=== PATIENT | female | born 1970 | race Caucasian/White ===

== ENCOUNTER 2024-02-22 14:21 | Emergency (ER) | payer OTHER, SELFPAY ==
[2024-02-22] VITALS (18 sets, daily range): BP systolic 119–167; BP diastolic 76–99; PULSE 64–99; TEMP 37; O2SAT 95–99; BMI 29.0
--- NOTE | 2024-02-22 14:34 | ECG_ITS ---
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
--- NOTE | 2024-02-22 14:35 | ED_ITS ---
HPI - Arrhythmia/Palpitations General Chief Complaint: Arrhythmia/Palpitations Stated Complaint: POSSIBLE AFIB Time Seen by Provider: 02/22/24 14:31 Source: patient Mode of arrival: walk-in Limitations: no limitations History of Present Illness HPI narrative: Patient is a 53-year-old female who presents to the emergency department for the evaluation of palpitations that began yesterday. Patient states she feels anxious because she went to her doctor's office yesterday and was told that her heart rate was irregular . She denies chest pain, shortness of breath, peripheral edema. She denies any significant excessive caffeine consumption. She has not had any fevers, chills, cough, congestion. She has a history of hypertension, no other coronary artery disease or stroke. Her PCP did not order any further testing other than telling the patient she had an irregular heartbeat. Related Data Allergies Allergy/AdvReac Type Severity Reaction Status Date / Time Sulfa (Sulfonamide Allergy Severe Hives Verified 02/22/24 14:27 Antibiotics) Review of Systems ROS Constitutional Denies: fever or chills Ears, nose, mouth, and throat Denies: throat pain Cardiovascular Reports: palpitations; Denies: chest pain Respiratory Denies: shortness of breath or cough Gastrointestinal Denies: nausea or vomiting Musculoskeletal Denies: back pain Integumentary/Breast Denies: rash Hematologic/Lymphatic Denies: easy bruising or easy bleeding Exam Narrative Exam Narrative: Gen.: Awake, alert, in no distress Head: Normocephalic, atraumatic ENT: Moist mucous membranes Respiratory: No respiratory distress, lungs clear bilaterally Cardio: Regular rate and rhythm, occasional ectopy Extremities: Moves extremities equally, no pedal edema Psych: Normal mood and affect Neuro: No focal neuro deficit Skin: Warm, dry, intact Constitutional Vital Signs, click to edit/add: Last Vital Signs Temp 98.6 F 02/22/24 14:27 Pulse 86 02/22/24 15:20 Resp 15 02/22/24 15:20 BP 119/76 02/22/24 15:01 Pulse Ox 98 02/22/24 15:20 O2 Del Method Room Air 02/22/24 14:32 Course Vital Signs Vital signs: Vital Signs Temperature 98.6 F 02/22/24 14:27 Pulse Rate 64 02/22/24 14:27 Respiratory Rate 18 02/22/24 14:27 Blood Pressure 167/99 H 02/22/24 14:27 Pulse Oximetry 98 02/22/24 14:27 Oxygen Delivery Method Room Air 02/22/24 14:27 Temperature 98.6 F 02/22/24 14:27 Pulse Rate 86 02/22/24 15:20 Respiratory Rate 15 02/22/24 15:20 Blood Pressure 119/76 02/22/24 15:01 Pulse Oximetry 98 02/22/24 15:20 Oxygen Delivery Method Room Air 02/22/24 14:32 MDM - Arrhythmia/Palpitations MDM Narrative Medical decision making narrative: EG shows normal sinus rhythm with PVCs. Patient was given education and reassurance that she is not in A-fib. Lab studies including troponin, D-dimer and BNP are within normal limits. Thyroid studies are also normal and chest x- ray shows no evidence of acute cardiopulmonary changes. Patient was discharged with cardiology follow-up if symptoms persist. Return to the ER if symptoms change or worsen SUPERVISED APC VISIT, PHYSICIAN ATTESTATION: Based on the medical record the care appears appropriate. ? Medical Records Attestation: I reviewed the patient's medical records. Lab Data Attestation: I reviewed the patient's lab results. Labs: Lab Results 02/22/24 Range/Units 14:38 WBC 7.1 (4.0-11.0) 10^3/uL RBC 4.48 (4.20-5.40) 10^6/uL Hgb 14.4 (12.0-16.0) g/dL Hct 42.3 (36.0-48.0) % MCV 94.4 (81.0-99.0) fL MCH 32.1 (26.7-34.0) pg MCHC 34.0 (29.9-35.2) g/dL RDW 13.2 (11.0-15.0) % Plt Count 230 (150-450) 10^3/uL MPV 10.0 (9.5-13.5) fL Neut % (Auto) 60.7 (43.0-75.0) % Lymph % (Auto) 30.5 (20.5-60.0) % [place]y % (Auto) 7.4 (1.7-12.0) % Eos % (Auto) 0.7 L (0.9-7.0) % Baso % (Auto) 0.4 (0.2-2.0) % Neut # (Auto) 4.3 (1.4-6.5) 10^3/uL Lymph # (Auto) 2.2 (1.2-3.8) 10^3/uL [place]y # (Auto) 0.5 (0.3-0.8) 10^3/uL Eos # (Auto) 0.1 (0.0-0.7) 10^3/uL Baso # (Auto) 0.0 (0.0-0.1) 10^3/uL Abs Immat Gran (auto) 0.02 (0.00-0.03) 10^3/uL Imm/Tot Granulo (auto) 0.3 (0.0-0.5) % PT 10.3 (9.0-11.6) sec INR 0.97 D-Dimer 0.37 (<=0.59) mg/L FEU Sodium 138 (136-145) mmol/L Potassium 4.0 (3.5-5.1) mmol/L Chloride 103 (98-107) mmol/L Carbon Dioxide 26.5 (21.0-32.0) mmol/L Anion Gap 12.5 BUN 14.0 (7.0-18.0) mg/dL Creatinine 0.75 (0.55-1.02) mg/dL Est GFR ( Amer) >60 (>=60) Est GFR (Non-Af Amer) >60 (>=60) BUN/Creatinine Ratio 18.7 Glucose 110 H (74-106) mg/dL Calcium 9.8 (8.5-10.1) mg/dL Total Bilirubin 0.4 (0.2-1.0) mg/dL AST 31 (15-37) U/L ALT 33 (14-59) U/L Alkaline Phosphatase 102 (46-116) U/L Troponin I High Sens 4.6 (4.0-51.3) pg/mL NT-Pro-B Natriuret Pep 46.0 (<=900.0) pg/mL Total Protein 8.1 (6.4-8.2) g/dL Albumin 4.2 (3.4-5.0) g/dL Globulin 3.9 g/dL Albumin/Globulin Ratio 1.1 TSH 3.143 (0.358-3.740) uIU/mL Imaging Data Chest x-ray: Attestation: I have reviewed the pertinent imaging results. Radiologist's impression: ITS Impressions Chest X-Ray 02/22/24 15:28 IMPRESSION: No acute cardiopulmonary process Electronically authenticated by: LYSSA PALOMO Date: 02/22/2024 16:11 ECG Data Attestation: I personally reviewed and interpreted this ECG as follows: (Normal sinus rhythm at a rate of 96 with frequent PVCs, no acute ST elevation. EKG reviewed by attending physician) Discharge Plan Discharge Stand Alone Forms: Portal Instructions Chief Complaint: Arrhythmia/Palpitations Clinical Impression: Palpitations Patient Disposition: Home, Self-Care Time of Disposition Decision: 16:20 Condition: Good Print Language: Faroese Instructions: Heart Palpitations (ED), Premature Ventricular Contractions (ED) Referrals: Ritu Eng NP [Primary Care Provider] - 1 week YAZMIN MURRY [Physician] - As needed
[2024-02-22] MEDS: 0.9 % SODIUM CHLORIDE 1,000 ML 999 ML IV (14:45)
[2024-02-22 14:49] LABS: Basophils Percent Auto 0.4 % (0.2-2.0); Eosinophils Absolute Auto 0.1 10^3/uL (0.0-0.7); Eosinophils Percent Auto 0.7 % (0.9-7.0); Hematocrit 42.3 % (36.0-48.0); Hemoglobin 14.4 g/dL (12.0-16.0); Immature Granulocytes Abs Auto 0.02 10^3/uL (0.00-0.03); Immature Granulocytes Pct Auto 0.3 % (0.0-0.5); Lymphocytes Absolute Auto 2.2 10^3/uL (1.2-3.8); Lymphocytes Percent Auto 30.5 % (20.5-60.0); Mean Corpuscular Hemoglobin 32.1 pg (26.7-34.0); Mean Corpuscular Volume 94.4 fL (81.0-99.0); Monocytes Absolute Auto 0.5 10^3/uL (0.3-0.8); Monocytes Percent Auto 7.4 % (1.7-12.0); Neutrophils Absolute Auto 4.3 10^3/uL (1.4-6.5); Neutrophils Percent Auto 60.7 % (43.0-75.0); Platelet Count 230 10^3/uL (150-450); Red Blood Count 4.48 10^6/uL (4.20-5.40); Red Cell Distribution Width 13.2 % (11.0-15.0); White Blood Count 7.1 10^3/uL (4.0-11.0)
[2024-02-22 15:06] LABS: Alanine Aminotransferase 33 U/L (14-59); Albumin Globulin Ratio 1.1; Albumin Level 4.2 g/dL (3.4-5.0); Alkaline Phosphatase 102 U/L (46-116); Anion Gap 12.5; Aspartate Amino Transferase 31 U/L (15-37); BUN Creatinine Ratio 18.7; Bilirubin Total 0.4 mg/dL (0.2-1.0); Calcium 9.8 mg/dL (8.5-10.1); Carbon Dioxide 26.5 mmol/L (21.0-32.0); Chloride 103 mmol/L (98-107); Estimated GFR (African America >60 (>=60); Estimated GFR (Non-African Ame >60 (>=60); Globulin 3.9 g/dL; Glucose 110 mg/dL (74-106); Sodium 138 mmol/L (136-145); Total Protein 8.1 g/dL (6.4-8.2)
[2024-02-22 15:13] LABS: Thyroid Stimulating Hormone 3.143 uIU/mL (0.358-3.740); Troponin I High Sensitivity 4.6 pg/mL (4.0-51.3)
[2024-02-22 15:25] LABS: D Dimer 0.37 mg/L FEU (<=0.59); INR 0.97; Prothrombin Time 10.3 sec (9.0-11.6)
--- NOTE | 2024-02-22 15:28 | XR_ITS ---
The [address] [address] Patient Name: VILMA RICHARDSON MRN: [id number] date: 1970 Sex: F Assigned Patient Location: ER Current Patient Location: ED.MAIN Accession/Order Number: [id number] Exam Date: 02/22/2024 15:30 Report Date: 02/22/2024 16:11 At the request of: ELISABET TERRY Procedure: XR chest 1V EXAMINATION: XR chest 1V HISTORY: Palpitations COMPARISON: No relevant comparison available. TECHNIQUE: Portable FINDINGS: LUNGS: No significant pulmonary parenchymal abnormalities. VASCULATURE: No increased pulmonary vasculature. PLEURA: No pneumothorax, effusion, or pleural thickening. CARDIAC: No cardiomegaly or cardiac silhouette abnormality. MEDIASTINUM: No visible mass or adenopathy. BONES: No fracture or visible bone lesion. OTHER: Negative. XR/XR chest 1V IMPRESSION: No acute cardiopulmonary process Electronically authenticated by: LYSSA PALOMO Date: 02/22/2024 16:11
== END 2024-02-22 16:32 | disposition home or self-care (01) ==
PROVIDERS: Physician Assistant; Emergency Provider Student in an Organized Health Care Education/Training Program; PCP Nurse Practitioner
DX: R00.2 Palpitations (principal); I10 Essential (primary) hypertension
CPT/HCPCS: 36415; 71045; 80053; 83880; 84443; 84484; 85025; 85378; 85610; 93005; 99285

== ENCOUNTER 2024-03-13 10:51 | Outpatient (OUT) | payer OTHER, SELFPAY ==
--- NOTE | 2024-03-13 10:58 | MM_ITS ---
Patient Name: VILMA RICHARDSON MR#: [id number] : 1970 Exam Date: 03/13/2024 Ordering Doctor: GUZMAN Eng CNP RADIOLOGY REPORT PROCEDURE: MM TOMOSYNTHESIS SCREENING BI COMPARISON: MG MAMM SCREEN 3D AARON CAD, 06/07/2021. MG MAMM SCREEN 3D AARON CAD, 07/12/2022. INDICATIONS: Screening Calculator Name NCI Breast Cancer Risk Assessment Tool 5 Year Breast Cancer Risk 0.80% Lifetime Breast Cancer Risk 6.20% Personal Breast Cancer No Personal Ovarian Cancer No Treatments None Family Cancers Grandmother-maternal with breast cancer at age 53. LOCATION: [facility] BREAST COMPOSITION: The breasts are heterogeneously dense,which may obscure small masses. FINDINGS: DIAGNOSTIC CATEGORY 2--BENIGN FINDING. NO CHANGE FROM COMPARISON. Scattered benign-appearing nodules are present. Scattered benign-appearing calcifications are present. Scattered benign-appearing lymph nodes are present. RIGHT BREAST: No significant suspicious finding. LEFT BREAST: No significant suspicious finding. RECOMMENDATIONS: ROUTINE MAMMOGRAM AND CLINICAL EVALUATION IN 12 MONTHS. PLEASE NOTE: A NORMAL MAMMOGRAM DOES NOT EXCLUDE THE POSSIBILITY OF BREAST CANCER. A CLINICALLY SUSPICIOUS PALPABLE LUMP SHOULD BE BIOPSIED. Dictated by: Seth Mary MD on 03/13/2024 at 12:06 Approved by: Seth Mary MD on 03/13/2024 at 12:15
[2024-03-13 11:31] LABS: Basophils Percent Auto 0.7 % (0.2-2.0); Eosinophils Absolute Auto 0.2 10^3/uL (0.0-0.7); Eosinophils Percent Auto 4.1 % (0.9-7.0); Hematocrit 39.9 % (36.0-48.0); Hemoglobin 13.7 g/dL (12.0-16.0); Immature Granulocytes Abs Auto 0.01 10^3/uL (0.00-0.03); Immature Granulocytes Pct Auto 0.2 % (0.0-0.5); Lymphocytes Absolute Auto 1.6 10^3/uL (1.2-3.8); Lymphocytes Percent Auto 28.5 % (20.5-60.0); Mean Corpuscular HGB Conc 34.3 g/dL (29.9-35.2); Mean Corpuscular Hemoglobin 32.4 pg (26.7-34.0); Mean Corpuscular Volume 94.3 fL (81.0-99.0); Mean Platelet Volume 9.8 fL (9.5-13.5); Monocytes Absolute Auto 0.4 10^3/uL (0.3-0.8); Monocytes Percent Auto 7.2 % (1.7-12.0); Neutrophils Absolute Auto 3.3 10^3/uL (1.4-6.5); Neutrophils Percent Auto 59.3 % (43.0-75.0); Platelet Count 237 10^3/uL (150-450); Red Blood Count 4.23 10^6/uL (4.20-5.40); Red Cell Distribution Width 13.4 % (11.0-15.0); White Blood Count 5.6 10^3/uL (4.0-11.0)
[2024-03-13 12:04] LABS: Creatinine Urine Random 113.32 mg/dL (20.00-300.00); Microalbumin Urine Random <1.3 mg/dL (<=30.0)
[2024-03-13 12:37] LABS: Bilirubin Urine NEGATIVE (NEGATIVE); Blood Urine NEGATIVE (NEGATIVE); Clarity Urine CLEAR (CLEAR); Color Urine YELLOW (YELLOW); Glucose Urine UA NEGATIVE (NEGATIVE); Ketones Urine NEGATIVE (NEGATIVE); Leukocyte Esterase Urine NEGATIVE (NEGATIVE); Nitrite Urine NEGATIVE (NEGATIVE); Protein Urine NEGATIVE (NEG/TRACE); Specific Gravity Urine >=1.030 (1.005-1.025); Urobilinogen Urine 0.2 EU/dL (0.2-1.0); pH Urine 5.5 (5.0-9.0)
[2024-03-13 12:45] LABS: Urine Microscopic Indicated NO
[2024-03-13 13:14] LABS: Alanine Aminotransferase 40 U/L (14-59); Albumin Globulin Ratio 1.1; Alkaline Phosphatase 89 U/L (46-116); Anion Gap 16.7; Aspartate Amino Transferase 36 U/L (15-37); BUN Creatinine Ratio 13.9; Bilirubin Total 0.5 mg/dL (0.2-1.0); Calcium 9.3 mg/dL (8.5-10.1); Chloride 103 mmol/L (98-107); Chol HDL Ratio 3.1; Cholesterol 210 mg/dL (<=200); Estimated GFR (African America >60 (>=60); Estimated GFR (Non-African Ame >60 (>=60); Globulin 3.8 g/dL; Glucose 108 mg/dL (74-106); HDL Cholesterol 68 mg/dL (40-60); Potassium 3.7 mmol/L (3.5-5.1); Sodium 141 mmol/L (136-145); Total Protein 7.8 g/dL (6.4-8.2); Triglycerides 179 mg/dL (<=150); VLDL CHOLESTEROL 35.8 mg/dL
== END 2024-03-13 10:52 | disposition home or self-care (01) ==
LOC: MAMMO 10:51
PROVIDERS: PCP Nurse Practitioner; Visit Provider Nurse Practitioner
DX: Z12.31 Encounter for screening mammogram for malignant neoplasm of breast (principal); J43.2 Centrilobular emphysema; E78.2 Mixed hyperlipidemia; I10 Essential (primary) hypertension; Z80.3 Family history of malignant neoplasm of breast
CPT/HCPCS: 36415; 77063; 77067; 80053; 80061; 81003; 82043; 82570; 85025

== ENCOUNTER 2024-06-18 12:36 | Outpatient (OUT) | payer OTHER, SELFPAY ==
--- OUTSIDE RECORDS SUMMARY | 2024-06-18 12:42 | XMS_ITS | CCD ---
Author Organization [facility] Care Team Providers Care Installation Service Representative Name Role Phone CASEY SAAVEDRA MD Unavailable Unavailable UNASSIGNED, DOCTOR Unavailable Unavailable CASEY SAAVEDRA MD Unavailable Unavailable UNASSIGNED, DOCTOR Unavailable Unavailable PHYSICIAN, DEFAULT Unavailable Unavailable PHYSICIAN, DEFAULT Unavailable Unavailable SHENDGE, VITHAL Unavailable Unavailable SHENDGE, VITHAL Unavailable Unavailable ERIC, GUALBERTO Unavailable Unavailable ERIC, GUALBERTO Unavailable Unavailable AK Unavailable Unavailable SHENDGE, VITHAL Unavailable Unavailable AK Unavailable Unavailable YAJAIRA MUÑIZ Unavailable Unavailable SHENDGE, VITHAL Unavailable Unavailable SHENDGE, VITHAL Unavailable Unavailable ERIC, GUALBERTO Unavailable Unavailable ERIC, GUALBERTO Unavailable Unavailable SHENDGE, VITHAL Unavailable Unavailable AK Unavailable Unavailable SONIA COBB Unavailable Unavailable AK Unavailable Unavailable AICHHOLZ, COMMUNITY DEVELOPMENT WORKER RITU Attending Unavailable AICHHOLZ, COMMUNITY DEVELOPMENT WORKER RITU Consulting Unavailable AICHHOLZ, COMMUNITY DEVELOPMENT WORKER RITU Primary Care Unavailable AICHHOLZ, COMMUNITY DEVELOPMENT WORKER RITU Admitting Unavailable AICHHOLZ, COMMUNITY DEVELOPMENT WORKER RITU Admitting Unavailable AICHHOLZ, COMMUNITY DEVELOPMENT WORKER RITU Attending Unavailable AICHHOLZ, COMMUNITY DEVELOPMENT WORKER RITU Consulting Unavailable AICHHOLZ, COMMUNITY DEVELOPMENT WORKER RITU Primary Care Unavailable DR JANN DOUGHERTY Consulting Unavailable AICHHOLZ, COMMUNITY DEVELOPMENT WORKER RITU Admitting Unavailable AICHHOLZ, COMMUNITY DEVELOPMENT WORKER RITU Attending Unavailable AICHHOLZ, COMMUNITY DEVELOPMENT WORKER RITU Consulting Unavailable AICHHOLZ, COMMUNITY DEVELOPMENT WORKER RITU Primary Care Unavailable AICHHOLZ, COMMUNITY DEVELOPMENT WORKER RITU Admitting Unavailable AICHHOLZ, COMMUNITY DEVELOPMENT WORKER RITU Attending Unavailable AICHHOLZ, COMMUNITY DEVELOPMENT WORKER RITU Consulting Unavailable AICHHOLZ, COMMUNITY DEVELOPMENT WORKER RITU Primary Care Unavailable AICHHOLZ, COMMUNITY DEVELOPMENT WORKER RITU Attending Unavailable AICHHOLZ, COMMUNITY DEVELOPMENT WORKER RITU Consulting Unavailable AICHHOLZ, COMMUNITY DEVELOPMENT WORKER RITU Primary Care Unavailable AICHHOLZ, COMMUNITY DEVELOPMENT WORKER RITU Admitting Unavailable DR JANN DOUGHERTY Consulting Unavailable AICHHOLZ, RITU J Primary Care Unavailable JERRELL LOPEZ Attending Unavailable MARTINNANCY Paco Admitting Unavailable LYSSA RALPH Consulting Unavailable JHON LYONS Consulting Unavailable JERRELL LOPEZ Attending Unavailable JERRELL LOPEZ Referring Unavailable RITU ENG Primary Care Unavailable JOHN LYONS Attending Unavailable JHON LYONS Referring Unavailable RITU ENG Primary Care Unavailable Albertina PINO, Ritu Unavailable Unallocated , Noms Provider Primary Care Provi song RITU ENG Attending Unavailable RITU ENG Attending Unavailable Allergies Allergy Classification Reported Allergen(s) Allergy Type Date of Onset Reaction(s) Facility (1 source) NKA; Translations: [NKA] Propensity to adverse reactions (disorder) 7 [facility] Repository (1 source) No Known Allergies; Translations: [No Known Allergies] Propensity to adverse reactions (disorder) [facility] Repository (1 source) metaproterenol Drug Allergy 7 [facility] Repository (1 source) Sulfonamides (Antibiotic); Translations: [SULFA (SULFONAMIDE ANTIBIOTICS)] Propensity to adverse reactions to drug (disorder) 2 [facility] Repository (3 sources) metaproterenol Drug Allergy 4 Unknown [facility] Healthcare Work Phone: (3 sources) Sulfonamides (Antibiotic) Drug Intolerance 2 Hives [facility] Healthcare Medications Current Medications Medication Drug Class(es) Dates Sig (Normalized) Sig (Original) [id number] 200 actuat albuterol 0.09 mg/actuat metered dose inhaler (3 sources) beta2-Adrenergic Agonist Start: 05-07-2024 End: 08-05-2024 take 2 puff(s) by inhalation every six hours for wheezing albuterol HFA 90 mcg/act inhaler Indications: Centrilobular emphysema (CMS/HCC) Inhale 2 puffs every 6 (six) hours if needed for wheezing 54 g 05/07/2024 08/05/2024 Active cetirizine hydrochloride 10 mg oral tablet (3 sources) Histamine-1 Receptor Antagonist Start: 04-16-2024 End: 07-15-2024 take 1 tablet by mouth once daily cetirizine (ZyrTEC) 10 MG tablet Indications: Urticaria, unspecified , Urticaria Take 1 tablet (10 mg) by mouth Daily 90 tablet 1 04/16/2024 07/15/2024 Active gabapentin 300 mg oral capsule (5 sources) Anti-epileptic Agent Start: 02-27-2024 End: 09-03-2024 take 1 capsule by mouth once daily gabapentin (Neurontin) 300 MG capsule Indications: Fibromyalgia Take 1 capsule (300 mg) by mouth Daily 90 capsule 1 06/05/2024 09/03/2024 Active hydroCHLOROthiazide 12.5 mg / lisinopril 20 mg oral tablet (3 sources) Thiazide Diuretic, Angiotensin Converting Enzyme Inhibitor Start: 04-09-2024 End: 07-08-2024 take 1 tablet by mouth in the morning lisinopril-hydroCH LOROthiazide 20-12.5 MG tablet Indications: Primary hypertension (CMS/HCC) Take 1 tablet by mouth in the morning. 90 tablet 1 04/09/2024 07/08/2024 Active simvastatin 40 mg oral tablet (3 sources) HMG-CoA Reductase Inhibitor Start: 04-09-2024 End: 07-08-2024 take 1 tablet by mouth at bedtime simvastatin (Zocor) 40 MG tablet Indications: Mixed hyperlipidemia (CMS/HCC) Take 1 tablet (40 mg) by mouth at bedtime 90 tablet 1 04/09/2024 07/08/2024 Active Problems Active Problems Problem Classification Problem Date Documented Date Episodic/Chronic Acute cerebrovascular disease (1 source) Acute cerebrovascular disease Onset: 10-05-2023 Alcohol-related disorders (1 source) Alcohol use, unspecified with intoxication delirium; Translations: [Alcohol use, unspecified with intoxication delirium] Onset: 10-05-2023 Episodic Cardiac dysrhythmias (5 sources) Irregular heart beat; Translations: [Cardiac arrhythmia, unspecified] Onset: 02-22-2024 02-22-2024 Chronic Chronic obstructive pulmonary disease and bronchiectasis (10 sources) Emphysema, unspecified; Translations: [Chronic obstructive pulmonary disease with (acute) exacerbation] Onset: 08-09-2021 Chronic Diabetes mellitus without complication (3 sources) Increased glucose level; Translations: [Other abnormal glucose] Onset: 03-13-2024 03-13-2024 Episodic Disorders of lipid metabolism (7 sources) Mixed hyperlipidemia; Translations: [Mixed hyperlipidemia] Onset: 06-14-2022 Chronic Essential hypertension (7 sources) Essential (primary) hypertension; Translations: [Essential hypertension] Onset: 07-14-2017 08-05-2023 Chronic Heart valve disorders (2 sources) Irregular heart beat 06-05-2024 Episodic Immunizations and screening for infectious disease (4 sources) Needs influenza immunization; Translations: [Encounter for immunization] Onset: 06-05-2024 06-05-2024 Episodic Osteoarthritis (5 sources) Unilateral primary osteoarthritis, left hip; Translations: [Primary osteoarthritis, left shoulder] Onset: 09-24-2021 02-22-2024 Chronic Other connective tissue disease (5 sources) Fibromyalgia; Translations: [Fibromyalgia] Onset: 02-22-2024 02-22-2024 Episodic Other nervous system disorders (8 sources) Carpal tunnel syndrome, left upper limb; Translations: [Carpal tunnel syndrome, right upper limb] Onset: 07-14-2017 Chronic Other screening for suspected conditions (not mental disorders or infectious disease) (16 sources) Encounter for screening mammogram for malignant neoplasm of breast; Translations: [Encounter for screening for malignant neoplasm of cervix] Onset: 04-11-2022 Episodic Other upper respiratory disease (3 sources) Allergic disposition; Translations: [Other allergic rhinitis] Onset: 10-05-2023 10-05-2023 Chronic Residual codes; unclassified (1 source) Family history of malignant neoplasm of breast; Translations: [FAMILY HX MALIG NEOPLASM OF BREAST] Onset: 07-16-2022 Episodic Residual codes; unclassified (1 source) Altered mental status, unspecified; Translations: [Altered mental status, unspecified] Onset: 10-05-2023 Episodic Residual codes; unclassified (1 source) Altered mental status Onset: 10-05-2023 Episodic Substance-related disorders (1 source) Nicotine dependence, cigarettes, uncomplicated; Translations: [NICOTINE DEPENDENCE, CIGARETTES, UNCOMPLICATED] Onset: 07-14-2017 Chronic Unclassified (1 source) Dermatochalasis of right upper eyelid / H02.831(ICD-10) Onset: 11-23-2017 Unclassified (1 source) Dermatochalasis of left upper eyelid / H02.834(ICD-10) Onset: 11-23-2017 Unclassified (2 sources) Unknown / UNK(Unknown) Onset: 07-14-2017 Unclassified (1 source) Pure hypercholesterolemia, unspecified; Translations: [PURE HYPERCHOLESTEROLEMIA, UNSPECIFIED] Onset: 07-14-2017 Unclassified (1 source) AMS Onset: 10-05-2023 Past or Other Problems Problem Classification Problem Date Documented Date Episodic/Chronic Epilepsy; convulsions (4 sources) Unspecified convulsions; Translations: [Neurological finding] Onset: 10-05-2023 02-22-2024 Episodic Other connective tissue disease (3 sources) Pain of bilateral hands; Translations: [Pain in right hand] Onset: 05-19-2017 02-22-2024 Episodic Other non-traumatic joint disorders (4 sources) Pain in left shoulder; Translations: [PAIN IN LEFT SHOULDER] Onset: 09-20-2021 Episodic Other non-traumatic joint disorders (1 source) Pain in left hip; Translations: [PAIN IN LEFT HIP] Onset: 09-24-2021 Episodic Other non-traumatic joint disorders (1 source) Pain in left knee; Translations: [PAIN IN LEFT KNEE] Onset: 09-24-2021 Episodic Unclassified (1 source) Dermatochalasis of right upper eyelid; Translations: [Dermatochalasis of right upper eyelid] Onset: 11-23-2017 Unclassified (1 source) Dermatochalasis of left upper eyelid; Translations: [Dermatochalasis of left upper eyelid] Onset: 11-23-2017 Unclassified (2 sources) Patient encounter status 06-05-2024 Results Test Name Value Interpretation Reference Range Facility AMMONIAon 10-05-2023 Ammonia (P) [Moles/Vol] 30 umol/L Normal 11-[address] [facility] Comment on above: Performed By: #### 1 6362-6 #### [facility] ([id number]) [address] [place] [address] CBC AND AUTO DIFFon 10-05-19 24 ABSOLUTE BASOPHIL 0.1 X10E9/L Normal 0.0-0.2 [facility] Comment on above: Performed By: #### C BCA, CMP, 55788-5, 03862-2, 5643-2 #### [facility] ([id number]) [address] [place] [address] ABSOLUTE NEUTROPHIL 3.8 X10E9/L Normal 1.5-6.[address] [facility] Comment on above: Performed By: #### C BCA, CMP, 80995-1, 10311-2, 5643-2 #### [facility] ([id number]) [address] [place] [address] Basophils/100 WBC (Bld) 0.7 % Normal [facility] Comment on above: Performed By: #### C BCA, CMP, 58975-7, 45912-7, 5643-2 #### [facility] ([id number]) [address] [place] [address] Eosinophils (Bld) [#/Vol] 0.1 10*3/uL Normal 0.0-0.[address] [facility] Comment on above: Performed By: #### C BCA, CMP, 57027-6, 87472-0, 5643-2 #### [facility] ([id number]) [address] [place] [address] Eosinophils/100 WBC (Bld) 0.9 % Normal [facility] Comment on above: Performed By: #### C BCA, CMP, 56901-0, 45396-3, 5643-2 #### [facility] ([id number]) [address] [place] [address] Erythrocyte distribution width (RBC) [Ratio] 13.1 % Normal 11.5-15.[address] [facility] Comment on above: Performed By: #### C BCA, CMP, 64401-9, 00259-4, 5643-2 #### [facility] ([id number]) [address] [place] [address] Hematocrit (Bld) [Volume fraction] 38.5 % Normal 35-[address] [facility] Comment on above: Performed By: #### C BCA, CMP, 46039-5, 56752-7, 5643-2 #### [facility] ([id number]) [address] [place] [address] Hemoglobin (Bld) [Mass/Vol] 13.5 g/dL Normal 11.7-15.[address] [facility] Comment on above: Performed By: #### C SANDRO CMP, 72390-5, 22980-6, 5643-2 #### [facility] ([id number]) [address] [place] [address] Lymphocytes (Bld) [#/Vol] 2.5 10*3/uL Normal 1.0-3.[address] [facility] Comment on above: Performed By: #### C SANDRO, CMP, 00214-6, 74885-7, 5643-2 #### [facility] ([id number]) [address] [place] [address] Lymphocytes/100 WBC (Bld) 36.9 % Normal [facility] Comment on above: Performed By: #### Vernon JO CMP, 20849-8, 91248-4, 5643-2 #### [facility] ([id number]) [address] [place] [address] MCH (RBC) [Entitic mass] 32.6 pg Normal 27-[address] [facility] Comment on above: Performed By: #### C SANDRO CMP, 68160-2, 33947-1, 5643-2 #### [facility] ([id number]) [address] [place] [address] MCHC (RBC) [Mass/Vol] 35.1 g/dL Normal 32-[address] [facility] Comment on above: Performed By: #### C BCA, CMP, 06424-9, 87713-8, 5643-2 #### [facility] ([id number]) [address] [place] [address] MCV (RBC) [Entitic vol] 93 fL Normal 80-[address] [facility] Comment on above: Performed By: #### C BCA, CMP, 55552-2, 74465-6, 5643-2 #### [facility] ([id number]) [address] [place] [address] Monocytes (Bld) [#/Vol] 0.4 10*3/uL Normal 0-0.[address] [facility] Comment on above: Performed By: #### C BCA, CMP, 87065-8, 34475-8, 5643-2 #### [facility] ([id number]) [address] [place] [address] Monocytes/100 WBC (Bld) 6.3 % Normal [facility] Comment on above: Performed By: #### C BCA, CMP, 00359-7, 52199-8, 5643-2 #### [facility] ([id number]) [address] [place] [address] Neutrophils/100 WBC (Bld) 55.2 % Normal [facility] Comment on above: Performed By: #### C BCA, CMP, 74814-5, 10437-0, 5643-2 #### [facility] ([id number]) [address] [place] [address] Platelet mean volume (Bld) [Entitic vol] 7.8 fL Normal 7-[address] [facility] Comment on above: Performed By: #### C BCA, CMP, 41377-7, 79197-7, 5643-2 #### [facility] ([id number]) [address] [place] [address] Platelets (Bld) [#/Vol] 201 10*3/uL Normal 150-[address] [facility] Comment on above: Performed By: #### C BCA, CMP, 68685-1, 00803-4, 5643-2 #### [facility] ([id number]) [address] [place] [address] RBC COUNT 4.14 X10E12/L Normal 3.80-5.[address] [facility] Comment on above: Performed By: #### C BCA, CMP, 37069-0, 98321-9, 5643-2 #### [facility] ([id number]) [address] [place] [address] WBC (Bld) [#/Vol] 6.8 10*3/uL Normal 4.0-11.0 [facility] Comment on above: Performed By: #### C BCA, CMP, 72192-2, 27237-7, 5643-2 #### [facility] ([id number]) [address] [place] [address] COMPREHENSIVE METABOLIC PANE Syed 10-05-2023 Albumin [Mass/Vol] 3.9 g/dL Normal 3.2-5.3 [facility] Comment on above: Performed By: #### C BCA, CMP, 96162-2, 47091-4, 5643-2 #### [facility] ([id number]) [address] [place] [address] ALP [Catalytic activity/Vol] 80 U/L Normal 39-[address] [facility] Comment on above: Performed By: #### C BCA, CMP, 12518-7, 86269-6, 5643-2 #### [facility] ([id number]) [address] [place] [address] ALT [Catalytic activity/Vol] 28 U/L Normal 0-[address] [facility] Comment on above: Performed By: #### C BCA, CMP, 32640-9, 38205-6, 5643-2 #### [facility] ([id number]) [address] [place] [address] Anion gap [Moles/Vol] 11 mmol/L Normal 5-[address] [facility] Comment on above: Performed By: #### C BCA, CMP, 57287-2, 05018-6, 5643-2 #### [facility] ([id number]) [address] [place] [address] AST [Catalytic activity/Vol] 40 U/L Normal 0-[address] [facility] Comment on above: Performed By: #### C BCA, CMP, 78607-5, 04560-7, 5643-2 #### [facility] ([id number]) [address] [place] [address] Bilirubin [Mass/Vol] 0.6 mg/dL Normal 0.3-1.[address] [facility] Comment on above: Performed By: #### C BCA, CMP, 18397-7, 90100-2, 5643-2 #### [facility] ([id number]) [address] [place] [address] Calcium [Mass/Vol] 8.6 mg/dL Normal 8.5-10.5 [facility] Comment on above: Performed By: #### C BCA, CMP, 29832-4, 38875-5, 5643-2 #### [facility] ([id number]) [address] [place] [address] Chloride [Moles/Vol] 99 mmol/L Normal 98-[address] [facility] Comment on above: Performed By: #### C BCA, CMP, 75058-7, 09501-4, 5643-2 #### [facility] ([id number]) [address] [place] [address] CO2 [Moles/Vol] 21 mmol/L Low 22-[address] [facility] Comment on above: Performed By: #### C BCA, CMP, 08404-6, 02849-5, 5643-2 #### [facility] ([id number]) [address] [place] [address] Creatinine [Mass/Vol] 0.57 mg/dL Normal 0.40-1.[address] [facility] Comment on above: Result Comment: METH OD TRACEABLE TO IDMS STANDARD Performed By: #### C BCA, CMP, 08781-6, 24038-5, 5643-2 #### [facility] ([id number]) [address] [place] [address] eGFR (CKD-EPI) NON-RACE DEPENDENT >90 Normal >[address] [facility] Comment on above: Result Comment: Reported eGFR is based on the CKD-EPI 1 equation that does not use a race coefficient. Performed By: #### C BCA, CMP, 81290-2, 87022-2, 5643-2 #### [facility] ([id number]) [address] [place] [address] Glucose [Mass/Vol] 99 mg/dL Normal 65-99 [facility] Comment on above: Performed By: #### C BCA, CMP, 64339-7, 95062-2, 5643-2 #### [facility] ([id number]) [address] [place] [address] Potassium [Moles/Vol] 3.5 mmol/L Normal 3.5-5.[address] [facility] Comment on above: Performed By: #### C BCA, CMP, 66825-5, 28252-1, 5643-2 #### [facility] ([id number]) [address] [place] [address] Protein [Mass/Vol] 7.2 g/dL Normal 6.0-8.0 [facility] Comment on above: Performed By: #### C BCA, CMP, 99551-4, 15870-0, 5643-2 #### [facility] ([id number]) [address] [place] [address] Sodium [Moles/Vol] 131 mmol/L Low 134-146 [facility] Comment on above: Performed By: #### C BCA, CMP, 02590-0, 49699-1, 5643-2 #### [facility] ([id number]) [address] [place] [address] Urea nitrogen [Mass/Vol] 10 mg/dL Normal 5-[address] [facility] Comment on above: Performed By: #### C BCA, CMP, 63249-5, 54670-1, 5643-2 #### [facility] ([id number]) [address] [place] [address] CT BRAIN WO CONT STROKE ALER Ton 10-05-[address]23 CT BRAIN WO CONT STROKE ALERT CT BRAIN WO CONT STROKE ALERT Noncontrast head CT, 10/04/2023 History: Confusion Comparison: CT head 01/09/2020 Technique: Multi-detector CT performed through the brain without IV contrast. Automated exposure control was utilized. Findings: There is no intracranial hemorrhage, extra-axial fluid collection, mass effect, or hydrocephalus. There is no midline shift. Basilar cisterns are patent. Owens-white matter differentiation is appropriate. No definite acute infarct identified. The visualized orbits, paranasal sinuses and mastoid air cells are unremarkable. Osseous structures are intact. IMPRESSION: 1. No acute intracranial process. All CT scans at this facility use dose modulation, iterative reconstruction, and/or weight based dosing when appropriate to reduce radiation dose to as low as reasonably achievable. Finalized by Gil Murphy MD on 10/04/2023 11:32 PM Normal [facility] CT CTA CAROTIDon 10-05-[address] CTA CAROTID CLINICAL INFORMATION: Stroke. Neurologic deficit. COMPARISON: None PROCEDURE: CT angiogram of the neck with IV contrast. Sagittal and coronal reformatted images with 3-D Maximum intensity projection reconstructions constructed under concurrent physician supervision on a independent workstation for evaluation of carotid and vertebral arteries. Automated exposure control was utilized. The [place] Symptomatic carotid Endarterectomy Trial (NASCET) method for calculating the degree of stenosis was utilized for stenosis measurements. 3-D reformatted images confirm the source data findings. stenosis is calculated as compared to the distal lumen of the ICA (NASCET). All CT scans at this facility dose modulation, iterative reconstruction, and/or weight based dosing when appropriate to reduce radiation dose to as low as reasonably achievable. FINDINGS: Partially visualized thoracic aorta is unremarkable. Three-vessel branching pattern of the aortic arch. The subclavian arteries are normal in course and caliber. The vertebral arteries originate from the subclavian arteries and are normal in course and caliber. The common carotid arteries are within normal limits. Normal carotid artery bifurcations. The left and right internal carotid arteries are normal in course and caliber. No significant stenosis. No aneurysm. No dissection. Partially visualized lung apices are unremarkable. No acute findings in the soft tissues. IMPRESSION: Unremarkable CTA neck. No significant carotid or vertebral artery stenosis. Finalized by Zeke Cavazos MD on 10/04/2023 11:50 PM Normal [facility] CT CTA HEADon 10-05-[address] HEAD CT angiogram head with contrast History: Neurologic deficit. Stroke. Technique: CT angiogram of the head was performed following intravenous administration nonionic intravenous contrast. 3-D maximum intensity projection images generated and reviewed under concurrent physician supervision. Arterial blood flow was measured to assist the stroke clinical team in the diagnosis of large vessel occlusion in patients undergoing screening for acute ischemic stroke using Rapid AI software when clinically indicated. Automated exposure control was utilized. All CT scans at this facility dose modulation, iterative reconstruction, and/or weight based dosing when appropriate to reduce radiation dose to as low as reasonably achievable. Findings: Intracranial internal carotid arteries: Mild scattered atherosclerotic calcification, otherwise unremarkable. Anterior cerebral arteries: Within normal limits. Middle cerebral arteries: Within normal limits. Posterior communicating arteries: Within normal limits. Intracranial vertebral arteries: Within normal limits. Basilar artery: Within normal limits. Posterior cerebral arteries: Within normal limits. No large vessel intracranial arterial stenosis, occlusion, or aneurysmal dilatation. Impression: Unremarkable CTA head. Finalized by Zeke Cavazos MD on 10/04/2023 11:47 PM Normal [facility] DRUG SCREEN, URINEon 024 AMPHETAMINE/METHAM P Negative Normal NEG [facility] Comment on above: Result Comment: AMPH /METH screening cut off = 1000 ng/mL Performed By: #### D CASTELLANOS ####[facility] ([id number])[address] [place] [address] BARBITURATES Negative Normal NEG [facility] Comment on above: Result Comment: [place] iturates screening cut off value = 200 ng/mL Performed By: #### D CASTELLANOS ####[facility] ([id number])[address] [place] [address] BENZODIAZEPINES Positive Abnormal NEG [facility] Comment on above: Result Comment: Conf irmation available upon request. Benzodiazepines screening cut off value = 200 ng/mL Performed By: #### D CASTELLANOS ####[facility] ([id number])[address] [place] [address] CANNABINOIDS Negative Normal NEG [facility] Comment on above: Result Comment: Saurav abinoids/THC screening cut off value = 50 ng/mL Performed By: #### D CASTELLANOS ####[facility] ([id number])[address] [place] [address] COCAINE METABOLITE Negative Normal NEG [facility] Comment on above: Result Comment: Coca ine screening cut off value = 300 ng/mL Performed By: #### D CASTELLANOS ####[facility] ([id number])[address] [place] [address] ECSTASY Negative Normal NEG [facility] Comment on above: Result Comment: Ecst asy screening cut off value = 500 ng/mL This report is intended for use in clinical monitoring or management of patients. Performed By: #### D CASTELLANOS ####[facility] ([id number])[address] [place] [address] METHADONE Negative Normal NEG [facility] Comment on above: Result Comment: Meth adone screening cut off value = 300 ng/mL. Performed By: #### D CASTELLANOS ####[facility] ([id number])[address] [place] [address] OPIATES Negative Normal NEG [facility] Comment on above: Result Comment: Opia rosita screening cut off value = 300 ng/mL NOTE: This test is used for the detection of codeine, hydrocodone (>1000 ng/mL), morphine and hydromorphone (>900 ng/mL) in urine. Performed By: #### D CASTELLANOS ####[facility] ([id number])[address] [place] [address] OXYCODONE Negative Normal NEG [facility] Comment on above: Result Comment: Oxyc odone screening cut off value = 300 ng/mL NOTE: This test is used for the detection of oxycodone and oxymorphone in urine. Performed By: #### D CASTELLANOS ####[facility] ([id number])[address] [place] [address] PHENCYCLIDINE Negative Normal NEG [facility] Comment on above: Result Comment: Phen cyclidine screening cut off value = 25 ng/mL Performed By: #### D CASTELLANOS ####[facility] ([id number])[address] [place] [address] Ethanol [Mass/Vol]on 024 ETHANOL 0.33 g/dL High 0.00-0.[address] [facility] Comment on above: Result Comment: This report is intended for use in clinical monitoring or management of patients. Performed By: #### C BCA, CMP, 61746-3, 99736-3, 5643-2 #### [facility] ([id number]) [address] [place] [address] HCG ( test) Ql (U)o n 10-05-2023 Beta HCG ( test) Ql (U) Negative Normal NEG [facility] Comment on above: Performed By: #### 2 106-3 #### [facility] ([id number]) [address] [place] [address] HGB A1C (GLYCO-HGB)on 2023 Glucose [Mass/Vol] 120 mg/dL Normal [facility] Comment on above: Performed By: #### P INR, 6-3 ####[facility] ([id number])[address] [place] [address]#### 21597-5 ####[facility] ([id number])[address] [facility], [address] [place] [address] HbA1c (Bld) [Mass fraction] 5.8 % High 4.4-5.[address] [facility] Comment on above: Result Comment: NOTE ADA Guidelines Result HgbA1c Normal : less than 5.7 % Prediabetes : 5.7 % to 6.4 % Diabetes : > 6.4 % Use with caution in patients with abnormal hemoglobin variants as the half-life of red blood cells and in vivo glycation rates are affected. Performed By: #### P INR, 6-3 ####[facility] ([id number])[address] [place] [address]#### 26020-8 ####[facility] ([id number])[address] [facility], [address], [place] [address] Lipid 1996 panelon Cholesterol [Mass/Vol] 175 mg/dL Normal 150-[address] [facility] Comment on above: Performed By: #### P INR, 3016-3 ####[facility] ([id number])[address] [place] [address]#### 24737-6 ####[facility] ([id number])[address] [address] Cholesterol in HDL [Mass/Vol] 55 mg/dL Normal >[address] [facility] Comment on above: Result Comment: HDL <40 mg/dL - High Risk HDL > or = 40mg/dL- Desirable HDL >60 mg/dL - Negative Risk Performed By: #### P INR, 3016-3 ####[facility] ([id number])[address] [place] [address]#### 50064-1 ####[facility] ([id number])[address] [address] Cholesterol in LDL [Mass/Vol] 45 mg/dL Normal <[address] [facility] Comment on above: Result Comment: LDL <100 mg/dL - Desirable LDL >160 mg/dL - High Risk Performed By: #### P INR, 3016-3 ####[facility] ([id number])[address] [place] [address]#### [id number] ####[facility] ([id number])0 [facility], [facility] [address], [place] [address] Cholesterol in VLDL [Mass/Vol] 75 mg/dL High 0-[address] [facility] Comment on above: Performed By: #### P INR, 3016-3 ####[facility] ([id number])[address] [place] [address]#### 24477-2 ####[facility] ([id number])[address], [address] [place] [address] CHOLESTEROL:HDL 3.2 Normal 1.0-5.[address] [facility] Comment on above: Performed By: #### P INR, 3016-3 ####[facility] ([id number])[address] [place] [address]#### 53841-9 ####[facility] ([id number])[address], [address] [address] Triglyceride [Mass/Vol] 374 mg/dL High 27-[address] [facility] Comment on above: Performed By: #### P INR, 3016-3 ####[facility] ([id number])[address] [place] [address]#### 57187-1 ####[facility] ([id number])[address] [address] MAGNESIUMon 10-05-2023 Magnesium [Mass/Vol] 2.0 mg/dL Normal 1.8-2.[address] [facility] Comment on above: Performed By: #### C BCA, CMP, 61366-9, 96956-8, 5643-2 #### [facility] ([id number]) [address] [place] [address] MR BRAIN W WO CONTon 024 MR BRAIN W WO CONT MR BRAIN W WO CONT EXAM:MR BRAIN W WO CONT INDICATION: Stroke, follow up COMPARISON: None TECHNIQUE: Multiplanar multisequence pre and post contrast MR sequences through the head/brain. CONTRAST: 16mL ProHance IV. BRAIN FINDINGS: Brain Parenchyma: No acute hemorrhage, cerebral edema, or acute infarction. No mass, mass effect, or midline shift. Few scattered periventricular subcortical T2/flair hyperintensities in a nonspecific distribution likely related to chronic migraine hepatic change. Ventricles and Sulci: Normal for age. Extra-Axial Spaces: No extra-axial fluid collection. Intracranial Flow-Voids: Arterial and venous sinus flow voids appear normal. Orbits: Normal Paranasal Sinuses: Normal Mastoid Air Cells: Normal Cranium: Normal Extracranial Soft Tissues: Normal IMPRESSION: No acute or subacute intracranial abnormalities. Finalized by Duran Musa on 10/05/2023 11:31 AM Normal [facility] PROTIME AND INRon 10-05-2023 INR Coag (PPP) [Relative time] 1.0 {INR} Normal 0.8-1.[address] [facility] Comment on above: Performed By: #### P INR, 3016-3 ####[facility] ([id number])[address] [place] [address]#### 45577-1 ####[facility] ([id number])[address] [facility], [address] [place] [address] PT Coag (PPP) [Time] 11.6 s Normal 9.8-13.[address] [facility] Comment on above: Performed By: #### P INR, 3016-3 ####[facility] ([id number])[address] [place] [address]#### 90732-0 ####[facility] ([id number])[address] [facility], [address] [place] [address] TROPONIN Ion 10-05-2023 Troponin I.cardiac [Mass/Vol] ng/mL Normal 0.00-0.[address] [facility] Comment on above: Performed By: #### C BCA, CMP, 15566-8, 73587-0, 5643-2 #### [facility] ([id number]) [address] [place] [address] TSH Qnon 10-05-2023 TSH 1.51 uIU/mL Normal 0.49-4.[address] [facility] Comment on above: Performed By: #### P INR, 3016-3 ####[facility] ([id number])[facility] [place] [address]#### 01426-5 ####[facility] ([id number])[address], [address] [place] [address] URN MACROSCOPIC NURon 2023 BILIRUBIN JOSIAH Negative Normal NEG [facility] Comment on above: Performed By: #### N UM ####[facility] ([id number])[address] [facility] [place] [address] BLOOD/HGB JOSIAH Negative Normal NEG [facility] Comment on above: Performed By: #### N UM ####[facility] ([id number])[address] [facility] [place] [address] GLUCOSE JOSIAH Negative Normal NEG [facility] Comment on above: Performed By: #### N UM ####[facility] ([id number])[address] [facility] [place] [address] KETONES JOSIAH Negative Normal NEG [facility] Comment on above: Performed By: #### N UM ####[facility] ([id number])[address] [facility] [place] [address] LEUKOCYTE ESTERASE JOSIAH Negative Normal NEG [facility] Comment on above: Performed By: #### N UM ####[facility] ([id number])[address] [facility] [place] [address] NITRITE JOSIAH Negative Normal NEG [facility] Comment on above: Performed By: #### N UM ####[facility] ([id number])[address] [facility] [place] [address] PH JOSIAH 5.5 Normal 5.0-8.[address] [facility] Comment on above: Performed By: #### N UM ####[facility] ([id number])[address] [facility] [place] [address] PROTEIN JOSIAH Negative Normal NEG [facility] Comment on above: Performed By: #### N UM ####[facility] ([id number])[address] [facility] [place] [address] SPECIFIC GRAVITY JOSIAH 1.010 Normal 1.003-1.[address] [facility] Comment on above: Performed By: #### N UM ####[facility] ([id number])[address] [facility] [place] [address] UROBILINOGEN JOSIAH 0.2 eu/dL Normal <1.1 [facility] Comment on above: Performed By: #### N UM ####[facility] ([id number])[address] [place] [address] MG MAMM SCREEN 3D AARON CADon 07-12-2022 MG MAMM SCREEN 3D AARON CAD Patient: RACHEAL RICHARDSON Exam Date: 07/12/2022 : 1970 Gender:F Ordering : GUZMAN RITUPraveen [employer] Admission #: [id number] Family : Order #: [id number] CLICK HERE TO VIEW EXAM RADIOLOGY REPORT PROCEDURE: MAMMOGRAM SCREENING 3D BILATERAL CAD COMPARISON: MG MAMM SCREEN 3D AARON CAD, 06/07/2021. MG MAMM LT DIAG W CAD, 12/01/2017. INDICATIONS: Screening mammography Calculator Name NCI Breast Cancer Risk Assessment Tool 5 Year Breast Cancer Risk 0.70% Lifetime Breast Cancer Risk 6.40% Personal Breast Cancer No Personal Ovarian Cancer No Treatments None Family Cancers Grandmother-maternal with breast cancer at age 53. LOCATION: [facility] BREAST COMPOSITION: Heterogeneously dense,which may obscure small masses. FINDINGS: DIAGNOSTIC CATEGORY 2--BENIGN FINDING: RIGHT BREAST: No significant suspicious finding. No significant change has occurred. LEFT BREAST: No significant suspicious finding. Scattered benign-appearing nodules or lymph nodes are present. No significant change has occurred. RECOMMENDATIONS: ROUTINE MAMMOGRAM AND CLINICAL EVALUATION IN 12 MONTHS. PLEASE NOTE: A NORMAL MAMMOGRAM DOES NOT EXCLUDE THE POSSIBILITY OF BREAST CANCER. A CLINICALLY SUSPICIOUS PALPABLE LUMP SHOULD BE BIOPSIED. Dictated by: Jann Dougherty M.D. on 07/13/2022 at 14:40 Approved by: Jann Dougherty M.D. on 07/13/2022 at 14:47 Normal [facility] CBC AUTO DIFFon 06-14-2022 BASO # 0.0 103/ul Normal 0.0-0.1 [facility] Comment on above: Performed By: #### C BC #### [facility] [address] [place], [place] [address] Dr. Ron Back Basophils/100 WBC (Bld) 0.4 % Normal 0.2-2.0 [facility] Comment on above: Performed By: #### C BC #### [facility] [address] [place] [address] Dr. Ron Back EO # 0.1 103/ul Normal 0.0-0.7 [facility] Comment on above: Performed By: #### C BC #### [facility] [address] [place] [address] Dr. Ron Back Eosinophils/100 WBC (Bld) 1.7 % Normal 0.9-7.0 [facility] Comment on above: Performed By: #### C BC #### [facility] [address] [place] [address] Dr. Ron Back Erythrocyte distribution width (RBC) [Ratio] 12.7 % Normal 11.0-15.0 [facility] Comment on above: Performed By: #### C BC #### [facility] [address] [place] [address] Dr. Ron Back Hematocrit (Bld) [Volume fraction] 40.9 % Normal 36.0-48.0 [facility] Comment on above: Performed By: #### C BC #### [facility] [address] [place] [address] Dr. Ron Back Hemoglobin (Bld) [Mass/Vol] 13.5 g/dL Normal 12.0-16.0 [facility] Comment on above: Performed By: #### C BC #### [facility] [address] [place] [address] Dr. Ron Back IG # 0.03 10e3/ul Normal 0.00-0.03 [facility] Comment on above: Performed By: #### C BC #### [facility] [address] [place] [address] Dr. Ron Back IG % 0.6 % Critically high 0.0-0.5 [facility] Comment on above: Performed By: #### C BC #### [facility] [address] [place] [address] Dr. Ron Back LYMPH # 1.7 103/ul Normal 1.2-3.8 [facility] Comment on above: Performed By: #### C BC #### [facility] [address] [place] [address] Dr. Ron Back Lymphocytes/100 WBC (Bld) 32.7 % Normal 20.5-60.0 [facility] Comment on above: Performed By: #### C BC #### [facility] [address] [place] [address] Dr. Ron Back MANUAL DIFF REQ NO Normal [facility] Comment on above: Performed By: #### C BC #### [facility] [address] [place] [address] Dr. Ron Back MCH (RBC) [Entitic mass] 31.8 pg Normal 26.7-34.0 [facility] Comment on above: Performed By: #### C BC #### [facility] [address] [place] [address] Dr. Ron Back MCHC (RBC) [Mass/Vol] 33.0 g/dL Normal 29.9-35.2 [facility] Comment on above: Performed By: #### C BC #### [facility] [address] [place] [address] Dr. Ron Back MCV (RBC) [Entitic vol] 96.5 fL Normal 81.0-99.0 [facility] Comment on above: Performed By: #### C BC #### [facility] [address] [place] [address] Dr. Ron Back MONO # 0.4 103/ul Normal 0.3-0.8 [facility] Comment on above: Performed By: #### C BC #### [facility] [address] [place] [address] Dr. Ron Back Monocytes/100 WBC (Bld) 7.1 % Normal 1.7-12.0 [facility] Comment on above: Performed By: #### C BC #### [facility] [address] [place] [address] Dr. Ron Back NEUT # 3.0 103/ul Normal 1.4-6.5 [facility] Comment on above: Performed By: #### C BC #### [facility] [address] [place] [address] Dr. Ron Back Neutrophils/100 WBC (Bld) 57.5 % Normal 43.0-75.0 [facility] Comment on above: Performed By: #### C BC #### [facility] [address] [place] [address] Dr. Ron Back Platelet mean volume (Bld) [Entitic vol] 10.5 fL Normal 9.5-13.5 [facility] Comment on above: Performed By: #### C BC #### [facility] [address] [place] [address] Dr. Ron Back PLT 212 103/ul Normal 150-450 [facility] Comment on above: Performed By: #### C BC #### [facility] [address] [place] [address] Dr. Ron Back RBC 4.24 106/ul Normal 4.20-5.40 [facility] Comment on above: Performed By: #### C BC #### [facility] [address] [place] [address] Dr. Ron Back WBC 5.2 103/ul Normal 4.0-11.0 [facility] Comment on above: Performed By: #### C BC #### [facility] [address] [place] [address] Dr. Ron Back LIPID PROFILEon 06-14-2022 CHOL-HDL RATIO NORM SEE BELOW Normal [facility] Comment on above: Result Comment: 3.3 - 4.4 LOW RISK 4.4 - 7.1 AVERAGE RISK 7.1 - 11.0 MODERATE RISK >11.0 HIGH RISK Performed By: #### C MP, LIPID #### [facility] [address] [place] [address] Dr. Ron Back Cholesterol [Mass/Vol] 202 mg/dL Critically high <=200 [facility] Comment on above: Performed By: #### C MP, LIPID #### [facility] [address] [place] [address] Dr. Ron Back Cholesterol in HDL [Mass/Vol] 69 mg/dL Critically high 40-60 [facility] Comment on above: Performed By: #### C MP, LIPID #### [facility] [address] [place] [address] [address] Ron Back Cholesterol in LDL [Mass/Vol] 110.8 mg/dL Normal [facility] Comment on above: Performed By: #### C MP, LIPID #### [facility] [address] [place] [address] Dr. Ron Back Cholesterol.total/ Cholesterol in HDL [Mass ratio] 2.9 {ratio} Normal [facility] Comment on above: Performed By: #### C MP, LIPID #### [facility] [address] [place] [address] Dr. Ron Back HDL NORMAL > or = 60 mg/dl - LO W CARDIOVASCULAR RISK <40 mg/dl - HIGH CARDIOVASCULAR RISK Normal [facility] Comment on above: Performed By: #### C MP, LIPID #### [facility] [address] [place] [address] Dr. Ron Back LDL CALC NORMAL SEE BELOW Normal [facility] Comment on above: Result Comment: <100 mg/dl OPTIMAL 100 - 129 mg/dl NEAR OR ABOVE OPTIMAL 130 - 159 mg/dl BORDERLINE HIGH 160 - 189 mg/dl HIGH >190 mg/dl VERY HIGH Performed By: #### C MP, LIPID #### [facility] [address] [place] [address] Dr. Ron Back Triglyceride [Mass/Vol] 111 mg/dL Normal <=150 [facility] Comment on above: Performed By: #### C MP, LIPID #### [facility] [address] [place] [address] Dr. Ron Back VLDL CALC 22.2 mg/dL Normal [facility] Comment on above: Performed By: #### C MP, LIPID #### [facility] [address] [place] [address] [address] Ron Back PROF 14(COMP METB)on 022 Albumin [Mass/Vol] 4.1 g/dL Normal 3.4-5.0 [facility] Comment on above: Performed By: #### C MP, LIPID #### [facility] [address] [place] [address] Dr. Ron Back Albumin/Globulin [Mass ratio] 1.0 {ratio} Normal [facility] Comment on above: Performed By: #### C MP, LIPID #### [facility] [address] [place] [address] Dr. Ron Back ALP [Catalytic activity/Vol] 114 U/L Normal 46-116 [facility] Comment on above: Performed By: #### C MP, LIPID #### [facility] [address] [place] [address] [address] Ron Back ALT [Catalytic activity/Vol] 34 U/L Normal 14-59 [facility] Comment on above: Performed By: #### C MP, LIPID #### [facility] [address] [place] [address] Dr. Ron Back Anion gap [Moles/Vol] 15.4 mmol/L Normal [facility] Comment on above: Performed By: #### C MP, LIPID #### [facility] [address] [place] [address] Dr. Ron Back AST [Catalytic activity/Vol] 28 U/L Normal 15-37 [facility] Comment on above: Performed By: #### C MP, LIPID #### [facility] [address] [place] [address] Dr. Ron Back Bilirubin [Mass/Vol] 0.4 mg/dL Normal 0.2-1.0 [facility] Comment on above: Performed By: #### C MP, LIPID #### [facility] [address] [place] [address] Dr. Ron Back Calcium [Mass/Vol] 10.0 mg/dL Normal 8.5-10.1 [facility] Comment on above: Performed By: #### C MP, LIPID #### [facility] [address] [place] [address] Dr. Ron Back Chloride [Moles/Vol] 100 mmol/L Normal 98-107 [facility] Comment on above: Performed By: #### C MP, LIPID #### [facility] [address] [place] [address] Dr. Ron Back CO2 [Moles/Vol] 26.1 mmol/L Normal 21.0-32.0 [facility] Comment on above: Performed By: #### C MP, LIPID #### [facility] [address] [place] [address] [address] Ron Back Creatinine [Mass/Vol] 0.69 mg/dL Normal 0.55-1.02 [facility] Comment on above: Performed By: #### C MP, LIPID #### [facility] [address] [place] [address] [address] Ron Back EGFR-AF BELGIAN >60 Normal >=60 [facility] Comment on above: Performed By: #### C MP, LIPID #### [facility] [address] [place] [address] [address] Ron Back EGFR-NON AF BELGIAN >60 Normal >=60 [facility] Comment on above: Performed By: #### C MP, LIPID #### [facility] [address] [place] [address] [address] Ron Back Globulin (S) [Mass/Vol] 4.1 g/dL Normal [facility] Comment on above: Performed By: #### C MP, LIPID #### [facility] [address] [place] [address] [address] Ron Back Glucose [Mass/Vol] 101 mg/dL Normal 74-106 [facility] Comment on above: Performed By: #### C MP, LIPID #### [facility] [address] [place] [address] [address] Ron Back Potassium [Moles/Vol] 4.5 mmol/L Normal 3.5-5.1 [facility] Comment on above: Performed By: #### C MP, LIPID #### [facility] [address] [place] [address] [address] Ron Back Protein [Mass/Vol] 8.2 g/dL Normal 6.4-8.2 [facility] Comment on above: Performed By: #### C MP, LIPID #### [facility] [address] [place] [address] [address] Ron Back Sodium [Moles/Vol] 137 mmol/L Normal 136-145 [facility] Comment on above: Performed By: #### C MP, LIPID #### [facility] [address] [address] [address] Ron Back Urea nitrogen [Mass/Vol] 16.0 mg/dL Normal 7.0-18.0 [facility] Comment on above: Performed By: #### C MP, LIPID #### [facility] [address] [address] [address] Ron Back Urea nitrogen/Creatinin e [Mass ratio] 23.2 mg/mg Normal [facility] Comment on above: Performed By: #### C MP, LIPID #### [facility] [address] [address] [address] Ron Back UA RANDOM W/MICROSCOPICon BACTERIA NONE SEEN Normal NONE SEEN [facility] Comment on above: Performed By: #### U AMIC ####[facility] [address] [place], [place] [address]Dr. Ron Back Bilirubin Ql (U) Negative Normal NEGATIVE [facility] Comment on above: Performed By: #### U AMIC ####[facility] [address] [place], [place] [address]Dr. Ron Back CAST SEEN Abnormal NONE [facility] Comment on above: Performed By: #### U AMIC ####[facility] [address] [address]Dr. Ron Back Clarity (U) CLEAR Normal CLEAR [facility] Comment on above: Performed By: #### U AMIC ####[facility] [address] [address]Dr. Ron Back Color (U) YELLOW Normal YELLOW [facility] Comment on above: Performed By: #### U AMIC ####[facility] [address] [place], [place] [address]Dr. Ron Back Crystals LM Nom (Urine sed) NONE SEEN Normal NONE SEEN [facility] Comment on above: Performed By: #### U AMIC ####[facility] [address] [place], [place] [address]Dr. Ron Back Epithelial cells LM Ql (Urine sed) FEW Abnormal NONE SEEN /RARE [facility] Comment on above: Performed By: #### U AMIC ####[facility] [address] [address]Dr. Ron Wong Glucose Ql (U) Negative Normal NEGATIVE [facility] Comment on above: Performed By: #### U AMIC ####[facility] [address] [address]Dr. Yulissalisa Back Hemoglobin Ql (U) Negative Normal NEGATIVE [facility] Comment on above: Performed By: #### U AMIC ####[facility] [address] [address]Dr. Yulissalisa Back HYALINE CAST RARE Normal [facility] Comment on above: Performed By: #### U AMIC ####[facility] [address] [address]Dr. Ron Back Ketones Ql (U) Negative Normal NEGATIVE [facility] Comment on above: Performed By: #### U AMIC ####[facility] [address] [place], [place] [address]Dr. Yulissalisa Back LEUKOCYTES Negative Normal NEGATIVE [facility] Comment on above: Performed By: #### U AMIC ####[facility] [address] [place], [place] [address]Dr. Yulissalisa Back MUCOUS TRACE Abnormal NONE SEEN The [facility] Comment on above: Performed By: #### U AMIC ####[facility] [address] [address]Dr. Ron Back Nitrite Ql (U) Negative Normal NEGATIVE The [facility] Comment on above: Performed By: #### U AMIC ####[facility] [address] [address]Dr. Ron Back pH (U) 5.5 [pH] Normal 5-9 [facility] Comment on above: Performed By: #### U AMIC ####[facility] [address] [address]Dr. Ron Back RBC 0-2 Normal 0-2 [facility] Comment on above: Performed By: #### U AMIC ####[facility] [address] [id number]. Ron Back SPEC GRAVITY 1.025 Normal 1.005-<=1.02 5 [facility] Comment on above: Performed By: #### U AMIC ####[facility] [address] [id number]. Ron Back UA PROTEIN Negative Normal NEGATIVE/ TRACE [facility] Comment on above: Performed By: #### U AMIC ####[facility] [address] [id number]. Ron Back Urobilinogen Qn (U) 0.2 {Aaliyah'U}/dL Normal 0.2 - 1.0 [facility] Comment on above: Performed By: #### U AMIC ####[facility] [address] [address]Dr. Ron Back WBC NONE SEEN Normal NONE SEEN [facility] Comment on above: Performed By: #### U AMIC ####[facility] [address] [id number] Back PAP ACOG PANEL 2: 30 to 65on 04-16-2022 . . Normal [facility] Comment on above: Result Comment: Perf ormed at: BA Performed By: #### [id number] #### [facility] [address] [address] [address] Ron Back Age Gdln ACOG Testing 30-65 Normal [facility] Comment on above: Performed By: #### [id number] #### [facility] [address] [address] [address] Ron Back DIAGNOSIS: Comment Normal [facility] Comment on above: Result Comment: NEGA TIVE FOR INTRAEPITHELIAL LESION OR MALIGNANCY. Performed at: BA Performed By: #### [id number] #### [facility] [address] [address] [address] Ron Back HPV Aptima Negative Normal Negative [facility] Comment on above: Result Comment: This nucleic acid amplification test detects fourteen high-risk HPV types (16,18,31,33,35,39,45,51,52,56,58,59,66,68) without differentiation. Performed at: =G Performed By: #### [id number] #### [facility] [address] [place] [address] Dr. Ron Back Methodology: Comment Normal [facility] Comment on above: Result Comment: This liquid based ThinPrep(R) pap test was screened with the use of an image guided system. Performed at: WB Performed By: #### [id number] #### [facility] [address] [place] [address] Dr. Ron Back Note: Comment Normal [facility] Comment on above: Result Comment: The Pap smear is a screening test designed to aid in the detection of premalignant and malignant conditions of the uterine cervix. It is not a diagnostic procedure and should not be used as the sole means of detecting cervical cancer. Both false-positive and false-negative reports do occur. . Performed at: WB Performed By: #### [id number] #### [facility] [address] [place] [address] Dr. Ron Back Performed by: Comment Normal [facility] Comment on above: Result Comment: Rita Mcnally, Electronic Prepress Technician (ASCP) Performed at: BA Performed By: #### [id number] #### [facility] [address] [place] [address] Dr. Ron Back Specimen adequacy: Comment Normal [facility] Comment on above: Result Comment: Sati sfactory for evaluation. Endocervical and/or squamous metaplastic cells (endocervical component) are present. Performed at: BA Performed By: #### [id number] #### [facility] [address] [place] [address] Dr. Ron Back XR LSPINE 2_3 VIEWSon 2021 XR LSPINE 2_3 VIEWS EXAMINATION: XR LSPINE 2_3 VIEWS HISTORY: Pain of left hip joint ; chronic low back pain since falling one-2 years ago COMPARISON: XR lumbar spine 01/09/2020 FINDINGS: BONES: Mechanical fusion of L1-L3 via a lateral plate and screws with mechanical stress traversing the vertebral body of L2 with suspected prior compression fracture. No evidence of hardware fracture or loosening. Stable slight right convex curvature of the upper lumbar spine. Mild degenerative facet arthropathy L3-4 through L5-S1. DISC SPACES: No significant disc height narrowing, subluxation, or endplate abnormality. PARASPINOUS: Negative. No paraspinous abnormality is seen. OTHER: Negative. IMPRESSION: 1. Stable surgical changes involving L1-2-3 without evidence of hardware failure or change in alignment. 2. No appreciable acute findings or significant degenerative disc disease. Mild degenerative facet arthropathy. Electronically authenticated by: JANN DOUGHERTY Date: 2021-09-20 12:00 Normal [facility] HEMOGLOBINon 08-09-2021 Hemoglobin (Bld) [Mass/Vol] 13.0 g/dL Normal 12.0-16.0 [facility] Comment on above: Performed By: #### H GB #### [facility] [address] [place] [address] Dr. Ron Back Operative Reporton 8 Operative Report MR#: [id number] [facility] Pt. Name: Racheal Richardson Room #: 0C Discharge Date: Birthdate: 1970 OPERATIVE REPORTDATE OF SURGERY: 09/08/2017SURGEON: Angelique uFentes M.D.NIGHT CLUB MANAGER: Maryjo Monroy M.D.PREOPERATIVE DIAGNOSES: Left severe carpal tunnel syndrome along withpossible peripheral neuropathy and axonal loss.POSTOPERATIVE DIAGNOSES: Left severe carpal tunnel syndrome along withpossible peripheral neuropathy and axonal loss.PROCEDURE PERFORMED: Left open carpal tunnel release surgery under MACalong with local anesthesia.ANESTHESIA: MAC with local.SPECIMENS: None.DRAINS: None.IMPLANTS: None.COMPLICATIONS: None.TOTAL TOURNIQUET TIME: None applied.BOVIE: None.INDICATION FOR THE PROCEDURE: Mrs. Richardson is a pleasant 47-year-old femalewho is right-hand dominant and is known to have bilateral carpal tunnelsyndrome. She underwent right carpal tunnel surgery on the July2017 and has been doing well. She is here for her left carpal tunnelrelease surgery. She has tried nonsurgical treatment in the form of bracesand physical therapy as well as oral pain medication, which has failed andshe has failed nonsurgical treatment. She is status post EMG studies,which revealed right moderate to severe carpal tunnel syndrome withleft-sided moderately severe carpal tunnel syndrome. She has failednonsurgical treatment and is indicated for left open carpal tunnel releaseunder local and MAC anesthesia. Details of the surgery were explained tothe patient including complications, which are, but not restricted tobleeding, infection, neurovascular injury, residual pain and stiffness,tendon injury, nerve injury, residual weakness in the thumb, scarring, needfor revision of carpal tunnel surgery in future, recurrence due toscarring, residual pain and stiffness, persistent symptoms due to cervicalradiculopathy and/or peripheral neuropathy were all discussed in detail,despite which she wishes to proceed with surgery. She has signed a consentform.Site was marked.DESCRIPTION OF PROCEDURE: After written consent was obtained and thepatient was seen in the preoperative holding area and her left upperextremity was marked and the patient was consented again. The patient wastaken to the operating room and placed in a supine position, where the MACanesthesia was administered. The patient was then given preoperativeantibiotics prior to the incision within an hour in the form of 2 g ofAncef.No tourniquet is applied to the left upper extremity. Following this, theleft upper extremity was prepped and draped in a standard sterile fashionusing Hibiclens, soap, ChloraPrep, and alcohol. Following this, time-outwas done prior to the procedure.We began by marking our incision in line with the radial border of the ringfinger, 1 cm distal to the wrist crease, approximately 2 cm in length.Local anesthesia was instilled into the carpal tunnel as well as theincision site and distal part of the transverse carpal ligament. Followingthis, used a #15 blade to make a longitudinal incision through the skin anddeep subcutaneous fat, the superficial fascia. This was then followed byretracting and placement of retractors to expose the transverse carpalligament. We began by making the incision to the palmar fascia down to thetransverse carpal ligament. Following this, we entered into the carpaltunnel by making a longitudinal incision in line with the direction of thetendons and the nerve. We entered the carpal tunnel, following which weplaced a hemostat directly underneath using it as a guide to protect thenerve and cut directly on top of the transverse carpal ligament underdirect visualization throughout. We released the Littler tenotomy scissordistally under direct visualization, making sure the transverse carpalligament was fully released distally until the fibrofatty tissue was seenin the distal aspect.Using the hemostat, we also removed any fibrofatty tissue, also transversecarpal ligament and slid both superficial and deep to the transverse carpalligament using the knife scissors to cut the proximal portion of thetransverse carpal ligament proximally. We then further released theligament with tenotomy scissor running proximally protecting the branchesof the median nerve throughout the procedure. We then examined tunnelmaking sure that there was no extra bands of tissue that were entering oradhering to the nerve. The nerve was found to be pretty strangulated andwas also found to be inflamed along with following the release was found lo free with good mobility of the nerve throughout the proximal as well asdistal aspect.I then irrigated the incision using copious normal saline.No significant bleeding was noted. We then irrigated the wound with normalsaline, followed by placement of vertical mattress sutures interrupted,total 2 sutures were placed. This was then followed by placement ofdressing in the form of Xeroform, sterile 4x4s, fluffs, Kerlix, and Acewrap. This was then applied lightly. The patient was then moved torecovery in a stable condition.POSTOPERATIVE PLAN:1. Keep the left upper extremity nonweightbearing.2. May reduce the dressing in 48 hours, apply Band-Aid.3. The patient will commence range of motion of the left upper extremity.4. The patient to use ice 3 times a day to 4 times a day p.r.n. The patient will also keep the hand clean and dry at all times and may use plastic bag for quick shower and keep the hand dry at all times. The patient will call me if she develops any fever, chills, or rigors and any redness or discharge to the incision. The patient will follow up to see in my office in about 2 weeks time for removal of sutures. The patient will plan for other. The patient understands that she was given Austin 5/325 mg tabs, take 1-2 tablets every 4-6 hours on a p.r.n. basis, total of 40 tablets were given with 0 refills. The patient was also given Keflex 100 mg 3 times a day for a total of 7 days time. All details of the intraoperative findings were discussed with the patient and her family. The patient will be discharged home today when safe.Electronically Signed by:Angelique Fuentes M.D. 09/15/2017 02:07 P Angelique Fuentes M.D.Date Dict: 09/08/2017/01:50 P/Angelique Fuentes M.D.Date Trans: 09/08/2017 11:05 P/[id number] Normal [facility] POC GLUCOSE LABon 09-08-2017 Glucose mass conc 90 mg/dL Normal 70-100 [facility] Comment on above: Performed By: #### [id number] ####[facility] Operative Reporton 7 Operative Report MR#: [id number] [facility] Pt. Name: Racheal Richardson Room #: 0C Discharge Date: Birthdate: 1970 OPERATIVE REPORTDATE OF SURGERY: 07/14/2017SURGEON: Angelique Fuentes M.D.PRIMARY DIAGNOSES: Right severe carpal tunnel syndrome along with possibleperipheral neuropathy.POSTOPERATIVE DIAGNOSES: Right severe carpal tunnel syndrome along withpossible peripheral neuropathy.PROCEDURE PERFORMED: Right open carpal tunnel release under MAC along withlocal anesthesia.ANESTHESIA: MAC with local.SPECIMEN SENT: None.DRAINS: None.IMPLANTS: None.COMPLICATIONS: None.TOTAL TOURNIQUET TIME: None applied.BOVIE: None.INDICATION FOR THE PROCEDURE: The patient is a pleasant 55-oy[address]-jlmhjcvhm, who is right-hand dominant and has been having bilateral carpaltunnel symptoms. Her right side is worse than left side. She has triednonsurgical treatment on the right side in the form of use of braces atnighttime as well as use of oral pain medications and has failednonsurgical treatment. She also had an EMG study, which revealed nrxhwrlbbqudp-zl-gakfku carpal tunnel syndrome. She has failed nonsurgicaltreatment and is indicated for right carpal tunnel release under localalong with MAC anesthesia.Details of the surgery were explained to the patient includingcomplications, which are but not restricted to bleeding, infection,neurovascular injury, residual pain, stiffness, tendon injury, nerveinjury, residual weakness in the thumb, scarring, need for revision carpaltunnel release surgery in future, recurrence due to the scarring, residualpain and stiffness, persistent symptoms due to her cervical radiculopathyand/or peripheral neuropathy were all discussed in detail despite which shewishes to proceed with the surgery. She has signed a consent form.Site was marked.DESCRIPTION OF PROCEDURE: After the patient was seen in the preoperativeholding area, her right upper extremity was marked and the patient wasconsented again. The patient was taken to the operating room and placed germania supine position where MAC anesthesia was administered. The patient wasthen given preoperative antibiotics prior to the incision within an hour inthe form of 2 g of Ancef.No tourniquet was applied to the right upper extremity. Following this,the right upper extremity was prepped and draped in a standard sterilefashion using Hibiclens soap, ChloraPrep, and alcohol. Following this, atime-out was done prior to the procedure.We began by marking our incision in line with the radial border of the ringfinger, 1 cm distal to the wrist crease at approximately 2 cm in length.Local anesthesia was instilled into the carpal tunnel as well as theincision site and distal part into the transverse carpal ligament.Following this, we used a #15 blade to make a longitudinal incision throughthe skin, the deep subcutaneous fat, and the superficial fascia. This wasthen followed by retracting placement of retractors so as to expose thetransverse carpal ligament. We began by making an incision to the palmarfascia down to the transverse carpal ligament. Following which, we enteredthe carpal tunnel by making incision longitudinal in line with thedirection of the tendons and the nerve. We entered the carpal tunnel,following which we placed a hemostat directly underneath using it as aguide to protect the nerve and cut directly on top of the transverse carpalligament under direct visualization throughout. We released the Littlertenotomy scissor distally under direct visualization, making sure thetransverse carpal ligament was fully reduced distally until the fibrofattytissue was seen on the distal aspect. Using the hemostat, we also removedany fatty tissue, also the transverse carpal ligament and slid bothsuperficial and deep to the transcarpal ligament using the knife to cut theproximal portion of the transverse carpal ligament. We then furtherreleased the ligament with the tenotomy scissor running and proximallyprotecting the branches of the median nerve throughout the procedure.We then examined the tunnel making sure that there was no extra bands oftissue that were entering to the nerve. The nerve was found to be prettystrangulated and was also found to be inflamed along with following therelease was found to be free with good mobility of the nerve throughout theproximal as well as the distal aspect. We then irrigated. Following this,there was no significant bleeding. We then irrigated the wound with normalsaline copious amount using the Asepto followed by closure using a verticalmattress suture placed, interrupted total 2-3 sutures were placed. Thiswas then followed by placement of dressing in the form of Xeroform, yedaagm2m0d, fluffs, Kerlix, and Bora wrap. This was applied lightly.The patient was then moved to the PACU in a stable condition.POSTOPERATIVE PLAN:1. To keep the patient nonweightbearing with the right upper extremity.2. The patient may reduce the dressing in 48 hours and apply Band-Aid.3. The patient will commence range of motion of the right upper extremity.4. The patient to use ice 3 times a day to 4 times a day as a p.r.n. basis.5. The patient will keep the hand clean and dry at all times and may use a plastic bag for a quick shower and keep the hand dry at all times.6. The patient will call me if she develops any fever, chills, or riders, or any redness or discharge to the incision.7. The patient will follow up to see my office in about 2 weeks' time for removal of sutures.8. 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 The patient understands the treatment plan. The patient was given Austin 5/325 mg tabs, take 1-2 tablets every 4-6 hours on a p.r.n. basis, total of 40 tablets were given with 0 refills.9. The patient was also given Keflex 500 mg 3 times a day in a total of 5 days' time. All details of the intraoperative findings were discussed with the patient and her family. The patient will be discharged home today.Electronically Signed by:Angelique Fuentes M.D. 07/17/2017 12:55 P Angelique Fuentes M.D.Date Dict: 07/14/2017/04:04 P/Angelique Fuentes M.D.Date Trans: 07/15/2017 03:30 A/[id number] Normal [facility] POC GLUCOSE LABon 07-14-2017 Glucose mass conc 92 mg/dL Normal 70-100 [facility] Comment on above: Performed By: #### [id number] ####[facility] Vital Signs Date Time Vital Sign Value Performing Clinician Emily dodd 06-05-2024 13:060400 Body height 162.6 cm Ritu Eng WASH WORKER Work Phone: [facility] 06-05-2024 13:06-0400 Body mass index (BMI) [Ratio] 28.67 kg/m2 Ritu Eng WASH WORKER Work Phone: [facility] 06-05-2024 13:06-0400 Body temperature 98.8 [degF] Ritu Eng WASH WORKER Work Phone: [facility] 06-05-2024 13:06-0400 Body weight 75.75 kg Ritu Eng WASH WORKER Work Phone: [facility] 06-05-2024 13:06-0400 Diastolic blood pressure 86 mm[Hg] Ritu Aichholz WASH WORKER Work Phone: [facility] 06-05-2024 13:06-0400 Heart rate 97 /min Ritu Aichholz WASH WORKER Work Phone: [facility] 06-05-2024 13:06-0400 Respiratory rate 18 /min Ritu Aichholz WASH WORKER Work Phone: [facility] 06-05-2024 13:06-0400 SaO2% (BldA) [Mass fraction] 97 % Ritu Aichholz WASH WORKER Work Phone: [facility] 06-05-2024 13:06-0400 Systolic blood pressure 132 mm[Hg] Ritu Aichholz WASH WORKER Work Phone: [facility] Healthcare Encounters Encounter Date Encounter Type Care Provider Facility Start: 06-05-2024 End: 06-05-2024 Bamboo flowsheet Ritu Filomenahholz WASH WORKER Work Phone: [facility] Start: 06-05-2024 End: 06-05-2024 Bamboo flowsheet Ritu Aichholz WASH WORKER Work Phone: [facility] Start: 06-05-2024 End: 06-05-2024 ambulatory RITU AICHHOLZ Not Available Start: 06-05-2024 End: 06-05-2024 Office outpatient visit 25 minutes Ritu Braydenholz WASH WORKER Work Phone: [facility] Comment on above: Primary hypertension (CMS/HCC) (Primary Dx); Centrilobular emphysema (CMS/HCC); Irregular heart rate; Needs flu shot; Fibromyalgia; Colon cancer screening Start: 02-22-2024 End: 02-22-2024 ambulatory RITU AICHHOLZ Not Available Start: 10-05-2023 End: 10-06-2023 ambulatory JHON RAVI LYONS [facility] Start: 10-05-2023 End: 10-06-2023 Emergency department patient visit JERRELL LOPEZ [facility] Start: 10-05-2023 End: 10-05-2023 [facility] Start: 07-12-2022 End: 07-13-2022 ambulatory GUZMAN ENG Facility:[facility]1 Start: 06-14-2022 End: 06-15-2022 ambulatory COMMUNITY DEVELOPMENT WORKER RITU ENG Facility:[facility] Start: 04-11-2022 End: 04-11-2022 ambulatory COMMUNITY DEVELOPMENT WORKER RITU ENG Facility:[facility] Start: 09-20-2021 End: 09-21-2021 ambulatory COMMUNITY DEVELOPMENT WORKER RITU ENG Facility:[facility] Start: 08-09-2021 End: 08-10-2021 ambulatory COMMUNITY DEVELOPMENT WORKER RITU ENG Facility:[facility] Start: 12-21-2017 Ambulatory GENE MD SAAVEDRA Facilit y:UNKNOWN Start: 11-23-2017 Ambulatory GENE MD SAAVEDRA Facilit y:UNKNOWN Start: 09-08-2017 End: 09-09-2017 Ambulatory VITHAL SHENDGE Facility:[facility] Start: 07-14-2017 End: 07-15-2017 Ambulatory VITHAL SHENDGE Facility:[facility] Start: 05-04-2017 End: 05-05-2017 Ambulatory DEFAULT PHYSICIAN Facility:[facility] Procedures Date Procedure Procedure Detail Performing Clinician Start: 03-13-2024 Mammography Ritu Massiel carvajal WASH WORKER Work Phone: Start: 09-08-2017 ANESTH LOWER ARM SURGERY SONIA COBB Start: 09-08-2017 Neuroplasty &/transp os median nrv carpal tunne VITHAL SHENDGE Start: 07-14-2017 ANESTH LOWER ARM SURGERY YAJAIRA MUÑIZ Start: 07-14-2017 Neuroplasty &/transp os median nrv carpal tunne VITHAL SHENDGE Start: 04-14-2017 Microscopic observat ion [Identifier] in Cervix by Cyto stain Ritu Eng WASH WORKER Work Phone: Plan of Treatment Date Care Activity Detail Author Start: 03-13-2025 [facility] Start: 07-16-2024 End: 07-16-2024 Patient encounter procedure 07/16/2024 2:00 PM EST Procedure Visit [facility] [address] [place] [address] Ritu Eng NP [address] [place] [address] [facility] Start: 06-12-2024 Influenza vaccination Influenz a Vaccine (#1) [facility] Comment on above: Postponed from 04/14 (Patient Does Not Have Time) Start: 06-05-2024 End: 06-05-2025 Holter monitor study Holter monitor Imaging Routine Irregular heart rate Expected: 06/05/2024 (Approximate), Expires: 06/05/2025 [facility] Work Phone: Comment on above: Expected: 06/05/2024 (Approximate), Expires: 06/05/2025 Start: 11-08-2023 Screening for malign ant neoplasm of colon [facility] Start: 04-14-2020 Screening for malign ant neoplasm of cervix [facility] Start: 2000 Screening for malign ant neoplasm of cervix HPV/Cotest [facility] Start: 1970 Screening for malign ant neoplasm of colon [facility] Immunizations Immunization Date Immunization Notes Care Provider [facility] 06-05-2024 Influenza, injectabl e, Madin Danae Canine Kidney, preservative free, quadrivalent Ritu Eng WASH WORKER Work Phone: [facility] 01-09-2020 tetanus toxoid, redu ney diphtheria toxoid, and acellular pertussis vaccine, adsorbed Ritu Eng WASH WORKER Work Phone: [facility] Payers Date Payer Category Payer Private Health Insurance [facility] MEDICAID [id number] 2016 Medicaid [id number] 1970 Unknown [id number]. 593 1970 Unknown [id number] [id number]. 593 1970 Unknown [id number] [id number]. 593 1970 Unknown [id number] [id number]. 593 1970 Unknown [id number] [id number]. 593 1970 Unknown [id number] 2.16.840.1.603988.3.579.2. 1286 1970 Unknown [id number] 2.16.840.1.399001.3.579.2. 1286 1970 Unknown [id number] 2.16.840.1.457183.3.579.2. 1286 1970 Unknown [id number] 2.16.840.1.728697.3.579.2. 1286 1970 Unknown [id number] 2.16.840.1.021275.3.579.2. 1286 1970 Unknown [id number] 2.16.840.1.065804.3.579.2. 1259 1970 Unknown [id number] [id number]. 1259 1959 Unknown [id number] Unknown Social History Date Type Detail Facility Start: 02-22-2024 [facility] History of tobacco use Cigarette Smoker [facility] Start: 02-22-2024 Tobacco use and exposure Smoke less tobacco non-user [facility] Start: 02-22-2024 End: 06-05-2024 Alcoholic beverage intake Current drinker of alcohol (finding) [facility] Start: 02-22-2024 End: 06-05-2024 [facility]olic beverage [facility] Start: 02-22-2024 End: 06-05-2024 Tobacco use panel [facility] Start: 02-22-2024 Alcohol Comment caffine: 2 daily [facility] Start: 1970 Sex assigned at Not on file [facility] History of Present illness Narrative 06-05-2024 Ritu Eng NP - 06/05/2024 1:32 PM Sammy Eng NP - 06/05/2024 1:32 PM Sammy Eng NP - 06/05/2024 1:32 PM Sammy Eng NP - 06/05/2024 1:30 PM EDT Note Date & Type Note Facility 06-05-2024 History of Presen t illness Narrative Associated Problem(s): Fibromyalgia Continue claudette OARRS reviewed Associated Problem(s): Irregular heart rate Order holter Fu in 4 weeks Associated Problem(s): Primary hypertension (CMS/HCC) No changes to blood pressure meds Associated Problem(s): Centrilobular emphysema (CMS/HCC) Continue albuterol inhaler Recommend quitting smoking Pt went to er and was told she had pvc Pt is not having any pain pt still has palpitations and more frequent in the last month- she states that it does not bother her or hurt Pt states she is having no dizziness or sob Images from the original note were not included. Racheal Richardson is a 53 y.o. female presents with chief complaint of No chief complaint on file. HPI: Palpitations This is a recurrent problem. The current episode started more than 1 month ago. The problem occurs intermittently. The problem has been waxing and waning. The symptoms are aggravated by stress. Associated symptoms include an irregular heartbeat. Pertinent negatives include no chest fullness, chest pain, coughing, dizziness, fever, nausea, near-syncope, shortness of breath, vomiting or weakness. She has tried nothing for the symptoms. Risk factors include smoking/tobacco exposure. Hypertension This is a chronic problem. The current episode started more than 1 year ago. The problem is unchanged. The problem is controlled. Associated symptoms include palpitations. Pertinent negatives include no chest pain, headaches or shortness of breath. There are no associated agents to hypertension. Risk factors for coronary artery disease include dyslipidemia, sedentary lifestyle and smoking/tobacco exposure. Past treatments include diuretics and BORA inhibitors. The current treatment provides significant improvement. There are no compliance problems. SUBJECTIVE: MEDICATIONS: Current Outpatient Medications Medication Instructions albuterol HFA 90 mcg/act inhaler 2 puffs, Inhalation, Every 6 hours PRN cetirizine (ZYRTEC) 10 mg, Oral, Daily gabapentin (NEURONTIN) 300 mg, 2 times daily lisinopril-hydroCHLOROthiazide 20-12.5 MG tablet 1 tablet, Oral, Every morning simvastatin (ZOCOR) 40 mg, Oral, Nightly ALLERGIES: Allergies Allergen Reactions Sulfa Antibiotics Hives Hives, very hot feeling. Metaproterenol Unknown REVIEW OF SYMPTOMS: Review of Systems Constitutional: Negative for appetite change, chills and fever. HENT: Negative for congestion, ear pain and sore throat. Eyes: Negative for pain, discharge, redness and visual disturbance. Respiratory: Negative for cough, shortness of breath and wheezing (occ). Cardiovascular: Positive for palpitations. Negative for chest pain, leg swelling and near-syncope. Gastrointestinal: Negative for abdominal pain, blood in stool, constipation, diarrhea, nausea and vomiting. Genitourinary: Negative for difficulty urinating, dysuria and frequency. Musculoskeletal: Negative for arthralgias, back pain, joint swelling and myalgias. Skin: Negative for rash and wound. Neurological: Negative for dizziness, tremors, seizures, syncope, weakness and headaches. Psychiatric/Behavioral: Negative for behavioral problems, self-injury and suicidal ideas. Hematological: Does not bruise/bleed easily. Endocrine: Negative for polydipsia, polyphagia and polyuria. Allergic/Immunologic: Negative for environmental allergies and food allergies. PAST MEDICAL HISTORY Past Medical History: Diagnosis Date Centrilobular emphysema ([facility]/HCC) 08/15/2023 Coronary artery disease involving [place] coronary artery of [place] heart without angina pectoris ([facility]/HCC) 08/05/2023 Mixed hyperlipidemia ([facility]/HCC) 08/05/2023 Primary hypertension ([facility]) 08/05/2023 Past Surgical History: Procedure Laterality Date CT GUIDED TRANSVAGINAL TRANSRECTAL FLUID DRAIN 10/04/2023 CT GUIDED TRANSVAGINAL TRANSRECTAL FLUID DRAIN 10/04/2023 family history is not on file. OBJECTIVE: Visit Vitals BP (!) 148/100 (BP Location: Left arm, Patient Position: Sitting, BP Cuff Size: Adult long) Pulse 97 Temp 98.8 F (Temporal) Resp 18 Ht 5' 4 Wt 167 lb SpO2 97% BMI 28.67 kg/m Smoking Status Every Day BSA 1.85 m Physical Exam Vitals and nursing note reviewed. Constitutional: General: She is not in acute distress. Appearance: Normal appearance. HENT: Head: Normocephalic and atraumatic. Right Ear: External ear normal. Left Ear: External ear normal. Nose: Nose normal. Mouth/Throat: Mouth: Mucous membranes are moist. Eyes: Extraocular Movements: Extraocular movements intact. Conjunctiva/sclera: Conjunctivae normal. Neck: Vascular: No carotid bruit. Cardiovascular: Rate and Rhythm: Normal rate and regular rhythm. Pulses: Normal pulses. Heart sounds: Normal heart sounds. Pulmonary: Effort: Pulmonary effort is normal. Breath sounds: Normal breath sounds. No wheezing or rales. Abdominal: General: Bowel sounds are normal. There is no distension. Palpations: Abdomen is soft. There is no mass. Tenderness: There is no abdominal tenderness. Musculoskeletal: General: Normal range of motion. Cervical back: Normal range of motion and neck supple. Right lower leg: No edema. Left lower leg: No edema. Skin: General: Skin is warm and dry. Capillary Refill: Capillary refill takes 2 to 3 seconds. Findings: No rash. Neurological: General: No focal deficit present. Mental Status: She is alert and oriented to person, place, and time. Psychiatric: Mood and Affect: Mood normal. Behavior: Behavior normal. Thought Content: Thought content normal. Judgment: Judgment normal. ASSESSMENT AND PLAN: No follow-ups on file. Problem List Items Addressed This Visit Primary hypertension (CMS/HCC) - Primary No changes to blood pressure meds Centrilobular emphysema (CMS/HCC) Continue albuterol inhaler Recommend quitting smoking Colon cancer screening Relevant Orders Ambulatory referral to General Surgery Fibromyalgia Continue claudette OARRS reviewed Relevant Medications gabapentin (Neurontin) 300 MG capsule Irregular heart rate Order holter Fu in 4 weeks Relevant Orders Holter monitor Needs flu shot Relevant Orders Flu vaccine, MDCK, quadrivalent, PF (OMQ828) (Flucelvax single dose syringe) documented in this encounter [facility] Instructions 06-05-2024 Patient Instructions Note Date & Type Note Facility 06-05-2024 Instructions Ritu Eng NP - 06/05/2024 1:00 PM EDT Fu in 6 weeks; this will be a PAP and hope to have heart monitor results documented in this encounter [facility] Clinical Note 12-07-2021 Note Date & Type Note Facility 12-07-2021 Note Chief Complaint NEW: REFERRAL Preoperative clearance, abnormal ekg History of Present Illness Ms Racheal Richardson is a 51-year-old female who was referred to our office by Johnny Kaminski DO for preoperative clearance in the setting of an abnormal EKG. the past medical history significant for hypertension, fibromyalgia and hypercholesterolemia as well as hip arthritis. Past surgical history is significant for tubal ligation, , back surgery, cyst removal and bilateral carpal tunnel release. She has an allergy to sulfa. She is to have left hip surgery on 12/17/2021 and records were requested multiple times but were not received. No H&P (only labs received). The abnormal EKG was also not received. The patient is to have a left total hip for osteoarthritis which is scheduled on 12/17/2021 at [facility]. Patient is a smoker. She smokes 1/2 pack/day. Occasional alcohol use. She is . She has a child who of an overdose and 2 other children who are alive and well. Her mother had atrial fibrillation and her father age 53 of a myocardial infarction. An EKG completed in the office today reveals sinus rhythm with 1 isolated PVC and a heart rate of 95 bpm. No abnormalities. The patient denies any chest pain or shortness of breath. She is ambulating upstairs without problems. She states she can walk a block without issues. No chest pain or shortness of breath. She states she can feel her heartbeat irregularly for a second or 2 every now and then but it not associated with symptoms. On 11/20/2021 her hemoglobin was 13.3, creatinine 0.65 and GFR greater than 59. We reviewed her EKG, cardiovascular risk factors and her cardiovascular risk factor modification as well as smoking cessation. We discussed that there is no cardiac contraindication to her upcoming surgery. She can exercise greater than 4 METS without chest pain or shortness of breath and no stress test is required. She is accompanied to the office visit by her . All questions were answered. Review of Systems Cardiology Chest pain/pressure: No Claudication: No Edema: No Exertional dyspnea: No Orthopnea: No Other Cardiovascular: No Palpitations: Yes Syncope: No Constitutional Const Fever: No Const Loss of Appetite: No Daytime sleepiness: No Lack of energy: No Other Const.: No Trouble sleeping: Yes Weight changes: No Endocrine Cold or heat intolerance: No Excessive hunger: No Excessive thirst: No Excessive urination: No Gastrointestinal Belly pain: No Bloody or tarry stools: No Change in bowel habits: No Diarrhea/constipation: No Gallstones: No Heartburn/Indigestion: No Jaundice: No Nausea/vomiting: No Vomiting blood: No Genitourinary Frequent urination: No Kidney stones: No Painful urination: No Prostate problems: No Urinating at night: No HEENT Bleeding gums: No Blurred vision: No Cataracts: No Glaucoma: No Hearing problems: No Nose bleeds: No Other HEENT: No Sinus Problems: No Hematologic Anemia: No Bleeding problems: No Easy bruising: No Prior blood transfusion: No Musculoskeletal Gout: No Joint pains: No Joint swelling/redness: No Neurologic Cardio ROS Neuro Headache: Negative Loss of balance/falling: Negative Loss of memory: Negative Numbness: Negative Paralysis (even temporary): Negative Seizures: Negative Stroke: Negative Tremor/shakiness: Negative Psychiatric Crying or sadness: No Depression: No Nervousness/anxiety: Yes Suicidal thought/attempt: No Unusual thoughts: No Respiratory Cardio ROS Resp Cough: No Cardio ROS Resp Shortness of Breath: No Coughing up blood: No Other Resp.: No Wheezing: Yes The review of systems was completed and is otherwise negative. Physical Exam Vitals & Measurements HR: 68 (Peripheral) BP: 140/88 SpO2: 98 HT: 165 cm WT: 80.8 kg WT: 80.8 kg (Dosing) BMI: 29.68 Additional Vitals BP Position/Location: Sitting, Left arm The physical examination reveals a well appearing female in no acute distress. The head is normocephalic and atraumatic. The extraocular muscles are intact. The neck is supple with full range of motion. There is no carotid bruit or JVD. The lungs are clear bilaterally to posterior auscultation. There are no rales, rhonchi or wheeze. The cardiovascular examination reveals a normal S1 and S2. There is no murmur, rub, S3 or S4. The abdomen is soft and nontender, positive bowel sounds. The lower extremities reveal no pretibial edema or calf tenderness. There are no gross neurologic deficits. The gait is steady Assessment/Plan Abnormal electrocardiogram [ECG] [EKG] Preop cardiovascular exam Medical Decision Making The patient is able to exercise greater than 4 METS without chest pain or shortness of breath. Her EKG is benign. She does have cardiovascular risk factors for cardiac disease and cardiovascular risk factor modification was discussed. I do recommend the patient stop her smoking habit. We discussed this (more content not included)... [facility] Clinical Note 12-07-2021 Note Date & Type Note Facility 12-07-2021 Note Patient Education Ma terials Name: Racheal Richardson Current Date: 12/07/2021 09:26:16 [place] : 1970 [facility]: [id number] The following sheet(s) are the Patient Education Leaflets for [facility] Exercise for a Healthier Heart Exercise with a friend. When activity is fun, you're more likely to stick with it. You may wonder how you can improve the health of your heart. If you?re thinking about exercise, you?re on the right track. You don?t need to become an athlete. But you do need a certain amount of brisk exercise to help strengthen your heart. If you have been diagnosed with a heart condition, your healthcare provider may advise exercise to help stabilize your condition. To help make exercise a habit, choose safe, fun activities. Before you start Check with your healthcare provider before starting an exercise program. This is especially important if you have not been active for a while. It's also important if you have a long-term (chronic) health problem such as heart disease, diabetes, or obesity. Or if you are at high risk for having these problems. Why exercise? Exercising regularly offers many healthy rewards. It can help you do all of the following: ?Improve your blood cholesterol level to help prevent further heart trouble ?Lower your blood pressure to help prevent a stroke or heart attack ?Control diabetes, or reduce your risk of getting this disease ?Improve your heart and lung function ?Reach and stay at a healthy weight ?Make your muscles stronger so you can stay active ?Prevent falls and fractures by slowing the loss of bone mass (osteoporosis) ?Manage stress better ?Reduce your blood pressure ?Improve your sense of self and your body image Exercise tips ?Ease into your routine. Set small goals. Then build on them. If you are not sure what your activity level should be, talk with your healthcare provider first before starting an exercise routine. ?Exercise on most days. Aim for a total of 150 minutes (2 hours and 30 minutes) or more of moderate-intensity aerobic activity each week. Or 75 minutes (1 hour and 15 minutes) or more of vigorous-intensity aerobic activity each week. Or try for a combination of both. Moderate activity means that you breathe heavier and your heart rate increases but you can still talk. Think about doing 40 minutes of moderate exercise, 3 to 4 times a week. For best results, activity should last for about 40 minutes to lower blood pressure and cholesterol. It's OK to work up to the 40-minute period over time. Examples of moderate-intensity activity are walking 1 mile in 15 minutes. Or doing 30 to 45 minutes of yard work. ?Step up your daily activity level. Along with your exercise program, try being more active the whole day. Walk instead of drive. Or park further away so that you take more steps each day. Do more household tasks or yard work. You may not be able to meet the advised mount of physical activity. But doing some moderate- or vigorous-intensity aerobic activity can help reduce your risk for heart disease. Your healthcare provider can help you figure out what is best for you. ?Choose 1 or more activities you enjoy. Walking is one of the easiest things you can do. You can also try swimming, riding a bike, dancing, or taking an exercise class. When to call your healthcare provider Call your healthcare provider if you have any of these: ?Chest pain or feel dizzy or lightheaded ?Burning, tightness, pressure, or heaviness in your chest, neck, shoulders, back, or arms ?Abnormal shortness of breath ?More joint or muscle pain ?A very fast or irregular heartbeat (palpitations) ? [id number] [employer] [place] [address]. All rights reserved. This information is not intended as a substitute for professional medical care. Always follow your healthcare professional's instructions. [facility] Clinical Note 09-20-2021 Note Date & Type Note Facility 09-20-2021 Note PROCEDURE: XR KNEE L T 3V HISTORY: Pain of left knee joint ; chronic since falling one-2 years ago COMPARISON: None. FINDINGS: BONES:No fracture, acute abnormality, or significant arthropathy. SOFT TISSUES:5 mm long by 0.5 mm diameter foreign body anterior-inferior to the patella. EFFUSION:None visible. OTHER: Negative. IMPRESSION: 1. No acute bone abnormality or significant degenerative joint disease. 2. Nonspecific small foreign body within subcutaneous tissues anterior to inferior margin of patella. Electronically authenticated by: JANN DOUGHERTY Date: 2021-09-20 11:56 [facility] Clinical Note 09-20-2021 Note Date & Type Note Facility 09-20-2021 Note PROCEDURE: XR SHOULD ER LT 2V or > HISTORY: Pain of left shoulder joint ; chronic since falling one-2 years ago COMPARISON: None. FINDINGS: BONES:Small degenerative osteophyte along the inferior to the margin humeral head. Mild narrowing of the acromioclavicular joint. SOFT TISSUES:No visible soft tissue swelling. EFFUSION:None visible. OTHER: Negative. IMPRESSION: 1. Mild degenerative joint disease. No acute bone abnormality or bone lesion. Electronically authenticated by: JANN DOUGHERTY Date: 2021-09-20 11:55 [facility] Clinical Note 09-20-2021 Note Date & Type Note Facility 09-20-2021 Note PROCEDURE: XR HIP LT 2 3V W PELVIS HISTORY: Pain of left hip joint ; chronic pain since falling one-2 years ago COMPARISON: None. FINDINGS: BONES:Narrowing of the left hip joint space with near [id number] articulation at the superior margin. No fracture, dislocation, or significant periarticular degenerative osteophytes. SOFT TISSUES:No visible soft tissue swelling. EFFUSION:None visible. OTHER: Mechanical repair of lumbar spine. IMPRESSION: 1. Moderate or greater degenerative joint disease of the left hip. 2. No acute bone abnormality. Electronically authenticated by: JANN DOUGHERTY Date: 2021-09-20 11:53 [facility] Evaluation note Note Date & Type Note Facility Evaluation note Diagnosis Irregular heart rate- Primary Colon cancer screening Special screening for malignant neoplasms, colon Mixed hyperlipidemia (CMS/HCC) Mixed hyperlipidemia Primary hypertension (CMS/HCC) Unspecified essential hypertension Centrilobular emphysema (CMS/HCC) Encounter for screening mammogram for malignant neoplasm of breast Primary hypertension (CMS/HCC)- Primary Unspecified essential hypertension Centrilobular emphysema (CMS/HCC) Irregular heart rate Needs flu shot Need for prophylactic vaccination and inoculation against influenza Fibromyalgia Unspecified myalgia and myositis Colon cancer screening Special screening for malignant neoplasms, colon documented in this encounter [facility] Summary Purpose Family History No Family History Records FoundNo Family History Records FoundNo Family History Records FoundNo Family History Records FoundNo Family History Records FoundNo Family History Records Found Advance Directives No Advanced Directives Records FoundNo Advanced Directives Records FoundNo Advanced Directives Records FoundNo Advanced Directives Records FoundNo Advanced Directives Records FoundNo Advanced Directives Records Found Additional Source Comments INFORMATION SOURCE (unrecogn ized section and content) DATE CREATED AUTHOR 01/31/2018 [employer] DATE CREATED AUTHOR AUTHOR'S ORGANIZ ATION 02/05/2018 [facility] DATE CREATED AUTHOR AUTHOR'S ORGANIZ ATION 12/12/2021 [facility] DATE CREATED AUTHOR AUTHOR'S ORGANIZ ATION 07/16/2022 [facility] DATE CREATED AUTHOR AUTHOR'S ORGANIZ ATION 10/12/2023 [facility] DATE CREATED AUTHOR AUTHOR'S ORGANIZ ATION 06/07/2024 [facility] [employer] Care Teams (unrecognized sec tion and content) Installation Service Representative Relationship Specialty Start Date End Date Unallocated, Kip Davila MD [address] [place] [address] PCP - General Family Medicine 06/05/24 Ritu Eng NP [address] [place] [address] Nurse Practitioner Family Medicine 02/22/24 Installation Service Representative Relationship Specialty Start Date End Date Unallocated, Kip Davila MD [address] [place] [address] PCP - General Family Medicine 06/05/24 Ritu Eng NP [address] [place] [address] Nurse Practitioner Family Medicine 02/22/24 FOR RECORDS PERTAINING TO PATIENTS WHO ARE OR HAVE BEEN ENROLLED IN A CHEMICAL DEPENDENCY/SUBSTANCEABUSE PROGRAM, SOME INFORMATION MAY BE OMITTED. This clinical summary was aggregated from multiple sources. Caution should be exercised in using it in the provision of clinical care. This summary normalizes information from multiple sources, and as a consequence, information in this document may materially change the coding, format and clinical context of patient data. In addition, data may be omitted in some cases. CLINICAL DECISIONS SHOULD BE BASED ON THE PRIMARY CLINICAL RECORDS. [employer] provides no warranty or guarantee of the accuracy or completeness of information in this document.
== END 2024-06-18 12:37 | disposition home or self-care (01) ==
LOC: CARD 12:36
PROVIDERS: PCP Nurse Practitioner; Visit Provider Nurse Practitioner
DX: I49.9 Cardiac arrhythmia, unspecified (principal)
CPT/HCPCS: 93246

== ENCOUNTER 2024-07-03 11:52 | Outpatient (OUT) | payer OTHER, SELFPAY ==
--- OUTSIDE RECORDS SUMMARY | 2024-07-03 12:10 | XMS_ITS | CCD ---
Author Organization [facility] CliniSyaz Care Team Providers Care 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 Name Role Phone CASEY SAAVEDRA MD Unavailable Unavailable UNASSIGNED, DOCTOR Unavailable Unavailable CASEY SAAVEDRA MD Unavailable Unavailable UNASSIGNED, DOCTOR Unavailable Unavailable PHYSICIAN, DEFAULT Unavailable Unavailable PHYSICIAN, DEFAULT Unavailable Unavailable SHENDGE, VITHAL Unavailable Unavailable SHENDGE, VITHAL Unavailable Unavailable ERIC, GUALBERTO Unavailable Unavailable ERIC, GUALBERTO Unavailable Unavailable [place] Unavailable Unavailable SHENDGE, VITHAL Unavailable Unavailable [place] Unavailable Unavailable YAJAIRA MUÑIZ Unavailable Unavailable SHENDGE, VITHAL Unavailable Unavailable SHENDGE, VITHAL Unavailable Unavailable ERIC, GUALBERTO Unavailable Unavailable ERIC, GUALBERTO Unavailable Unavailable SHENDGE, VITHAL Unavailable Unavailable [place] Unavailable Unavailable SONIA COBB Unavailable Unavailable [place] Unavailable Unavailable AICHHOLZ, LOAN SPECIALIST RITU Attending Unavailable AICHHOLZ, LOAN SPECIALIST RITU Consulting Unavailable AICHHOLZ, LOAN SPECIALIST RITU Primary Care Unavailable AICHHOLZ, LOAN SPECIALIST RITU Admitting Unavailable AICHHOLZ, LOAN SPECIALIST RITU Admitting Unavailable AICHHOLZ, LOAN SPECIALIST RITU Attending Unavailable AICHHOLZ, LOAN SPECIALIST RITU Consulting Unavailable AICHHOLZ, LOAN SPECIALIST RITU Primary Care Unavailable DR JANN DOUGHERTY Consulting Unavailable AICHHOLZ, LOAN SPECIALIST RITU Admitting Unavailable AICHHOLZ, LOAN SPECIALIST RITU Attending Unavailable AICHHOLZ, LOAN SPECIALIST RITU Consulting Unavailable AICHHOLZ, LOAN SPECIALIST RITU Primary Care Unavailable AICHHOLZ, LOAN SPECIALIST RITU Admitting Unavailable AICHHOLZ, LOAN SPECIALIST RITU Attending Unavailable AICHHOLZ, LOAN SPECIALIST RITU Consulting Unavailable AICHHOLZ, LOAN SPECIALIST RITU Primary Care Unavailable AICHHOLZ, LOAN SPECIALIST RITU Attending Unavailable AICHHOLZ, LOAN SPECIALIST RITU Consulting Unavailable AICHHOLZ, LOAN SPECIALIST RITU Primary Care Unavailable AICHHOLZ, LOAN SPECIALIST RITU Admitting Unavailable DR JANN DOUGHERTY Consulting Unavailable AICHHOLZ, RITU J Primary Care Unavailable JERRELL OLPEZ Attending Unavailable NANCY MARTIN Admitting Unavailable LYSSA RALPH Consulting Unavailable JHON LYONS Consulting Unavailable JERRELL LOPEZ Attending Unavailable JERRELL LOPEZ Referring Unavailable AICHHOLEdvin, RITU J Primary Care Unavailable HASJHON CARLISLE Attending Unavailable HASJHON CARLISLE Referring Unavailable AICHHOLEdvin, RITU J Primary Care Unavailable Aichholz ANVIL WORKER, Ritu Unavailable Unallocated MD, Noms Provider Primary Care Provi song RITU ENG Attending Unavailable AICHHOLEdvin RITU Attending Unavailable Aichholz FISHER SWORDFISH-Ritu HINDS Primary Care Provider HANNAH GALLEGO Attending Unavailable AICHHOLEdvin RITU J Referring Unavailable AICHHOLEdvin, RITU J Primary Care Unavailable AICHHOLEdvin, RITU J Referring Unavailable AICHHOLZ, RITU J Primary Care Unavailable ORLANDO ASH Admitting Unavailable ORLANDO ASH Attending Unavailable AICHHOLEdvin, RITU J Primary Care Unavailable Allergies Allergy Classification Reported Allergen(s) Allergy Type Date of Onset Reaction(s) Facility (1 source) NKA; Translations: [NKA] Propensity to adverse reactions (disorder) 7 [facility] Repository (1 source) No Known Allergies; Translations: [No Known Allergies] Propensity to adverse reactions (disorder) [facility] Repository (1 source) metaproterenol Drug Allergy 7 [facility] Repository (5 sources) Sulfonamides (Antibiotic); Translations: [SULFA (SULFONAMIDE ANTIBIOTICS)] Propensity to adverse reactions to drug (disorder) 2 [facility] Repository (4 sources) metaproterenol; Translations: [METAPROTERENOL] Drug Allergy 4 Unknown [facility] Healthcare Work Phone: (3 sources) Sulfonamides (Antibiotic) Drug Intolerance 2 [facility] (1 source) metaproterenol Drug Allergy 4 [facility] Medications Current Medications Medication Drug Class(es) Dates Sig (Normalized) Sig (Original) acetaminophen 500 mg oral tablet (2 sources) Start: 01-28-2022 take 2 tablets by mouth every six hours acetaminophen (TYLENOL EXTRA STRENGTH) 500 mg tablet Take 2 tablets (1,000 mg total) by mouth every 6 (six) hours. 30 tablet 01/28/2022 Active [id number] 200 actuat albuterol 0.09 mg/actuat metered dose inhaler (7 sources) beta2-Adrenergic Agonist Start: 05-07-2024 End: 08-05-2024 take 2 puff(s) by inhalation every six hours for wheezing albuterol HFA 90 mcg/act inhaler Indications: Centrilobular emphysema (CMS/HCC) Inhale 2 puffs every 6 (six) hours if needed for wheezing 54 g 05/07/2024 08/05/2024 Active take 2.5 mg by inhal ation every six hours as needed for wheezing albuterol (PROVENTIL,VENTOLIN) 2.5 mg /3 mL (0.083 %) nebulizer solution Inhale 3 mL (2.5 mg total) by nebulization every 6 (six) hours as needed for wheezing. Active take 2 puff(s) by in halation every six hours as needed for wheezing albuterol (PROVENTIL HFA;VENTOLIN HFA) 9 0 mcg/actuation inhaler Inhale 2 puffs every 6 (six) hours as needed for wheezing or shortness of breath. Active aspirin 325 mg delayed release oral tablet (1 source) Platelet Aggregation Inhibitor, Nonsteroidal Anti-inflammatory Drug Start: 01-28-2022 End: 06-19-2024 take 1 tablet by mouth in the morning aspirin 325 mg EC tablet Take 1 tablet (325 mg total) by mouth in the morning. 30 tablet 01/28/2022 06/19/2024 Discontinued (Therapy completed) cetirizine hydrochloride 10 mg oral tablet (6 sources) Histamine-1 Receptor Antagonist Start: 04-16-2024 End: 07-15-2024 take 1 tablet by mouth once daily cetirizine (ZyrTEC) 10 MG tablet Indications: Urticaria, unspecified , Urticaria Take 1 tablet (10 mg) by mouth Daily 90 tablet 1 04/16/2024 07/15/2024 Active gabapentin 300 mg oral capsule (7 sources) Anti-epileptic Agent Start: 02-27-2024 End: 09-03-2024 take 1 capsule by mouth once daily gabapentin (Neurontin) 300 MG capsule Indications: Fibromyalgia Take 1 capsule (300 mg) by mouth Daily 90 capsule 1 06/05/2024 09/03/2024 Active hydroCHLOROthiazide 12.5 mg / lisinopril 20 mg oral tablet (5 sources) Thiazide Diuretic, Angiotensin Converting Enzyme Inhibitor Start: 04-09-2024 End: 07-08-2024 take 1 tablet by mouth in the morning lisinopril-hydro CHLOROthiazide 20-12.5 MG tablet Indications: Primary hypertension (CMS/HCC) Take 1 tablet by mouth in the morning. 90 tablet 1 04/09/2024 07/08/2024 Active take 10-12.5 mg by m outh once in the morning lisinopril-hydrochlorothiazide (PRINZIDE ,ZESTORETIC) 10-12.5 mg per tablet Take 1 tablet by mouth in the morning. Active peg 3350-sod sulf,icbz-mlu-ycl 178.7-7.3-0.5 gram recon soln (1 source) Start: 06-19-2024 End: 06-20-2024 peg 3350-sod sulf,xueb-jfs-gwo 178.7-7.3-0.5 gram recon soln Indications: Encounter for screening colonoscopy Take 1 kit by mouth once daily for 1 dose. Please see instructional sheet given by physicians office. 1 each 06/19/2024 06/20/2024 Active simvastatin 40 mg oral tablet (5 sources) HMG-CoA Reductase Inhibitor Start: 04-09-2024 End: 07-08-2024 take 1 tablet by mouth at bedtime simvastatin (Zocor) 40 MG tablet Indications: Mixed hyperlipidemia (CMS/HCC) Take 1 tablet (40 mg) by mouth at bedtime 90 tablet 1 04/09/2024 07/08/2024 Active take 4 tablets by mouth once shelton ly simvastatin (ZOCOR) 10 mg tablet Take 4 tablets (40 mg total) by mouth nightly. Active Problems Active Problems Problem Classification Problem Date Documented Date Episodic/Chronic Acute cerebrovascular disease (1 source) Acute cerebrovascular disease Onset: 10-05-2023 Alcohol-related disorders (1 source) Alcohol use, unspecified with intoxication delirium; Translations: [Alcohol use, unspecified with intoxication delirium] Onset: 10-05-2023 Episodic Cardiac dysrhythmias (5 sources) Irregular heart beat; Translations: [Cardiac arrhythmia, unspecified] Onset: 02-22-2024 02-22-2024 Chronic Chronic obstructive pulmonary disease and bronchiectasis (12 sources) Emphysema, unspecified; Translations: [Chronic obstructive pulmonary disease with (acute) exacerbation] Onset: 08-09-2021 Chronic Diabetes mellitus without complication (3 sources) Increased glucose level; Translations: [Other abnormal glucose] Onset: 03-13-2024 03-13-2024 Episodic Disorders of lipid metabolism (9 sources) Mixed hyperlipidemia; Translations: [Mixed hyperlipidemia] Onset: 06-14-2022 Chronic Essential hypertension (9 sources) Essential (primary) hypertension; Translations: [Essential hypertension] Onset: 07-14-2017 08-05-2023 Chronic Heart valve disorders (2 sources) Irregular heart beat 06-05-2024 Episodic Immunizations and screening for infectious disease (4 sources) Needs influenza immunization; Translations: [Encounter for immunization] Onset: 06-05-2024 06-05-2024 Episodic Osteoarthritis (7 sources) Unilateral primary osteoarthritis, left hip; Translations: [Primary osteoarthritis, left shoulder] Onset: 09-24-2021 02-22-2024 Chronic Other connective tissue disease (5 sources) Fibromyalgia; Translations: [Fibromyalgia] Onset: 02-22-2024 02-22-2024 Episodic Other nervous system disorders (8 sources) Carpal tunnel syndrome, left upper limb; Translations: [Carpal tunnel syndrome, right upper limb] Onset: 07-14-2017 Chronic Other screening for suspected conditions (not mental disorders or infectious disease) (19 sources) Encounter for screening mammogram for malignant [...] 07-14-2017 Unclassified (1 source) AMS Onset: 10-05-2023 Unclassified (3 sources) Patient encounter status; Translations: [Colon Cancer Screening] Onset: 06-19-2024 06-05-2024 Unclassified (1 source) screening Onset: 07-01-2024 Past or Other Problems Problem Classification Problem Date Documented Date Episodic/Chronic Epilepsy; convulsions (6 sources) Unspecified convulsions; Translations: [Neurological finding] Onset: [...] [Dermatochalasis of left upper eyelid] Onset: 11-23-2017 Results Test Name Value Interpretation Reference Range Facility AMMONIAon 10-05-2023 Ammonia (P) [Moles/Vol] 30 umol/L Normal 11-35 [facility] Comment on above: Performed By: #### 1 6362-6 #### [facility] ([id number]) [address] [place] [address] CBC AND AUTO DIFFon 10-05-19 ABSOLUTE BASOPHIL 0.1 X10E9/L Normal 0.0-0.2 [facility] Comment on above: Performed By: #### C BCA, CMP, 55012-5, 49793-9, 5643-2 #### [facility] ([id number]) [address] [place] [address] ABSOLUTE NEUTROPHIL 3.8 X10E9/L Normal 1.5-6.6 [facility] Comment on above: Performed By: #### C BCA, CMP, 48514-8, 43098-8, 5643-2 #### [facility] ([id number]) [address] [place] [address] Basophils/100 WBC (Bld) 0.7 % Normal [facility] Comment on above: Performed By: #### C BCA, CMP, 80520-4, 93421-7, 5643-2 #### [facility] ([id number]) [address] [place] [address] Eosinophils (Bld) [#/Vol] 0.1 10*3/uL Normal 0.0-0.4 [facility] Comment on above: Performed By: #### C BCA, CMP, 74010-2, 39189-0, 5643-2 #### [facility] ([id number]) [address] [place] [address] Eosinophils/100 WBC (Bld) 0.9 % Normal [facility] Comment on above: Performed By: #### C BCA, CMP, 85822-0, 40336-4, 5643-2 #### [facility] ([id number]) [address] [place] [address] Erythrocyte distribution width (RBC) [Ratio] 13.1 % Normal 11.5-15.0 [facility] Comment on above: Performed By: #### C BCA, CMP, 83532-4, 63865-9, 5643-2 #### [facility] ([id number]) [address] [place] [address] Hematocrit (Bld) [Volume fraction] 38.5 % Normal 35-47 [facility] Comment on above: Performed By: #### C BCA, CMP, 49000-4, 58047-2, 5643-2 #### [facility] ([id number]) [address] [place] [address] Hemoglobin (Bld) [Mass/Vol] 13.5 g/dL Normal 11.7-15.5 [facility] Comment on above: Performed By: #### C BCA, CMP, 20312-9, 64539-7, 5643-2 #### [facility] ([id number]) [address] [place] [address] Lymphocytes (Bld) [#/Vol] 2.5 10*3/uL Normal 1.0-3.5 [facility] Comment on above: Performed By: #### C BCA, CMP, , 63605-1, 5643-2 #### [facility] ([id number]) [address] [place] [address] Lymphocytes/100 WBC (Bld) 36.9 % Normal [facility] Comment on above: Performed By: #### C BCA, CMP, 69554-5, 61778-1, 5643-2 #### [facility] ([id number]) [address] [place] [address] MCH (RBC) [Entitic mass] 32.6 pg Normal 27-34 [facility] Comment on above: Performed By: #### C BCA, CMP, 49549-5, 77568-8, 5643-2 #### [facility] ([id number]) [address] [place] [address] MCHC (RBC) [Mass/Vol] 35.1 g/dL Normal 32-36 [facility] Comment on above: Performed By: #### C BCA, CMP, 12124-8, 75023-7, 5643-2 #### [facility] ([id number]) [address] [place] [address] MCV (RBC) [Entitic vol] 93 fL Normal 80-100 [facility] Comment on above: Performed By: #### C BCA, CMP, 14220-6, 07405-8, 5643-2 #### [facility] ([id number]) [address] [place] [address] Monocytes (Bld) [#/Vol] 0.4 10*3/uL Normal 0-0.9 [facility] Comment on above: Performed By: #### C BCA, CMP, 70355-0, 65833-3, 5643-2 #### [facility] ([id number]) [address] [place] [address] Monocytes/100 WBC (Bld) 6.3 % Normal [facility] Comment on above: Performed By: #### C BCA, CMP, 39462-1, 58995-2, 5643-2 #### [facility] ([id number]) [address] [place] [address] Neutrophils/100 WBC (Bld) 55.2 % Normal [facility] Comment on above: Performed By: #### C BCA, CMP, 79733-1, 26520-6, 5643-2 #### [facility] ([id number]) [address] [place] [address] Platelet mean volume (Bld) [Entitic vol] 7.8 fL Normal 7-12 [facility] Comment on above: Performed By: #### C BCA, CMP, 37568-5, 04698-1, 5643-2 #### [facility] ([id number]) [address] [place] [address] Platelets (Bld) [#/Vol] 201 10*3/uL Normal 150-450 [facility] Comment on above: Performed By: #### C BCA, CMP, 21394-7, 32624-1, 5643-2 #### [facility] ([id number]) [address] [place] [address] RBC COUNT 4.14 X10E12/L Normal 3.80-5.20 [facility] Comment on above: Performed By: #### C BCA, CMP, 77141-0, 70800-9, 5643-2 #### [facility] ([id number]) [address] [place] [address] WBC (Bld) [#/Vol] 6.8 10*3/uL Normal 4.0-11.0 [facility] Comment on above: Performed By: #### C BCA, CMP, 85882-6, 18415-2, 5643-2 #### [facility] ([id number]) [address] [place] [address] COMPREHENSIVE METABOLIC PANE Syed 10-05-2023 Albumin [Mass/Vol] 3.9 g/dL Normal 3.2-5.3 [facility] Comment on above: Performed By: #### C BCA, CMP, 52157-3, 39115-9, 5643-2 #### [facility] ([id number]) [address] [place] [address] ALP [Catalytic activity/Vol] 80 U/L Normal 39-130 [facility] Comment on above: Performed By: #### C BCA, CMP, 76283-9, 91437-1, 5643-2 #### [facility] ([id number]) [address] [place] [address] ALT [Catalytic activity/Vol] 28 U/L Normal 0-31 [facility] Comment on above: Performed By: #### C BCA, CMP, 37378-6, 87494-4, 5643-2 #### [facility] ([id number]) [address] [place] [address] Anion gap [Moles/Vol] 11 mmol/L Normal 5-15 [facility] Comment on above: Performed By: #### C BCA, CMP, 04850-7, 35064-1, 5643-2 #### [facility] ([id number]) [address] [place] [address] AST [Catalytic activity/Vol] 40 U/L Normal 0-41 [facility] Comment on above: Performed By: #### C BCA, CMP, 49524-4, 87168-2, 5643-2 #### [facility] ([id number]) [address] [place] [address] Bilirubin [Mass/Vol] 0.6 mg/dL Normal 0.3-1.2 [facility] Comment on above: Performed By: #### C BCA, CMP, 56225-4, 05782-5, 5643-2 #### [facility] ([id number]) [address] [place] [address] Calcium [Mass/Vol] 8.6 mg/dL Normal 8.5-10.5 [facility] Comment on above: Performed By: #### C BCA, CMP, 40718-7, 00334-3, 5643-2 #### [facility] ([id number]) [address] [place] [address] Chloride [Moles/Vol] 99 mmol/L Normal 98-109 [facility] Comment on above: Performed By: #### C BCA, CMP, 04493-2, 32385-4, 5643-2 #### [facility] ([id number]) [address] [place] [address] CO2 [Moles/Vol] 21 mmol/L Low 22-32 [facility] Comment on above: Performed By: #### C BCA, CMP, 47463-7, 20016-7, 5643-2 #### [facility] ([id number]) [address] [place] [address] Creatinine [Mass/Vol] 0.57 mg/dL Normal 0.40-1.00 [facility] Comment on above: Result Comment: METH OD TRACEABLE TO IDMS STANDARD Performed By: #### C BCA, CMP, 06917-7, 20839-0, 5643-2 #### [facility] ([id number]) [address] [place] [address] eGFR (CKD-EPI) NON-RACE DEPENDENT >90 Normal >59 [facility] Comment on above: Result Comment: Reported eGFR is based on the CKD-EPI 2020 equation that does not use a race coefficient. Performed By: #### C BCA, CMP, 95049-9, 41820-3, 5643-2 #### [facility] ([id number]) [address] [place] [address] Glucose [Mass/Vol] 99 mg/dL Normal 65-99 [facility] Comment on above: Performed By: #### C BCA, CMP, 78160-9, 54694-0, 5643-2 #### [facility] ([id number]) [address] [place] [address] Potassium [Moles/Vol] 3.5 mmol/L Normal 3.5-5.0 [facility] Comment on above: Performed By: #### C BCA, CMP, 51928-0, 33922-4, 5643-2 #### [facility] ([id number]) [address] [place] [address] Protein [Mass/Vol] 7.2 g/dL Normal 6.0-8.0 [facility] Comment on above: Performed By: #### C BCA, CMP, 01011-9, 08840-4, 5643-2 #### [facility] ([id number]) [address] [place] [address] Sodium [Moles/Vol] 131 mmol/L Low 134-146 [facility] Comment on above: Performed By: #### C BCA, CMP, 52977-7, 96655-0, 5643-2 #### [facility] ([id number]) [address] [place] [address] Urea nitrogen [Mass/Vol] 10 mg/dL Normal 5-23 [facility] Comment on above: Performed By: #### C BCA, CMP, 03732-4, 46034-4, 5643-2 #### [facility] ([id number]) [address] [place] [address] CT BRAIN WO CONT STROKE ALER Ton [...] Murphy MD on 10/04/2023 11:[address] PM [address] [facility] [address] CTA CAROTIDon 10-05-[address] CTA CAROTID CLINICAL INFORMATION: Stroke. Neurologic deficit. COMPARISON: None PROCEDURE: CT angiogram of the neck with IV contrast. Sagittal and coronal reformatted images with 3-D Maximum intensity projection reconstructions constructed under concurrent physician supervision on a independent workstation for evaluation of carotid and vertebral arteries. Automated exposure control was utilized. The [place] Symptomatic carotid Endarterectomy Trial (NASCET) method for [...] Cavazos MD on 10/04/2023 11:[address] [facility] [address] CTA HEADon 10-05-2023 CT CTA HEAD [...] Cavazos MD on 10/04/2023 11:47 PM Normal [facility] DRUG SCREEN, URINEon 024 AMPHETAMINE/METHAM P Negative Normal NEG [facility] Comment on above: Result Comment: AMPH /METH screening cut off = 1000 ng/mL Performed By: #### D CASTELLANOS ####[facility] ([id number])[address] [place] [address] BARBITURATES Negative Normal NEG [facility] Comment on above: Result Comment: Bethany iturates screening cut off value = 200 ng/mL Performed By: #### D CASTELLANOS ####[facility] ([id number])[address] [place] [address] BENZODIAZEPINES Positive Abnormal NEG [facility] Comment on above: Result Comment: Conf irmation available upon request. Benzodiazepines screening cut off value = 200 ng/mL Performed By: #### D CASTELLANOS ####[facility] ([id number])[address] [place] [address] CANNABINOIDS Negative Normal NEG [facility] Comment on above: Result Comment: Saurav abinoids/THC screening cut off value = 50 ng/mL Performed By: #### D CASTELLANOS ####[facility] ([id number])[address] [place] [address] COCAINE METABOLITE Negative Normal NEG [facility] Comment on above: Result Comment: Coca ine screening cut off value = 300 ng/mL Performed By: #### D CASTELLANOS ####[facility] ([id number])[address] [place] [address] ECSTASY Negative Normal NEG [facility] Comment on above: Result Comment: Ecst asy screening cut off value = 500 ng/mL This report is intended for use in clinical monitoring or management of patients. Performed By: #### D CASTELLANOS ####[facility] ([id number])[address] [place] [address] METHADONE Negative Normal NEG [facility] Comment on above: Result Comment: Meth adone screening cut off value = 300 ng/mL. Performed By: #### D CASTELLANOS ####[facility] ([id number])[address] [place] [address] OPIATES Negative Normal NEG [facility] Comment on above: Result Comment: Opia rosita screening cut off value = 300 ng/mL NOTE: This test is used for the detection of codeine, hydrocodone (>1000 ng/mL), morphine and hydromorphone (>900 ng/mL) in urine. Performed By: #### D CASTELLANOS ####[facility] ([id number])[address] [place] [address] OXYCODONE Negative Normal NEG [facility] Comment on above: Result Comment: Oxyc odone screening cut off value = 300 ng/mL NOTE: This test is used for the detection of oxycodone and oxymorphone in urine. Performed By: #### D CASTELLANOS ####[facility] ([id number])[address] [place] [address] PHENCYCLIDINE Negative Normal NEG [facility] Comment on above: Result Comment: Phen cyclidine screening cut off value = 25 ng/mL Performed By: #### D CASTELLANOS ####[facility] ([id number])[address] [place] [address] Ethanol [Mass/Vol]on 024 ETHANOL 0.33 g/dL High 0.00-0.08 [facility] Comment on above: Result Comment: This report is intended for use in clinical monitoring or management of patients. Performed By: #### C BCA, CMP, 77881-0, 77744-0, 5643-2 #### [facility] ([id number]) [address] [facility] [place] [address] HCG ( test) Ql (U)o n 10-05-2023 Beta HCG ( test) Ql (U) Negative Normal NEG [facility] Comment on above: Performed By: #### 2 106-3 #### [facility] ([id number]) [address] [facility] [place] [address] HGB A1C (GLYCO-HGB)on 2023 Glucose [Mass/Vol] 120 mg/dL Normal [facility] Comment on above: Performed By: #### P INR, 3016-3 ####[facility] ([id number])[address] [place] [address]#### 19215-8 ####[facility] ([id number])[address] [place] [address], [address] [address] HbA1c (Bld) [Mass fraction] 5.8 % High 4.4-5.6 [facility] Comment on above: Result Comment: NOTE ADA Guidelines Result HgbA1c Normal : less than 5.7 % Prediabetes : 5.7 % to 6.4 % Diabetes : > 6.4 % Use with caution in patients with abnormal hemoglobin variants as the half-life of red blood cells and in vivo glycation rates are affected. Performed By: #### P INR, 3016-3 ####[facility] ([id number])[address] [place] [address] [id number]#### 27429-2 ####[facility] ([id number])Critical access hospital0 [facility], [address] [place] [address]361 Lipid 1996 panelon 4 Cholesterol [Mass/Vol] 175 mg/dL Normal 150-200 [facility] Comment on above: Performed By: #### P INR, 3015-3 ####[facility] ([id number])[address] [place] [address]#### 88213-1 ####[facility] ([id number])[address] [place] [address], [address] [place] [address] 33747 Cholesterol in HDL [Mass/Vol] 55 mg/dL Normal >39 [facility] Comment on above: Result Comment: HDL <40 mg/dL - High Risk HDL > or = 40mg/dL- Desirable HDL >60 mg/dL - Negative Risk Performed By: #### P INR, 3015-3 ####[facility] ([id number])[address] [place] [address]#### 34321-4 ####[facility] ([id number])2130 [facility], [address] [place] [address] 78103 Cholesterol in LDL [Mass/Vol] 45 mg/dL Normal <130 [facility] Comment on above: Result Comment: LDL <100 mg/dL - Desirable LDL >160 mg/dL - High Risk Performed By: #### P INR, 6-3 ####[facility] ([id number])[address] [place] [address]#### 17780-3 ####[facility] ([id number])[address], [address] [place] [address] 52689 Cholesterol in VLDL [Mass/Vol] 75 mg/dL High 0-30 [facility] Comment on above: Performed By: #### P INR, 3016-3 ####[facility] ([id number])[address] [place] [address]#### 73324-8 ####[facility] ([id number])[address] [address] [place] [address]3234 CHOLESTEROL:HDL 3.2 Normal 1.0-5.0 [facility] Comment on above: Performed By: #### P INR, 3016-3 ####[facility] ([id number])[address] [place] [address]#### 12957-3 ####[facility] ([id number])[address] [address] [place] [address] 17056 Triglyceride [Mass/Vol] 374 mg/dL High 27-150 [facility] Comment on above: Performed By: #### P INR, 3016-3 ####[facility] ([id number])[address] [place] [address]#### 02037-9 ####[facility] ([id number])[address] [address] [place] [address] 50991 MAGNESIUMon 10-05-2023 Magnesium [Mass/Vol] 2.0 mg/dL Normal 1.8-2.6 [facility] Comment on above: Performed By: #### C BCA, CMP, 62272-4, 10556-9, 5643-2 #### [facility] ([id number]) [address] [facility] [address] MR BRAIN W WO CONTon 024 MR [...] Duran Musa on 10/05/2023 11:31 AM Normal [facility] PROTIME AND INRon 10-05-2023 INR Coag (PPP) [Relative time] 1.0 {INR} Normal 0.8-1.1 [facility] Comment on above: Performed By: #### P INR, 3016-3 ####[facility] ([id number])[address] [place] [address]#### 28738-9 ####[facility] ([id number])[address], [address] [place] [address] 96808 PT Coag (PPP) [Time] 11.6 s Normal 9.8-13.2 [facility] Comment on above: Performed By: #### P INR, 3016-3 ####[facility] ([id number])[address] [place] [address]#### 61744-0 ####[facility] ([id number])2130 [facility], [address] [place] [address] 95477 TROPONIN Ion 10-05-2023 Troponin I.cardiac [Mass/Vol] ng/mL Normal 0.00-0.04 [facility] Comment on above: Performed By: #### C BCA, CMP, 42149-6, 83685-3, 5643-2 #### [facility] ([id number]) [address] [place] [address] TSH Qnon 10-05-2023 TSH 1.51 uIU/mL Normal 0.49-4.67 [facility] Comment on above: Performed By: #### P INR, 3016-3 ####[facility] ([id number])[address] [place] [address]#### 07751-6 ####[facility] ([id number])[address] [place] [address], [address] [place] [address]221 URN MACROSCOPIC NURon 2023 BILIRUBIN JOSIAH Negative Normal NEG [facility] Comment on above: Performed By: #### N UM ####[facility] ([id number])[facility] [place] [address] BLOOD/HGB JOSIAH Negative Normal NEG [facility] Comment on above: Performed By: #### N UM ####[facility] ([id number])[address] [place] [address] 24530 GLUCOSE JOSIAH Negative Normal NEG [facility] Comment on above: Performed By: #### N UM ####[facility] ([id number])[address] [place] [address] 37099 KETONES JOSIAH Negative Normal NEG [facility] Comment on above: Performed By: #### N UM ####[facility] ([id number])[address] [place] [address] LEUKOCYTE ESTERASE JOSIAH Negative Normal NEG [facility] Comment on above: Performed By: #### N UM ####[facility] ([id number])[address] [place] [address] NITRITE JOSIAH Negative Normal NEG [facility] Comment on above: Performed By: #### N UM ####[facility] ([id number])[address] [place] [address] PH JOSIAH 5.5 Normal 5.0-8.5 [facility] Comment on above: Performed By: #### N UM ####[facility] ([id number])[address] [place] [address] PROTEIN JOSIAH Negative Normal NEG [facility] Comment on above: Performed By: #### N UM ####[facility] ([id number])[address] [place] [address] SPECIFIC GRAVITY JOSIAH 1.010 Normal 1.003-1.035 [facility] Comment on above: Performed By: #### N UM ####[facility] ([id number])[address] [place] [address] UROBILINOGEN JOSIAH 0.2 eu/dL Normal <1.1 [facility] Comment on above: Performed By: #### N UM ####[facility] ([id number])[address] [place] [address] MG MAMM SCREEN 3D AARON CADon 07-12-2022 MG MAMM SCREEN 3D AARON CAD Patient: RACHEAL RICHARDSON Exam Date: 07/12/2022 : 1970 Gender:F Ordering : [facility]ZMAN ENG [facility] Admission #: [id number] Family : Order #: [id number] CLICK HERE TO VIEW EXAM RADIOLOGY REPORT [...] breast cancer at age 53. LOCATION: [facility] BREAST COMPOSITION: Heterogeneously dense,which may obscure [...] M.D. on 07/13/2022 at 14:47 Normal [facility] CBC AUTO DIFFon 06-14-2022 BASO # 0.0 103/ul Normal 0.0-0.1 [facility] Comment on above: Performed By: #### C BC #### [facility] [address] [place] [address] Dr. Ron Back Basophils/100 WBC (Bld) 0.4 % Normal 0.2-2.0 [facility] Comment on above: Performed By: #### C BC #### [facility] [address] [place] [address] Dr. Ron Back EO # 0.1 103/ul Normal 0.0-0.7 [facility] Comment on above: Performed By: #### C BC #### [facility] [address] [place] [address] Dr. Ron Back Eosinophils/100 WBC (Bld) 1.7 % Normal 0.9-7.0 [facility] Comment on above: Performed By: #### C BC #### [facility] [address] [place] [address] Dr. Ron Back Erythrocyte distribution width (RBC) [Ratio] 12.7 % Normal 11.0-15.0 [facility] Comment on above: Performed By: #### C BC #### [facility] [address] [place] [address] Dr. Ron Back Hematocrit (Bld) [Volume fraction] 40.9 % Normal 36.0-48.0 [facility] Comment on above: Performed By: #### C BC #### [facility] [address] [place] [address] Dr. Ron Back Hemoglobin (Bld) [Mass/Vol] 13.5 g/dL Normal 12.0-16.0 [facility] Comment on above: Performed By: #### C BC #### [facility] [address] [place] [address] Dr. Ron Back IG # 0.03 10e3/ul Normal 0.00-0.03 [facility] Comment on above: Performed By: #### C BC #### [facility] [address] [place] [address] Dr. Ron Back IG % 0.6 % Critically high 0.0-0.5 [facility] Comment on above: Performed By: #### C BC #### [facility] [address] [place] [address] Dr. Ron Back LYMPH # 1.7 103/ul Normal 1.2-3.8 [facility] Comment on above: Performed By: #### C BC #### [facility] [address] [place] [address] Dr. Ron Back Lymphocytes/100 WBC (Bld) 32.7 % Normal 20.5-60.0 [facility] Comment on above: Performed By: #### C BC #### [facility] [address] [place] [address] Dr. Ron Back MANUAL DIFF REQ NO Normal [facility] Comment on above: Performed By: #### C BC #### [facility] [address] [place] [address] Dr. Ron Back MCH (RBC) [Entitic mass] 31.8 pg Normal 26.7-34.0 [facility] Comment on above: Performed By: #### C BC #### [facility] [address] [place] [address] Dr. Ron Back MCHC (RBC) [Mass/Vol] 33.0 g/dL Normal 29.9-35.2 [facility] Comment on above: Performed By: #### C BC #### [facility] [address] [place] [address] Dr. Ron Back MCV (RBC) [Entitic vol] 96.5 fL Normal 81.0-99.0 [facility] Comment on above: Performed By: #### C BC #### [facility] [address] [place] [address] Dr. Ron Back MONO # 0.4 103/ul Normal 0.3-0.8 [facility] Comment on above: Performed By: #### C BC #### [facility] [address] [place] [address] Dr. Ron Back Monocytes/100 WBC (Bld) 7.1 % Normal 1.7-12.0 [facility] Comment on above: Performed By: #### C BC #### [facility] [address] [place] [address] Dr. Ron Back NEUT # 3.0 103/ul Normal 1.4-6.5 [facility] Comment on above: Performed By: #### C BC #### [facility] [address] [place] [address] Dr. Ron Back Neutrophils/100 WBC (Bld) 57.5 % Normal 43.0-75.0 [facility] Comment on above: Performed By: #### C BC #### [facility] [address] [place] [address] Dr. Ron Back Platelet mean volume (Bld) [Entitic vol] 10.5 fL Normal 9.5-13.5 [facility] Comment on above: Performed By: #### C BC #### [facility] [address] [place] [address] Dr. Ron Back PLT 212 103/ul Normal 150-450 [facility] Comment on above: Performed By: #### C BC #### [facility] [address] [place] [address] Dr. Ron Back RBC 4.24 106/ul Normal 4.20-5.40 [facility] Comment on above: Performed By: #### C BC #### [facility] [address] [place] [address] Dr. Ron Back WBC 5.2 103/ul Normal 4.0-11.0 [facility] Comment on above: Performed By: #### C BC #### [facility] [address] [place] [address] Dr. Ron Back LIPID PROFILEon 06-14-2022 CHOL-HDL RATIO NORM SEE BELOW Normal [facility] Comment on above: Result Comment: 3.3 - 4.4 LOW RISK 4.4 - 7.1 AVERAGE RISK 7.1 - 11.0 MODERATE RISK >11.0 HIGH RISK Performed By: #### C MP, LIPID #### [facility] [address] [address] [address] Ron Back Cholesterol [Mass/Vol] 202 mg/dL Critically high <=200 [facility] Comment on above: Performed By: #### C MP, LIPID #### [facility] [address] [address] [address] Ron Back Cholesterol in HDL [Mass/Vol] 69 mg/dL Critically high 40-60 [facility] Comment on above: Performed By: #### C MP, LIPID #### [facility] [address] [address] [address] Ron Back Cholesterol in LDL [Mass/Vol] 110.8 mg/dL Normal [facility] Comment on above: Performed By: #### C MP, LIPID #### [facility] [address] [address] [address] Ron Back Cholesterol.total/ Cholesterol in HDL [Mass ratio] 2.9 {ratio} Normal [facility] Comment on above: Performed By: #### C MP, LIPID #### [facility] [address] [address] [address] Ron Back HDL NORMAL > or = 60 mg/dl - LO W CARDIOVASCULAR RISK <40 mg/dl - HIGH CARDIOVASCULAR RISK Normal [facility] Comment on above: Performed By: #### C MP, LIPID #### [facility] [address] [address] [address] Ron Back LDL CALC NORMAL SEE BELOW Normal [facility] Comment on above: Result Comment: <100 mg/dl OPTIMAL 100 - 129 mg/dl NEAR OR ABOVE OPTIMAL 130 - 159 mg/dl BORDERLINE HIGH 160 - 189 mg/dl HIGH >190 mg/dl VERY HIGH Performed By: #### C MP, LIPID #### [facility] [address] [address] [address] Ron Back Triglyceride [Mass/Vol] 111 mg/dL Normal <=150 [facility] Comment on above: Performed By: #### C MP, LIPID #### [facility] [address] [address] [address] Ron Back VLDL CALC 22.2 mg/dL Normal [facility] Comment on above: Performed By: #### C MP, LIPID #### [facility] [address] [place] [address] Dr. Ron Back PROF 14(COMP METB)on 022 Albumin [Mass/Vol] 4.1 g/dL Normal 3.4-5.0 [facility] Comment on above: Performed By: #### C MP, LIPID #### [facility] [address] [place] [address] Dr. Ron Back Albumin/Globulin [Mass ratio] 1.0 {ratio} Normal [facility] Comment on above: Performed By: #### C MP, LIPID #### [facility] [address] [place] [address] Dr. Ron Back ALP [Catalytic activity/Vol] 114 U/L Normal 46-116 [facility] Comment on above: Performed By: #### C MP, LIPID #### [facility] [address] [place] [address] Dr. Ron Back ALT [Catalytic activity/Vol] 34 U/L Normal 14-59 [facility] Comment on above: Performed By: #### C MP, LIPID #### [facility] [address] [place] [address] Dr. Ron Back Anion gap [Moles/Vol] 15.4 mmol/L Normal [facility] Comment on above: Performed By: #### C MP, LIPID #### [facility] [address] [place] [address] Dr. Ron Back AST [Catalytic activity/Vol] 28 U/L Normal 15-37 [facility] Comment on above: Performed By: #### C MP, LIPID #### [facility] [address] [place] [address] Dr. Ron Back Bilirubin [Mass/Vol] 0.4 mg/dL Normal 0.2-1.0 [facility] Comment on above: Performed By: #### C MP, LIPID #### [facility] [address] [place] [address] Dr. Ron Back Calcium [Mass/Vol] 10.0 mg/dL Normal 8.5-10.1 [facility] Comment on above: Performed By: #### C MP, LIPID #### [facility] [address] [place] [address] Dr. Ron Back Chloride [Moles/Vol] 100 mmol/L Normal 98-107 [facility] Comment on above: Performed By: #### C MP, LIPID #### [facility] [address] [place] [address] Dr. Ron Back CO2 [Moles/Vol] 26.1 mmol/L Normal 21.0-32.0 [facility] Comment on above: Performed By: #### C MP, LIPID #### [facility] [address] [place] [address] Dr. Ron Back Creatinine [Mass/Vol] 0.69 mg/dL Normal 0.55-1.02 [facility] Comment on above: Performed By: #### C MP, LIPID #### [facility] [address] [place] [address] Dr. Ron Back EGFR-AF NAMIBIAN >60 Normal >=60 [facility] Comment on above: Performed By: #### C MP, LIPID #### [facility] [address] [place] [address] Dr. Ron Back EGFR-NON AF NAMIBIAN >60 Normal >=60 [facility] Comment on above: Performed By: #### C MP, LIPID #### [facility] [address] [place] [address] Dr. Ron Back Globulin (S) [Mass/Vol] 4.1 g/dL Normal [facility] Comment on above: Performed By: #### C MP, LIPID #### [facility] [address] [place] [address] Dr. Ron Back Glucose [Mass/Vol] 101 mg/dL Normal 74-106 [facility] Comment on above: Performed By: #### C MP, LIPID #### [facility] [address] [place] [address] Dr. Ron Back Potassium [Moles/Vol] 4.5 mmol/L Normal 3.5-5.1 [facility] Comment on above: Performed By: #### C MP, LIPID #### [facility] [address] [address] [address] Ron Back Protein [Mass/Vol] 8.2 g/dL Normal 6.4-8.2 [facility] Comment on above: Performed By: #### C MP, LIPID #### [facility] [address] [address] [address] Ron Back Sodium [Moles/Vol] 137 mmol/L Normal 136-145 [facility] Comment on above: Performed By: #### C MP, LIPID #### [facility] [address] [address] [address] Ron Back Urea nitrogen [Mass/Vol] 16.0 mg/dL Normal 7.0-18.0 [facility] Comment on above: Performed By: #### C MP, LIPID #### [facility] [address] [address] [address] Ron Back Urea nitrogen/Creatinin e [Mass ratio] 23.2 mg/mg Normal [facility] Comment on above: Performed By: #### C MP, LIPID #### [facility] [address] [place] [address] Dr. Ron Back UA RANDOM W/MICROSCOPICon BACTERIA NONE SEEN Normal NONE SEEN [facility] Comment on above: Performed By: #### U AMIC ####[facility] [address] [address]Dr. Ron Back Bilirubin Ql (U) Negative Normal NEGATIVE [facility] Comment on above: Performed By: #### U AMIC ####[facility] [address] [address]Dr. Ron Back CAST SEEN Abnormal NONE SEEN [facility] Comment on above: Performed By: #### U AMIC ####[facility] [address] [address]DrAlanis aBck Clarity (U) CLEAR Normal CLEAR [facility] Comment on above: Performed By: #### U AMIC ####[facility] [address] [address]Dr. Ron Back Color (U) YELLOW Normal YELLOW [facility] Comment on above: Performed By: #### U AMIC ####[facility] [address] [phone]. Yulissalisa Back Crystals LM Nom (Urine sed) NONE SEEN Normal NONE SEEN [facility] Comment on above: Performed By: #### U AMIC ####[facility] [address] [address]Dr. Ron Back Epithelial cells LM Ql (Urine sed) FEW Abnormal NONE SEEN /RARE [facility] Comment on above: Performed By: #### U AMIC ####[facility] [address] [address]Dr. Ron Back Glucose Ql (U) Negative Normal NEGATIVE [facility] Comment on above: Performed By: #### U AMIC ####[facility] [address] [place], [place] [address]Dr. Ron Back Hemoglobin Ql (U) Negative Normal NEGATIVE [facility] Comment on above: Performed By: #### U AMIC ####[facility] [address] [place], [place] [address]Dr. Ron Back HYALINE CAST RARE Normal [facility] Comment on above: Performed By: #### U AMIC ####[facility] [address] [address]Dr. Ron Back Ketones Ql (U) Negative Normal NEGATIVE [facility] Comment on above: Performed By: #### U AMIC ####[facility] [address] [address]Dr. Ron Back LEUKOCYTES Negative Normal NEGATIVE [facility] Comment on above: Performed By: #### U AMIC ####[facility] [address] [address]Dr. Ron Back MUCOUS TRACE Abnormal NONE SEEN [facility] Comment on above: Performed By: #### U AMIC ####[facility] [address] [address]Dr. Ron Back Nitrite Ql (U) Negative Normal NEGATIVE [facility] Comment on above: Performed By: #### U AMIC ####[facility] [address] [phone] Back pH (U) 5.5 [pH] Normal 5-9 [facility] Comment on above: Performed By: #### U AMIC ####[facility] [address] [address]DrAlanis Back RBC 0-2 Normal 0-2 [facility] Comment on above: Performed By: #### U AMIC ####[facility] [address] [address]DrAlanis Back SPEC GRAVITY 1.025 Normal 1.005-<=1.02 5 [facility] Comment on above: Performed By: #### U AMIC ####[facility] [address] [address]DrAlanis Back UA PROTEIN Negative Normal NEGATIVE/ TRACE [facility] Comment on above: Performed By: #### U AMIC ####[facility] [address] [phone]. Ron Back Urobilinogen Qn (U) 0.2 {Aaliyah'U}/dL Normal 0.2 - 1.0 [facility] Comment on above: Performed By: #### U AMIC ####[facility] [address] [phone] Back WBC NONE SEEN Normal NONE SEEN [facility] Comment on above: Performed By: #### U AMIC ####[facility] [address] [place] [phone] Back PAP ACOG PANEL 2: 30 to 65on 04-16-2022 . . Normal [facility] Comment on above: Result Comment: Perf ormed at: BA Performed By: #### 4 [id number] #### [facility] [address] [address] [address] Ron Back Age Gdln ACOG Testing 30-65 Normal [facility] Comment on above: Performed By: #### 4 [id number] #### [facility] [address] [address] [address] Ron Back DIAGNOSIS: Comment Normal [facility] Comment on above: Result Comment: NEGA TIVE FOR INTRAEPITHELIAL LESION OR MALIGNANCY. Performed at: BA Performed By: #### 4 [id number] #### [facility] [address] [address] [address] Ron Back HPV Aptima Negative Normal Negative [facility] Comment on above: Result Comment: This nucleic acid amplification test detects fourteen high-risk HPV types (16,18,31,33,35,39,45,51,52,56,58,59,66,68) without differentiation. Performed at: =G Performed By: #### [id number] #### [facility] [address] [place] [address] Dr. Ron Back Methodology: Comment Normal [facility] Comment on above: Result Comment: This liquid based ThinPrep(R) pap test was screened with the use of an image guided system. Performed at: WB Performed By: #### [id number] #### [facility] [address] [place] [address] Dr. Ron Back Note: Comment Normal [facility] Comment on above: Result Comment: The Pap smear is a screening test designed to aid in the detection of premalignant and malignant conditions of the uterine cervix. It is not a diagnostic procedure and should not be used as the sole means of detecting cervical cancer. Both false-positive and false-negative reports do occur. . Performed at: WB Performed By: #### 4 [id number] #### [facility] [address] [address] [address] Ron Back Performed by: Comment Normal [facility] Comment on above: Result Comment: Rita Mcnally Pressure Dispatcher (ASCP) Performed at: BA Performed By: #### 4 [id number] #### [facility] [address] [address] [address] Ron Back Specimen adequacy: Comment Normal [facility] Comment on above: Result Comment: Sati sfactory for evaluation. Endocervical and/or squamous metaplastic cells (endocervical component) are present. Performed at: Performed By: #### [id number] #### [facility] [address] [place] [address] Dr. Ron Back XR LSPINE 2_3 VIEWSon [...] by: JANN DOUGHERTY Date: 2021-09-20 12:00 Normal [facility] HEMOGLOBINon 08-09-2021 Hemoglobin (Bld) [Mass/Vol] 13.0 g/dL Normal 12.0-16.0 [facility] Comment on above: Performed By: #### H GB #### [facility] [address] [place] [address] Dr. Ron Back Operative Reporton 8 Operative Report MR#: [id number] [facility] Pt. Name: Racheal Richardson Room #: 0C Discharge Date: Birthdate: 1970 OPERATIVE REPORTDATE OF SURGERY: 09/08/2017SURGEON: Angelique Fuentes M.D.LUMBER TRIPPER: Maryjo Monroy M.D.PREOPERATIVE DIAGNOSES: Left severe carpal [...] distal part of the transverse carpal ligament. Followingjuan, used a #15 blade to make a [...] The patient understands that she was given [place] 5/325 mg tabs, take 1-2 tablets every [...] 09/08/2017/01:50 P/Angelique Fuentes M.D.Date Trans: 09/08/2017 11:05 P/[id number] Normal [facility] POC GLUCOSE LABon 09-08-2017 Glucose mass conc 90 mg/dL Normal 70-100 [facility] Comment on above: Performed By: #### [id number] ####[facility] Operative Reporton 7 Operative Report MR#: [id number] [facility] Pt. Name: Racheal Richardson Room #: 0C Discharge Date: Birthdate: 1970 OPERATIVE REPORTDATE OF SURGERY: 07/14/2017SURGEON: Vithal Shendge, M.D.PRIMARY DIAGNOSES: Right severe carpal tunnel syndrome along with possibleperipheral neuropathy.POSTOPERATIVE DIAGNOSES: Right severe carpal tunnel syndrome along withpossible peripheral neuropathy.PROCEDURE PERFORMED: Right open carpal tunnel release under MAC along withlocal anesthesia.ANESTHESIA: MAC with local.SPECIMEN SENT: None.DRAINS: None.IMPLANTS: None.COMPLICATIONS: None.TOTAL TOURNIQUET TIME: None applied.BOVIE: None.INDICATION FOR THE PROCEDURE: The patient is a pleasant [id number], who is right-hand dominant and has been having bilateral carpaltunnel symptoms. Her right side is worse than left side. She has triednonsurgical treatment on the right side in the form of use of braces atnighttime as well as use of oral pain medications and has failednonsurgical treatment. She also had an EMG study, which revealed dvlsrmshmffau-ca-bzlifq carpal tunnel syndrome. She has failed nonsurgicaltreatment [...] of dressing in the form of Xeroform, [id number], fluffs, Kerlix, and Bora wrap. This was [...] her recovery and her improvement in her wardsperson strength. The patient understands the treatment plan. The patient was given [place] 5/325 mg tabs, take 1-2 tablets every [...] 07/14/2017/04:04 P/Angelique Fuentes M.D.Date Trans: 07/15/2017 03:30 A/[id number] Normal [facility] POC GLUCOSE LABon 07-14-2017 Glucose mass conc 92 mg/dL Normal 70-100 [facility] Comment on above: Performed By: #### [id number] ####[facility] [place] [address], [facility] Vital Signs Date Time Vital Sign Value Performing Clinician Facility 06-25-2024 10:55-0500 Body height 167.6 cm P[facility] 1 [facility] 06-25-2024 10:55-0500 Body mass index (BMI) [Ratio] 26.63 kg/m2 [facility] 1 [facility] 06-25-2024 10:55-0500 Body weight 74.84 kg P[facility] 1 [facility] 06-19-2024 08:58-0500 Body mass index (BMI) [Ratio] 29 kg/m2 Hannah Gallego FISHER SWORDFISH-LOAN SPECIALIST Work Phone: [facility] 06-19-2024 08:58-0500 Body weight 76.57 kg Hannah Gallego FISHER SWORDFISH-LOAN SPECIALIST Work Phone: [facility] 06-19-2024 08:58-0500 Diastolic blood pressure 92 mm[Hg] Hannah Gallego FISHER SWORDFISH-LOAN SPECIALIST Work Phone: [facility] 06-19-2024 08:58-0500 Systolic blood pressure 139 mm[Hg] Hannah Gallego FISHER SWORDFISH-LOAN SPECIALIST Work Phone: [facility] 06-05-2024 13:06-0400 Body height 162.6 cm Ritu Aichholz ANVIL WORKER Work Phone: [facility] 06-05-2024 13:06-0400 Body mass index (BMI) [Ratio] 28.67 kg/m2 Ritu Aichholz ANVIL WORKER Work Phone: [facility] 06-05-2024 13:06-0400 Body temperature 98.8 [degF] Ritu Aichholz ANVIL WORKER Work Phone: [facility] 06-05-2024 13:06-0400 Body weight 75.75 kg Ritu Aichholz ANVIL WORKER Work Phone: [facility] 06-05-2024 13:06-0400 Diastolic blood pressure 86 mm[Hg] Ritu Aichholz ANVIL WORKER Work Phone: [facility] 06-05-2024 13:06-0400 Heart rate 97 /min Ritu Aichholz ANVIL WORKER Work Phone: [facility] 06-05-2024 13:06-0400 Respiratory rate 18 /min Ritu Eng ANVIL WORKER Work Phone: [facility] 06-05-2024 13:06-0400 SaO2% (BldA) [Mass fraction] 97 % Ritu Eng ANVIL WORKER Work Phone: [facility] 06-05-2024 13:06-0400 Systolic blood pressure 132 mm[Hg] Ritu Eng ANVIL WORKER Work Phone: [facility] Healthcare Encounters Encounter Date Encounter Type Care Provider Facility Start: 07-01-2024 End: 07-01-2024 Evaluation and management of inpatient [facility] Start: 06-25-2024 End: 06-25-2024 ambulatory [facility] Pat Phone Call Provider 1 [facility] - Pre Admit Start: 06-25-2024 End: 06-25-2024 [facility] Start: 06-19-2024 End: 06-19-2024 Patient encounter procedure [facility] FISHER SWORDFISH-LOAN SPECIALIST Work Phone: [facility] Comment on above: Encounter for screen ing colonoscopy (Primary Dx) Start: 06-19-2024 End: 06-19-2024 ambulatory [facility] Start: 06-05-2024 End: 06-05-2024 Bamboo flowsheet Ritu Eng ANVIL WORKER Work Phone: [facility] Start: 06-05-2024 End: 06-05-2024 Bamboo flowsheet Ritu Eng ANVIL WORKER Work Phone: [facility] Start: 06-05-2024 End: 06-05-2024 ambulatory RITU ENG Not Available Start: 06-05-2024 End: 06-05-2024 Office outpatient visit 25 minutes Ritu Eng ANVIL WORKER Work Phone: [facility] Comment on above: Primary hypertension (CMS/HCC) (Primary Dx); Centrilobular emphysema (CMS/HCC); Irregular heart rate; Needs flu shot; Fibromyalgia; Colon cancer screening Start: 02-22-2024 End: 02-22-2024 ambulatory RITU ENG Not Available Start: 10-05-2023 End: 10-06-2023 [facility] Start: 10-05-2023 End: 10-06-2023 Emergency department patient visit JERRELL LOPE[facility] Start: 10-05-2023 End: 10-05-2023 [facility] Start: 07-12-2022 End: 07-13-2022 ambulatory GUZMAN ENG Facility:[facility] Start: 06-14-2022 End: 06-15-2022 ambulatory LOAN SPECIALIST RITU ENG Facility:[facility] Start: 04-11-2022 End: 04-11-2022 ambulatory LOAN SPECIALIST RITU ENG Facility:[facility] Start: 09-20-2021 End: 09-21-2021 ambulatory LOAN SPECIALIST RITU YATESTRANEdvin Facility:[facility] Start: 08-09-2021 End: 08-10-2021 ambulatory LOAN SPECIALIST RITU BAILEYZ Facility:[facility] Start: 12-21-2017 Ambulatory GENE MD SAAVEDRA Facilit y:UNKNOWN Start: 11-23-2017 Ambulatory CASEY SAAVEDRA Facilit y:UNKNOWN Start: 09-08-2017 End: 09-09-2017 Ambulatory VITHAL SHENDGE Facility:[facility] Start: 07-14-2017 End: 07-15-2017 Ambulatory VITHAL SHENDGE Facility:[facility] Start: 05-04-2017 End: 05-05-2017 Ambulatory DEFAULT PHYSICIAN Facility:[facility] Procedures Date Procedure Procedure Detail Performing Clinician Start: 03-13-2024 Mammography Ritu munguiaz ANVIL WORKER Work Phone: Start: 09-08-2017 ANESTH LOWER ARM SURGERY SONIA COBB Start: 09-08-2017 Neuroplasty &/transp os median nrv carpal tunne VITHAL SHENDGE Start: 07-14-2017 ANESTH LOWER ARM SURGERY YAJAIRA MUÑIZ Start: 07-14-2017 Neuroplasty &/transp os median nrv carpal tunne VITHAL SHENDGE Start: 04-14-2017 Microscopic observat ion [Identifier] in Cervix by Cyto stain Ritu Eng ANVIL WORKER Work Phone: Plan of Treatment Date Care Activity Detail Author Start: 01-08-2030 DTaP,Tdap and Td Vac cines (2 - Td or Tdap) DTaP,Tdap and Td Vaccines (2 - Td or Tdap) [facility] Start: 06-25-2025 Adult BMI Screening Adult BMI Screen ing [facility] Start: 06-25-2025 Tobacco Screening Tobacco Screening [facility] Start: 06-19-2025 Adult BMI Screening Adult BMI Screen ing [facility] Start: 06-19-2025 Tobacco Screening Tobacco Screening [facility] Start: 03-13-2025 Screening for malign ant neoplasm of breast Mammogram [facility] Start: 07-16-2024 End: 07-16-2024 Patient encounter procedure 07/16/2024 2:00 PM EST Procedure Visit [facility] [address] [place] [address] Ritu Eng, ODETTE [address] [place] [address] [facility] Start: 07-01-2024 End: 07-01-2024 Admission to same day surgery center 07/01/2024 8:45 AM EST - 07/01/2024 9:15 AM EST Surgery [facility] [address] [place] [phone] Orlando Ash MD [address] [place] [id number] COLONOSCOPY DIAGNOSTIC / SCREENING [99843 (CPT )] [facility] Comment on above: COLONOSCOPY DIAGNOST IC / SCREENING [59005 (CPT )] Start: 07-01-2024 End: 07-01-2024 Colonoscopy flx dx w/collj spec when pfrmd COLONOSCOPY DIAGNOSTIC / SCREENING Screen for colon cancer 07/01/2024 8:45 AM EST [facility] Start: 07-01-2024 Subsequent hospital visit by physician 07/01/2024 8:45 AM EST Hospital Encounter [facility] [address] [place] [address] Orlando Ash MD [address] [facility] [phone] [facility] Start: 06-25-2024 End: 06-25-2024 ambulatory 06/25/2024 3:30 PM EST Support Visit [facility] - Pre Admit [address] [place] [address] [facility] Start: 06-12-2024 Influenza vaccination Influenza Vacc ine (#1) [facility] Comment on above: Postponed from 04/14 (Patient Does Not Have Time) Start: 06-05-2024 End: 06-05-2025 Holter monitor study Holter monitor Imaging Routine Irregular heart rate Expected: 06/05/2024 (Approximate), Expires: 06/05/2025 [facility] Work Phone: Comment on above: Expected: 06/05/2024 (Approximate), Expires: 06/05/2025 Start: 04-14-2024 COVID-19 Vaccine ( season) COVID-19 Vaccine ( season) [facility] Start: 11-08-2023 Screening for malign ant neoplasm of colon [facility] Start: 12-30-2020 Administration of varicella zoster vaccine Zoster (Shingles) Vaccine (2 of 2) [facility] Start: 04-14-2020 Screening for malign ant neoplasm of cervix [facility] Start: 2000 Screening for malign ant neoplasm of cervix HPV/Cotest [facility] Start: 1991 Screening for malign ant neoplasm of cervix Pap Smear [facility] Start: 1988 Adult BMI Follow Up Plan Adult BMI Follow Up Plan [facility] Start: 1982 Depression Screening Depression Scre ening [facility] Start: 1970 Screening for malign ant neoplasm of colon [facility] Start: 1970 Tobacco Counseling Tobacco Counselbrenda escalante [facility] End: 06-18-2025 Colonoscopy Colonoscopy GI Routine Encounter for screening colonoscopy 1 Occurrences starting 06/19/2024 until 06/18/2025 [facility] Work Phone: Comment on above: 1 Occurrences starti ng 06/19/2024 until 06/18/2025 Immunizations Immunization Date Immunization Notes Care Provider Fa [facility] 06-05-2024 Influenza, injectabl e, Madin Danae Canine Kidney, preservative free, quadrivalent Ritu Albertina ANVIL WORKER Work Phone: [facility] 12-15-2020 COVID-19, mRNA, LNP- S, PF, 100mcg/0.5mL Dose Hannah Gallego FISHER SWORDFISH-LOAN SPECIALIST Work Phone: [facility] 11-17-2020 COVID-19, mRNA, LNP- S, PF, 100mcg/0.5mL Dose Hannah Gallego FISHER SWORDFISH-LOAN SPECIALIST Work Phone: [facility] 11-04-2020 zoster vaccine, unspecified formulation Hannah Gallego FISHER SWORDFISH-LOAN SPECIALIST Work Phone: [facility] 01-09-2020 tetanus toxoid, redu ney diphtheria toxoid, and acellular pertussis vaccine, adsorbed Ritu Albertina ANVIL WORKER Work Phone: [facility] Payers Date Payer Category Payer Medicaid [facility] [id number] 2016 Private Health Insurance [facility] MEDICA[facility] [id number] 2016 Medicaid [id number] 1970 Unknown [id number] [id number]. 593 1970 Unknown [id number] [id number]. 593 1970 Unknown [id number] 2.16840.1.364249.3.579.2. 593 1970 Unknown [id number] 2.16.840.1.595712.3.579.2. 593 1970 Unknown [id number] 2.16840.1.496778.3.579.2. 593 1970 Unknown [id number] 2.16840.1.900434.3.579.2. 1286 1970 Unknown [id number] 2.16.840.1.253860.3.579.2. 1286 1970 Unknown [id number] 2.16.840.1.114331.3.579.2. 128 1970 Unknown [id number] 2.16840.1.890439.3.579.2. 1286 1970 Unknown [id number] 2.16.840.1.846337.3.579.2. 1286 1970 Unknown [id number] 2.16.840.1.877341.3.579.2. 1259 1970 Unknown [id number] 2.16.840.1.237374.3.579.2. 1259 1970 Unknown [id number] 2.16.840.1.025423.3.579.2. 1286 1970 Unknown [id number] 2.16.840.1.771372.3.579.2. 1286 1970 Unknown [id number] 2.16.840.1.649005.3.579.2. 1286 1959 Unknown [id number] Unknown Social History Date Type Detail Facility Start: 02-22-2024 End: 06-19-2024 Tobacco smoking status PRIS Smokes tobacco daily [facility] Healthcare History of tobacco use [facility]igarette [facility]oker [facility] Start: 02-22-2024 End: 06-19-2024 Tobacco use and exposure Smokeless tobacco non-user [facility] Start: 02-22-2024 End: 06-25-2024 Alcoholic beverage intake Current drinker of alcohol (finding) [facility] Start: 01-27-2022 End: 02-22-2024 Alcoholic beverage intake [facility] Start: 01-27-2022 End: 02-22-2024 Tobacco use panel [facility] Start: 02-22-2024 Alcohol Comment caffine: 2 daily [facility] Start: 1970 Sex assigned at Not on file [facility] Has the [employer], or [employer] threatened to shut off services in your home in past 12Mo No [facility] How often to you hav e a drink containing alcohol? 2-4 times a month [facility] How many standard dr inks containing alcohol do you have on a typical day? 5 or 6 [facility] How often do you hav e 6 or more drinks on 1 occasion? Monthly [facility] How hard is it for y ou to pay for the very basics like food, housing, medical care, and heating Not very hard [facility] In the past 12 month s, has lack of transportation kept you from medical appointments or from getting medications? No [facility] Start: 03-19-2015 Sex Female (finding) [employer] [facility] Medical Equipment Procedure Code Equipment Code Equipment Origin al Text Equipment Identifier Dates Plug Dome Hl Mpa ct Actb Scr Shl - [id number] Start: 01-27-2022 Shell Actb 54mm Hip Cmntls 2 Hl Mdlr Mpact E Hmsphr - [id number] Start: 01-27-2022 Liner Actb 36mm E Uhmwpe [place] Flt Hd Mpact Hip Ns - [id number] Start: 01-27-2022 Stem Fem 8 2 Tpr Flt [place] Mectagrip Hip Lateralize - [id number] Start: 01-27-2022 Head Fem 36mm Sm Mectacer Blx D Hip - [id number] Start: 01-27-2022 Goals Date Patient Goal Desired Activity /State Personal health goal Comment on above: Formatting of this n ote might be different from the original. Evaluation of progress towards goal: pt will return home with self care and support from . Clinical Notes 09-20-2021 to 06-25-2024 Perioperative Nursing Note - Dolores Fish RN - 06/25/2024 10:56 AM ESTPerioperative Nursing Note - Dolores Fish RN - 06/25/2024 10:56 AM Brad Eng NP - 06/05/2024 1:32 PM EDT Note Date & Type Note Facility 06-25-2024 Nurse Note Preoperative Education Checklist- General Surgery date: 07/01/24 Surgery time: 845a Arrival time: 645a 1. Bring a photo ID and your insurance card with you the day of surgery. You will check in at the main lobby of the [facility]- registration desk is straight ahead as soon as you walk in. Tell them you are here for surgery. 2. If you have a Living Will/Durable Power of Control Panel Assembler for Health Care that is not on file here, please bring a copy the day of surgery. 3. Please shower/bathe the night before surgery with the provided soap or wipes. Do not shower the morning of surgery- you will do use wipes when you arrive here at the hospital before getting into your surgical gown. Do not shave the area of your procedure for 2 days prior to your surgery. 4. NO powder, lotion, perfume/cologne, aftershave, make-up, deodorant, or hair products after you have bathed. 5. NO nail vatican citizen/acrylic on at least one finger. If you are having a hand, wrist or foot surgery then all nail vatican citizen and artificial/acrylic nails must be removed from that hand or foot. 6. Avoid ALL Aspirin and non-steroidal anti-inflammatory drugs and certain vitamins (Ibuprofen, Advil, Aleve, Excedrin, Meloxicam, Celebrex, fish/krill oil, etc.) for 7 days prior to surgery as instructed by your surgeon and/or your prescribing doctor. Tylenol IS ALLOWED. If you are on Ticlid, Xarelto, Eliquis, Pradaxa, Plavix or Coumadin, please check with your prescribing doctor for instructions for when to stop them. 7. If you use an inhaler, continue to use it routinely. 8. Nothing to eat or drink (not even water, gum, mints, or hard candy!) AFTER midnight prior to your surgery. 9. Take only medications that you are instructed to on the morning of surgery with a TINY SIP OF WATER. 10. Choose a responsible adult that will be able to drive you home when you are discharged from your hospital stay for your surgery and can stay with you in your home for 24 hours after your procedure. You must NOT drive any vehicle or operate any machinery for 24 hours after surgery. 11. When you dress for your appointment, please wear loose fitting clothing that is appropriate to accommodate your surgical area procedure. BRING WITH YOU ANY DEVICES YOU MAY NEED: TORREY hose, ice machine, sling/swath, brace or special shoe, oversized zip-up or button up shirt, CPAP machine if staying overnight. 12. Do NOT wear jewelry, watches, or any piercings or metal for surgery- leave these valuables and money at home. 13. Do NOT wear contact lenses for surgery- glasses are okay if needed. 14. The anesthesiologist will talk with you the day of surgery and will ask you to sign a Consent Form. 15. Refrain from smoking or any type of tobacco use for at least 8 hours and marijuana for 24 hours prior to arrival for your surgery. 16. If a GREEN BLOOD band is given to you, please bring it with you for the day of surgery. 17. Notify your surgeon if you develop any illness before your surgery. 18. If you are staying overnight, please DO NOT BRING your home medications with you. 19. If you have any questions prior to surgery, please call the Preadmission Testing office at [phone], Mon.-Fri. 7 a.m.-3 p.m. Leave a voicemail if needed. Pre-Surgery Instructions: Medication Instructions acetaminophen (TYLENOL EXTRA STRENGTH) 500 mg tablet Stop taking 0 days prior to procedure albuterol (PROVENTIL HFA;VENTOLIN HFA) 90 mcg/actuation inhaler Take morning of procedure if needed albuterol (PROVENTIL,VENTOLIN) 2.5 mg /3 mL (0.083 %) nebulizer solution Take morning of procedure if needed cetirizine (ZyrTEC) 10 mg tablet Stop taking 0 days prior to procedure gabapentin (NEURONTIN) 300 mg capsule Stop taking 0 days prior to procedure lisinopril-hydrochlorothiazide (PRINZIDE,ZESTORETIC) 10-12.5 mg per tablet Take morning of procedure simvastatin (ZOCOR) 10 mg tablet Stop taking 0 days prior to procedure [facility] 06-25-2024 Miscellaneous Notes Preoperative Education Checklist- General Surgery date: 07/01/24 Surgery time: 845a Arrival time: 645a 1. Bring a photo ID and your insurance card with you the day of surgery. You will check in at the main lobby of the [facility]- registration desk is straight ahead as soon as you walk in. Tell them you are here for surgery. 2. If you have a Living Will/Durable Power of Control Panel Assembler for Health Care that is not on file here, please bring a copy the day of surgery. 3. Please shower/bathe the night before surgery with the provided soap or wipes. Do not shower the morning of surgery- you will do use wipes when you arrive here at the hospital before getting into your surgical gown. Do not shave the area of your procedure for 2 days prior to your surgery. 4. NO powder, lotion, perfume/cologne, aftershave, make-up, deodorant, or hair products after you have bathed. 5. NO nail vatican citizen/acrylic on at least one finger. If you are having a hand, wrist or foot surgery then all nail vatican citizen and artificial/acrylic nails must be removed from that hand or foot. 6. Avoid ALL Aspirin and non-steroidal anti-inflammatory drugs and certain vitamins (Ibuprofen, Advil, Aleve, Excedrin, Meloxicam, Celebrex, fish/krill oil, etc.) for 7 days prior to surgery as instructed by your surgeon and/or your prescribing doctor. Tylenol IS ALLOWED. If you are on Ticlid, Xarelto, Eliquis, Pradaxa, Plavix or Coumadin, please check with your prescribing doctor for instructions for when to stop them. 7. If you use an inhaler, continue to use it routinely. 8. Nothing to eat or drink (not even water, gum, mints, or hard candy!) AFTER midnight prior to your surgery. 9. Take only medications that you are instructed to on the morning of surgery with a TINY SIP OF WATER. 10. Choose a responsible adult that will be able to drive you home when you are discharged from your hospital stay for your surgery and can stay with you in your home for 24 hours after your procedure. You must NOT drive any vehicle or operate any machinery for 24 hours after surgery. 11. When you dress for your appointment, please wear loose fitting clothing that is appropriate to accommodate your surgical area procedure. BRING WITH YOU ANY DEVICES YOU MAY NEED: TORREY hose, ice machine, sling/swath, brace or special shoe, oversized zip-up or button up shirt, CPAP machine if staying overnight. 12. Do NOT wear jewelry, watches, or any piercings or metal for surgery- leave these valuables and money at home. 13. Do NOT wear contact lenses for surgery- glasses are okay if needed. 14. The anesthesiologist will talk with you the day of surgery and will ask you to sign a Consent Form. 15. Refrain from smoking or any type of tobacco use for at least 8 hours and marijuana for 24 hours prior to arrival for your surgery. 16. If a GREEN BLOOD band is given to you, please bring it with you for the day of surgery. 17. Notify your surgeon if you develop any illness before your surgery. 18. If you are staying overnight, please DO NOT BRING your home medications with you. 19. If you have any questions prior to surgery, please call the [facility] office at [phone], Mon.-Fri. 7 a.m.-3 p.m. Leave a voicemail if needed. Pre-Surgery Instructions: Medication Instructions acetaminophen (TYLENOL EXTRA STRENGTH) 500 mg tablet Stop taking 0 days prior to procedure albuterol (PROVENTIL HFA;VENTOLIN HFA) 90 mcg/actuation inhaler Take morning of procedure if needed albuterol (PROVENTIL,VENTOLIN) 2.5 mg /3 mL (0.083 %) nebulizer solution Take morning of procedure if needed cetirizine (ZyrTEC) 10 mg tablet Stop taking 0 days prior to procedure gabapentin (NEURONTIN) 300 mg capsule Stop taking 0 days prior to procedure lisinopril-hydrochlorothiazide (PRINZIDE,ZESTORETIC) 10-12.5 mg per tablet Take morning of procedure simvastatin (ZOCOR) 10 mg tablet Stop taking 0 days prior to procedure documented in this encounter [facility] 06-19-2024 History of Present illness Narrative Images from the original note were not included. Chief Complaint: Colon cancer screening History of Present Illness Racheal Richardson is a 53 y.o. female who presents to the office for colon cancer screening. She has completed Cologuard in the past. This is her first colonoscopy. She denies diarrhea, constipation, abdominal pain, melena, hematochezia, unexplained weight loss. There is no family history of colon cancer. Review of Systems Constitutional: Negative for fever and unexpected weight change. HENT: Negative for trouble swallowing. Respiratory: Negative for shortness of breath. Cardiovascular: Negative for chest pain. Gastrointestinal: Negative for nausea, vomiting, abdominal pain, diarrhea, constipation, blood in stool and black tarry stool. Genitourinary: Negative for dysuria and difficulty urinating. Musculoskeletal: Negative for gait problem. Skin: Negative for rash and wound. Neurological: Negative for dizziness, weakness and light-headedness. Hematological: Does not bruise/bleed easily. Psychiatric/Behavioral: Negative for confusion. Past Medical History: Diagnosis Date Anxiety Arthritis Asthma Dental disease Facial abscess Hyperlipidemia Hypertension Injury of back Past Surgical History: Procedure Laterality Date BACK SURGERY CANCELLED IN OR: REPLACEMENT TOTAL JOINT HIP ANTERIOR SUPINE INTERMUSCULAR Left 12/16/2021 Performed by Johnny Kaminski DO at [facility] CARPAL TUNNEL RELEASE Bilateral SECTION CYST REMOVAL left side of chin REPLACEMENT TOTAL JOINT HIP ANTERIOR SUPINE INTERMUSCULAR Left 01/27/2022 Performed by Johnny Kaminski DO at [facility] TUBAL LIGATION Bilateral Allergies Allergen Reactions Sulfa (Sulfonamide Antibiotics) Hives Hives, very hot feeling. Current Outpatient Medications: acetaminophen (TYLENOL EXTRA STRENGTH) 500 mg tablet, Take 2 tablets (1,000 mg total) by mouth every 6 (six) hours., Disp: 30 tablet, Rfl: 0 albuterol (PROVENTIL HFA;VENTOLIN HFA) 90 mcg/actuation inhaler, Inhale 2 puffs every 6 (six) hours as needed for wheezing or shortness of breath., Disp: , Rfl: albuterol (PROVENTIL,VENTOLIN) 2.5 mg /3 mL (0.083 %) nebulizer solution, Inhale 3 mL (2.5 mg total) by nebulization every 6 (six) hours as needed for wheezing., Disp: , Rfl: cetirizine (ZyrTEC) 10 mg tablet, Take 1 tablet (10 mg total) by mouth in the morning., Disp: , Rfl: gabapentin (NEURONTIN) 300 mg capsule, Take 1 capsule (300 mg total) by mouth in the morning., Disp: , Rfl: lisinopril-hydrochlorothiazide (PRINZIDE,ZESTORETIC) 10-12.5 mg per tablet, Take 1 tablet by mouth in the morning., Disp: , Rfl: simvastatin (ZOCOR) 10 mg tablet, Take 4 tablets (40 mg total) by mouth nightly., Disp: , Rfl: peg 3350-sod sulf,iwcy-pep-pxv 178.7-7.3-0.5 gram recon soln, Take 1 kit by mouth once daily for 1 dose. Please see instructional sheet given by physicians office., Disp: 1 each, Rfl: 0 Social History Socioeconomic History Marital status: Spouse name: Not on file Number of children: Not on file Years of education: Not on file Highest education level: Not on file Occupational History Not on file Tobacco Use Smoking status: Every Day Current packs/day: 0.50 Types: Cigarettes Smokeless tobacco: Never Vaping Use Vaping status: Never Used Substance and Sexual Activity Alcohol use: Yes Alcohol/week: 6.0 standard drinks of alcohol Types: 6 Cans of beer per week Drug use: No Sexual activity: Defer Other Topics Concern Not on file Social History Narrative Not on file Social Drivers of Health Financial Resource Strain: Low Risk (01/27/2022) Overall Financial Resource Strain (CARDIA) Difficulty of Paying Living Expenses: Not very hard Food Insecurity: No Food Insecurity (10/05/2023) Hunger Screening Food Insecurity - Worry: Never True Food Insecurity - Inability: Never True Transportation Needs: No Transportation Needs (10/05/2023) PRAPARE - Transportation Lack of Transportation (Medical): No Lack of Transportation (Non-Medical): No Physical Activity: Not on file Stress: Not on file Social Connections: Not on file Interpersonal Safety: Not At Risk (10/05/2023) Humiliation, Afraid, Rape, and Kick questionnaire Fear of Current or Ex-Partner: No Emotionally Abused: No Physically Abused: No Sexually Abused: No Housing Instability: Low Risk (10/05/2023) Housing Instability Housing Instability: No Family History Problem Relation Age of Onset Mental illness Mother Heart disease Mother Heart attack Father No Known Problems Sister No Known Problems Brother Objective Physical Exam Constitutional: General: She is not in acute distress. Appearance: Normal appearance. She is not ill-appearing. HENT: Head: Normocephalic and atraumatic. Mouth/Throat: Mouth: Mucous membranes are moist. Eyes: Pupils: Pupils are equal, round, and reactive to light. Cardiovascular: Rate and Rhythm: Normal rate. Pulmonary: Effort: Pulmonary effort is normal. No respiratory distress. Abdominal: General: There is no distension. Musculoskeletal: General: Normal range of motion. Skin: General: Skin is warm and dry. Neurological: Mental Status: She is alert and oriented to person, place, and time. Mental status is at baseline. Vital Signs: Blood pressure (!) 139/92, weight 76.6 kg (168 lb 12.8 oz). Respiratory Source: No data recorded Admission Weight: Weight: 76.6 kg (168 lb 12.8 oz) Labs Lab Results Component Value Date WBC 6.8 10/04/2023 HGB 13.5 10/04/2023 HCT 38.5 10/04/2023 MCV 93 10/04/2023 PLT 201 10/04/2023 Lab Results Component Value Date GLU 99 10/04/2023 CALCIUM 8.6 10/04/2023 K 3.5 10/04/2023 CO2 21 (L) 10/04/2023 CL 99 10/04/2023 BUN 10 10/04/2023 CREATININE 0.57 10/04/2023 No results found for: AMYLASE No results found for: LIPASE Lab Results Component Value Date ALT 28 10/04/2023 AST 40 10/04/2023 ALKPHOS 80 10/04/2023 Lab Results Component Value Date INR 1.0 10/05/2023 INR 1.0 11/30/2021 PROTIME 11.6 10/05/2023 PROTIME 11.2 11/30/2021 Assessment Racheal Richardson is a 53 y.o.female who presents to the office for screening colonoscopy. Plan Colonoscopy with possible biopsy and/or polypectomy. Risks, benefits, and alternatives discussed with patient. Educated on bowel evacuation preparation. Patient verbalizes understanding and wishes to proceed. Hold aspirin 7 days prior. Evaluation included: Preparing to see the patient (e.g., review of tests) Obtaining and/or reviewing separately obtained history Performing a medically appropriate examination and/or evaluation Counseling and educating the patient/family/caregiver Referring and communicating with other health college and career counselor Encounter for screening colonoscopy [Z12.11] EM[facility]IANO CERVANTES [facility] This note was created with the assistance of a speech recognition program. While intending to generate a timely document that accurately reflects the content of the visit, no guarantee can be provided that every grammatical or spelling mistake has been or will be identified or corrected. Thank you for your understanding. EMILIANO Cervantes 06/19/24 0920 documented in this encounter [facility] 06-05-2024 History of Present illness Narrative Associated Problem(s): Fibromyalgia Continue claudette [...] Past Medical History: Diagnosis Date Centrilobular emphysema (CMS/HCC) 08/15/2023 Coronary artery disease involving nez perce coronary artery of nez perce heart without angina pectoris (CMS/HCC) 08/05/2023 Mixed hyperlipidemia (CMS/HCC) 08/05/2023 Primary hypertension (CMS/HCC) 08/05/2023 Past Surgical History: Procedure Laterality Date [...] Relevant Orders Flu vaccine, MDCK, quadrivalent, PF (SHR269) (Flucelvax single dose syringe) documented in this encounter [facility] 06-05-2024 Instructions Ritu Eng NP - 06/05/2024 1:00 PM EDT Fu in 6 weeks; this will be a PAP and hope to have heart monitor results documented in this encounter [facility] 12-07-2021 Note Chief Complaint NEW: REFERRAL Preoperative [...] osteoarthritis which is scheduled on 12/17/2021 at [facility]. Patient is a smoker. She smokes 1/2 [...] We discussed this (more content not included)... [facility] 12-07-2021 Note Patient Education Ma terials Name: Racheal Richardson Current Date: 12/07/2021 09:26:16 [facility] : 1970 The following sheet(s) are the Patient Education [...] very fast or irregular heartbeat (palpitations) ? [id number] [employer] [address] [place] [address], [place] [address]. All rights reserved. This information is not intended as a substitute for professional medical care. Always follow your healthcare professional's instructions. [facility] 09-20-2021 Note PROCEDURE: XR KNEE L T [...] by: JANN DOUGHERTY Date: 2021-09-20 11:56 [facility] 09-20-2021 Note PROCEDURE: XR SHOULD ER LT [...] by: JANN DOUGHERTY Date: 2021-09-20 11:55 [facility] 09-20-2021 Note PROCEDURE: XR HIP LT 2 3V W PELVIS HISTORY: Pain of left hip joint ; chronic pain since falling one-2 years ago COMPARISON: None. FINDINGS: BONES:Narrowing of the left hip joint space with near [id number] articulation at the superior margin. No fracture, dislocation, or significant periarticular degenerative osteophytes. SOFT TISSUES:No visible soft tissue swelling. EFFUSION:None visible. OTHER: Mechanical repair of lumbar spine. IMPRESSION: 1. Moderate or greater degenerative joint disease of the left hip. 2. No acute bone abnormality. Electronically authenticated by: JANN DOUGHERTY Date: 2021-09-20 11:53 [facility] Evaluation note Diagnosis Irregular heart rate- Primary [...] neoplasms, colon [facility] Diagnosis Encounter for screening colonoscopy- Primary Screen for colon cancer Special screening for malignant neoplasms, colon documented in this encounter [facility] filedocumented in this encounter [facility]Not on filedocumented in this encounter [facility] Summary Purpose Family History No Family History Records FoundNo Family History Records FoundNo Family History Records FoundNo Family History Records FoundNo Family History Records FoundNo Family History Records FoundNo Family History Records FoundNo Family History Records Found Advance Directives No Advanced Directives Records Found Date Activated Date Inactivated Comments 10/05/2023 3:49 AM 10/05/2023 3:42 PM Date Activated Date Inactivated Comments 01/27/2022 10:57 AM 01/28/2022 3:35 PM Additional Source Comments INFORMATION SOURCE (unrecogn ized section and content) DATE CREATED AUTHOR 01/31/2018 [facility] DATE CREATED AUTHOR AUTHOR'S ORGANIZ ATION 02/05/2018 [facility] DATE CREATED AUTHOR AUTHOR'S ORGANIZ ATION 12/12/2021 [facility] DATE CREATED AUTHOR AUTHOR'S ORGANIZ ATION 07/16/2022 [facility] DATE CREATED AUTHOR AUTHOR'S ORGANIZ ATION 10/12/2023 [facility] DATE CREATED AUTHOR AUTHOR'S ORGANIZ ATION 06/07/2024 [facility] DATE CREATED AUTHOR AUTHOR'S ORGANIZ ATION 06/20/2024 [facility] DATE CREATED AUTHOR AUTHOR'S ORGANIZ ATION 07/02/2024 [facility] Care Teams (unrecognized sec tion and content) 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 Relationship Specialty Start Date End Date Unallocated, Noms ProviderMD [address] [place] [address] PCP - General Family Medicine 06/05/24 Ritu Eng NP [address] [place] [address] Nurse Practitioner Family Medicine 02/22/24 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 Relationship Specialty Start Date End Date Unallocated, Kip Davila MD [address] [place] [address] PCP - General Family Medicine 06/05/24 Ritu Eng NP [address] [place] [place] [id number] Nurse Practitioner Family Medicine 02/22/24 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 Relationship Specialty Start Date End Date Ritu Eng APRN-LOAN SPECIALIST PCP - General Nurse Practitioner 10/20/21 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 Relationship Specialty Start Date End Date Ritu Eng APRN-LOAN SPECIALIST PCP - General Nurse Practitioner 10/20/21 Reason for Visit (unrecogniz ed section and content) Reason Comments Colon Cancer Screening SCREENING COLONOS COPY, REF BY RITU ENG CNP Specialty Diagnoses / Procedures Referred By Contac t Referred To Contact General Surgery Diagnoses Colon cancer screening Procedures [place] OFFICE OUTPATIENT VISIT 60-74 MINS HIGH MDM [phone] (SNOMED CT) - AMB REFERRAL TO GENERAL SURGERY Ritu Eng FISHER SWORDFISH-LOAN SPECIALIST [address] [place] [address] Phone: tel: fax: Duran Lynne DO [address] [place] [id number] Phone: tel: fax: Referral ID Status Reason Start Date Expiration Date Visits Re quested Visits Authorized [id number] Closed 06/05/2024 12/02/2024 1 1 FOR RECORDS PERTAINING TO PATIENTS WHO ARE [...] BE BASED ON THE PRIMARY CLINICAL RECORDS. [facility] [employer] [facility]. provides no warranty or guarantee of the accuracy or completeness of information in this document.
[2024-07-03 12:36] LABS: Alanine Aminotransferase 30 U/L (14-59); Aspartate Amino Transferase 25 U/L (15-37); Chol HDL Ratio 2.7; Cholesterol 190 mg/dL (<=200); Estimated Average Glucose 117 mg/dL; Glycohemoglobin A1C 5.7 % (4.5-6.2); HDL Cholesterol 70 mg/dL (40-60); Triglycerides 99 mg/dL (<=150); VLDL CHOLESTEROL 19.8 mg/dL
== END 2024-07-03 11:53 | disposition home or self-care (01) ==
LOC: LAB 11:54
PROVIDERS: PCP Nurse Practitioner; Visit Provider Nurse Practitioner
DX: E78.2 Mixed hyperlipidemia (principal); R73.09 Other abnormal glucose
CPT/HCPCS: 36415; 80061; 83036; 84450; 84460

== ENCOUNTER 2024-07-16 21:31 | Outpatient (REF) | payer OTHER, SELFPAY ==
--- OUTSIDE RECORDS SUMMARY | 2024-07-16 21:34 | XMS_ITS | CCD ---
Author Organization [facility] Care Team Providers Care Manager Academic Name Role Phone CASEY SAAVEDRA MD Unavailable Unavailable UNASSIGNED, DOCTOR Unavailable Unavailable CASEY SAAVEDRA MD Unavailable Unavailable UNASSIGNED, DOCTOR Unavailable Unavailable PHYSICIAN, DEFAULT Unavailable Unavailable PHYSICIAN, DEFAULT Unavailable Unavailable SHENDGE, VITHAL Unavailable Unavailable SHENDGE, VITHAL Unavailable Unavailable ERIC, GUALBERTO Unavailable Unavailable ERIC, GUALBERTO Unavailable Unavailable [place] Unavailable Unavailable SHENDGE, VITHAL Unavailable Unavailable [place] Unavailable Unavailable YAJAIRA MUÑIZ Unavailable Unavailable SHENDGE, VITHAL Unavailable Unavailable SHENDGE, VITHAL Unavailable Unavailable ERIC, GUALBERTO Unavailable Unavailable ERIC, GUALBERTO Unavailable Unavailable SHENDGE, VITHAL Unavailable Unavailable [place] Unavailable Unavailable SONIA COBB Unavailable Unavailable [place] Unavailable Unavailable AICHHOLZ, ELECTROENCEPHALOGRAPHIC TECHNOLOGIST RITU Attending Unavailable AICHHOLZ, ELECTROENCEPHALOGRAPHIC TECHNOLOGIST RITU Consulting Unavailable AICHHOLZ, ELECTROENCEPHALOGRAPHIC TECHNOLOGIST RITU Primary Care Unavailable AICHHOLZ, ELECTROENCEPHALOGRAPHIC TECHNOLOGIST RITU Admitting Unavailable AICHHOLZ, ELECTROENCEPHALOGRAPHIC TECHNOLOGIST RITU Admitting Unavailable AICHHOLZ, ELECTROENCEPHALOGRAPHIC TECHNOLOGIST RITU Attending Unavailable AICHHOLZ, ELECTROENCEPHALOGRAPHIC TECHNOLOGIST RITU Consulting Unavailable AICHHOLZ, ELECTROENCEPHALOGRAPHIC TECHNOLOGIST RITU Primary Care Unavailable DR KIP DOUGHERTY Consulting Unavailable AICHHOLZ, ELECTROENCEPHALOGRAPHIC TECHNOLOGIST RITU Admitting Unavailable AICHHOLZ, ELECTROENCEPHALOGRAPHIC TECHNOLOGIST RITU Attending Unavailable AICHHOLZ, ELECTROENCEPHALOGRAPHIC TECHNOLOGIST RITU Consulting Unavailable AICHHOLZ, ELECTROENCEPHALOGRAPHIC TECHNOLOGIST RITU Primary Care Unavailable AICHHOLZ, ELECTROENCEPHALOGRAPHIC TECHNOLOGIST RITU Admitting Unavailable AICHHOLZ, ELECTROENCEPHALOGRAPHIC TECHNOLOGIST RITU Attending Unavailable AICHHOLZ, ELECTROENCEPHALOGRAPHIC TECHNOLOGIST RITU Consulting Unavailable AICHHOLZ, ELECTROENCEPHALOGRAPHIC TECHNOLOGIST RITU Primary Care Unavailable AICHHOLZ, ELECTROENCEPHALOGRAPHIC TECHNOLOGIST RITU Attending Unavailable AICHHOLZ, ELECTROENCEPHALOGRAPHIC TECHNOLOGIST RITU Consulting Unavailable AICHHOLZ, ELECTROENCEPHALOGRAPHIC TECHNOLOGIST RITU Primary Care Unavailable AICHHOLZ, ELECTROENCEPHALOGRAPHIC TECHNOLOGIST RITU Admitting Unavailable DR KIP DOUGHERTY Consulting Unavailable AICHHOLZ, RITU J Primary Care Unavailable JERRELL LOPEZ Attending Unavailable VERONICANANCY Paco Admitting Unavailable LYSSA RALPH Consulting Unavailable JHON LYONS Consulting Unavailable JERRELL LOPEZ Attending Unavailable JERRELL LOPEZ Referring Unavailable RITU ENG Primary Care Unavailable HASORESTES, JHON RAVI Edvin Attending Unavailable JHON LYONS Referring Unavailable RITU ENG J Primary Care Unavailable Aichholedvin ASSISTANT PASSENGER LOCOMOTIVE ENGINEER, Ritu Unavailable Unallocatgavin OLVERA, Noms Provider Primary Care Provi song RITU ENG Attending Unavailable RITU ENG Attending Unavailable FilomenahRitu Hyman Primary Care Provider PERLA GALLEGO Attending Unavailable RITU ENG Referring Unavailable ALBERTINA RITU J Primary Care Unavailable Jacob Moore MD Primary Care Provider [phone] Albertina ASSISTANT PASSENGER LOCOMOTIVE ENGINEER, Ritu Unavailable RITU ENG Referring Unavailable ALBERTINA RITU J Primary Care Unavailable CHACE ASH Admitting Unavailable CHACE ASH Attending Unavailable RITU ENG Primary Care Unavailable Allergies Allergy Classification Reported Allergen(s) Allergy Type Date of Onset Reaction(s) Facility (1 source) NKA; Translations: [NKA] Propensity to adverse reactions (disorder) 7 [facility] (1 source) No Known Allergies; Translations: [No Known Allergies] Propensity to adverse reactions (disorder) [facility] (1 source) metaproterenol Drug Allergy [address] [facility] Rep[facility] (7 sources) Sulfonamides (Antibiotic); Translations: [SULFA (SULFONAMIDE ANTIBIOTICS)] Propensity to adverse reactions to drug (disorder) 2 [facility] (8 sources) metaproterenol; Translations: [METAPROTERENOL] Drug Allergy 4 Unknown [facility] Work Phone: (7 sources) Sulfonamides (Antibiotic) Drug Intolerance 2 [facility] (3 sources) metaproterenol Drug Allergy 4 [facility] Medications Current Medications Medication Drug Class(es) Dates Sig (Normalized) Sig (Original) acetaminophen 500 mg oral tablet (4 sources) Start: 01-28-2022 take 2 tablets by mouth every six hours acetaminophen (TYLENOL EXTRA STRENGTH) 500 mg tablet Take 2 tablets (1,000 mg total) by mouth every 6 (six) hours. 30 tablet 01/28/2022 Active [id number] 200 actuat albuterol 0.09 mg/actuat metered dose inhaler (15 sources) beta2-Adrenergic Agonist Start: 05-07-2024 End: 08-05-2024 [...] completed) cetirizine hydrochloride 10 mg oral tablet (13 sources) Histamine-1 Receptor Antagonist Start: 04-16-2024 End: 10-14-2024 take 1 tablet by mouth once daily cetirizine (ZyrTEC) 10 MG tablet Indications: Urticaria, unspecified , Urticaria Take 1 tablet (10 mg) by mouth Daily 90 tablet 1 07/16/2024 10/14/2024 Active gabapentin 300 mg oral capsule (13 sources) Anti-epileptic Agent Start: 02-27-2024 End: 09-03-2024 take 1 capsule by mouth once daily gabapentin (Neurontin) 300 MG capsule Indications: Fibromyalgia Take 1 capsule (300 mg) by mouth Daily 90 capsule 1 06/05/2024 09/03/2024 Active hydroCHLOROthiazide 12.5 mg / lisinopril 20 mg oral tablet (12 sources) Thiazide Diuretic, Angiotensin Converting Enzyme Inhibitor Start: 04-09-2024 End: 10-14-2024 take 1 tablet by mouth in the morning lisinopril-hydro CHLOROthiazide 20-12.5 MG tablet Indications: Primary hypertension (CMS/HCC) Take 1 tablet by mouth in the morning. 90 tablet 1 07/16/2024 10/14/2024 Active take 10-12.5 mg by m outh once in the morning lisinopril-hydrochlorothiazide (PRINZIDE ,ZESTORETIC) 10-12.5 mg per tablet Take 1 tablet by mouth in the morning. Active peg 3350-sod sulf,ukcq-ziw-hiu 178.7-7.3-0.5 gram recon soln (1 source) Start: 06-19-2024 End: 06-20-2024 peg 3350-sod sulf,yumt-zhr-avc 178.7-7.3-0.5 gram recon soln Indications: Encounter for screening colonoscopy Take 1 kit by mouth once daily for 1 dose. Please see instructional sheet given by physicians office. 1 each 06/19/2024 06/20/2024 Active simvastatin 40 mg oral tablet (12 sources) HMG-CoA Reductase Inhibitor Start: 04-09-2024 End: 10-14-2024 take 1 tablet by mouth at bedtime simvastatin (Zocor) 40 MG tablet Indications: Mixed hyperlipidemia (CMS/HCC) Take 1 tablet (40 mg) by mouth at bedtime 90 tablet 1 07/16/2024 10/14/2024 Active take 4 tablets by mouth once [...] unspecified with intoxication delirium] Onset: 10-05-2023 Episodic Allergic reactions (2 sources) Urticaria; Translations: [Urticaria, unspecified] 07-16-2024 Episodic Cardiac dysrhythmias (10 sources) Irregular heart beat; Translations: [Cardiac arrhythmia, unspecified] Onset: 02-22-2024 02-22-2024 Chronic Chronic obstructive pulmonary disease and bronchiectasis (18 sources) Emphysema, unspecified; Translations: [Chronic obstructive pulmonary disease with (acute) exacerbation] Onset: 08-09-2021 Chronic Disorders of lipid metabolism (16 sources) Mixed hyperlipidemia; Translations: [Mixed hyperlipidemia] Onset: 06-14-2022 Chronic Essential hypertension (16 sources) Essential (primary) hypertension; Translations: [Essential hypertension] Onset: 07-14-2017 08-05-2023 Chronic Heart valve disorders (3 sources) Irregular heart beat 06-05-2024 Episodic Immunizations and screening for infectious disease (8 sources) Needs influenza immunization; Translations: [Encounter for immunization] Onset: 06-05-2024 06-05-2024 Episodic Osteoarthritis (13 sources) Unilateral primary osteoarthritis, left hip; Translations: [Primary osteoarthritis, left shoulder] Onset: 09-24-2021 02-22-2024 Chronic Other nervous system disorders (8 sources) Carpal tunnel syndrome, left upper limb; Translations: [Carpal tunnel syndrome, right upper limb] Onset: 07-14-2017 Chronic Other screening for suspected conditions (not mental disorders or infectious disease) (20 sources) Encounter for screening mammogram for malignant neoplasm of breast; Translations: [Encounter for screening for malignant neoplasm of cervix] Onset: 04-11-2022 Episodic Other upper respiratory disease (7 sources) Allergic disposition; Translations: [Other allergic rhinitis] [...] Problem Classification Problem Date Documented Date Episodic/Chronic Diabetes mellitus without complication (7 sources) Increased glucose level; Translations: [Other abnormal glucose] Onset: 03-13-2024 03-13-2024 Episodic Epilepsy; convulsions (12 sources) Unspecified convulsions; Translations: [Neurological finding] Onset: 10-05-2023 02-22-2024 Episodic Other connective tissue disease (7 sources) Pain of bilateral hands; Translations: [Pain in right hand] Onset: 05-19-2017 02-22-2024 Episodic Other connective tissue disease (9 sources) Fibromyalgia; Translations: [Fibromyalgia] Onset: 02-22-2024 02-22-2024 Episodic Other non-traumatic joint disorders (4 sources) Pain in left shoulder; Translations: [PAIN IN LEFT SHOULDER] Onset: 09-20-2021 Episodic Other non-traumatic joint disorders (1 source) Pain in left hip; Translations: [PAIN IN LEFT HIP] Onset: 09-24-2021 Episodic Other non-traumatic joint disorders (1 source) Pain in left knee; Translations: [PAIN IN LEFT KNEE] Onset: 02-11-2022 Episodic Unclassified (1 source) Dermatochalasis of right upper eyelid; Translations: [Dermatochalasis of right upper eyelid] Onset: 11-23-2017 Unclassified (1 source) Dermatochalasis of left upper eyelid; Translations: [Dermatochalasis of left upper eyelid] Onset: 11-23-2017 Results Test Name Value Interpretation Reference Range Facility ALL LIPID PROFILE (FASTING)o n 07-03-2024 CHOL HDL RATIO 2.7 [facility] Comment on above: 3.3 - 4.4 LOW RISK 4.4 - 7.1 AVERAGE RISK 7.1 - 11.0 MODERATE RISK >11.0 HIGH RISK Cholesterol [Mass/Vol] 190 mg/dL NINF - 200 mg/dL [facility] Cholesterol in HDL [Mass/Vol] 70 mg/dL High 40 - 60 mg/dL [facility] Comment on above: > or =60 mg/dl - LOW CARDIOVASCULAR RISK <40 mg/dl - HIGH CARDIOVASCULAR RISK Interpretation and review of laboratory results Abnormal [facility] Magnesium [Mass/Vol] 101 mg/dL [facility] Comment on above: <100 mg/dl OPTIMAL 100-129 mg/dl NEAR OR ABOVE OPTIMAL 130-159 mg/dl BORDERLINE HIGH 160-189 mg/dl HIGH >190 mg/dl VERY HIGH Magnesium [Mass/Vol] 19.8 mg/dL [facility] Triglyceride [Mass/Vol] 99 mg/dL NINF - 150 mg/dL [facility] Shruthi 07-03-2024 ALT [Catalytic activity/Vol] 30 U/L 14 - 59 U/L [facility] Miya 07-03-2024 AST [Catalytic activity/Vol] 25 U/L 15 - 37 U/L [facility] MLR HEMOGLOBIN A1Con 024 Glucose [Mass/Vol] 117 mg/dL [facility] HbA1c (Bld) [Mass fraction] 5.7 % 4.5 - 6.2 % [facility] Comment on above: ADA RECOMMENDED LIMI T 4.0 - 6.0 ADA THERAPEUTIC TARGET < 7.0 ACTION SUGGESTED > 7.0 No Panel Informationon 07-03 [facility] Surgical Pathologyon 024 Surgical Pathology Normal [facility] Comment on above: Result Comment: [facility] [address] [place] [address] Surgical Pathology Consultation Patient Name:RACHEAL RICHARDSON:1970 (Age: 53)Gender:FTaken:07/01/2024eported:07/04/2024hysician(s):Adrien Ash MD ([phone])Copy To: Rec. #:[id number]: #[id number] Final Pathologic Diagnosis Transverse colon polyp; polypectomy: Tubular adenoma. Report Electronically Signed Out wak/07/04/2024Evgeny Palma MD Interpretation [place] [address], License number: [id number]. Clinical History Screening Gross Description Received in formalin labeled DYLAN, transverse is a single thomson bit of soft tissue, 0.5 cm in greatest dimension. Filtered and submitted in a single cassette. (1, ns, [id number], m7) MG [facility]/07/01/2024GR Specimen(s) Received Transverse colon polyp Fee Codes(s): 1; 11548 AMMONIAon 10-05-2023 Ammonia (P) [Moles/Vol] 30 umol/L Normal 11-35 [facility] Comment on above: Performed By: #### 1 6362-6 #### [facility] ([id number]) [address] [place] [address] CBC AND AUTO DIFFon 10-05-19 24 ABSOLUTE BASOPHIL 0.1 X10E9/L Normal 0.0-0.2 [facility] Comment on above: Performed By: #### C BCA, CMP, 97762-5, 44142-8, 5643-2 #### [facility] ([id number]) [address] [place] [address] ABSOLUTE NEUTROPHIL 3.8 X10E9/L Normal 1.5-6.6 [facility] Comment on above: Performed By: #### C BCA, CMP, 21452-4, 90011-8, 5643-2 #### [facility] ([id number]) [address] [place] [address] Basophils/100 WBC (Bld) 0.7 % Normal [facility] Comment on above: Performed By: #### C BCA, CMP, 17533-5, 15504-8, 5643-2 #### [facility] ([id number]) [address] [place] [address] Eosinophils (Bld) [#/Vol] 0.1 10*3/uL Normal 0.0-0.4 [facility] Comment on above: Performed By: #### C BCA, CMP, 24290-4, 20246-0, 5643-2 #### [facility] ([id number]) [address] [address] Eosinophils/100 WBC (Bld) 0.9 % Normal [facility] Comment on above: Performed By: #### C BCA, CMP, 00147-2, 45848-1, 5643-2 #### [facility] ([id number]) [address] [place] [address] Erythrocyte distribution width (RBC) [Ratio] 13.1 % Normal 11.5-15.0 [facility] Comment on above: Performed By: #### C BCA, CMP, 42778-1, 26778-2, 5643-2 #### [facility] ([id number]) [address] [place] [address] Hematocrit (Bld) [Volume fraction] 38.5 % Normal 35-47 [facility] Comment on above: Performed By: #### C BCA, CMP, 81843-2, 24676-5, 5643-2 #### [facility] ([id number]) [address] [place] [address] Hemoglobin (Bld) [Mass/Vol] 13.5 g/dL Normal 11.7-15.5 [facility] Comment on above: Performed By: #### C BCA, CMP, 44067-4, 34886-7, 5643-2 #### [facility] ([id number]) [address] [place] [address] Lymphocytes (Bld) [#/Vol] 2.5 10*3/uL Normal 1.0-3.5 [facility] Comment on above: Performed By: #### C BCA, CMP, 84592-1, 04291-6, 5643-2 #### [facility] ([id number]) [address] [place] [address] Lymphocytes/100 WBC (Bld) 36.9 % Normal [facility] Comment on above: Performed By: #### C BCA, CMP, 67403-7, 69424-1, 5643-2 #### [facility] ([id number]) [address] [address] MCH (RBC) [Entitic mass] 32.6 pg Normal 27-34 [facility] Comment on above: Performed By: #### C BCA, CMP, 82922-8, 08309-7, 5643-2 #### [facility] ([id number]) [address] [place] [address] MCHC (RBC) [Mass/Vol] 35.1 g/dL Normal 32-36 [facility] Comment on above: Performed By: #### C BCA, CMP, 85776-0, 00941-1, 5643-2 #### [facility] ([id number]) [address] [address] MCV (RBC) [Entitic vol] 93 fL Normal 80-100 [facility] Comment on above: Performed By: #### C BCA, CMP, 61472-2, 82738-3, 5643-2 #### [facility] ([id number]) [address] [place] [address] Monocytes (Bld) [#/Vol] 0.4 10*3/uL Normal 0-0.9 [facility] Comment on above: Performed By: #### C BCA, CMP, 20718-4, 37757-1, 5643-2 #### [facility] ([id number]) [address] [place] [address] Monocytes/100 WBC (Bld) 6.3 % Normal [facility] Comment on above: Performed By: #### C BCA, CMP, 21833-4, 16142-8, 5643-2 #### [facility] ([id number]) [address] [place] [address] Neutrophils/100 WBC (Bld) 55.2 % Normal [facility] Comment on above: Performed By: #### C BCA, CMP, 30273-2, 50935-8, 5643-2 #### [facility] ([id number]) [address] [place] [address] Platelet mean volume (Bld) [Entitic vol] 7.8 fL Normal 7-12 [facility] Comment on above: Performed By: #### C BCA, CMP, 76340-6, 93698-5, 5643-2 #### [facility] ([id number]) [address] [place] [address] Platelets (Bld) [#/Vol] 201 10*3/uL Normal 150-450 [facility] Comment on above: Performed By: #### C BCA, CMP, 14514-4, 23807-7, 5643-2 #### [facility] ([id number]) [address] [place] [address] RBC COUNT 4.14 X10E12/L Normal 3.80-5.20 [facility] Comment on above: Performed By: #### C BCA, CMP, 66344-1, 09122-2, 5643-2 #### [facility] ([id number]) [address] [place] [address] WBC (Bld) [#/Vol] 6.8 10*3/uL Normal 4.0-11.0 [facility] Comment on above: Performed By: #### C BCA, CMP, 40335-3, 15596-5, 5643-2 #### [facility] ([id number]) [address] [place] [address] COMPREHENSIVE METABOLIC PANE Syed 10-05-2023 Albumin [Mass/Vol] 3.9 g/dL Normal 3.2-5.3 [facility] Comment on above: Performed By: #### C BCA, CMP, 61236-3, 28311-4, 5643-2 #### [facility] ([id number]) [address] [place] [address] ALP [Catalytic activity/Vol] 80 U/L Normal 39-130 [facility] Comment on above: Performed By: #### C BCA, CMP, 32966-3, 32035-4, 5643-2 #### [facility] ([id number]) [address] [place] [address] ALT [Catalytic activity/Vol] 28 U/L Normal 0-31 [facility] Comment on above: Performed By: #### C BCA, CMP, 26802-5, 42483-8, 5643-2 #### [facility] ([id number]) [address] [place] [address] Anion gap [Moles/Vol] 11 mmol/L Normal 5-15 [facility] Comment on above: Performed By: #### C BCA, CMP, 67434-0, 29499-9, 5643-2 #### [facility] ([id number]) [address] [place] [address] AST [Catalytic activity/Vol] 40 U/L Normal 0-41 [facility] Comment on above: Performed By: #### C BCA, CMP, 26979-2, 86913-1, 5643-2 #### [facility] ([id number]) [address] [place] [address] Bilirubin [Mass/Vol] 0.6 mg/dL Normal 0.3-1.2 [facility] Comment on above: Performed By: #### C BCA, CMP, 75467-1, 84249-1, 5643-2 #### [facility] ([id number]) [address] [place] [address] Calcium [Mass/Vol] 8.6 mg/dL Normal 8.5-10.5 [facility] Comment on above: Performed By: #### C BCA, CMP, 83783-3, 50406-2, 5643-2 #### [facility] ([id number]) [address] [place] [address] Chloride [Moles/Vol] 99 mmol/L Normal 98-109 [facility] Comment on above: Performed By: #### C BCA, CMP, 58658-6, 74303-1, 5643-2 #### [facility] ([id number]) [address] [place] [address] CO2 [Moles/Vol] 21 mmol/L Low 22-32 [facility] Comment on above: Performed By: #### C BCA, CMP, 08185-6, 36724-5, 5643-2 #### [facility] ([id number]) [address] [place] [address] Creatinine [Mass/Vol] 0.57 mg/dL Normal 0.40-1.00 [facility] Comment on above: Result Comment: METH OD TRACEABLE TO IDMS STANDARD Performed By: #### C BCA, CMP, 45656-7, 94360-3, 5643-2 #### [facility] ([id number]) [address] [place] [address] eGFR (CKD-EPI) NON-RACE DEPENDENT >90 Normal >59 [facility] Comment on above: Result Comment: Reported eGFR is based on the CKD-EPI 1 equation that does not use a race coefficient. Performed By: #### C BCA, CMP, 00269-4, 38724-8, 5643-2 #### [facility] ([id number]) [address] [place] [address] Glucose [Mass/Vol] 99 mg/dL Normal 65-99 [facility] Comment on above: Performed By: #### C BCA, CMP, 57593-2, 86607-5, 5643-2 #### [facility] ([id number]) [address] [place] [address] Potassium [Moles/Vol] 3.5 mmol/L Normal 3.5-5.0 [facility] Comment on above: Performed By: #### C BCA, CMP, 52443-6, 23685-2, 5643-2 #### [facility] ([id number]) [address] [place] [address] Protein [Mass/Vol] 7.2 g/dL Normal 6.0-8.0 [facility] Comment on above: Performed By: #### C BCA, CMP, 34851-5, 61372-3, 5643-2 #### [facility] ([id number]) [address] [place] [address] Sodium [Moles/Vol] 131 mmol/L Low 134-146 [facility] Comment on above: Performed By: #### C BCA, CMP, 81433-2, 50875-6, 5643-2 #### [facility] ([id number]) [address] [place] [address] Urea nitrogen [Mass/Vol] 10 mg/dL Normal 5-23 [facility] Comment on above: Performed By: #### C BCA, CMP, 41430-3, 36756-5, 5643-2 #### [facility] ([id number]) [address] [place] [address] CT BRAIN WO CONT STROKE ALER Ton [...] MD on 10/04/2023 11:32 PM Normal [facility] CT CTA CAROTIDon 10-05-[address] CTA CAROTID CLINICAL INFORMATION: Stroke. Neurologic deficit. COMPARISON: None PROCEDURE: CT angiogram of the neck with IV contrast. Sagittal and coronal reformatted images with 3-D Maximum intensity projection reconstructions constructed under concurrent physician supervision on a independent workstation for evaluation of carotid and vertebral arteries. Automated exposure control was utilized. The [place] Symptomatic carotid Endarterectomy Trial (NASCET) method for [...] MD on 10/04/2023 11:50 PM Normal [facility] CT CTA HEADon 10-05-2023 CT CTA HEAD [...] MD on 10/04/2023 11:47 PM Normal [facility] DRUG SCREEN, URINEon 024 AMPHETAMINE/METHAM P Negative Normal NEG [facility] Comment on above: Result Comment: AMPH /METH screening cut off = 1000 ng/mL Performed By: #### D CASTELLANOS ####[facility] ([id number])[address] [place] [address] BARBITURATES Negative Normal NEG [facility] Comment on above: Result Comment: [place] iturates screening cut off value = 200 ng/mL Performed By: #### D CASTELLANOS ####[facility] ([id number])[address] [place] [address] BENZODIAZEPINES Positive Abnormal NEG [facility] Comment on above: Result Comment: Conf irmation available upon request. Benzodiazepines screening cut off value = 200 ng/mL Performed By: #### D CASTELLANOS ####[facility] ([id number])[address] [place] [address] CANNABINOIDS Negative Normal [facility] Comment on above: Result Comment: Saurav abinoids/THC screening cut off value = 50 ng/mL Performed By: #### D CASTELLANOS ####[facility] ([id number])[address] [place] [address] COCAINE METABOLITE Negative Normal NEG [facility] Comment on above: Result Comment: Coca ine screening cut off value = 300 ng/mL Performed By: #### D CASTELLANOS ####[facility] ([id number])[address] [place] [address] ECSTASY Negative Normal [facility] Comment on above: Result Comment: Ecst asy screening cut off value = 500 ng/mL This report is intended for use in clinical monitoring or management of patients. Performed By: #### D CASTELLANOS ####[facility] ([id number])[address] [place] [address] METHADONE Negative Normal NEG [facility] Comment on above: Result Comment: Meth adone screening cut off value = 300 ng/mL. Performed By: #### D CASTELLANOS ####[facility] ([id number])[address] [place] [address] OPIATES Negative Normal NEG [facility] Comment on above: Result Comment: Opia rosita screening cut off value = 300 ng/mL NOTE: This test is used for the detection of codeine, hydrocodone (>1000 ng/mL), morphine and hydromorphone (>900 ng/mL) in urine. Performed By: #### D CASTELLANOS ####[facility] ([id number])[address] [place] [address] OXYCODONE Negative Normal NEG [facility] Comment on above: Result Comment: Oxyc odone screening cut off value = 300 ng/mL NOTE: This test is used for the detection of oxycodone and oxymorphone in urine. Performed By: #### D CASTELLANOS ####[facility] ([id number])[address] [place] [address] PHENCYCLIDINE Negative Normal NEG [facility] Comment on above: Result Comment: Phen cyclidine screening cut off value = 25 ng/mL Performed By: #### D CASTELLANOS ####[facility] ([id number])[address] [place] [address] Ethanol [Mass/Vol]on 024 ETHANOL 0.33 g/dL High 0.00-0.08 [facility] Comment on above: Result Comment: This report is intended for use in clinical monitoring or management of patients. Performed By: #### C BCA, CMP, 28765-3, 01546-3, 5643-2 #### [facility] ([id number]) [address] [place] [address] HCG ( test) Ql (U)o n 10-05-2023 Beta HCG ( test) Ql (U) Negative Normal NEG [facility] Comment on above: Performed By: #### 2 106-3 #### [facility] ([id number]) [address] [place] [address] HGB A1C (GLYCO-HGB)on 2023 Glucose [Mass/Vol] 120 mg/dL Normal [facility] Comment on above: Performed By: #### P INR, 3016-3 ####[facility] ([id number])[address] [place] [address]#### [id number] ####[facility] ([id number])[address] [facility], [address] [address] HbA1c (Bld) [Mass fraction] 5.8 % High 4.4-5.6 [facility] Comment on above: Result Comment: NOTE ADA Guidelines Result HgbA1c Normal : less than 5.7 % Prediabetes : 5.7 % to 6.4 % Diabetes : > 6.4 % Use with caution in patients with abnormal hemoglobin variants as the half-life of red blood cells and in vivo glycation rates are affected. Performed By: #### P INR, 6-3 ####[facility] ([id number])[address] [place] [address]#### [id number] ####[facility] ([id number])[address] [address] Lipid 1996 panelon Cholesterol [Mass/Vol] 175 mg/dL Normal 150-200 [facility] Comment on above: Performed By: #### P INR, 3016-3 ####[facility] ([id number])[address] [place] [address]#### [phone] ####[facility] ([id number])[address] [address] Cholesterol in HDL [Mass/Vol] 55 mg/dL Normal >39 [facility] Comment on above: Result Comment: HDL <40 mg/dL - High Risk HDL > or = 40mg/dL- Desirable HDL >60 mg/dL - Negative Risk Performed By: #### P INR, 3016-3 ####[facility] ([id number])[address] [place] [address]#### [phone] ####[facility] ([id number])[address] [place] [address] Cholesterol in LDL [Mass/Vol] 45 mg/dL Normal <130 [facility] Comment on above: Result Comment: LDL <100 mg/dL - Desirable LDL >160 mg/dL - High Risk Performed By: #### P INR, 3016-3 ####[facility] ([id number])[address] [place] [address]#### [phone] ####[facility] ([id number])[address], [place] [address] Cholesterol in VLDL [Mass/Vol] 75 mg/dL High 0-30 [facility] Comment on above: Performed By: #### P INR, 3016-3 ####[facility] ([id number])[address] [place] [address]#### [phone] ####[facility] ([id number])[address] [facility] [address] [place] [address] CHOLESTEROL:HDL 3.2 Normal 1.0-5.0 [facility] Comment on above: Performed By: #### P INR, 3016-3 ####[facility] ([id number])[address] [place] [address]#### [phone] ####[facility] ([id number])[address] [address] Triglyceride [Mass/Vol] 374 mg/dL High 27-150 [facility] Comment on above: Performed By: #### P INR, 3016-3 ####[facility] ([id number])[address] [place] [address]#### [id number] ####[facility] ([id number])[address] [address] MAGNESIUMon 10-05-2023 Magnesium [Mass/Vol] 2.0 mg/dL Normal 1.8-2.6 [facility] Comment on above: Performed By: #### C BCA, CMP, 46249-5, 17746-3, 5643-2 #### [facility] ([id number]) [address] [place] [address] MR BRAIN W WO CONTon 024 MR [...] Musa on 10/05/2023 11:31 AM Normal [facility] PROTIME AND INRon 10-05-2023 INR Coag (PPP) [Relative time] 1.0 {INR} Normal 0.8-1.1 [facility] Comment on above: Performed By: #### P INR, 3016-3 ####[facility] ([id number])[address] [place] [address]#### [phone] ####[facility] ([id number])[address] [address] PT Coag (PPP) [Time] 11.6 s Normal 9.8-13.2 [facility] Comment on above: Performed By: #### P INR, 3016-3 ####[facility] ([id number])[address] [place] [address]#### [phone] ####[facility] ([id number])[address] [facility], [address] [address] TROPONIN Ion 10-05-2023 Troponin I.cardiac [Mass/Vol] ng/mL Normal 0.00-0.04 [facility] Comment on above: Performed By: #### C BCA, CMP, 74902-8, 81501-5, 5643-2 #### [facility] ([id number]) [address] [place] [address] TSH Qnon 10-05-2023 TSH 1.51 uIU/mL Normal 0.49-4.67 [facility] Comment on above: Performed By: #### P INR, 3016-3 ####[facility] ([id number])[address] [place] [address]#### [phone] ####[facility] ([id number])[address] [address] URN MACROSCOPIC NURon 2023 BILIRUBIN JOSIAH Negative Normal NEG [facility] Comment on above: Performed By: #### N UM ####[facility] ([id number])[address] [place] [address] BLOOD/HGB JOSIAH Negative Normal NEG [facility] Comment on above: Performed By: #### N UM ####[facility] ([id number])[address] [place] [address] GLUCOSE JOSIAH Negative Normal NEG [facility] Comment on above: Performed By: #### N UM ####[facility] ([id number])[address] [place] [address] KETONES JOSIAH Negative Normal NEG [facility] Comment on above: Performed By: #### N UM ####[facility] ([id number])[address] [place] [address] LEUKOCYTE ESTERASE JOSIAH Negative Normal NEG [facility] Comment on above: Performed By: #### N UM ####[facility] ([id number])[address] [place] [address] NITRITE JOSIAH Negative Normal NEG [facility] Comment on above: Performed By: #### N UM ####[facility] ([id number])[address] [place] [address] PH JOSIAH 5.5 Normal 5.0-8.5 [facility] Comment on above: Performed By: #### N UM ####[facility] ([id number])[address] [place] [address] PROTEIN JOSIAH Negative Normal NEG [facility] Comment on above: Performed By: #### N UM ####[facility] ([id number])[address] [place] [address] SPECIFIC GRAVITY JOSIAH 1.010 Normal 1.003-1.035 [facility] Comment on above: Performed By: #### N UM ####[facility] ([id number])[address] [place] [address] UROBILINOGEN JOSIAH 0.2 eu/dL Normal <1.1 [facility] Comment on above: Performed By: #### N UM ####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 LOCATION: [facility] BREAST COMPOSITION: Heterogeneously dense,which may obscure [...] PALPABLE LUMP SHOULD BE BIOPSIED. Dictated by: Kip Dougherty M.D. on 07/13/2022 at 14:40 Approved by: Kip Dougherty M.D. on 07/13/2022 at 14:[address] [facility] CBC AUTO DIFFon 06-14-2022 BASO # 0.0 103/ul Normal 0.0-0.[address] [facility] Comment on above: Performed By: #### C BC #### [facility] [address] [place] [address] Dr. Ron Back Basophils/100 WBC (Bld) 0.4 % Normal 0.2-2.[address] [facility] Comment on above: Performed By: #### C BC #### [facility] [address] [place] [address] Dr. Ron Back EO # 0.1 103/ul Normal 0.0-0.7 [facility] Comment on above: Performed By: #### C BC #### [facility] [address] [place] [address] Dr. Ron Back Eosinophils/100 WBC (Bld) 1.7 % Normal 0.9-7.0 [facility] Comment on above: Performed By: #### C BC #### [facility] [address] [place] [address] Dr. Ron Back Erythrocyte distribution width (RBC) [Ratio] 12.7 % Normal 11.0-15.0 [facility] Comment on above: Performed By: #### C BC #### [facility] [address] [place] [address] Dr. Ron Back Hematocrit (Bld) [Volume fraction] 40.9 % Normal 36.0-48.0 [facility] Comment on above: Performed By: #### C BC #### [facility] [address] [place] [address] Dr. Ron Back Hemoglobin (Bld) [Mass/Vol] 13.5 g/dL Normal 12.0-16.0 [facility] Comment on above: Performed By: #### C BC #### [facility] [address] [place] [address] Dr. Ron Back IG # 0.03 10e3/ul Normal 0.00-0.03 [facility] Comment on above: Performed By: #### C BC #### [facility] [address] [place] [address] Dr. Ron Back IG % 0.6 % Critically high 0.0-0.5 [facility] Comment on above: Performed By: #### C BC #### [facility] [address] [place] [address] Dr. Ron Back LYMPH # 1.7 103/ul Normal 1.2-3.[address] [facility] Comment on above: Performed By: #### C BC #### [facility] [address] [place] [address] Dr. Ron Back Lymphocytes/100 WBC (Bld) 32.7 % Normal 20.5-60.0 [facility] Comment on above: Performed By: #### C BC #### [facility] [address] [place] [address] Dr. Ron Back MANUAL DIFF REQ NO Normal [facility] Comment on above: Performed By: #### C BC #### [facility] [address] [place] [address] Dr. Ron Back MCH (RBC) [Entitic mass] 31.8 pg Normal 26.7-34.0 [facility] Comment on above: Performed By: #### C BC #### [facility] [address] [place] [address] Dr. Ron Back MCHC (RBC) [Mass/Vol] 33.0 g/dL Normal 29.9-35.2 [facility] Comment on above: Performed By: #### C BC #### [facility] [address] [place] [address] Dr. Ron Back MCV (RBC) [Entitic vol] 96.5 fL Normal 81.0-99.0 [facility] Comment on above: Performed By: #### C BC #### [facility] [address] [place] [address] Dr. Ron Back MONO # 0.4 103/ul Normal 0.3-0.8 [facility] Comment on above: Performed By: #### C BC #### [facility] [address] [place] [address] Dr. Ron Back Monocytes/100 WBC (Bld) 7.1 % Normal 1.7-12.0 [facility] Comment on above: Performed By: #### C BC #### [facility] [address] [place] [address] Dr. Ron Back NEUT # 3.0 103/ul Normal 1.4-6.5 [facility] Comment on above: Performed By: #### C BC #### [facility] [address] [place] [address] Dr. Ron Back Neutrophils/100 WBC (Bld) 57.5 % Normal 43.0-75.0 [facility] Comment on above: Performed By: #### C BC #### [facility] [address] [place] [address] Dr. Ron Back Platelet mean volume (Bld) [Entitic vol] 10.5 fL Normal 9.5-13.5 [facility] Comment on above: Performed By: #### C BC #### [facility] [address] [place] [address] Dr. Ron Back PLT 212 103/ul Normal 150-[address] [facility] Comment on above: Performed By: #### C BC #### [facility] [address] [place] [address] Dr. Ron Back RBC 4.24 106/ul Normal 4.20-5.40 [facility] Comment on above: Performed By: #### C BC #### [facility] [address] [place] [address] Dr. Ron Back WBC 5.2 103/ul Normal 4.0-11.0 [facility] Comment on above: Performed By: #### C BC #### [facility] [address] [place] [address] Dr. Ron Back LIPID PROFILEon 06-14-2022 CHOL-HDL RATIO NORM SEE BELOW Normal [facility] Comment on above: Result Comment: 3.3 - 4.4 LOW RISK 4.4 - 7.1 AVERAGE RISK 7.1 - 11.0 MODERATE RISK >11.0 HIGH RISK Performed By: #### C MP, LIPID #### [facility] [address] [place] [address] Dr. Ron Back Cholesterol [Mass/Vol] 202 mg/dL Critically high <=[address] [facility] Comment on above: Performed By: #### C MP, LIPID #### [facility] [address] [place] [address] Dr. Ron Back Cholesterol in HDL [Mass/Vol] 69 mg/dL Critically high 40-[address] [facility] Comment on above: Performed By: #### C MP, LIPID #### [facility] [address] [place] [address] Dr. Ron Back Cholesterol in LDL [Mass/Vol] 110.8 mg/dL Normal [facility] Comment on above: Performed By: #### C MP, LIPID #### [facility] [address] [place] [address] Dr. Ron Back Cholesterol.total/ Cholesterol in HDL [Mass ratio] 2.9 {ratio} Normal [facility] Comment on above: Performed By: #### C MP, LIPID #### [facility] [address] [address] [address] Ron Back HDL NORMAL > or = 60 mg/dl - LO W CARDIOVASCULAR RISK <40 mg/dl - HIGH CARDIOVASCULAR RISK Normal [facility] Comment on above: Performed By: #### C MP, LIPID #### [facility] [address] [address] [address] Ron Back LDL CALC NORMAL SEE BELOW Normal [facility] Comment on above: Result Comment: <100 mg/dl OPTIMAL 100 - 129 mg/dl NEAR OR ABOVE OPTIMAL 130 - 159 mg/dl BORDERLINE HIGH 160 - 189 mg/dl HIGH >190 mg/dl VERY HIGH Performed By: #### C MP, LIPID #### [facility] [address] [address] [address] Ron Back Triglyceride [Mass/Vol] 111 mg/dL Normal <=150 [facility] Comment on above: Performed By: #### C MP, LIPID #### [facility] [address] [address] [address] Ron Back VLDL CALC 22.2 mg/dL Normal [facility] Comment on above: Performed By: #### C MP, LIPID #### [facility] [address] [address] [address] Ron Back PROF 14(COMP METB)on 022 Albumin [Mass/Vol] 4.1 g/dL Normal 3.4-5.0 [facility] Comment on above: Performed By: #### C MP, LIPID #### [facility] [address] [address] [address] Ron Back Albumin/Globulin [Mass ratio] 1.0 {ratio} Normal [facility] Comment on above: Performed By: #### C MP, LIPID #### [facility] [address] [address] [address] Ron Back ALP [Catalytic activity/Vol] 114 U/L Normal 46-116 [facility] Comment on above: Performed By: #### C MP, LIPID #### [facility] [address] [address] [address] Ron Back ALT [Catalytic activity/Vol] 34 U/L Normal 14-59 [facility] Comment on above: Performed By: #### C MP, LIPID #### [facility] [address] [address] [address] Ron Back Anion gap [Moles/Vol] 15.4 mmol/L Normal [facility] Comment on above: Performed By: #### C MP, LIPID #### [facility] [address] [address] [address] Ron Back AST [Catalytic activity/Vol] 28 U/L Normal 15-37 [facility] Comment on above: Performed By: #### C MP, LIPID #### [facility] [address] [place] [address] Dr. Ron Back Bilirubin [Mass/Vol] 0.4 mg/dL Normal 0.2-1.0 [facility] Comment on above: Performed By: #### C MP, LIPID #### [facility] [address] [place] [address] Dr. Ron Back Calcium [Mass/Vol] 10.0 mg/dL Normal 8.5-10.1 [facility] Comment on above: Performed By: #### C MP, LIPID #### [facility] [address] [place] [address] Dr. Ron Back Chloride [Moles/Vol] 100 mmol/L Normal 98-107 [facility] Comment on above: Performed By: #### C MP, LIPID #### [facility] [address] [address] [address] Ron Back CO2 [Moles/Vol] 26.1 mmol/L Normal 21.0-32.0 [facility] Comment on above: Performed By: #### C MP, LIPID #### [facility] [address] [address] [address] Ron Back Creatinine [Mass/Vol] 0.69 mg/dL Normal 0.55-1.02 [facility] Comment on above: Performed By: #### C MP, LIPID #### [facility] [address] [address] [address] Ron Back EGFR-AF TUVALUAN >60 Normal >=60 [facility] Comment on above: Performed By: #### C MP, LIPID #### [facility] [address] [address] [address] Ron Back EGFR-NON AF TUVALUAN >60 Normal >=60 [facility] Comment on above: Performed By: #### C MP, LIPID #### [facility] [address] [address] [address] Ron Back Globulin (S) [Mass/Vol] 4.1 g/dL Normal [facility] Comment on above: Performed By: #### C MP, LIPID #### [facility] [address] [place] [address] Dr. Ron Back Glucose [Mass/Vol] 101 mg/dL Normal 74-106 [facility] Comment on above: Performed By: #### C MP, LIPID #### [facility] [address] [address] [address] oRn Back Potassium [Moles/Vol] 4.5 mmol/L Normal 3.5-5.1 [facility] Comment on above: Performed By: #### C MP, LIPID #### [facility] [address] [place] [address] Dr. Ron Back Protein [Mass/Vol] 8.2 g/dL Normal 6.4-8.2 [facility] Comment on above: Performed By: #### C MP, LIPID #### [facility] [address] [address] [address] Ron Back Sodium [Moles/Vol] 137 mmol/L Normal 136-145 [facility] Comment on above: Performed By: #### C MP, LIPID #### [facility] [address] [address] [address] Ron Back Urea nitrogen [Mass/Vol] 16.0 mg/dL Normal 7.0-18.0 [facility] Comment on above: Performed By: #### C MP, LIPID #### [facility] [address] [place], [place] [address] Dr. Ron Back Urea nitrogen/Creatinin e [Mass ratio] 23.2 mg/mg Normal [facility] Comment on above: Performed By: #### C MP, LIPID #### [facility] [address] [place], [place] [address] Dr. Ron Back UA RANDOM W/MICROSCOPICon BACTERIA NONE SEEN Normal NONE SEEN [facility] Comment on above: Performed By: #### U AMIC ####[facility] [address] [address]Dr. Ron Back Bilirubin Ql (U) Negative Normal NEGATIVE [facility] Comment on above: Performed By: #### U AMIC ####[facility] [address] [address]Dr. Ron Back CAST SEEN Abnormal NONE SEEN [facility] Comment on above: Performed By: #### U AMIC ####[facility] [address] [address]Dr. Ron Back Clarity (U) CLEAR Normal CLEAR [facility] Comment on above: Performed By: #### U AMIC ####[facility] [address] [address]Dr. Ron Back Color (U) YELLOW Normal YELLOW [facility] Comment on above: Performed By: #### U AMIC ####[facility] [address] [address]Dr. Ron Back Crystals LM Nom (Urine sed) NONE SEEN Normal NONE SEEN [facility] Comment on above: Performed By: #### U AMIC ####[facility] [address] [address]Dr. Ron Back Epithelial cells LM Ql (Urine sed) FEW Abnormal NONE SEEN /RARE [facility] Comment on above: Performed By: #### U AMIC ####[facility] [address] [address]Dr. Ron Back Glucose Ql (U) Negative Normal NEGATIVE [facility] Comment on above: Performed By: #### U AMIC ####[facility] [address] [address]Dr. Ron Back Hemoglobin Ql (U) Negative Normal NEGATIVE [facility] Comment on above: Performed By: #### U AMIC ####[facility] [address] [address]Dr. Ron Back HYALINE CAST RARE Normal [facility] Comment on above: Performed By: #### U AMIC ####[facility] [address] [address]Dr. Rno Back Ketones Ql (U) Negative Normal NEGATIVE [facility] Comment on above: Performed By: #### U AMIC ####[facility] [id number] [place], [place] [address]Dr. Ron Back LEUKOCYTES Negative Normal NEGATIVE [facility] Comment on above: Performed By: #### U AMIC ####[facility] [address] [place], [place] [address]Dr. Ron Back MUCOUS TRACE Abnormal NONE SEEN [facility] Comment on above: Performed By: #### U AMIC ####[facility] Dwwj[address]jh[address] [place], [place] [address]Dr. Ron Back Nitrite Ql (U) Negative Normal NEGATIVE [facility] Comment on above: Performed By: #### U AMIC ####[facility] [address]se[address] [place], [place] [address]Dr. Ron Back pH (U) 5.5 [pH] Normal 5-[address] [facility] Comment on above: Performed By: #### U AMIC ####[facility] Clhhtkodpz[address] [place], [place] [address]Dr. Ron Back RBC 0-2 Normal 0-[address] [facility] Comment on above: Performed By: #### U AMIC ####[facility] Uuqukcbmbo[address] [place], [place] [address]Dr. Ron Back SPEC GRAVITY 1.025 Normal 1.005-<=1.02 5 [facility] Comment on above: Performed By: #### U AMIC ####[facility] [address] [address]Dr. Ron Back UA PROTEIN Negative Normal NEGATIVE/ TRACE [facility] Comment on above: Performed By: #### U AMIC ####[facility] [address] [address]Dr. Ron Back Urobilinogen Qn (U) 0.2 {Aaliyah'U}/dL Normal 0.2 - 1.0 [facility] Comment on above: Performed By: #### U AMIC ####[facility] [address] [address]DrAlanis Back WBC NONE SEEN Normal NONE SEEN [facility] Comment on above: Performed By: #### U AMIC ####[facility] [address] [address]Dr. Ron Back PAP ACOG PANEL 2: 30 to 65on 04-16-2022 . . Normal [facility] Comment on above: Result Comment: Perf ormed at: BA Performed By: #### 4 [id number] #### [facility] [address] [address] [address] Ron Back Age Gdln ACOG Testing 30-65 Normal [facility] Comment on above: Performed By: #### 4 [id number] #### [facility] [address] [address] [address] Ron Back DIAGNOSIS: Comment Normal [facility] Comment on above: Result Comment: NEGA TIVE FOR INTRAEPITHELIAL LESION OR MALIGNANCY. Performed at: BA Performed By: #### 4 [id number] #### [facility] [address] [address] [address] Ron Back HPV Aptima Negative Normal Negative [facility] Comment on above: Result Comment: This nucleic acid amplification test detects fourteen high-risk HPV types (16,18,31,33,35,39,45,51,52,56,58,59,66,68) without differentiation. Performed at: =G Performed By: #### 4 [id number] #### [facility] [address] [address] [address] Ron Back Methodology: Comment Normal [facility] Comment on above: Result Comment: This liquid based ThinPrep(R) pap test was screened with the use of an image guided system. Performed at: WB Performed By: #### 4 [id number] #### [facility] [address] [place] [address] Dr. Ron Back Note: Comment Normal [facility] Comment on above: Result Comment: The Pap smear is a screening test designed to aid in the detection of premalignant and malignant conditions of the uterine cervix. It is not a diagnostic procedure and should not be used as the sole means of detecting cervical cancer. Both false-positive and false-negative reports do occur. . Performed at: WB Performed By: #### [id number] #### [facility] [address] [place] [address] Dr. Ron Back Performed by: Comment Normal [facility] Comment on above: Result Comment: Rita Mcnally, Rn Progressive Care (ASCP) Performed at: BA Performed By: #### 4 [id number] #### [facility] [address] [place] [address] Dr. Ron Back Specimen adequacy: Comment Normal [facility] Comment on above: Result Comment: Sati sfactory for evaluation. Endocervical and/or squamous metaplastic cells (endocervical component) are present. Performed at: BA Performed By: #### 4 [id number] #### [facility] [address] [place] [address] Dr. Ron Back XR LSPINE 2_3 VIEWSon [...] Mild degenerative facet arthropathy. Electronically authenticated by: KIP DOUGHERTY Date: 2021-09-20 12:[address] [facility] HEMOGLOBINon 08-09-2021 Hemoglobin (Bld) [Mass/Vol] 13.0 g/dL Normal 12.0-16.0 [facility] Comment on above: Performed By: #### H GB #### [facility] [address] [address] [address] Ron Back Operative Reporton 8 Operative Report MR#: [id number] [facility] Pt. Name: Racheal Richardson Room #: 0C Discharge Date: Birthdate: 1970 OPERATIVE REPORTDATE OF SURGERY: 09/08/2017SURGEON: Angelique Fuentes M.D.CUSTODY ASSISTANT: Maryjo Monroy M.D.PREOPERATIVE DIAGNOSES: Left severe carpal [...] The patient understands that she was given Jackson 5/325 mg tabs, take 1-2 tablets every [...] 09/08/2017/01:50 P/Angelique Fuentes M.D.Date Trans: 09/08/2017 11:05 P/mmoDN_[id number] Normal [facility] POC GLUCOSE LABon 09-08-2017 Glucose mass conc 90 mg/dL Normal 70-100 [facility] Comment on above: Performed By: #### 8 [id number] ####[facility] Operative Reporton 7 Operative Report MR#: [id number] [facility] Pt. Name: Racheal Richardson Room #: [...] THE PROCEDURE: The patient is a pleasant 12-tpur-zhcriwcgp, who is right-hand dominant and has been having bilateral carpaltunnel symptoms. Her right side is worse than left side. She has triednonsurgical treatment on the right side in the form of use of braces atnighttime as well as use of oral pain medications and has failednonsurgical treatment. She also had an EMG study, which revealed priukihgncrcf-lq-gjbzla carpal tunnel syndrome. She has failed nonsurgicaltreatment [...] of dressing in the form of Xeroform, tcmedzi3p0p, fluffs, Kerlix, and Vadim wrap. 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 The patient understands the treatment plan. The patient was given Jackson 5/325 mg tabs, take 1-2 tablets every [...] 07/14/2017/04:04 P/Angelique Fuentes M.D.Date Trans: 07/15/2017 03:30 A/[id number] Normal [facility] POC GLUCOSE LABon 07-14-2017 Glucose mass conc 92 mg/dL Normal 70-100 [facility] Comment on above: Performed By: #### 8 [id number] ####[facility] Vital Signs Date Time Vital Sign Value Performing Clinician Facility 07-16-2024 14:050 Body height 162.6 cm Ritu Eng ASSISTANT PASSENGER LOCOMOTIVE ENGINEER Work Phone: [facility] 07-16-2024 14:22050 Body mass index (BMI) [Ratio] 29.49 kg/m2 Ritu Eng ASSISTANT PASSENGER LOCOMOTIVE ENGINEER Work Phone: [facility] 07-16-2024 14:050 Body temperature 98.71 [degF] Ritu Eng ASSISTANT PASSENGER LOCOMOTIVE ENGINEER Work Phone: [facility] 07-16-2024 14:22-050 Body weight 77.93 kg Ritu Eng ASSISTANT PASSENGER LOCOMOTIVE ENGINEER Work Phone: [facility] 07-16-2024 14:050 Diastolic blood pressure 86 mm[Hg] Ritu Eng ASSISTANT PASSENGER LOCOMOTIVE ENGINEER Work Phone: [facility] 07-16-2024 14:22-0500 Heart rate 97 /min Ritu Eng ASSISTANT PASSENGER LOCOMOTIVE ENGINEER Work Phone: [facility] 07-16-2024 14:22-0500 Respiratory rate 18 /min Ritu Owenallen ASSISTANT PASSENGER LOCOMOTIVE ENGINEER Work Phone: [facility] 07-16-2024 14:22-0500 SaO2% (BldA) [Mass fraction] 100 % Ritu Owenallen ASSISTANT PASSENGER LOCOMOTIVE ENGINEER Work Phone: [facility] 07-16-2024 14:22-0500 Systolic blood pressure 128 mm[Hg] Ritu Owenallen ASSISTANT PASSENGER LOCOMOTIVE ENGINEER Work Phone: [facility] 06-25-2024 10:55-0500 Body height 167.6 cm Pmh 1 [facility] 06-25-2024 10:55-0500 Body mass index (BMI) [Ratio] 26.63 kg/m2 Pmh 1 [facility] 06-25-2024 10:55-0500 Body weight 74.84 kg Pmh 1 [facility] 06-19-2024 08:58-0500 Body mass index (BMI) [Ratio] 29 kg/m2 Perla Moranoll EDUCATION SPEC-ELECTROENCEPHALOGRAPHIC TECHNOLOGIST Work Phone: [facility] 06-19-2024 08:58-0500 Body weight 76.57 kg Perla Gallego EDUCATION SPEC-ELECTROENCEPHALOGRAPHIC TECHNOLOGIST Work Phone: [facility] 06-19-2024 08:58-0500 Diastolic blood pressure 92 mm[Hg] Perla Gallego EDUCATION SPEC-ELECTROENCEPHALOGRAPHIC TECHNOLOGIST Work Phone: [facility] 06-19-2024 08:58-0500 Systolic blood pressure 139 mm[Hg] Perla Gallego EDUCATION SPEC-ELECTROENCEPHALOGRAPHIC TECHNOLOGIST Work Phone: [facility] 06-05-2024 13:06-0400 Body height 162.6 cm Ritu Albertina ASSISTANT PASSENGER LOCOMOTIVE ENGINEER Work Phone: [facility] 06-05-2024 13:06-0400 Body mass index (BMI) [Ratio] 28.67 kg/m2 Ritu Albertina ASSISTANT PASSENGER LOCOMOTIVE ENGINEER Work Phone: [facility] 06-05-2024 13:06-0400 Body temperature 98.8 [degF] Ritu Sanfordedvin ASSISTANT PASSENGER LOCOMOTIVE ENGINEER Work Phone: [facility] 06-05-2024 13:06-0400 Body weight 75.75 kg Ritu Sanfordedvin ASSISTANT PASSENGER LOCOMOTIVE ENGINEER Work Phone: [facility] 06-05-2024 13:06-0400 Diastolic blood pressure 86 mm[Hg] Ritu Sanfordedvin ASSISTANT PASSENGER LOCOMOTIVE ENGINEER Work Phone: [facility] 06-05-2024 13:06-0400 Heart rate 97 /min Ritu Sanfordedvin ASSISTANT PASSENGER LOCOMOTIVE ENGINEER Work Phone: [facility] 06-05-2024 13:06-0400 Respiratory rate 18 /min Ritu Sanfordedvin ASSISTANT PASSENGER LOCOMOTIVE ENGINEER Work Phone: [facility] 06-05-2024 13:06-0400 SaO2% (BldA) [Mass fraction] 97 % Ritu Owenallen ASSISTANT PASSENGER LOCOMOTIVE ENGINEER Work Phone: [facility] 06-05-2024 13:06-0400 Systolic blood pressure 132 mm[Hg] Ritu Sanfordedvin ASSISTANT PASSENGER LOCOMOTIVE ENGINEER Work Phone: [facility] Encounters Encounter Date Encounter Type Care Provider Facility Start: 07-16-2024 End: 07-16-2024 Bamboo flowsheet Ritu Sanfordedvin ASSISTANT PASSENGER LOCOMOTIVE ENGINEER Work Phone: [facility] Start: 07-16-2024 End: 07-16-2024 Bamboo flowsheet Ritu Owenallen ASSISTANT PASSENGER LOCOMOTIVE ENGINEER Work Phone: [facility] Start: 07-16-2024 End: 07-16-2024 Patient encounter procedure Ritu Owenallen ASSISTANT PASSENGER LOCOMOTIVE ENGINEER Work Phone: [facility] Start: 07-16-2024 End: 07-16-2024 Periodic preventive med est patient 40-64yrs Ritu Albertina ASSISTANT PASSENGER LOCOMOTIVE ENGINEER Work Phone: [facility] Comment on above: Well woman exam with routine gynecological exam (Primary Dx); Urticaria, unspecified; Urticaria; Primary hypertension (CMS/HCC); Mixed hyperlipidemia (CMS/HCC) Start: 07-09-2024 End: 07-09-2024 Telephone encounter Krystal Simeon RMPraveen [facility] Start: 07-08-2024 End: 07-08-2024 Telephone encounter Jenniffer Birdie KERR [facility] Start: 07-04-2024 End: 07-04-2024 Orders Only Ritu Eng ASSISTANT PASSENGER LOCOMOTIVE ENGINEER Work Phone: [facility] Comment on above: Irregular heart rate (Primary Dx); Abnormal Holter monitor finding Start: 07-03-2024 End: 07-03-2024 Clinisync Result Encounter Ritu Eng ASSISTANT PASSENGER LOCOMOTIVE ENGINEER Work Phone: [facility] Unsolicited Start: 07-03-2024 End: 07-03-2024 Clinisync Result Encounter Ritu Eng ASSISTANT PASSENGER LOCOMOTIVE ENGINEER Work Phone: [facility] Unsolicited Start: 07-01-2024 End: 07-01-2024 Evaluation and management of inpatient [facility] [address] Start: 06-25-2024 End: 06-25-2024 ambulatory [facility] Phone Call Provider 1 [facility] - Pre Admit Start: 06-25-2024 End: 06-25-2024 ambulatory RITU Nair [facility] Start: 06-19-2024 End: 06-19-2024 Patient encounter procedure Perla Gallego EDUCATION SPEC-ELECTROENCEPHALOGRAPHIC TECHNOLOGIST Work Phone: [facility] Comment on above: Encounter for screen ing colonoscopy (Primary Dx) Start: 06-19-2024 End: 06-19-2024 ambulatory [facility] Praveen [facility] Start: 06-05-2024 End: 06-05-2024 Bamboo flowsheet Ritu Eng ASSISTANT PASSENGER LOCOMOTIVE ENGINEER Work Phone: [facility] Start: 06-05-2024 End: 06-05-2024 Bamboo flowsheet Ritu Eng ASSISTANT PASSENGER LOCOMOTIVE ENGINEER Work Phone: [facility] Start: 06-05-2024 End: 06-05-2024 ambulatory RITU AICHHOLZ Not Available Start: 06-05-2024 End: 06-05-2024 Office outpatient visit 25 minutes Ritu Eng ASSISTANT PASSENGER LOCOMOTIVE ENGINEER Work Phone: [facility] Comment on above: Primary hypertension (CMS/HCC) (Primary Dx); Centrilobular emphysema (CMS/HCC); Irregular heart rate; Needs flu shot; Fibromyalgia; Colon cancer screening Start: 02-22-2024 End: 02-22-2024 ambulatory RITU AICHHOLZ Not Available Start: 10-05-2023 End: 10-06-2023 ambulatory JHON RAVI [facility] Start: 10-05-2023 End: 10-06-2023 Emergency department patient visit JERRELL Suarez [facility] Start: 10-05-2023 End: 10-05-2023 ambulatory RITU J [facility] Start: 07-12-2022 End: 07-13-2022 ambulatory ELECTROENCEPHALOGRAPHIC TECHNOLOGIST RITU AICHHOLZ Facility:[facility] Start: 06-14-2022 End: 06-15-2022 ambulatory ELECTROENCEPHALOGRAPHIC TECHNOLOGIST RITU AICHHOLZ Facility:[facility] Start: 04-11-2022 End: 04-11-2022 ambulatory ELECTROENCEPHALOGRAPHIC TECHNOLOGIST RITU AICHHOLZ Facility:[facility] Start: 09-20-2021 End: 09-21-2021 ambulatory ELECTROENCEPHALOGRAPHIC TECHNOLOGIST RITU AICHHOLZ Facility:[facility] Start: 08-09-2021 End: 08-10-2021 ambulatory ELECTROENCEPHALOGRAPHIC TECHNOLOGIST RITU AICHHOLZ Facility:[facility] Start: 12-21-2017 Ambulatory GENE MD KERI Cordova y:UNKNOWN Start: 11-23-2017 Ambulatory CASEY Cordova y:UNKNOWN Start: 09-08-2017 End: 09-09-2017 Ambulatory VITHAL SHENDGE Facility:[facility] Start: 07-14-2017 End: 07-15-2017 Ambulatory VITHAL SHENDGE Facility:[facility] Start: 05-04-2017 End: 05-05-2017 Ambulatory DEFAULT PHYSICIAN Facility:[facility] Procedures Date Procedure Procedure Detail Performing Clinician Start: 07-03-2024 ALL LIPID PROFILE (FASTING) Ritu Eng ASSISTANT PASSENGER LOCOMOTIVE ENGINEER Work Phone: Start: 07-03-2024 [facility] ALT Ritu carvajal ASSISTANT PASSENGER LOCOMOTIVE ENGINEER Work Phone: Start: 07-03-2024 [facility] AST Ritu carvajal ASSISTANT PASSENGER LOCOMOTIVE ENGINEER Work Phone: Start: 07-03-2024 MLR HEMOGLOBIN A1C Ritu Eng ASSISTANT PASSENGER LOCOMOTIVE ENGINEER Work Phone: Start: 07-01-2024 Colonoscopy Ritu carvajal ASSISTANT PASSENGER LOCOMOTIVE ENGINEER Work Phone: Start: 03-13-2024 Mammography Ritu carvajal ASSISTANT PASSENGER LOCOMOTIVE ENGINEER Work Phone: Start: 09-08-2017 ANESTH LOWER ARM SURGERY SONIA COBB Start: 09-08-2017 Neuroplasty &/transp os median nrv carpal tunne VITHAL SHENDGE Start: 07-14-2017 ANESTH LOWER ARM SURGERY YAJAIRA Suarez MUÑIZ Start: 07-14-2017 Neuroplasty &/transp os median nrv carpal tunne VITHAL SHENDGE Start: 04-14-2017 Microscopic observat ion [Identifier] in Cervix by Cyto stain Ritu Eng ASSISTANT PASSENGER LOCOMOTIVE ENGINEER Work Phone: Plan of Treatment Date Care Activity Detail Author Start: 07-01-2034 Screening for malign ant neoplasm of colon [facility] Start: 07-01-2031 Screening for malign ant neoplasm of colon Colonoscopy [facility] Start: 01-08-2030 DTaP,Tdap and Td Vaccines (2 - Td or Tdap) DTaP,Tdap and Td Vaccines (2 - Td or Tdap) [facility] Start: 07-01-2025 Adult BMI Screening Adult BMI Screen ing [facility] Start: 07-01-2025 Tobacco Screening Tobacco Screening [facility] Start: 06-25-2025 Adult BMI Screening Adult BMI Screen ing [facility] Start: 06-25-2025 Tobacco Screening Tobacco Screening [facility] Start: 06-19-2025 Adult BMI Screening Adult BMI Screen ing [facility] Start: 06-19-2025 Tobacco Screening Tobacco Screening [facility] Start: 03-13-2025 Screening for malign ant neoplasm of breast Mammogram [facility] Start: 09-17-2024 End: 09-17-2024 Patient encounter procedure 09/17/2024 1:20 PM EST Office Visit [facility] [address] [place] [address] Ritu Eng NP [address] [place] [address] [facility] Start: 07-16-2024 End: 07-16-2024 Patient encounter procedure [facility] Comment on above: Well woman exam with routine gynecological exam (Primary Dx); Urticaria, unspecified; Urticaria; Primary hypertension (CMS/HCC); Mixed hyperlipidemia (CMS/HCC) Start: 07-16-2024 End: 07-16-2025 THIN PREP TIS PAP AND HR HPV DNA THIN PREP TIS PAP AND HR HPV DNA Pathology and Cytology Routine Well woman exam with routine gynecological exam Expected: 07/16/2024 (Approximate), Expires: 07/16/2025 [facility] Work Phone: Comment on above: Expected: 07/16/2024 (Approximate), Expires: 07/16/2025 Start: 07-01-2024 End: 07-01-2024 Admission to same day surgery center 07/01/2024 8:45 AM [facility] - 07/01/2024 9:15 AM EST Surgery [facility] - Surgery [address] [place] [id number] Chace Ash MD [address] [place] [phone] COLONOSCOPY DIAGNOSTIC / SCREENING [49253 (CPT )] [facility] - Surgery Comment on above: COLONOSCOPY DIAGNOST IC / SCREENING [66072 (CPT )] Start: 07-01-2024 End: 07-01-2024 Colonoscopy flx dx w/collj spec when pfrmd COLONOSCOPY DIAGNOSTIC / SCREENING Screen for colon cancer 07/01/2024 8:45 AM EST [facility] Start: 07-01-2024 Subsequent hospital visit by physician 07/01/2024 8:45 AM EST Hospital Encounter [facility] - Surgery [address] [place] [address] Chace Ash MD [address] [place] [phone] [facility] - Surgery Start: 06-25-2024 End: 06-25-2024 ambulatory 06/25/2024 3:30 PM EST Support Visit [facility] - Pre Admit [address] [place] [address] [facility] Pre Admit Start: 06-12-2024 Influenza vaccination Influenza Vacc ine (#1) [facility] Comment on above: Postponed from 04/14 (Patient Does Not Have Time) Start: 06-05-2024 End: 06-05-2025 Holter monitor study Holter monitor Imaging Routine Irregular heart rate Expected: 06/05/2024 (Approximate), Expires: 06/05/2025 [facility] Work Phone: Comment on above: Expected: 06/05/2024 (Approximate), Expires: 06/05/2025 Start: 04-14-2024 COVID-19 Vaccine ( season) COVID-19 Vaccine ( season) [facility] Start: 11-08-2023 Screening for malign ant neoplasm of colon [facility] Start: 12-30-2020 Administration of varicella zoster vaccine Zoster (Shingles) Vaccine (2 of 2) [facility] Start: 04-14-2020 Screening for malign ant neoplasm of cervix [facility] Start: 2000 Screening for malign ant neoplasm of cervix HPV/Cotest [facility] Start: 1991 Screening for malign ant neoplasm of cervix Pap Smear [facility] Start: 1988 Adult BMI Follow Up Plan Adult BMI Follow Up Plan [facility] Start: 1982 Depression Screening Depression Scre ening [facility] Start: 1970 Screening for malign ant neoplasm of colon [facility] Start: 1970 Tobacco Counseling Tobacco Counselbrenda escalante [facility] End: 06-18-2025 Colonoscopy Colonoscopy GI Routine Encounter for screening colonoscopy 1 Occurrences starting 06/19/2024 until 06/18/2025 [facility] Work Phone: Comment on above: 1 Occurrences starti ng 06/19/2024 until 06/18/2025 Immunizations Immunization Date Immunization Notes Care Provider Fa tu 06-05-2024 Influenza, injectabl e, Madin Danae Canine Kidney, preservative free, quadrivalent Ritu Aichholz ASSISTANT PASSENGER LOCOMOTIVE ENGINEER Work Phone: [facility] 12-15-2020 COVID-19, mRNA, LNP- S, PF, 100mcg/0.5mL Dose Perla Gallego EDUCATION SPEC-ELECTROENCEPHALOGRAPHIC TECHNOLOGIST Work Phone: [facility] 11-17-2020 COVID-19, mRNA, LNP- S, PF, 100mcg/0.5mL Dose Perla Gallego EDUCATION SPEC-ELECTROENCEPHALOGRAPHIC TECHNOLOGIST Work Phone: [facility] 11-04-2020 zoster vaccine, unspecified formulation Perla Gallego EDUCATION SPEC-ELECTROENCEPHALOGRAPHIC TECHNOLOGIST Work Phone: [facility] 01-09-2020 tetanus toxoid, redu ney diphtheria toxoid, and acellular pertussis vaccine, adsorbed Ritu Aichholz ASSISTANT PASSENGER LOCOMOTIVE ENGINEER Work Phone: [facility] Payers Date Payer Category Payer Medicaid [facility] MEDIC AID [id number] 2016 Private Health Insurance [facility] MEDICAID [id number] 2016 Medicaid [id number] 1970 Unknown [id number] 2.16.840.1.615370.3.579.2. 593 1970 Unknown [id number] 2.16.840.1.677662.3.579.2. 593 1970 Unknown [id number] 2.16.840.1.094715.3.579.2. 593 1970 Unknown [id number] 2.16.840.1.005701.3.579.2. 593 1970 Unknown [id number] 2.16.840.1.519318.3.579.2. 593 1970 Unknown [id number] 2.16.840.1.728270.3.579.2. 1286 1970 Unknown [id number] 2.16.840.1.206766.3.579.2. 1286 1970 Unknown [id number] 2.16.840.1.702155.3.579.2. 1286 1970 Unknown [id number] 2.16.840.1.500797.3.579.2. 1286 1970 Unknown [id number] 2.16.840.1.812333.3.579.2. 1286 1970 Unknown [id number] 2.16.840.1.411792.3.579.2. 1259 1970 Unknown [id number] 2.16.840.1.407079.3.579.2. 1259 1970 Unknown [id number] 2.16.840.1.085140.3.579.2. 1286 1970 Unknown [id number] 2.16.840.1.433422.3.579.2. 1286 1970 Unknown [id number] 2.16.840.1.677761.3.579.2. 1286 1959 Unknown [id number] Unknown Social History Date Type Detail Facility Start: 02-22-2024 End: 06-19-2024 Tobacco smoking status MOIS Smokes tobacco daily [facility] History of tobacco use [facility]igarette [facility]oker [facility] Start: 02-22-2024 End: 06-19-2024 Tobacco use and exposure Smokeless tobacco non-user [facility] Start: 02-22-2024 End: 07-16-2024 Alcoholic beverage intake Current drinker of alcohol (finding) [facility] Start: 02-22-2024 End: 07-16-2024 [facility]coholic [facility] intake [facility] Start: 02-22-2024 End: 07-16-2024 Tobacco use panel [facility] Start: 02-22-2024 Alcohol Comment caffine: 2 daily [facility] Start: 1970 Sex assigned at Not on file [facility] Has the [employer], or [employer] threatened to shut off services in your [...] getting medications? No [facility] Start: 08-06-2015 Sex Female (finding) [facility] Medical Equipment Procedure Code Equipment Code Equipment Origin al Text Equipment Identifier Dates Plug Dome Hl Mpa ct Actb Scr Shl - [id number] Start: 01-27-2022 Shell Actb 54mm Hip Cmntls 2 Hl Mdlr Mpact E Hmsphr - [id number] Start: 01-27-2022 Liner Actb 36mm E Uhmwpe [place] Flt Hd Mpact Hip Ns - [id number] Start: 01-27-2022 Stem Fem 8 2 Tpr Flt [place] Mectagrip Hip Lateralize - [id number] Start: 01-27-2022 Head Fem 36mm Sm Mectacer Blx D Hip - [id number] Start: 01-27-2022 Goals Date Patient Goal Desired Activity /State Personal health goal Comment on above: Formatting of this n ote might be different from the original. Evaluation of progress towards goal: pt will return home with self care and support from . Clinical Notes 09-20-2021 to 07-16-2024 KRYSTAL BARKLEY - 07/16/2024 2:00 PM Brad Eng NP - 07/16/2024 2:00 PM Brad Eng NP - 07/16/2024 6:54 AM ESTPatient Saman Gallego APRN-GUZMAN - 06/19/2024 9:00 AM EST Note Date & Type Note Facility 07-16-2024 History of Present illness Narrative Pt is currently having stomach cramps and diarrhea since eating. Images from the original note were not included. Racheal Richardson is a 53 y.o. female presents with chief complaint of Gynecologic Exam HPI: Gynecologic Exam The patient's pertinent negatives include no genital itching, genital lesions, genital odor, pelvic pain, vaginal bleeding or vaginal discharge. The patient is experiencing no pain. She is not . Associated symptoms include diarrhea. Pertinent negatives include no abdominal pain, back pain, chills, constipation, dysuria, fever, flank pain, frequency, headaches, hematuria, joint swelling, nausea, painful intercourse, rash, sore throat or vomiting. Nothing aggravates the symptoms. She is not sexually active. No, her partner does not have an STD. She uses nothing for contraception. She is postmenopausal. SUBJECTIVE: MEDICATIONS: Current Outpatient Medications Medication Instructions albuterol HFA 90 mcg/act inhaler 2 puffs, Inhalation, Every 6 hours PRN cetirizine (ZYRTEC) 10 mg, Oral, Daily gabapentin (NEURONTIN) 300 mg, Oral, Daily lisinopril-hydroCHLOROthiazide 20-12.5 MG tablet 1 tablet, Oral, [...] Negative for cough, shortness of breath and wheezing. Cardiovascular: Negative for chest pain, palpitations and leg swelling. Gastrointestinal: Positive for diarrhea. Negative for abdominal pain, blood in stool, constipation, nausea and vomiting. Genitourinary: Negative for difficulty urinating, dysuria, flank pain, frequency, hematuria, pelvic pain and vaginal discharge. Musculoskeletal: Negative for arthralgias, back pain, joint swelling and myalgias. Skin: Negative for rash and wound. Neurological: Negative for dizziness, tremors, seizures, syncope and headaches. Psychiatric/Behavioral: Negative for behavioral problems, self-injury and suicidal ideas. The patient is not nervous/anxious. Hematological: Does not bruise/bleed easily. Endocrine: Negative for polydipsia, polyphagia and polyuria. Allergic/Immunologic: Negative for environmental allergies and food allergies. PAST MEDICAL HISTORY Past Medical History: Diagnosis Date Centrilobular emphysema (CMS/HCC) 08/15/2023 Coronary artery disease involving [place] coronary artery of [place] heart without angina pectoris (CMS/HCC) 08/05/2023 Mixed hyperlipidemia (CMS/HCC) 08/05/2023 Primary hypertension (CMS/HCC) 08/05/2023 Past Surgical History: Procedure Laterality Date CT GUIDED TRANSVAGINAL TRANSRECTAL FLUID DRAIN 10/04/2023 CT GUIDED TRANSVAGINAL TRANSRECTAL FLUID DRAIN 10/04/2023 family history is not on file. OBJECTIVE: Visit Vitals BP 128/86 (BP Location: Left arm, Patient Position: Sitting, BP Cuff Size: Adult long) Pulse 97 Temp 98.7 F (Temporal) Resp 18 Ht 5' 4 Wt 171 lb 12.8 oz SpO2 100% BMI 29.49 kg/m Smoking Status Every Day BSA 1.88 m Physical Exam Vitals and nursing note reviewed. Exam conducted with a workforce planning analyst present. Constitutional: General: She is not in acute distress. Appearance: Normal appearance. HENT: Head: Normocephalic and atraumatic. Right Ear: External ear normal. Left Ear: External ear normal. Nose: Nose normal. Mouth/Throat: Mouth: Mucous membranes are moist. Eyes: Extraocular Movements: Extraocular movements intact. Conjunctiva/sclera: Conjunctivae normal. Cardiovascular: Rate and Rhythm: Normal rate and regular rhythm. Pulses: Normal pulses. Heart sounds: Normal heart sounds. Pulmonary: Effort: Pulmonary effort is normal. No tachypnea or accessory muscle usage. Breath sounds: Normal breath sounds. Chest: Chest wall: No mass, deformity, tenderness or edema. Breasts: Jairo Score is 5. Right: Normal. No mass, nipple discharge, skin change or tenderness. Left: Normal. No mass, nipple discharge, skin change or tenderness. Abdominal: General: Bowel sounds are normal. There is no distension. Palpations: Abdomen is soft. There is no mass. Tenderness: There is no abdominal tenderness. Hernia: There is no hernia in the left inguinal area or right inguinal area. Genitourinary: General: Normal vulva. Exam position: Lithotomy position. Pubic Area: Rash (mild erythema to bilat groin folds) present. No pubic lice. Jairo stage (genital): 5. Labia: Right: No rash, tenderness or lesion. Left: No rash, tenderness or lesion. Urethra: No prolapse, urethral pain or urethral swelling. Vagina: Normal. No vaginal discharge, erythema or lesions. Cervix: No cervical motion tenderness, discharge, erythema or cervical bleeding. Uterus: Normal. Not tender. Adnexa: Right adnexa normal and left adnexa normal. Right: No mass or tenderness. Left: No mass, tenderness or fullness. Rectum: Normal. Comments: Suspected nabothian cyst near opening cervical O S 4 o clock position Musculoskeletal: General: Normal range of motion. Cervical back: Normal range of motion and neck supple. Lymphadenopathy: Cervical: No cervical adenopathy. Upper Body: Right upper body: No supraclavicular, axillary or pectoral adenopathy. Left upper body: No supraclavicular, axillary or pectoral adenopathy. Lower Body: No right inguinal adenopathy. No left inguinal adenopathy. Skin: General: Skin is warm and dry. [...] Items Addressed This Visit Primary hypertension (CMS/HCC) Relevant Medications lisinopril-hydroCHLOROthiazide 20-12.5 MG tablet Mixed hyperlipidemia (CMS/HCC) Relevant Medications simvastatin (Zocor) 40 MG tablet Well woman exam with routine gynecological exam - Primary Reviewed Ht/Wt/BMI Recommend eye exam yearly Recommend dental exams twice a year Balance work/leisure activities Exercises is recommended most days of the week (appropriate as chronic conditions allow) Follow up yearly and prn Thin prep: fu pap per results indicates Relevant Orders THIN PREP TIS PAP AND HR HPV DNA Other Visit Diagnoses Urticaria, unspecified Relevant Medications cetirizine (ZyrTEC) 10 MG tablet Urticaria Relevant Medications cetirizine (ZyrTEC) 10 MG tablet Associated Problem(s): Well woman exam with routine gynecological exam Reviewed Ht/Wt/BMI Recommend eye exam yearly Recommend dental exams twice a year Balance work/leisure activities Exercises is recommended most days of the week (appropriate as chronic conditions allow) Follow up yearly and prn Thin prep: fu pap per results indicates documented in this encounter [facility] 07-16-2024 Instructions Ritu Eng NP - 07/16/2024 2:00 PM EST Monthly breast self exam Yearly mammogram Recommend over the counter Calcium/Vitamin D supplement, such as Oscal plus D (may get generic) Exercise 3-4 times per week for 30 minutes each We will call with results of pap smear Cardiology office: [facility] ([facility]) [phone] documented in this encounter [facility] 07-09-2024 Miscellaneous Notes ----- Message from Dr. Chace Ash MD sent at 07/05/2024 12:06 PM EST ----- Regarding: Pathology Please let patient know was benign tubular adenoma. Repeat colonoscopy in 7 years. Thank you ----- Message ----- From: Interface - Lab Results/Orders In Sent: 07/04/2024 8:16 PM EST To: Chace Ash MD Called patient in regards to colonoscopy results. Unable to make contact with patient, unable to leave voicemail message for mailbox is full. Called patients EC which is her Chris. Unable to make contact with patients EC, left voicemail message for patient to call our office back. Patient called back and was given results. Patient verbalized understanding. documented in this encounter [facility] [employer] 07-09-2024 Telephone encounter Note ----- Message from Dr. Chace Ash MD sent at 07/05/2024 12:06 PM EST ----- Regarding: Pathology Please let patient know was benign tubular adenoma. Repeat colonoscopy in 7 years. Thank you ----- Message ----- From: Interface - Lab Results/Orders In Sent: 07/04/2024 8:16 PM EST To: Chace Ash MD [facility] [employer] [facility] 07-09-2024 Telephone encounter Note Called patient in regards to colonoscopy results. Unable to make contact with patient, unable to leave voicemail message for mailbox is full. Called patients EC which is her Chris. Unable to make contact with patients EC, left voicemail message for patient to call our office back. [facility] [employer] [facility] 07-09-2024 Telephone encounter Note Patient called back and was given results. Patient verbalized understanding. [facility] [employer] [facility] 07-08-2024 Miscellaneous Notes ----- Message from Dr. Chace Ash MD sent at 07/05/2024 12:06 PM EST ----- Regarding: Pathology Please let patient know was benign tubular adenoma. Repeat colonoscopy in 7 years. Thank you ----- Message ----- From: Interface - Lab Results/Orders In Sent: 07/04/2024 8:16 PM EST To: Chace Ash MD documented in this encounter [facility] [employer] [facility] 07-08-2024 Telephone encounter Note ----- Message from Dr. Chace Ash MD sent at 07/05/2024 12:06 PM EST ----- Regarding: Pathology Please let patient know was benign tubular adenoma. Repeat colonoscopy in 7 years. Thank you ----- Message ----- From: Interface - Lab Results/Orders In Sent: 07/04/2024 8:16 PM EST To: Chace Ash MD [facility] 06-25-2024 Nurse Note Preoperative Education Checklist- General Surgery date: 07/01/24 Surgery time: 845a Arrival time: 645a 1. Bring a photo ID and your insurance card with you the day of surgery. You will check in at the main lobby of the [facility]- registration desk is straight ahead as soon as you walk in. Tell them you are here for surgery. 2. If you have a Living Will/Durable Power of Guest Experience Specialist for Health Care that is not on [...] after you have bathed. 5. NO nail panamanian/acrylic on at least one finger. If you are having a hand, wrist or foot surgery then all nail panamanian and artificial/acrylic nails must be removed from [...] please call the Preadmission Testing office at [phone], Mon.-Fri. 7 a.m.-3 p.m. Leave a voicemail [...] Stop taking 0 days prior to procedure [facility] 06-25-2024 Miscellaneous Notes Preoperative Education Checklist- General Surgery date: 07/01/24 Surgery time: 845a Arrival time: 645a 1. Bring a photo ID and your insurance card with you the day of surgery. You will check in at the main lobby of the [facility]- registration desk is straight ahead as soon as you walk in. Tell them you are here for surgery. 2. If you have a Living Will/Durable Power of Guest Experience Specialist for Health Care that is not on [...] after you have bathed. 5. NO nail panamanian/acrylic on at least one finger. If you are having a hand, wrist or foot surgery then all nail panamanian and artificial/acrylic nails must be removed from [...] please call the Preadmission Testing office at [phone], Mon.-Fri. 7 a.m.-3 p.m. Leave a voicemail [...] prior to procedure documented in this encounter [facility] [employer] 06-19-2024 History of Present illness Narrative Images [...] 12/16/2021 Performed by Johnny Kaminski DO at [facility] CARPAL TUNNEL RELEASE Bilateral SECTION CYST REMOVAL left side of chin REPLACEMENT TOTAL JOINT HIP ANTERIOR SUPINE INTERMUSCULAR Left 01/27/2022 Performed by Johnny Kaminski DO at [facility] TUBAL LIGATION Bilateral Allergies Allergen Reactions Sulfa [...] mouth nightly., Disp: , Rfl: peg 3350-sod sulf,yluf-mkp-vig 178.7-7.3-0.5 gram recon soln, Take 1 kit [...] patient/family/caregiver Referring and communicating with other health home health caregiver Encounter for screening colonoscopy [Z12.11] EMILIANO CERVANTES [facility] General Surgery [place] This note was created with the assistance of a speech recognition program. While intending to generate a timely document that accurately reflects the content of the visit, no guarantee can be provided that every grammatical or spelling mistake has been or will be identified or corrected. Thank you for your understanding. EMILIANO Cervantes 06/19/24 0920 documented in this encounter [facility] 06-05-2024 History of Present illness Narrative Associated [...] smoking/tobacco exposure. Past treatments include diuretics and VADIM inhibitors. The current treatment provides significant improvement. [...] Past Medical History: Diagnosis Date Centrilobular emphysema ([facility]/HCC) 08/15/2023 Coronary artery disease involving [place] coronary artery of [place] heart without angina pectoris ([facility]) 08/05/2023 Mixed hyperlipidemia ([facility]) 08/05/2023 Primary hypertension ([facility]) 08/05/2023 Past Surgical History: Procedure [...] Relevant Orders Flu vaccine, MDCK, quadrivalent, PF ([id number]) (Flucelvax single dose syringe) documented in this encounter [facility] 06-05-2024 Instructions Ritu Eng NP - 06/05/2024 1:00 PM EDT Fu in 6 weeks; this will be a PAP and hope to have heart monitor results documented in this encounter [facility] 12-07-2021 Note Chief Complaint NEW: REFERRAL Preoperative [...] osteoarthritis which is scheduled on 12/17/2021 at [facility]. Patient is a smoker. She smokes 1/2 [...] We discussed this (more content not included)... [facility] 12-07-2021 Note Patient Education Ma terials Name: Racheal Richardson Erick Current Date: 12/07/2021 09:26:16 [facility] : 1970 [facility]: [id number] The following sheet(s) are the Patient Education [...] very fast or irregular heartbeat (palpitations) ? [id number] [employer]. [address] [place] [address]. All rights reserved. This information is not intended as a substitute for professional medical care. Always follow your healthcare professional's instructions. [facility] 09-20-2021 Note PROCEDURE: XR KNEE L T [...] inferior margin of patella. Electronically authenticated by: KIP DOUGHERTY Date: 2021-09-20 11:56 [facility] 09-20-2021 Note PROCEDURE: XR SHOULD ER LT [...] abnormality or bone lesion. Electronically authenticated by: KIP DOUGHERTY Date: 2021-09-20 11:[address] [facility] 09-20-2021 Note PROCEDURE: XR HIP LT 2 3V W PELVIS HISTORY: Pain of left hip joint ; chronic pain since falling one-2 years ago COMPARISON: None. FINDINGS: BONES:Narrowing of the left hip joint space with near qpwg-tl-phol articulation at the superior margin. No fracture, dislocation, or significant periarticular degenerative osteophytes. SOFT TISSUES:No visible soft tissue swelling. EFFUSION:None visible. OTHER: Mechanical repair of lumbar spine. IMPRESSION: 1. Moderate or greater degenerative joint disease of the left hip. 2. No acute bone abnormality. Electronically authenticated by: IKP DOUGHERTY Date: 2021-09-20 11:[address] [facility] Evaluation note Diagnosis Irregular heart rate- [...] malignant neoplasms, colon documented in this encounter [facility] HealthcareEvaluation note* Diagnosis Encounter for screening colonoscopy- Primary Screen for colon cancer Special screening for malignant neoplasms, colon [facility] Diagnosis Irregular heart rate- Primary Colon cancer [...] screening Special screening for malignant neoplasms, colon Irregular heart rate- Primary Abnormal Holter monitor finding documented in this encounter [facility] note* Diagnosis Irregular heart rate- Primary Colon cancer [...] screening Special screening for malignant neoplasms, colon Well woman exam with routine gynecological exam- Primary Routine gynecological examination Urticaria, unspecified Urticaria Unspecified urticaria Primary hypertension (CMS/HCC) Unspecified essential hypertension Mixed hyperlipidemia (CMS/HCC) Mixed hyperlipidemia documented in this encounter [facility] HealthcareInstructionsNot on filedocumented in this encounterProMedine Health SystemInstructionsNot on filedocumented in this encounterProOhio [facility] SystemInstructionsNot on filedocumented in this encounterProOhio [facility] SystemInstructionsNot on filedocumented in this encounterWVUMedicine [facility] Summary Purpose Family History No Family History Records FoundNo Family History Records FoundNo Family History Records FoundNo Family History Records FoundNo Family History Records FoundNo Family History Records FoundNo Family History Records FoundNo Family History Records Found Advance Directives Date Activated Date Inactivated Comments 10/05/2023 3:49 AM 10/05/2023 3:42 PM Date Activated Date Inactivated Comments 01/27/2022 10:57 AM 01/28/2022 3:35 PM Additional Source Comments INFORMATION SOURCE (unrecogn ized section and content) DATE CREATED AUTHOR 01/31/2018 [facility] [employer] DATE CREATED AUTHOR AUTHOR'S ORGANIZ ATION 02/05/2018 [facility] DATE CREATED AUTHOR AUTHOR'S ORGANIZ ATION 12/12/2021 [facility] DATE CREATED AUTHOR AUTHOR'S ORGANIZ ATION 07/16/2022 [facility] DATE CREATED AUTHOR AUTHOR'S ORGANIZ ATION 10/12/2023 [facility] DATE CREATED AUTHOR AUTHOR'S ORGANIZ ATION 06/07/2024 [facility] DATE CREATED AUTHOR AUTHOR'S ORGANIZ ATION 06/20/2024 [facility] DATE CREATED AUTHOR AUTHOR'S ORGANIZ ATION 07/08/2024 [facility] Care Teams (unrecognized sec tion and content) Manager Academic Relationship Specialty Start Date End Date Unallocated, Kip Davila MD [address] [place] [address] PCP - General Family Medicine 06/05/24 Ritu Eng NP [address] [place] [address] Nurse Practitioner Family Medicine 02/22/24 Manager Academic Relationship Specialty Start Date End Date Unallocated, Kip Davila MD [address] [place] [address] PCP - General Family Medicine 06/05/24 Ritu Eng NP [address] [place] [address] Nurse Practitioner Family Medicine 02/22/24 Manager Academic Relationship Specialty Start Date End Date Ritu Eng EDUCATION SPEC-ELECTROENCEPHALOGRAPHIC TECHNOLOGIST PCP - General Nurse Practitioner 10/20/21 Manager Academic Relationship Specialty Start Date End Date Ritu Eng, EDUCATION SPEC-ELECTROENCEPHALOGRAPHIC TECHNOLOGIST PCP - General Nurse Practitioner 10/20/21 Manager Academic Relationship Specialty Start Date End Date Jacob Moore MD [address] [place] [phone] PCP - General Family Medicine 06/13/24 Ritu Eng NP [address] [place] [address] PCP - [facility] 05/14/24 Ritu Eng NP [address] [place] [address] Nurse Practitioner Family Medicine 02/22/24 Manager Academic Relationship Specialty Start Date End Date Jacob Moore MD [address] [place] [phone] PCP - General Family [facility] 06/13/24 Ritu Eng NP [address] [place] [address] PCP - [facility] 05/14/24 Ritu Eng NP [address] [place] [address] Nurse Practitioner Family Medicine 02/22/24 Manager Academic Relationship Specialty Start Date End Date Ritu Eng EDUCATION SPEC-ELECTROENCEPHALOGRAPHIC TECHNOLOGIST PCP - General Nurse Practitioner 10/20/21 Manager Academic Relationship Specialty Start Date End Date Ritu Eng EDUCATION SPEC-ELECTROENCEPHALOGRAPHIC TECHNOLOGIST PCP - General Nurse Practitioner 10/20/21 Manager Academic Relationship Specialty Start Date End Date Jacob Moore MD [address] [place] [phone] PCP - General Family Medicine 06/13/24 Ritu Eng NP [address] [place] [phone] PCP - [facility] 05/14/24 Ritu Eng NP [address] [place] [phone] Nurse Practitioner Family Medicine 02/22/24 Manager Academic Relationship Specialty Start Date End Date Jacob Moore MD [address] [place] [phone] PCP - [facility] 06/13/24 Ritu Eng NP [address] [place] [address] PCP - [facility] 05/14/24 Ritu Eng NP [address] [place] [phone] Nurse Practitioner [facility] Medicine 02/22/24 Reason for Visit (unrecogniz ed section and content) Reason Comments Colon Cancer Screening SCREENING COLONOS COPY, REF BY RITU ENG CNP Specialty Diagnoses / Procedures Referred By Hiren arnold Referred To Contact General Surgery Diagnoses Colon cancer screening Procedures [place] OFFICE OUTPATIENT VISIT 60-74 MINS HIGH MDM [id number] (SNOMED CT) - AMB REFERRAL TO GENERAL SURGERY Ritu Eng, EDUCATION SPEC-ELECTROENCEPHALOGRAPHIC TECHNOLOGIST [address] [place] [address] Phone: tel: fax: Duran Lynne, [address] [place] [address] Phone: tel: fax: Referral ID Status Reason Start Date Expiration Date Visits Re quested Visits Authorized [id number] Closed 06/05/2024 12/02/2024 1 1 Reason Comments Gynecologic Exam FOR RECORDS PERTAINING TO PATIENTS WHO ARE [...] BE BASED ON THE PRIMARY CLINICAL RECORDS. [facility]. provides no warranty or guarantee of the accuracy or completeness of information in this document.
[2024-07-23 11:09] LABS: Age Gdln ACOG Testing Note (.); HPV Aptima Negative (Negative); IGP, Aptima HPV, rfx 16/18,45 Note (.)
== END 2024-07-16 21:32 | disposition home or self-care (01) ==
LOC: LAB 21:31
PROVIDERS: PCP Nurse Practitioner; Visit Provider Nurse Practitioner
DX: Z01.419 Encounter for gynecological examination (general) (routine) without abnormal findings (principal)
CPT/HCPCS: 87624; 88175

== ENCOUNTER 2024-10-22 09:55 | Outpatient (OUT) | payer OTHER, SELFPAY ==
--- NOTE | 2024-10-22 | PCN_ITS ---
CARDIAC STRESS TEST Requesting Physician: Procedure Date: 10/22/2024 TREADMILL EKG STRESS TEST INDICATION FOR THE TEST: Palpitations. The test was discussed with the patient in details including risks and benefits and she was agreeable to proceed. Resting 12 lead EKG showed normal sinus rhythm, heart rate 79 beats per minute, normal EKG. Resting blood pressure 140/82. The patient was exercised according to standard Chuck protocol, and she was able to finish 3 minutes and 58 seconds, achieving 6 METS and max heart rate of 150 beats per minute, which represents 90% of age predicted maximum heart rate, and maximum blood pressure of 152/82. Exercise was terminated secondary to shortness of breath and legs muscular fatigue. Patient did not experience any chest, neck, arm or jaw discomfort throughout the test. EKG during exercise, at peak exercise, and during recovery phase did not show significant T or ST changes or significant arrhythmias. The patient was monitored up to 6 minutes into recovery phase, with heart rate back to 95 beats per minute and blood pressure to 148/88 mm/Hg. CONCLUSION: 1. Maximal stress test achieving 90% of age predicted maximum heart rate. 2. Reduced functional capacity. 3. Appropriate heart rate and blood pressure response to exercise. 4. This stress test is negative for exercise induced ischemic symptoms, EKG changes or arrhythmias. CRISTAD
--- OUTSIDE RECORDS SUMMARY | 2024-10-22 09:59 | XMS_ITS | CCD ---
Author Organization [facility] Care Team Providers Care Patient Intake Coordinator Name Role Phone CASEY SAAVEDRA MD Unavailable Unavailable UNASSIGNED, DOCTOR Unavailable Unavailable CASEY SAAVEDRA MD Unavailable Unavailable UNASSIGNED, DOCTOR Unavailable Unavailable PHYSICIAN, DEFAULT Unavailable Unavailable PHYSICIAN, DEFAULT Unavailable Unavailable SHENDGE, VITHAL Unavailable Unavailable SHENDGE, VITHAL Unavailable Unavailable ERIC, GUALBERTO Unavailable Unavailable ERIC, GUALBERTO Unavailable Unavailable [place] Unavailable Unavailable SHENDGE, VITHAL Unavailable Unavailable [place] Unavailable Unavailable YAJAIRA MUÑIZ Unavailable Unavailable SHENDGE, VITHAL Unavailable Unavailable SHENDGE, VITHAL Unavailable Unavailable ERIC, GUALBERTO Unavailable Unavailable ERIC, GUALBERTO Unavailable Unavailable SHENDGE, VITHAL Unavailable Unavailable [place] Unavailable Unavailable SONIA COBB Unavailable Unavailable [place] Unavailable Unavailable AICHHOLZ, COUNTER PERSON RITU Attending Unavailable AICHHOLZ, COUNTER PERSON RITU Consulting Unavailable AICHHOLZ, COUNTER PERSON RITU Primary Care Unavailable AICHHOLZ, COUNTER PERSON RITU Admitting Unavailable AICHHOLZ, COUNTER PERSON RITU Admitting Unavailable AICHHOLZ, COUNTER PERSON RITU Attending Unavailable AICHHOLZ, COUNTER PERSON RITU Consulting Unavailable AICHHOLZ, COUNTER PERSON RITU Primary Care Unavailable DR KIP DOUGHERTY Consulting Unavailable AICHHOLZ, COUNTER PERSON RITU Admitting Unavailable AICHHOLZ, COUNTER PERSON RITU Attending Unavailable AICHHOLZ, COUNTER PERSON RITU Consulting Unavailable AICHHOLZ, COUNTER PERSON RITU Primary Care Unavailable AICHHOLZ, COUNTER PERSON RITU Admitting Unavailable AICHHOLZ, COUNTER PERSON RITU Attending Unavailable AICHHOLZ, COUNTER PERSON RITU Consulting Unavailable AICHHOLZ, COUNTER PERSON RITU Primary Care Unavailable AICHHOLZ, COUNTER PERSON RITU Attending Unavailable AICHHOLZ, COUNTER PERSON RITU Consulting Unavailable AICHHOLZ, COUNTER PERSON RITU Primary Care Unavailable AICHHOLZ, COUNTER PERSON RITU Admitting Unavailable DR KIP DOUGHERTY Consulting Unavailable AICHHOLZ, RITU J Primary Care Unavailable JERRELL LOPEZ Attending Unavailable NANCY MARTIN Admitting Unavailable LYSSA RALPH Consulting Unavailable JHON LYONS Consulting Unavailable JERRELL LOPEZ Attending Unavailable JERRELL LOPEZ Referring Unavailable AICHHOLZ, RITU J Primary Care Unavailable HASJHON CARLISLE Attending Unavailable HASJHON CARLISLE Referring Unavailable AICHHOLZ, RITU J Primary Care Unavailable Aichholz CHAUFFEUR, Ritu Unavailable Unallocated MD, Noms Provider Primary Care Provi song HANNAH GALLEGO Attending Unavailable AICHHOLZ, RITU J Referring Unavailable AICHHOLZ, RITU J Primary Care Unavailable Jacob Moore MD Primary Care Provider Aichholz CHAUFFEUR, Ritu Unavailable AICHHOLZ, RITU J Referring Unavailable AICHHOLZ, RITU J Primary Care Unavailable ORLANDO ASH Admitting Unavailable ORLANDO ASH Attending Unavailable AICHHOLZ, RITU J Primary Care Unavailable Jacob Moore MD Primary Care Provider [phone] AICHHOLZ, RITU Attending Unavailable AICHHOLZ, RITU Attending Unavailable AICHHOLZ, RITU Attending Unavailable AICHHOLZ, RITU Attending Unavailable Dereck Bland MA Unavailable Unavailable MARTINE SAEED Attending Unavailable AICHHOLZ, RITU Referring Unavailable Allergies Allergy Classification Reported Allergen(s) Allergy Type Date of Onset Reaction(s) Facility (1 source) NKA; Translations: [NKA] Propensity to adverse reactions (disorder) [address] [facility] Repository (1 source) No Known Allergies; Translations: [No Known Allergies] Propensity to adverse reactions (disorder) [facility] Repository (1 source) metaproterenol Drug Allergy 7 [facility] Repository (4 sources) Sulfonamides (Antibiotic); Translations: [SULFA (SULFONAMIDE ANTIBIOTICS)] Propensity to adverse reactions to drug (disorder) 2 [facility] Repository (14 sources) metaproterenol; Translations: [METAPROTERENOL] Drug Allergy 4 Unknown [facility] Work Phone: (19 sources) Sulfonamides (Antibiotic) Drug Intolerance [address] [facility] Healthcare Medications Current Medications Medication Drug Class(es) Dates Sig (Normalized) Sig (Original) [id number] 200 actuat albuterol 0.09 mg/actuat metered dose inhaler (20 sources) beta2-Adrenergic Agonist Start: 01-17-2024 End: 08-17-2024 take 2 puff(s) by inhalation every six hours for wheezing albuterol HFA 90 mcg/act inhaler Indications: Centrilobular emphysema (CMS/HCC) Inhale 2 puffs every 6 (six) hours if needed for wheezing or shortness of breath 18 g 1 07/18/2024 Active cetirizine hydrochloride 10 mg oral tablet (20 sources) Histamine-1 Receptor Antagonist Start: 10-05-2023 End: 10-14-2024 take 1 tablet by mouth once daily cetirizine (ZyrTEC) 10 MG tablet Indications: Urticaria, unspecified , Urticaria Take 1 tablet (10 mg) by mouth Daily 90 tablet 1 07/16/2024 10/14/2024 Active gabapentin 300 mg oral capsule (15 sources) Anti-epileptic Agent Start: 02-27-2024 End: 09-03-2024 take 1 capsule by mouth once daily gabapentin (Neurontin) 300 MG capsule Indications: Fibromyalgia Take 1 capsule (300 mg) by mouth Daily 90 capsule 1 06/05/2024 Active hydroCHLOROthiazide 12.5 mg / lisinopril 20 mg oral tablet (20 sources) Thiazide Diuretic, Angiotensin Converting Enzyme Inhibitor Start: 12-25-2023 End: 10-14-2024 take 1 tablet by mouth in the morning lisinopril-hydroCH LOROthiazide 20-12.5 MG tablet Indications: Primary hypertension (CMS/HCC) Take 1 tablet by mouth in the morning. 90 tablet 1 07/16/2024 10/14/2024 Active 24 hr metoprolol succinate 25 mg extended release oral tablet (3 sources) beta-Adrenergic Poornima Start: 09-23-2024 End: 09-23-2025 take 1 tablet by mouth every twenty-four hours in the morning metoprolol succinate XL (Toprol-XL) 25 MG 24 hr tablet Take 25 mg by mouth in the morning. 09/23/2024 09/23/2025 Active simvastatin 40 mg oral tablet (20 sources) HMG-CoA Reductase Inhibitor Start: 03-13-2024 End: 10-14-2024 take 1 tablet by mouth at bedtime simvastatin (Zocor) 40 MG tablet Indications: Mixed hyperlipidemia (CMS/HCC) Take 1 tablet (40 mg) by mouth at bedtime 90 tablet 1 07/16/2024 10/14/2024 Active Problems Active Problems Problem Classification Problem Date Documented Date Episodic/Chronic Acute cerebrovascular disease (1 source) Acute cerebrovascular disease Onset: 10-05-2023 Alcohol-related disorders (1 source) Alcohol use, unspecified with intoxication delirium; Translations: [Alcohol use, unspecified with intoxication delirium] Onset: 10-05-2023 Episodic Allergic reactions (6 sources) Urticaria; Translations: [Urticaria, unspecified] 07-16-2024 Episodic Cardiac dysrhythmias (20 sources) Irregular heart beat; Translations: [Cardiac arrhythmia, unspecified] Onset: 02-22-2024 02-22-2024 Chronic Cardiac dysrhythmias (2 sources) Palpitations; Translations: [Palpitations] Onset: 09-23-2024 Episodic Chronic kidney disease (5 sources) Chronic kidney disease stage 3B ; Translations: [Chronic kidney disease, stage 3b (HCC)] Onset: 09-23-2024 10-01-2024 Chronic Chronic obstructive pulmonary disease and bronchiectasis (20 sources) Emphysema, unspecified; Translations: [Chronic obstructive pulmonary disease with (acute) exacerbation] Onset: 08-09-2021 Chronic Disorders of lipid metabolism (20 sources) Mixed hyperlipidemia; Translations: [Mixed hyperlipidemia] Onset: 06-14-2022 Chronic Epilepsy; convulsions (20 sources) Unspecified convulsions; Translations: [Neurological finding] Onset: 10-05-2023 02-22-2024 Episodic Essential hypertension (20 sources) Essential (primary) hypertension; Translations: [Essential hypertension] Onset: 07-14-2017 08-05-2023 Chronic Heart valve disorders (3 sources) Irregular heart beat 06-05-2024 Episodic Osteoarthritis (20 sources) Unilateral primary osteoarthritis, left hip; Translations: [...] Onset: 04-11-2022 Episodic Other upper respiratory disease (19 sources) Allergic disposition; Translations: [Other allergic rhinitis] Onset: 10-05-2023 10-05-2023 Chronic Residual codes; unclassified (1 source) Family history of malignant neoplasm of breast; Translations: [FAMILY HX MALIG NEOPLASM OF BREAST] Onset: 07-16-2022 Episodic Residual codes; unclassified (1 source) Altered mental status, unspecified; Translations: [Altered mental status, unspecified] Onset: 10-05-2023 Episodic Residual codes; unclassified (1 source) Altered mental status Onset: 10-05-2023 Episodic Substance-related disorders (6 sources) Nicotine dependence, cigarettes, uncomplicated; Translations: [Tobacco dependence syndrome] Onset: 07-14-2017 10-01-2024 Chronic Unclassified (1 source) Dermatochalasis of right [...] 06-05-2024 Unclassified (1 source) screening Onset: 07-01-2024 Unclassified (1 source) Other ventricular tachycardia; Translations: [Other ventricular tachycardia] Onset: 09-23-2024 Past or Other Problems Problem Classification Problem Date Documented Date Episodic/Chronic Diabetes mellitus without complication (19 sources) Increased glucose level; Translations: [Other abnormal glucose] Onset: 03-13-2024 03-13-2024 Episodic Immunizations and screening for infectious disease (14 sources) Needs influenza immunization; Translations: [Encounter for immunization] Onset: 06-05-2024 06-05-2024 Episodic Other connective tissue disease (19 sources) Pain of bilateral hands; Translations: [Pain in right hand] Onset: 05-19-2017 02-22-2024 Episodic Other connective tissue disease (20 sources) Fibromyalgia; Translations: [Fibromyalgia] Onset: 02-22-2024 02-22-2024 [...] of left upper eyelid] Onset: 11-23-2017 Unclassified (1 source) Other ventricular tachycardia; Translations: [Other ventricular tachycardia] Onset: 09-23-2024 Results Test Name Value Interpretation Reference Range Facility Orders Onlyon 10-09-2024 Orders Only [id number] Sybil Richardson 1970 F Date Provider Department Center 10/09/2024 HAYLIE DOYLE CAMRON Hilario Family History Problem Relation Age of Onset Atrial fibrillation Mother Heart attack Father Family Status - Relation Status Age at Mother Alive Father Normal [facility] Office Visiton 09-23-2024 Follow-up visit [id number] Sybil Richardson 1970 F Date Provider Department Center 09/23/2024 MARTINE ROWLEY CAMRON Hilario Family History Problem Relation Age of Onset Atrial fibrillation Mother Heart attack Father Family Status - Relation Status Age at Mother Alive Father Level of Service:02518 [place] OFFICE/OUTPATIENT NEW MODERATE MDM 45 MINUTES Normal [facility] IGP,APTIMA HPV,AGE GDLNon AGE GDLN ACOG TESTING Note . [facility] Comment on above: TESTS RESULT FLAG UN ITS REF RANGE LAB Clinician Provided Cytology Information Source.............Cervix;Endocervix No. of containers..01 ThinPrep Vial Age Algo ACOG Rosita... FLAG LEGEND: L-Low Normal,H-High Normal,LL-Alert Low,HH-Alert High <-Panic Low,>-Panic High,A-Abnormal,AA-Critical Abnormal Performed at: 01 =G [address] [address] Fauzia Thomas MD, HPV APTIMA Negative Negative [facility] Comment on above: This nucleic acid am plification test detects fourteen high- risk HPV types (16,18,31,33,35,39,45,51,52,56,58,59,66,68) without differentiation. Performed at: = - [address] [id number] [place]: Fauzia Thomas MD, Phone: [phone] Performed at: - [address] [id number] [place]: Fauzia Thomas MD, Phone: [phone] IGP, APTIMA HPV, RFX 16/18,45 Note . [facility] Comment on above: TESTS RESULT FLAG U NITS REF RANGE LAB DIAGNOSIS: 02 NEGATIVE FOR INTRAEPITHELIAL LESION OR MALIGNANCY. CELLULAR CHANGES ASSOCIATED WITH INFLAMMATION ARE PRESENT. Specimen adequacy: 02 Satisfactory for evaluation. Endocervical and/or squamous metaplastic cells (endocervical component) are present. Performed by: 02 Jameel Louis, Experimental Rocketsled Mechanic (ASCP) . 02 Note: Note 02 The Pap smear is a screening test designed to aid in the detection of premalignant and malignant conditions of the uterine cervix. It is not a diagnostic procedure and should not be used as the sole means of detecting cervical cancer. Both false-positive and false-negative reports do occur. Test Methodology: Note 02 This liquid based ThinPrep(R) pap test was screened with the use of an image guided system. HPV Genotype Reflex Note 02 Criteria not met, HPV Genotype not performed. FLAG LEGEND: L-Low Normal,H-High Normal,LL-Alert Low,HH-Alert High <-Panic Low,>-Panic High,A-Abnormal,AA-Critical Abnormal Performed at: 02 [facility] [address], [place] [address] Fauzia Thomas MD, BROOM-ALONE CERVIX ENDOCERVIX [facility] ALL LIPID PROFILE (FASTING)o n 07-03-2024 CHOL HDL RATIO 2.7 [facility] Comment on above: 3.3 - 4.4 LOW RISK 4.4 - 7.1 AVERAGE RISK 7.1 - 11.0 MODERATE RISK >11.0 HIGH RISK Cholesterol [Mass/Vol] 190 mg/dL NINF - 200 mg/dL [facility] Cholesterol in HDL [Mass/Vol] 70 mg/dL High 40 - 60 mg/dL [facility] Comment on above: > or =60 mg/dl - LOW CARDIOVASCULAR RISK <40 mg/dl - HIGH CARDIOVASCULAR RISK Interpretation and review of laboratory results Abnormal [facility] Magnesium [Mass/Vol] 101 mg/dL [facility] Comment on above: <100 mg/dl OPTIMAL 100-129 mg/dl NEAR OR ABOVE OPTIMAL 130-159 mg/dl BORDERLINE HIGH 160-189 mg/dl HIGH >190 mg/dl VERY HIGH Magnesium [Mass/Vol] 19.8 mg/dL [facility] Triglyceride [Mass/Vol] 99 mg/dL NINF - 150 mg/dL [facility] Shruthi 07-03-2024 ALT [Catalytic activity/Vol] 30 U/L 14 - 59 U/L [facility] Miya 07-03-2024 AST [Catalytic activity/Vol] 25 U/L 15 - 37 U/L [facility] MLR HEMOGLOBIN A1Con 024 Glucose [Mass/Vol] 117 mg/dL [facility] HbA1c (Bld) [Mass fraction] 5.7 % 4.5 - 6.2 % [facility] Comment on above: ADA RECOMMENDED LIMI T 4.0 - 6.0 ADA THERAPEUTIC TARGET < 7.0 ACTION SUGGESTED > 7.0 No Panel Informationon 07-03 [facility] Surgical Pathologyon 024 Surgical Pathology Normal [facility] Comment on above: Result Comment: [facility] [address] [place] [address] Surgical Pathology Consultation Patient Name:RACHEAL RICHARDSON:1970 (Age: 53)Gender:FTaken:4Reported:4Physician(s):Adrien Ash MD ([phone])Copy To: Rec. #:[id number]: #[id number] Final Pathologic Diagnosis Transverse colon polyp; polypectomy: Tubular adenoma. Report Electronically Signed Out wak/07/04/2024Evgeny Palma MD Interpretation performed at [facility], [address] [place] [id number], License number: [id number]. Clinical History Screening Gross Description Received in formalin labeled HAMMER, transverse is a single thomson bit of soft tissue, 0.5 cm in greatest dimension. Filtered and submitted in a single cassette. (1, ns, [id number], m7) MG mjg/07/01/2024GR Specimen(s) Received Transverse colon polyp Fee Codes(s): 1; 95435 AMMONIAon 10-05-2023 Ammonia (P) [Moles/Vol] 30 umol/L Normal 11-35 [facility] Comment on above: Performed By: #### 1 6362-6 #### [facility] ([id number]) [address] [facility] [place] [address] CBC AND AUTO DIFFon 10-05-19 24 ABSOLUTE BASOPHIL 0.1 X10E9/L Normal 0.0-0.2 [facility] Comment on above: Performed By: #### C BCA, CMP, 59381-1, 07725-5, 5643-2 #### [facility] ([id number]) [address] [facility] [place] [address] ABSOLUTE NEUTROPHIL 3.8 X10E9/L Normal 1.5-6.6 [facility] Comment on above: Performed By: #### C BCA, CMP, 78139-5, 46913-8, 5643-2 #### [facility] ([id number]) [address] [facility] [place] [address] Basophils/100 WBC (Bld) 0.7 % Normal [facility] Comment on above: Performed By: #### C BCA, CMP, 12713-9, 95064-7, 5643-2 #### [facility] ([id number]) [address] [facility] [place] [place] [address] Eosinophils (Bld) [#/Vol] 0.1 10*3/uL Normal 0.0-0.4 [facility] Comment on above: Performed By: #### C BCA, CMP, 83093-5, 59659-4, 5643-2 #### [facility] ([id number]) [address] [place] [address] Eosinophils/100 WBC (Bld) 0.9 % Normal [facility] Comment on above: Performed By: #### C BCA, CMP, 84308-7, 37835-6, 5643-2 #### [facility] ([id number]) [address] [place] [address] Erythrocyte distribution width (RBC) [Ratio] 13.1 % Normal 11.5-15.0 [facility] Comment on above: Performed By: #### C BCA, CMP, 45290-5, 89481-7, 5643-2 #### [facility] ([id number]) [address] [place] [address] Hematocrit (Bld) [Volume fraction] 38.5 % Normal 35-47 [facility] Comment on above: Performed By: #### C BCA, CMP, 85610-9, 26121-9, 5643-2 #### [facility] ([id number]) [address] [place] [address] Hemoglobin (Bld) [Mass/Vol] 13.5 g/dL Normal 11.7-15.5 [facility] Comment on above: Performed By: #### C BCA, CMP, 95922-9, 25829-9, 5643-2 #### [facility] ([id number]) [address] [place] [address] Lymphocytes (Bld) [#/Vol] 2.5 10*3/uL Normal 1.0-3.5 [facility] Comment on above: Performed By: #### C BCA, CMP, 12708-4, 33536-5, 5643-2 #### [facility] ([id number]) [address] [place] [address] Lymphocytes/100 WBC (Bld) 36.9 % Normal [facility] Comment on above: Performed By: #### C BCA, CMP, 61600-0, 38171-7, 5643-2 #### [facility] ([id number]) [address] [place] [address] MCH (RBC) [Entitic mass] 32.6 pg Normal 27-34 [facility] Comment on above: Performed By: #### C BCA, CMP, 21881-0, 45498-9, 5643-2 #### [facility] ([id number]) [address] [place] [address] MCHC (RBC) [Mass/Vol] 35.1 g/dL Normal 32-36 [facility] Comment on above: Performed By: #### C BCA, CMP, 18488-3, 99606-6, 5643-2 #### [facility] ([id number]) [address] [place] [address] MCV (RBC) [Entitic vol] 93 fL Normal 80-100 [facility] Comment on above: Performed By: #### C BCA, CMP, 03792-0, 25446-2, 5643-2 #### [facility] ([id number]) [address] [place] [address] Monocytes (Bld) [#/Vol] 0.4 10*3/uL Normal 0-0.9 [facility] Comment on above: Performed By: #### C BCA, CMP, 88749-7, 49093-8, 5643-2 #### [facility] ([id number]) [address] [place] [address] Monocytes/100 WBC (Bld) 6.3 % Normal [facility] Comment on above: Performed By: #### C BCA, CMP, 76332-3, 42363-2, 5643-2 #### [facility] ([id number]) [address] [place] [address] Neutrophils/100 WBC (Bld) 55.2 % Normal [facility] Comment on above: Performed By: #### C BCA, CMP, 33771-3, 15761-3, 5643-2 #### [facility] ([id number]) [address] [place] [address] Platelet mean volume (Bld) [Entitic vol] 7.8 fL Normal 7-12 [facility] Comment on above: Performed By: #### C BCA, CMP, 87403-1, 74599-5, 5643-2 #### [facility] ([id number]) [address] [place] [address] Platelets (Bld) [#/Vol] 201 10*3/uL Normal 150-450 [facility] Comment on above: Performed By: #### C BCA, CMP, 31488-6, 84698-7, 5643-2 #### [facility] ([id number]) [address] [place] [address] RBC COUNT 4.14 X10E12/L Normal 3.80-5.20 [facility] Comment on above: Performed By: #### C BCA, CMP, 88809-9, 40941-8, 5643-2 #### [facility] ([id number]) [address] [place] [address] WBC (Bld) [#/Vol] 6.8 10*3/uL Normal 4.0-11.0 [facility] Comment on above: Performed By: #### C BCA, CMP, 15622-4, 31754-4, 5643-2 #### [facility] ([id number]) [address] [place] [address] COMPREHENSIVE METABOLIC PANE Syed 10-05-2023 Albumin [Mass/Vol] 3.9 g/dL Normal 3.2-5.3 [facility] Comment on above: Performed By: #### C BCA, CMP, 89073-4, 46797-0, 5643-2 #### [facility] ([id number]) [address] [place] [address] ALP [Catalytic activity/Vol] 80 U/L Normal 39-130 [facility] Comment on above: Performed By: #### C BCA, CMP, 53840-3, 27108-5, 5643-2 #### [facility] ([id number]) [address] [place] [address] ALT [Catalytic activity/Vol] 28 U/L Normal 0-31 [facility] Comment on above: Performed By: #### C BCA, CMP, 37867-6, 70472-7, 5643-2 #### [facility] ([id number]) [address] [place] [address] Anion gap [Moles/Vol] 11 mmol/L Normal 5-15 [facility] Comment on above: Performed By: #### C BCA, CMP, 60102-3, 81980-1, 5643-2 #### [facility] ([id number]) [address] [place] [address] AST [Catalytic activity/Vol] 40 U/L Normal 0-41 [facility] Comment on above: Performed By: #### C BCA, CMP, 42803-7, 86749-0, 5643-2 #### [facility] ([id number]) [address] [place] [address] Bilirubin [Mass/Vol] 0.6 mg/dL Normal 0.3-1.2 [facility] Comment on above: Performed By: #### C BCA, CMP, 44041-9, 83591-6, 5643-2 #### [facility] ([id number]) [address] [place] [address] Calcium [Mass/Vol] 8.6 mg/dL Normal 8.5-10.5 [facility] Comment on above: Performed By: #### C BCA, CMP, 01023-1, 14992-5, 5643-2 #### [facility] ([id number]) [address] [place] [address] Chloride [Moles/Vol] 99 mmol/L Normal 98-109 [facility] Comment on above: Performed By: #### C BCA, CMP, 66568-0, 86982-5, 5643-2 #### [facility] ([id number]) [address] [place] [address] CO2 [Moles/Vol] 21 mmol/L Low 22-32 [facility] Comment on above: Performed By: #### C BCA, CMP, 31700-0, 23417-2, 5643-2 #### [facility] ([id number]) [address] [place] [address] Creatinine [Mass/Vol] 0.57 mg/dL Normal 0.40-1.00 [facility] Comment on above: Result Comment: METH OD TRACEABLE TO IDMS STANDARD Performed By: #### C BCA, CMP, 67804-7, 08701-2, 5643-2 #### [facility] ([id number]) [address] [place] [address] eGFR (CKD-EPI) NON-RACE DEPENDENT >90 Normal >59 [facility] Comment on above: Result Comment: Reported eGFR is based on the CKD-EPI 2020 equation that does not use a race coefficient. Performed By: #### C BCA, CMP, 42370-2, 07705-1, 5643-2 #### [facility] ([id number]) [address] [place] [address] Glucose [Mass/Vol] 99 mg/dL Normal 65-99 [facility] Comment on above: Performed By: #### C BCA, CMP, 61699-2, 46036-4, 5643-2 #### [facility] ([id number]) [address] [place] [address] Potassium [Moles/Vol] 3.5 mmol/L Normal 3.5-5.0 [facility] Comment on above: Performed By: #### C BCA, CMP, 74088-6, 54784-3, 5643-2 #### [facility] ([id number]) [address] [place] [address] Protein [Mass/Vol] 7.2 g/dL Normal 6.0-8.0 [facility] Comment on above: Performed By: #### C BCA, CMP, 37351-7, 84344-9, 5643-2 #### [facility] [place] ([id number]) [address] [place] [address] Sodium [Moles/Vol] 131 mmol/L Low 134-146 [facility] Comment on above: Performed By: #### C BCA, CMP, 39040-7, 21389-9, 5643-2 #### [facility] ([id number]) [address] [place] [address] Urea nitrogen [Mass/Vol] 10 mg/dL Normal 5-23 [facility] Comment on above: Performed By: #### C BCA, CMP, 67725-2, 86510-8, 5643-2 #### [facility] ([id number]) [address] [facility] [place] [address] CT BRAIN WO CONT STROKE ALER Ton [...] Murphy MD on 10/04/2023 11:32 PM Normal [facility] CT CTA CAROTIDon 10-05-[address] CTA CAROTID CLINICAL INFORMATION: Stroke. Neurologic deficit. COMPARISON: None PROCEDURE: CT angiogram of the neck with IV contrast. Sagittal and coronal reformatted images with 3-D Maximum intensity projection reconstructions constructed under concurrent physician supervision on a independent workstation for evaluation of carotid and vertebral arteries. Automated exposure control was utilized. The [place] Symptomatic carotid Endarterectomy Trial (NASCET) method for [...] Cavazos MD on 10/04/2023 11:50 PM Normal [facility] CT CTA HEADon 10-05-2023 CT [...] Cavazos MD on 10/04/2023 11:47 PM Normal [facility] DRUG SCREEN, URINEon 024 AMPHETAMINE/METHAM P Negative Normal NEG [facility] Comment on above: Result Comment: AMPH /METH screening cut off = 1000 ng/mL Performed By: #### D CASTELLANOS ####[facility] ([id number])[address] [place] [address] BARBITURATES Negative Normal NEG [facility] Comment on above: Result Comment: Bethany iturates screening cut off value = 200 ng/mL Performed By: #### D CASTELLANOS ####[facility] ([id number])[address] [place] [address] BENZODIAZEPINES Positive Abnormal NEG [facility] Comment on above: Result Comment: Conf irmation available upon request. Benzodiazepines screening cut off value = 200 ng/mL Performed By: #### D CASTELLANOS ####[facility] ([id number])[address] [place] [address] CANNABINOIDS Negative Normal [facility] Comment on above: Result Comment: Saurav abinoids/THC screening cut off value = 50 ng/mL Performed By: #### D CASTELLANOS ####[facility] ([id number])[address] [place] [address] COCAINE METABOLITE Negative Normal NEG [facility] Comment on above: Result Comment: Coca ine screening cut off value = 300 ng/mL Performed By: #### D CASTELLANOS ####[facility] ([id number])[address] [place] [address] ECSTASY Negative Normal [facility] Comment on above: Result Comment: Ecst asy screening cut off value = 500 ng/mL This report is intended for use in clinical monitoring or management of patients. Performed By: #### D CASTELLANOS ####[facility] ([id number])[address] [place] [address] METHADONE Negative Normal NEG [facility] Comment on above: Result Comment: Meth adone screening cut off value = 300 ng/mL. Performed By: #### D CASTELLANOS ####[facility] ([id number])[address] [place] [address] OPIATES Negative Normal [facility] Comment on above: Result Comment: Opia rosita screening cut off value = 300 ng/mL NOTE: This test is used for the detection of codeine, hydrocodone (>1000 ng/mL), morphine and hydromorphone (>900 ng/mL) in urine. Performed By: #### D CASTELLANOS ####[facility] ([id number])[address] [place] [address] OXYCODONE Negative Normal NEG [facility] Comment on above: Result Comment: Oxyc odone screening cut off value = 300 ng/mL NOTE: This test is used for the detection of oxycodone and oxymorphone in urine. Performed By: #### D CASTELLANOS ####[facility] ([id number])[address] [place] [address] PHENCYCLIDINE Negative Normal NEG [facility] Comment on above: Result Comment: Phen cyclidine screening cut off value = 25 ng/mL Performed By: #### D CASTELLANOS ####[facility] [place] ([id number])[address] [place] [address] Ethanol [Mass/Vol]on 024 ETHANOL 0.33 g/dL High 0.00-0.08 [facility] Comment on above: Result Comment: This report is intended for use in clinical monitoring or management of patients. Performed By: #### C BCA, CMP, 12757-5, 94376-4, 5643-2 #### [facility] ([id number]) [address] [place] [address] [place] [address] HCG ( test) Ql (U)o n 10-05-2023 Beta HCG ( test) Ql (U) Negative Normal NEG [facility] Comment on above: Performed By: #### 2 106-3 #### [facility] ([id number]) [address] [place] [address] [place] [address] HGB A1C (GLYCO-HGB)on 2023 Glucose [Mass/Vol] 120 mg/dL Normal [facility] Comment on above: Performed By: #### P INR, 3016-3 ####[facility] ([id number])[address] [place] [address]#### [id number] ####[facility] ([id number])[address], [place] [address] HbA1c (Bld) [Mass fraction] 5.8 % High 4.4-5.6 [facility] Comment on above: Result Comment: NOTE ADA Guidelines Result HgbA1c Normal : less than 5.7 % Prediabetes : 5.7 % to 6.4 % Diabetes : > 6.4 % Use with caution in patients with abnormal hemoglobin variants as the half-life of red blood cells and in vivo glycation rates are affected. Performed By: #### P INR, 3016-3 ####[facility] [place] ([id number])[address] [place] [address]#### [id number] ####[facility] ([id number])[address], [address] [place] [address] Lipid 1996 panelon 4 Cholesterol [Mass/Vol] 175 mg/dL Normal 150-200 [facility] Comment on above: Performed By: #### P INR, 3016-3 ####[facility] [place] ([id number])[address] [place] [address]#### [id number] ####[facility] ([id number])[address], [address] [place] [address] Cholesterol in HDL [Mass/Vol] 55 mg/dL Normal >39 [facility] Comment on above: Result Comment: HDL <40 mg/dL - High Risk HDL > or = 40mg/dL- Desirable HDL >60 mg/dL - Negative Risk Performed By: #### P INR, 3016-3 ####[facility] ([id number])[address] [place] [address]#### [id number] ####[facility] ([id number])[address] [place] [address] Cholesterol in LDL [Mass/Vol] 45 mg/dL Normal <130 [facility] Comment on above: Result Comment: LDL <100 mg/dL - Desirable LDL >160 mg/dL - High Risk Performed By: #### P INR, 3016-3 ####[facility] [place] ([id number])[address] [place] [address]#### [id number] ####[facility] ([id number])[address] [address] Cholesterol in VLDL [Mass/Vol] 75 mg/dL High 0-30 [facility] Comment on above: Performed By: #### P INR, 3016-3 ####[facility] [place] ([id number])[address] [place] [address]#### [id number] ####[facility] ([id number])[address] [address] CHOLESTEROL:HDL 3.2 Normal 1.0-5.0 [facility] Comment on above: Performed By: #### P INR, 3016-3 ####[facility] [place] ([id number])[address] [place] [address]#### [id number] ####[facility] ([id number])[address] [place] [address] Triglyceride [Mass/Vol] 374 mg/dL High 27-150 [facility] Comment on above: Performed By: #### P INR, 3016-3 ####[facility] [place] ([id number])[address] [facility] [place] [address]#### [id number] ####[facility] ([id number])[address], [address], [place] [address] MAGNESIUMon 10-05-2023 Magnesium [Mass/Vol] 2.0 mg/dL Normal 1.8-2.6 [facility] Comment on above: Performed By: #### C BCA, CMP, 33889-1, 49209-2, 5643-2 #### [facility] ([id number]) [address] [place] [address] MR BRAIN W WO CONTon 024 MR [...] Duran Musa on 10/05/2023 11:31 AM Normal [facility] PROTIME AND INRon 10-05-2023 INR Coag (PPP) [Relative time] 1.0 {INR} Normal 0.8-1.1 [facility] Comment on above: Performed By: #### P INR, 3016-3 ####[facility] [place] ([id number])[address] [place] [address]#### 27224-0 ####[facility] ([id number])[address], [address], [place] [address] PT Coag (PPP) [Time] 11.6 s Normal 9.8-13.2 [facility] Comment on above: Performed By: #### P INR, 3016-3 ####[facility] [place] ([id number])[address] [place] [address]#### [id number] ####[facility] ([id number])[address] [facility], [address], [place] [address] TROPONIN Ion 10-05-2023 Troponin I.cardiac [Mass/Vol] ng/mL Normal 0.00-0.04 [facility] Comment on above: Performed By: #### C BCA, CMP, 71262-5, 46936-0, 5643-2 #### [facility] [place] ([id number]) [address] [facility] [address] TSH Qnon 10-05-2023 TSH 1.51 uIU/mL Normal 0.49-4.67 [facility] Comment on above: Performed By: #### P INR, 3016-3 ####[facility] [place] ([id number])[address] [place] [address]#### 68567-4 ####[facility] ([id number])[address] [place] [address], [address], [place] [address] URN MACROSCOPIC NURon 2023 BILIRUBIN JOSIAH Negative Normal NEG [facility] Comment on above: Performed By: #### N UM ####[facility] [place] ([id number])[facility] [place] [address] BLOOD/HGB JOSIAH Negative Normal NEG [facility] Comment on above: Performed By: #### N UM ####[facility] [place] ([id number])[address] [place] [address] GLUCOSE JOSIAH Negative Normal NEG [facility] Comment on above: Performed By: #### N UM ####[facility] [place] ([id number])[address] [place] [address] KETONES JOSIAH Negative Normal NEG [facility] Comment on above: Performed By: #### N UM ####[facility] [place] ([id number])[address] [place] [address] LEUKOCYTE ESTERASE JOSIAH Negative Normal NEG [facility] Comment on above: Performed By: #### N UM ####[facility] [place] ([id number])[address] [place] [address] NITRITE JOSIAH Negative Normal NEG [facility] Comment on above: Performed By: #### N UM ####[facility] [place] ([id number])[address] [place] [address] PH JOSIAH 5.5 Normal 5.0-8.5 [facility] Comment on above: Performed By: #### N UM ####[facility] [place] ([id number])[address] [place] [address] PROTEIN JOSIAH Negative Normal NEG [facility] Comment on above: Performed By: #### N UM ####[facility] [place] ([id number])[address] [place] [address] SPECIFIC GRAVITY JOSIAH 1.010 Normal 1.003-1.035 [facility] Comment on above: Performed By: #### N UM ####[facility] [place] ([id number])[address] [place] [address] UROBILINOGEN JOSIAH 0.2 eu/dL Normal <1.1 [facility] Comment on above: Performed By: #### N UM ####[facility] [place] ([id number])[address] [place] [address] MG MAMM SCREEN 3D AARON CADon 07-12-2022 MG MAMM SCREEN 3D AARON CAD Patient: RACHEAL RICHARDSON Exam Date: 07/12/2022 : 1970 Gender:F 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 LOCATION: [facility] BREAST COMPOSITION: Heterogeneously dense,which may obscure [...] M.D. on 07/13/2022 at 14:47 Normal [facility] CBC AUTO DIFFon 06-14-2022 BASO # 0.0 103/ul Normal 0.0-0.1 [facility] Comment on above: Performed By: #### C BC #### [facility] [address] [place] [address] Dr. Ron Back Basophils/100 WBC (Bld) 0.4 % Normal 0.2-2.0 [facility] Comment on above: Performed By: #### C BC #### [facility] [address] [place] [address] Dr. Ron Back EO # 0.1 103/ul Normal 0.0-0.7 [facility] Comment on above: Performed By: #### C BC #### [facility] [address] [place] [address] Dr. Ron Back Eosinophils/100 WBC (Bld) 1.7 % Normal 0.9-7.0 [facility] Comment on above: Performed By: #### C BC #### [facility] [address] [place] [address] Dr. Ron Back Erythrocyte distribution width (RBC) [Ratio] 12.7 % Normal 11.0-15.0 [facility] Comment on above: Performed By: #### C BC #### [facility] [address] [place] [address] Dr. Ron Back Hematocrit (Bld) [Volume fraction] 40.9 % Normal 36.0-48.0 [facility] Comment on above: Performed By: #### C BC #### [facility] [address] [place] [address] Dr. Ron Back Hemoglobin (Bld) [Mass/Vol] 13.5 g/dL Normal 12.0-16.0 [facility] Comment on above: Performed By: #### C BC #### [facility] [address] [place] [address] Dr. Ron Back IG # 0.03 10e3/ul Normal 0.00-0.03 [facility] Comment on above: Performed By: #### C BC #### [facility] [address] [place] [address] Dr. Ron Back IG % 0.6 % Critically high 0.0-0.5 [facility] Comment on above: Performed By: #### C BC #### [facility] [address] [place] [address] Dr. Ron Back LYMPH # 1.7 103/ul Normal 1.2-3.8 [facility] Comment on above: Performed By: #### C BC #### [facility] [address] [place] [address] Dr. Ron Back Lymphocytes/100 WBC (Bld) 32.7 % Normal 20.5-60.0 [facility] Comment on above: Performed By: #### C BC #### [facility] [address] [place] [address] Dr. Ron Back MANUAL DIFF REQ NO Normal [facility] Comment on above: Performed By: #### C BC #### [facility] [address] [place] [address] Dr. Ron Back MCH (RBC) [Entitic mass] 31.8 pg Normal 26.7-34.0 [facility] Comment on above: Performed By: #### C BC #### [facility] [address] [place] [address] Dr. Ron Back MCHC (RBC) [Mass/Vol] 33.0 g/dL Normal 29.9-35.2 [facility] Comment on above: Performed By: #### C BC #### [facility] [address] [address] [address] Ron Back MCV (RBC) [Entitic vol] 96.5 fL Normal 81.0-99.0 [facility] Comment on above: Performed By: #### C BC #### [facility] [address] [address] [address] Ron Back MONO # 0.4 103/ul Normal 0.3-0.8 [facility] Comment on above: Performed By: #### C BC #### [facility] [address] [place] [address] Dr. Ron Back Monocytes/100 WBC (Bld) 7.1 % Normal 1.7-12.0 [facility] Comment on above: Performed By: #### C BC #### [facility] [address] [place] [address] Dr. Ron Back NEUT # 3.0 103/ul Normal 1.4-6.5 [facility] Comment on above: Performed By: #### C BC #### [facility] [address] [place] [address] Dr. Ron Back Neutrophils/100 WBC (Bld) 57.5 % Normal 43.0-75.0 [facility] Comment on above: Performed By: #### C BC #### [facility] [address] [place] [address] Dr. Ron Back Platelet mean volume (Bld) [Entitic vol] 10.5 fL Normal 9.5-13.5 [facility] Comment on above: Performed By: #### C BC #### [facility] [address] [place] [address] Dr. Ron Back PLT 212 103/ul Normal 150-450 [facility] Comment on above: Performed By: #### C BC #### [facility] [address] [place] [address] Dr. Ron Back RBC 4.24 106/ul Normal 4.20-5.40 [facility] Comment on above: Performed By: #### C BC #### [facility] [address] [place] [address] Dr. Ron Back WBC 5.2 103/ul Normal 4.0-11.0 [facility] Comment on above: Performed By: #### C BC #### [facility] [address] [place] [address] Dr. Ron Back LIPID PROFILEon 06-14-2022 CHOL-HDL RATIO NORM SEE BELOW Normal [facility] Comment on above: Result Comment: 3.3 - 4.4 LOW RISK 4.4 - 7.1 AVERAGE RISK 7.1 - 11.0 MODERATE RISK >11.0 HIGH RISK Performed By: #### C MP, LIPID #### [facility] [address] [place] [address] Dr. Ron Back Cholesterol [Mass/Vol] 202 mg/dL Critically high <=200 [facility] Comment on above: Performed By: #### C MP, LIPID #### [facility] [address] [place] [address] Dr. Ron Back Cholesterol in HDL [Mass/Vol] 69 mg/dL Critically high 40-60 [facility] Comment on above: Performed By: #### C MP, LIPID #### [facility] [address] [place] [address] Dr. Ron Back Cholesterol in LDL [Mass/Vol] 110.8 mg/dL Normal [facility] Comment on above: Performed By: #### C MP, LIPID #### [facility] [address] [place] [address] Dr. Ron Back Cholesterol.total/ Cholesterol in HDL [Mass ratio] 2.9 {ratio} Normal [facility] Comment on above: Performed By: #### C MP, LIPID #### [facility] [address] [place] [address] Dr. Ron Back HDL NORMAL > or = 60 mg/dl - LO W CARDIOVASCULAR RISK <40 mg/dl - HIGH CARDIOVASCULAR RISK Normal [facility] Comment on above: Performed By: #### C MP, LIPID #### [facility] [address] [place] [address] Dr. Ron Back LDL CALC NORMAL SEE BELOW Normal [facility] Comment on above: Result Comment: <100 mg/dl OPTIMAL 100 - 129 mg/dl NEAR OR ABOVE OPTIMAL 130 - 159 mg/dl BORDERLINE HIGH 160 - 189 mg/dl HIGH >190 mg/dl VERY HIGH Performed By: #### C MP, LIPID #### [facility] [address] [address] [address] Ron Back Triglyceride [Mass/Vol] 111 mg/dL Normal <=150 [facility] Comment on above: Performed By: #### C MP, LIPID #### [facility] [address] [address] [address] Ron Back VLDL CALC 22.2 mg/dL Normal [facility] Comment on above: Performed By: #### C MP, LIPID #### [facility] [address] [address] [address] Ron Back PROF 14(COMP METB)on 022 Albumin [Mass/Vol] 4.1 g/dL Normal 3.4-5.0 [facility] Comment on above: Performed By: #### C MP, LIPID #### [facility] [address] [address] [address] Ron Back Albumin/Globulin [Mass ratio] 1.0 {ratio} Normal [facility] Comment on above: Performed By: #### C MP, LIPID #### [facility] [address] [address] [address] Ron Back ALP [Catalytic activity/Vol] 114 U/L Normal 46-116 [facility] Comment on above: Performed By: #### C MP, LIPID #### [facility] [address] [address] [address] Ron Back ALT [Catalytic activity/Vol] 34 U/L Normal 14-59 [facility] Comment on above: Performed By: #### C MP, LIPID #### [facility] [address] [address] [address] Ron Back Anion gap [Moles/Vol] 15.4 mmol/L Normal [facility] Comment on above: Performed By: #### C MP, LIPID #### [facility] [address] [address] [address] Ron Back AST [Catalytic activity/Vol] 28 U/L Normal 15-37 [facility] Comment on above: Performed By: #### C MP, LIPID #### [facility] [address] [address] [address] Ron Back Bilirubin [Mass/Vol] 0.4 mg/dL Normal 0.2-1.0 [facility] Comment on above: Performed By: #### C MP, LIPID #### [facility] [address] [address] [address] Ron Back Calcium [Mass/Vol] 10.0 mg/dL Normal 8.5-10.1 [facility] Comment on above: Performed By: #### C MP, LIPID #### [facility] [address] [address] [address] Ron Back Chloride [Moles/Vol] 100 mmol/L Normal 98-107 [facility] Comment on above: Performed By: #### C MP, LIPID #### [facility] [address] [address] [address] Ron Back CO2 [Moles/Vol] 26.1 mmol/L Normal 21.0-32.0 [facility] Comment on above: Performed By: #### C MP, LIPID #### [facility] [address] [address] [address] Ron Back Creatinine [Mass/Vol] 0.69 mg/dL Normal 0.55-1.02 [facility] Comment on above: Performed By: #### C MP, LIPID #### [facility] [address] [address] [address] Ron Back EGFR-AF ETHIOPIAN >60 Normal >=60 [facility] Comment on above: Performed By: #### C MP, LIPID #### [facility] [address] [address] [address] Ron Back EGFR-NON AF ETHIOPIAN >60 Normal >=60 [facility] Comment on above: Performed By: #### C MP, LIPID #### [facility] [address] [address] [address] Ron Back Globulin (S) [Mass/Vol] 4.1 g/dL Normal [facility] Comment on above: Performed By: #### C MP, LIPID #### [facility] [address] [address] [address] Ron Back Glucose [Mass/Vol] 101 mg/dL Normal 74-106 [facility] Comment on above: Performed By: #### C MP, LIPID #### [facility] [address] [place] [address] Dr. Ron Back Potassium [Moles/Vol] 4.5 mmol/L Normal 3.5-5.1 [facility] Comment on above: Performed By: #### C MP, LIPID #### [facility] [address] [place] [address] Dr. Ron Back Protein [Mass/Vol] 8.2 g/dL Normal 6.4-8.2 [facility] Comment on above: Performed By: #### C MP, LIPID #### [facility] [address] [place] [address] Dr. Ron Back Sodium [Moles/Vol] 137 mmol/L Normal 136-145 [facility] Comment on above: Performed By: #### C MP, LIPID #### [facility] [address] [place] [address] Dr. Ron Back Urea nitrogen [Mass/Vol] 16.0 mg/dL Normal 7.0-18.0 [facility] Comment on above: Performed By: #### C MP, LIPID #### [facility] [address] [place] [address] Dr. Ron Back Urea nitrogen/Creatinin e [Mass ratio] 23.2 mg/mg Normal [facility] Comment on above: Performed By: #### C MP, LIPID #### [facility] [address] [place] [address] Dr. Ron Back UA RANDOM W/MICROSCOPICon BACTERIA NONE SEEN Normal NONE SEEN [facility] Comment on above: Performed By: #### U AMIC ####[facility] [id number] [id number][address] Ron Back Bilirubin Ql (U) Negative Normal NEGATIVE [facility] Comment on above: Performed By: #### U AMIC ####[facility] [id number] [address]Dr. Ron Back CAST SEEN Abnormal NONE SEEN [facility] Comment on above: Performed By: #### U AMIC ####[facility] [id number] [place], [place] [address]Dr. Ron Back Clarity (U) CLEAR Normal CLEAR [facility] Comment on above: Performed By: #### U AMIC ####[facility] [address] [place], [place] [address]Dr. Ron Back Color (U) YELLOW Normal YELLOW [facility] Comment on above: Performed By: #### U AMIC ####[facility] [address] [place], [place] [address]Dr. Ron Back Crystals LM Nom (Urine sed) NONE SEEN Normal NONE SEEN [facility] Comment on above: Performed By: #### U AMIC ####[facility] U[address]ae[address] [place], [place] [address]Dr. Ron Back Epithelial cells LM Ql (Urine sed) FEW Abnormal NONE SEEN /RARE [facility] Comment on above: Performed By: #### U AMIC ####[facility] Ynobzdpvnv[address] [place], [place] [address]Dr. Ron Back Glucose Ql (U) Negative Normal NEGATIVE [facility] Comment on above: Performed By: #### U AMIC ####[facility] Y[address]ntx[address] [place], [place] [address]Dr. Ron Back Hemoglobin Ql (U) Negative Normal NEGATIVE [facility] Comment on above: Performed By: #### U AMIC ####[facility] Jwnxxgtjzz[address] [place], [place] [address]Dr. Ron Back HYALINE CAST RARE Normal [facility] Comment on above: Performed By: #### U AMIC ####[facility] Oitxpxtrem[address] [place], [place] [address]Dr. Yilan Back Ketones Ql (U) Negative Normal NEGATIVE [facility] Comment on above: Performed By: #### U AMIC ####[facility] Qrak[address]vh[address] [place], [place] [address]Dr. Ron Back LEUKOCYTES Negative Normal NEGATIVE [facility] Comment on above: Performed By: #### U AMIC ####[facility] [address] [address]Dr. Ron Back MUCOUS TRACE Abnormal NONE SEEN [facility] Comment on above: Performed By: #### U AMIC ####[facility] Vfs[address]mp[address] [place], [place] [address]Dr. Ron Back Nitrite Ql (U) Negative Normal NEGATIVE [facility] Comment on above: Performed By: #### U AMIC ####[facility] Ayqfsbmmdc[address] [place], [place] [address]Dr. Ron Back pH (U) 5.5 [pH] Normal 5-9 [facility] Comment on above: Performed By: #### U AMIC ####[facility] Loov[address]fsu[address] [place], [place] [address]Dr. Ron Back RBC 0-2 Normal 0-2 [facility] Comment on above: Performed By: #### U AMIC ####[facility] Znzexvqmbb[address] [place], [place] [address]Dr. Ron Back SPEC GRAVITY 1.025 Normal 1.005-<=1.02 5 [facility] Comment on above: Performed By: #### U AMIC ####[facility] [address] [place], [place] [address]Dr. Ron Back UA PROTEIN Negative Normal NEGATIVE/ TRACE [facility] Comment on above: Performed By: #### U AMIC ####[facility] A[address]ixqivx[address] [place], [place] [address]Dr. Ron Back Urobilinogen Qn (U) 0.2 {Aaliyah'U}/dL Normal 0.2 - 1.0 [facility] Comment on above: Performed By: #### U AMIC ####[facility] P[address]we[address] [place], [place] [address]Dr. Ron Back WBC NONE SEEN Normal NONE SEEN [facility] Comment on above: Performed By: #### U AMIC ####[facility] [address] [address]Dr. Ron Back PAP ACOG PANEL 2: 30 to 65on 04-16-2022 . . Normal [facility] Comment on above: Result Comment: Perf ormed at: BA Performed By: #### [id number] #### [facility] [address] [address] [address] Ron Back Age Gdln ACOG Testing 30-65 [facility] Comment on above: Performed By: #### [id number] #### [facility] [address] [address] [address] Ron Back DIAGNOSIS: Comment Normal [facility] Comment on above: Result Comment: NEGA TIVE FOR INTRAEPITHELIAL LESION OR MALIGNANCY. Performed at: BA Performed By: #### 4 [id number] #### [facility] [address] [address] [address] Ron Back HPV Aptima Negative Normal Negative [facility] Comment on above: Result Comment: This nucleic acid amplification test detects fourteen high-risk HPV types (16,18,31,33,35,39,45,51,52,56,58,59,66,68) without differentiation. Performed at: =G Performed By: #### [id number] #### [facility] [address] [address] [address] Ron Back Methodology: Comment Normal [facility] Comment on above: Result Comment: This liquid based ThinPrep(R) pap test was screened with the use of an image guided system. Performed at: WB Performed By: #### 4 [id number] #### [facility] [address] [address] [address] Ron Back Note: Comment Normal [facility] Comment on above: Result Comment: The Pap smear is a screening test designed to aid in the detection of premalignant and malignant conditions of the uterine cervix. It is not a diagnostic procedure and should not be used as the sole means of detecting cervical cancer. Both false-positive and false-negative reports do occur. . Performed at: WB Performed By: #### [id number] #### [facility] [address] [place] [address] Dr. Ron Back Performed by: Comment Normal [facility] Comment on above: Result Comment: Rita Mcnally, Experimental Rocketsled Mechanic (ASCP) Performed at: BA Performed By: #### [id number] #### [facility] [address] [place] [address] Dr. Ron Back Specimen adequacy: Comment Normal [facility] Comment on above: Result Comment: Sati sfactory for evaluation. Endocervical and/or squamous metaplastic cells (endocervical component) are present. Performed at: BA Performed By: #### [id number] #### [facility] [address] [place] [address] Dr. Ron Back XR LSPINE 2_3 VIEWSon [...] by: KIP DOUGHERTY Date: 2021-09-20 12:00 Normal [facility] HEMOGLOBINon 08-09-2021 Hemoglobin (Bld) [Mass/Vol] 13.0 g/dL Normal 12.0-16.0 [facility] Comment on above: Performed By: #### H GB #### [facility] [address] [place], [place] [id number] Dr. Ron Back Operative Reporton 8 Operative Report MR#: [id number] [facility] Pt. Name: Racheal Richardson Room #: 0C Discharge Date: Birthdate: 1970 OPERATIVE REPORTDATE OF SURGERY: 09/08/2017SURGEON: Angelique Fuentes M.D.CORRECTIONAL LIEUTENANT: Maryjo Monroy M.D.PREOPERATIVE DIAGNOSES: Left severe carpal [...] The patient understands that she was given Ogden 5/325 mg tabs, take 1-2 tablets every [...] 09/08/2017/01:50 P/Angelique Fuentes M.D.Date Trans: 09/08/2017 11:05 P/[id number] Normal The [facility] POC GLUCOSE LABon 09-08-2017 Glucose mass conc 90 mg/dL Normal 70-[address] [facility] Comment on above: Performed By: #### [id number] ####[facility], [place] [address] Operative Reporton 7 Operative Report MR#: [id number] [facility] Pt. Name: Racheal Richardson Room #: [...] THE PROCEDURE: The patient is a pleasant [id number], who is right-hand dominant and has been having bilateral carpaltunnel symptoms. Her right side is worse than left side. She has triednonsurgical treatment on the right side in the form of use of braces atnighttime as well as use of oral pain medications and has failednonsurgical treatment. She also had an EMG study, which revealed oihwpjidtkcsi-na-hrvvnu carpal tunnel syndrome. She has failed nonsurgicaltreatment [...] of dressing in the form of Xeroform, [id number], fluffs, Kerlix, and Keeley wrap. 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 The patient understands the treatment plan. The patient was given Ogden 5/325 mg tabs, take 1-2 tablets every [...] 07/14/2017/04:04 P/Angelique Fuentes M.D.Date Trans: 07/15/2017 03:30 A/[id number] Normal The [facility] POC GLUCOSE LABon 07-14-2017 Glucose mass conc 92 mg/dL Normal 70-[address] [facility] Comment on above: Performed By: #### 8 [id number] ####[facility] Vital Signs Date Time Vital Sign Value Performing Clinician Faci lity 10-01-2024 14:08-0500 Body height 162.6 cm Ritu Filomenatraceyz CH[facility]FFEUR Work Phone: [facility] 10-01-2024 14:08-0500 Body mass index (BMI) [Ratio] 30.24 kg/m2 Ritu Aichholz CH[facility]UR Work Phone: [facility] 10-01-2024 14:08-0500 Body temperature 98.49 [degF] Ritu Aichholz CHAUFFEUR Work Phone: [facility] 10-01-2024 14:08-0500 Body weight 79.92 kg Ritu Aichholz CH[facility]UR Work Phone: [facility] 10-01-2024 14:08-0500 Diastolic blood pressure 82 mm[Hg] Ritu Aichholz CH[facility]EUR Work Phone: [facility] 10-01-2024 14:08-0500 Heart rate 88 /min Ritu Aichholz CH[facility]FF[facility]UR Work Phone: [facility] 10-01-2024 14:08-0500 Respiratory rate 18 /min Ritu Aichholz [facility]UR Work Phone: [facility] 10-01-2024 14:08-0500 SaO2% (BldA) [Mass fraction] 97 % Ritu Aichholz CH[facility]FFEUR Work Phone: [facility] 10-01-2024 14:08-0500 Systolic blood pressure 118 mm[Hg] Ritu Aichholz CHAUFFEUR Work Phone: [facility] 07-16-2024 14:22-0500 Body height 162.6 cm Rituhussein Owenholz CHAUFFEUR Work Phone: [facility] 07-16-2024 14:22-0500 Body mass index (BMI) [Ratio] 29.49 kg/m2 Ritu Filomeanhholz [facility]UR Work Phone: [facility] 07-16-2024 14:22-0500 Body temperature 98.71 [degF] Ritu Filomenahholz CH[facility]FFEUR Work Phone: [facility] 07-16-2024 14:22-0500 Body weight 77.93 kg Ritu Aichholz CH[facility]UR Work Phone: [facility] 07-16-2024 14:22-0500 Diastolic blood pressure 86 mm[Hg] Ritu Filomenahholz CH[facility]FFEUR Work Phone: [facility] 07-16-2024 14:22-0500 Heart rate 97 /min Ritu Filomenahholz CHAUFFEUR Work Phone: [facility] 07-16-2024 14:22-0500 Respiratory rate 18 /min Ritu Aichholz CH[facility]FFEUR Work Phone: [facility] 07-16-2024 14:22-0500 SaO2% (BldA) [Mass fraction] 100 % Ritu Filomenahholz CHAUFFEUR Work Phone: [facility] 07-16-2024 14:22-0500 Systolic blood pressure 128 mm[Hg] Ritu Braydenholz CH[facility]FFEUR Work Phone: [facility] 06-05-2024 13:06-0400 Body height 162.6 cm Ritu Aichholz CH[facility]FF[facility]UR Work Phone: [facility] 06-05-2024 13:06-0400 Body mass index (BMI) [Ratio] 28.67 kg/m2 Ritu Aichholz [facility] Work Phone: [facility] 06-05-2024 13:06-0400 Body temperature 98.8 [degF] Ritu Aichholz CH[facility]FFEUR Work Phone: [facility] 06-05-2024 13:06-0400 Body weight 75.75 kg Ritu Braydenholz CH[facility]FFEUR Work Phone: [facility] 06-05-2024 13:06-0400 Diastolic blood pressure 86 mm[Hg] Ritu Aichholz CH[facility]FF[facility]UR Work Phone: [facility] 06-05-2024 13:06-0400 Heart rate 97 /min Ritu Aichholz CHAUFFEUR Work Phone: [facility] 06-05-2024 13:06-0400 Respiratory rate 18 /min Ritu Aichholz CHAUFF[facility]UR Work Phone: [facility] 06-05-2024 13:06-0400 SaO2% (BldA) [Mass fraction] 97 % Ritu Aichholz CHAUFFEUR Work Phone: [facility] 06-05-2024 13:06-0400 Systolic blood pressure 132 mm[Hg] Ritu Aichholz CHAUFFEUR Work Phone: [facility] Encounters Encounter Date Encounter Type Care Provider Facility Start: 10-01-2024 End: 10-01-2024 Bamboo flowsheet Rtiu Filomenahholz CHAUFFEUR Work Phone: [facility] Start: 10-01-2024 End: 10-01-2024 Bamboo flowsheet Ritu Aichholz CH[facility]FF[facility]UR Work Phone: [facility] Start: 10-01-2024 End: 10-01-2024 Office outpatient visit 15 minutes Ritu Juvenalz [facility]FF[facility]UR Work Phone: [facility] Comment on above: Irregular heart rate (Primary Dx); Chronic kidney disease, stage 3b (HCC) (CMS/HCC); Unspecified convulsions (CMS/HCC); Primary hypertension (CMS/HCC); Tobacco dependence Start: 10-01-2024 End: 10-01-2024 ambulatory RITU AICHHOLZ Not Available Start: 09-23-2024 End: 09-23-2024 ambulatory [facility] Start: 07-23-2024 End: 07-23-2024 Telephone encounter Ritu Albertina CHAUFFEUR Work Phone: [facility] Start: 07-18-2024 End: 07-18-2024 Refill Ritu Albertina CHAUFFEUR Work Phone: [facility] Comment on above: Centrilobular emphys leslie (CMS/HCC) Start: 07-16-2024 End: 07-16-2024 Bamboo flowsheet Ritu Albertina CHAUFFEUR Work Phone: [facility] Start: 07-16-2024 End: 07-23-2024 Bamboo flowsheet Ritu Albertina CHAUFFEUR Work Phone: [facility] Start: 07-16-2024 End: 07-23-2024 Clinisync Result Encounter Ritu Eng [facility]EUR Work Phone: [facility] Unsolicited Start: 07-16-2024 End: 07-16-2024 Patient encounter procedure Ritu Albertina CH[facility]FFEUR Work Phone: [facility] Start: 07-16-2024 End: 07-16-2024 Periodic preventive med est patient 40-64yrs Ritu Eng CHAUFFEUR Work Phone: [facility] Comment on above: Well woman exam with routine gynecological exam (Primary Dx); Urticaria, unspecified; Urticaria; Primary hypertension ([facility]); Mixed hyperlipidemia ([facility]) Start: 07-16-2024 End: 07-16-2024 ambulatory RITU ALBERTINA Not Available Start: 07-04-2024 End: 07-04-2024 Orders Only Ritu Eng CHAUFFEUR Work Phone: [facility] Comment on above: Irregular heart rate (Primary Dx); Abnormal Holter monitor finding Start: 07-03-2024 End: 07-03-2024 Clinisync Result Encounter Ritu Eng CHAUFFEUR Work Phone: [facility] External Department Unsolicited Start: 07-03-2024 End: 07-03-2024 Clinisync Result Encounter Ritu Eng NP Work Phone: [facility] External Department Unsolicited Start: 07-01-2024 End: 07-01-2024 Evaluation and management of inpatient ORLANDO ASH [facility] Start: 06-25-2024 End: 06-25-2024 ambulatory RITU ENG [facility] Start: 06-19-2024 End: 06-19-2024 ambulatory HANNAH GALLEGO [facility] Start: 06-05-2024 End: 06-05-2024 Bamboo flowsheet Ritu Eng CHAUFFEUR Work Phone: [facility] Start: 06-05-2024 End: 06-05-2024 Bamboo flowsheet Ritu Eng CH[facility]FFEUR Work Phone: [facility] Start: 06-05-2024 End: 06-05-2024 ambulatory RITU ENG Not Available Start: 06-05-2024 End: 06-05-2024 Office outpatient visit 25 minutes Ritu Eng [facility]UR Work Phone: [facility] Comment on above: Primary hypertension (CMS/HCC) (Primary Dx); Centrilobular emphysema (CMS/HCC); Irregular heart rate; Needs flu shot; Fibromyalgia; Colon cancer screening Start: 05-07-2024 End: 05-07-2024 Telephone encounter Ritu Eng [facility]UR Work Phone: [facility] Comment on above: Centrilobular emphys leslie (CMS/HCC) Start: 04-16-2024 End: 04-16-2024 Refill Ritu Eng CH[facility]FFEUR Work Phone: [facility] Comment on above: Centrilobular emphys leslie (CMS/HCC); Urticaria, unspecified; Urticaria Start: 04-10-2024 End: 04-10-2024 Refill Ritu Eng CHAUFFEUR Work Phone: [facility] Comment on above: Centrilobular emphys leslie ([facility]/HCC) Start: 04-09-2024 End: 04-09-2024 Refill Ritu Albertina CHAUFFEUR Work Phone: [facility] Comment on above: Centrilobular emphys leslie ([facility]) Urticaria, unspecifi ed; Urticaria; Primary hypertension ([facility]); Mixed hyperlipidemia ([facility]) Start: 02-22-2024 End: 02-22-2024 ambulatory RITU AICHHOLZ Not Available Start: 10-05-2023 End: 10-06-2023 ambulatory JHON RAVI [facility] Start: 10-05-2023 End: 10-06-2023 Emergency department patient visit JERRELL Suarez [facility] Start: 10-05-2023 End: 10-05-2023 ambulatory [facility] Start: 07-12-2022 End: 07-13-2022 ambulatory COUNTER PERSON RITU AICHHOLZ Facility:[facility] Start: 06-14-2022 End: 06-15-2022 ambulatory COUNTER PERSON RITU AICHHOLZ Facility:[facility] Start: 04-11-2022 End: 04-11-2022 ambulatory COUNTER PERSON RITU AICHHOLZ Facility:[facility] Start: 09-20-2021 End: 09-21-2021 ambulatory COUNTER PERSON RITU AICHHOLZ Facility:[facility] Start: 08-09-2021 End: 08-10-2021 ambulatory COUNTER PERSON RITU AICHHOLZ Facility:[facility] Start: 12-21-2017 Ambulatory GENE MD KERI Cordova y:UNKNOWN Start: 11-23-2017 Ambulatory CASEY Cordova y:UNKNOWN Start: 09-08-2017 End: 09-09-2017 Ambulatory VITHAL SHENDGE Facility:[facility] Start: 07-14-2017 End: 07-15-2017 Ambulatory VITHAL SHENDGE Facility:[facility] Start: 05-04-2017 End: 05-05-2017 Ambulatory DEFAULT PHYSICIAN Facility:[facility] Procedures Date Procedure Procedure Detail Performing Clinician Start: 07-16-2024 IGP,APTIMA HPV,AGE GDLN Ritu Albertina CHAUFFEUR Work Phone: Start: 07-16-2024 Microscopic observat ion [Identifier] in Cervix by Cyto stain Ritu Eng CHAUFFEUR Work Phone: Start: 07-03-2024 ALL LIPID PROFILE (FASTING) Ritu Albertina CHAUFFEUR Work Phone: Start: 07-03-2024 [facility] ALT Ritu Massiel carvajal CH[facility]FFEUR Work Phone: Start: 07-03-2024 [facility] AST Ritu Massiel carvajal CH[facility]UR Work Phone: Start: 07-03-2024 MLR HEMOGLOBIN A1C Ritu Eng CH[facility]EUR Work Phone: Start: 07-01-2024 Colonoscopy Ritu Massiel carvajal CH[facility] Work Phone: Start: 03-13-2024 Mammography Ritu carvajal CHAUFFEUR Work Phone: Start: 09-08-2017 ANESTH LOWER ARM SURGERY SONIA REZA Start: 09-08-2017 Neuroplasty &/transp os median nrv carpal tunne VITHAL SHENDGE Start: 07-14-2017 ANESTH LOWER ARM SURGERY YAJAIRA MUÑIZ Start: 07-14-2017 Neuroplasty &/transp os median nrv carpal tunne VITHAL SHENDGE Start: 04-14-2017 Microscopic observat ion [Identifier] in Cervix by Cyto stain Ritu Eng CH[facility]FFEUR Work Phone: Plan of Treatment Date Care Activity Detail Author Start: 07-01-2034 Screening for malign ant neoplasm of colon [facility] Start: 07-16-2027 Screening for malign ant neoplasm of cervix [facility] Start: 03-13-2025 Screening for malign ant neoplasm of breast Mammogram [facility] Start: 10-01-2024 End: 10-01-2024 Patient encounter procedure 10/01/2024 2:00 PM EST Office Visit [facility] [address] [place] [address] Ritu Eng NP [address] [place] [id number] Primary hypertension (CMS/HCC) (Primary Dx); Chronic kidney disease, stage 3b (HCC) (CMS/HCC); Unspecified convulsions (CMS/HCC); Tobacco dependence [facility] Comment on above: Primary hypertension (CMS/HCC) (Primary Dx); Chronic kidney disease, stage 3b (HCC) (CMS/HCC); Unspecified convulsions (CMS/HCC); Tobacco dependence Start: 09-17-2024 End: 09-17-2024 Patient encounter procedure 09/17/2024 1:20 PM EST Office Visit [facility] [address] [place] [id number] Ritu Eng NP [address] [place] [phone] [facility] Start: 07-16-2024 End: 07-16-2024 Patient encounter procedure [facility] Comment on above: Well woman exam with routine gynecological exam (Primary Dx); Urticaria, unspecified; Urticaria; Primary hypertension (CMS/HCC); Mixed hyperlipidemia (CMS/HCC) Start: 07-16-2024 End: 07-16-2025 THIN PREP TIS PAP AND HR HPV DNA THIN PREP TIS PAP AND HR HPV DNA Pathology and Cytology Routine Well woman exam with routine gynecological exam Expected: 07/16/2024 (Approximate), Expires: 07/16/2025 [facility] Work Phone: Comment on above: Expected: 07/16/2024 (Approximate), Expires: 07/16/2025 Start: 06-12-2024 Influenza vaccination Influenza Vacc ine (#1) [facility] Comment on above: Postponed from 04/14 (Patient Does Not Have Time) Start: 06-05-2024 End: 06-05-2025 Holter monitor study Holter monitor Imaging Routine Irregular heart rate Expected: 06/05/2024 (Approximate), Expires: 06/05/2025 [facility] Work Phone: Comment on above: Expected: 06/05/2024 (Approximate), Expires: 06/05/2025 Start: 11-08-2023 Screening for malign ant neoplasm of colon [facility] Start: 04-14-2020 Screening for malign ant neoplasm of cervix [facility] Start: 2000 Screening for malign ant neoplasm of cervix HPV/Cotest [facility] Start: 1970 Screening for malign ant neoplasm of colon [facility] Immunizations Immunization Date Immunization Notes Care Provider Magdiel mae 06-05-2024 Influenza, injectabl e, Madin [place] Canine Kidney, preservative free, quadrivalent Ritu Aichholz CH[facility]UR Work Phone: [facility] 06-04-2022 influenza, injectabl e, quadrivalent, preservative free Ritu Aichholz CH[facility]FF[facility]UR Work Phone: [facility] 05-06-2021 influenza, injectabl e, quadrivalent, preservative free Ritu Aichholz CH[facility]EUR Work Phone: [facility] 11-04-2020 zoster vaccine recombinant L christy Aichholz CHAUFFEUR Work Phone: [facility] 04-15-2020 influenza, injectabl e, quadrivalent, preservative free Ritu Aichholz CHAUFFEUR Work Phone: [facility] 01-09-2020 tetanus toxoid, redu ney diphtheria toxoid, and acellular pertussis vaccine, adsorbed Ritu Aichholz CHAUFFEUR Work Phone: [facility] 04-16-2019 pneumococcal polysaccharide vaccine, 23 valent Ritu Aichholz CHAUFFEUR Work Phone: [facility] 04-09-2019 influenza, injectabl e, quadrivalent, preservative free Ritu Aichholz CHAUFFEUR Work Phone: [facility] 05-09-2018 influenza, injectabl e, quadrivalent, preservative free Ritu Aichholz CHAUFFEUR Work Phone: [facility] 05-02-2011 influenza, seasonal, injectable Ritu Aichholz CHAUFF[facility]UR Work Phone: [facility] 04-30-2011 pneumococcal polysaccharide vaccine, 23 valent Ritu Eng CHAUFFEUR Work Phone: [facility] 02-21-2000 TD(adult) unspecifie d formulation Ritu Eng CHAUFFEUR Work Phone: [facility] Payers Date Payer Category Payer Medicaid [facility] [employer] [place] [id number] 2016-Present [address] [place] [address] [id number] 2016 Private Health Insurance [facility] [id number] 2016 Medicaid [id number] 1970 Unknown [id number] 2.16.840.1.344163.3.579.2. 593 1970 Unknown [id number] 2.16.840.1.906869.3.579.2. 593 1970 Unknown [id number] 2.16.840.1.477211.3.579.2. 593 1970 Unknown [id number] 2.16.840.1.771319.3.579.2. 593 1970 Unknown [id number] 2.16.840.1.691285.3.579.2. 593 1970 Unknown [id number] 2.16.840.1.945065.3.579.2. 1286 1970 Unknown [id number] 2.16.840.1.942688.3.579.2. 1286 1970 Unknown [id number] 2.16.840.1.886779.3.579.2. 1286 1970 Unknown [id number] 2.16.840.1.300976.3.579.2. 1286 1970 Unknown [id number] 2.16.840.1.694900.3.579.2. 1286 1970 Unknown [id number] 2.16.840.1.256126.3.579.2. 1286 1970 Unknown [id number] 2.16.840.1.004867.3.579.2. 6 1970 Unknown [id number] 2.16.840.1.069235.3.579.2. 1286 1970 Unknown [id number] 2.16.840.1.486808.3.579.2. 9 1970 Unknown [id number] 2.16.840.1.486355.3.579.2. 9 1970 Unknown [id number] 2.16.840.1.904835.3.579.2. 9 1970 Unknown [id number] 2.16.840.1.140658.3.579.2. 1259 1959 Unknown [id number] Unknown Social History Date Type Detail Facility Start: 02-22-2024 End: 08-30-2024 Tobacco smoking status IDIS Smokes tobacco daily [facility] History of tobacco use Cigarette Smoker [facility] Start: 02-22-2024 End: 08-30-2024 Tobacco use and exposure Smokeless tobacco non-user [facility] Start: 02-22-2024 End: 10-01-2024 Alcoholic beverage intake Current drinker of alcohol (finding) [facility] Start: 02-22-2024 End: 08-30-2024 [facility]coholic beverage intake [facility] Start: 02-22-2024 End: 01-17-2025 Tobacco use panel [facility] Start: 02-22-2024 Alcohol Comment caffine: 2 daily [facility] Start: 1970 Sex assigned at Not on file [facility] History of tobacco use Passive smoker [facility] How often do you nee d to have someone help you when you read instructions, pamphlets, or other written material from your doctor or pharmacy [SILS] Never [facility] Within the last year , have you been afraid of your partner or ex-partner? No [facility] Are you now , , , , never or living with a partner? [facility] How often to you hav e a drink containing alcohol? 2-3 time sa week [facility] How many standard dr inks containing alcohol do you have on a typical day? 5 or 6 [facility] How often do you hav e 6 or more drinks on 1 occasion? Weekly [facility] Do you feel stress - tense, restless, nervous, or anxious, or unable to sleep at night because your mind is troubled all the time - these days [OSQ] To some extent [facility] (I/We) worried giuliano er (my/our) food would run out before (I/we) got money to buy more. Never true [facility] Clinical Notes 09-20-2021 to 10-01-2024 Ritu Eng NP - 10/01/2024 2:37 PM Brad Eng, ODETTE - 10/01/2024 2:37 PM Brad Eng, ODETTE - 10/01/2024 2:36 PM Brad Eng, ODETTE - 10/01/2024 2:00 PM ESTPatient Instructions Note Date & Type Note Facility 10-01-2024 History of Present illness Narrative Associated Problem(s): Irregular heart rate Continue with cardiology Associated Problem(s): Chronic kidney disease, stage 3b (HCC) (CMS/HCC) Monitor labs Associated Problem(s): Unspecified convulsions (CMS/HCC) No hx of seizures, happen once a year ago During a stressful time in her life Images from the original note were not included. Racheal Richardson is a 54 y.o. female presents with chief complaint of No chief complaint on file. HPI: Here for fu appt: since last visit was sent to see cardiology d/t freq PVC's. She saw dr Nowak and he started Toprol XL and is ordering a stress test and ECHO She is taking the med daily, does not some nausea with taking the med regardless of food or not. No chest pain/dyspnea. No dizziness . No lightheadedness. No other concerns at this time SUBJECTIVE: MEDICATIONS: Current Outpatient Medications Medication Instructions albuterol HFA 90 mcg/act inhaler 2 puffs, Inhalation, Every 6 hours PRN cetirizine (ZYRTEC) 10 mg, Oral, Daily gabapentin (NEURONTIN) 300 mg, Oral, Daily lisinopril-hydroCHLOROthiazide 20-12.5 MG tablet 1 tablet, Oral, Every morning metoprolol succinate XL (TOPROL-XL) 25 mg, Daily RT simvastatin (ZOCOR) 40 mg, Oral, Nightly ALLERGIES: [...] chest pain, palpitations and leg swelling. 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 OBJECTIVE: Visit Vitals BP 118/82 (BP Location: Left arm, Patient Position: Sitting, BP Cuff Size: Adult long) Pulse 88 Temp 98.5 F (Temporal) Resp 18 Ht 5' 4 Wt 176 lb 3.2 oz SpO2 97% BMI 30.24 kg/m Smoking Status Every Day BSA 1.9 m Physical Exam Vitals and nursing note [...] is normal. Breath sounds: Normal breath sounds. Abdominal: General: Bowel sounds are normal. There is no distension. Palpations: Abdomen is soft. There is no mass. Tenderness: There is no abdominal tenderness. Musculoskeletal: General: Normal range of motion. Cervical back: Normal range of motion and neck supple. Skin: General: Skin is warm and dry. Capillary Refill: Capillary refill takes 2 to 3 seconds. Findings: No rash. Neurological: General: No focal deficit present. Mental Status: She is alert and oriented to person, place, and time. Psychiatric: Mood and Affect: Mood normal. Behavior: Behavior normal. Thought Content: Thought content normal. Judgment: Judgment normal. ASSESSMENT AND PLAN: Follow up in about 3 months (around 12/29/2024) for Recheck. Problem List Items Addressed This Visit Primary hypertension (CMS/HCC) Please check blood pressure daily and record DASH diet Limit caffeine Take medication as directed Contact office if chest pain, pressure, dizziness, shortness of breath, swelling legs Recommend slow position changes Current meds: keeley, hydrochlorothiazide, b poornima Unspecified convulsions (CMS/HCC) No hx of seizures, happen once a year ago During a stressful time in her life Irregular heart rate - Primary Continue with cardiology Chronic kidney disease, stage 3b (HCC) (CMS/[facility]) Monitor labs Tobacco dependence The patient has been advised of the risks of continued smoking: stroke, DC, all forms of cancer, lung disease, and . Options for quitting smoking include: cold turkey, hypnosis, acupuncture, nicotine replacement meds (gum, lozenges, and patches), Buproprion, and Varenicline. At this time pt is encouraged to evaluate their goals for wanting to quit smoking, and reach out to provider when ready to start this process Associated Problem(s): Tobacco dependence The patient has been advised of the risks of continued smoking: stroke, DC, all forms of cancer, lung disease, and . Options for quitting smoking include: cold turkey, hypnosis, acupuncture, nicotine replacement meds (gum, lozenges, and patches), Buproprion, and Varenicline. At this time pt is encouraged to evaluate their goals for wanting to quit smoking, and reach out to provider when ready to start this process Associated Problem(s): Primary hypertension (CMS/HCC) Please check blood pressure daily and record DASH diet Limit caffeine Take medication as directed Contact office if chest pain, pressure, dizziness, shortness of breath, swelling legs Recommend slow position changes Current meds: keeley, hydrochlorothiazide, b poornima documented in this encounter [facility] 10-01-2024 Instructions Ritu Eng NP - 10/01/2024 2:00 PM EST Finish cardiology work up: stress test and US of heart documented in this encounter [facility] 09-23-2024 Note [place] [facility] - [facility] Subjective Racheal Richardson is a 54 y.o. year old female patient being seen to establish care for hypertension and palpitations. She wore a 7 day Holter monitor in Jun 2024. Denies chest pain and SOB. She smokes about 1/2 PPD. Mother has afib and father passed from DC. Says she saw a register of wills a few years ago in [place] prior to [place] because her EKG was abnormal. She was told she had PVC's but nothing concerning. Patient Active Problem List Diagnosis Abnormal Holter monitor finding Centrilobular emphysema (CMS/HCC) Colon cancer screening Elevated glucose Environmental and seasonal allergies Fibromyalgia Irregular heart rate Mixed hyperlipidemia Needs flu shot Osteoarthritis of left hip Pain in both hands Primary hypertension Seizure-like activity (CMS/HCC) Stage 3b chronic kidney disease (CMS/HCC) Family History Problem Relation Name Age of Onset Atrial fibrillation Mother Heart attack Father Social History Tobacco Use Smoking status: Every Day Current packs/day: 0.50 Types: Cigarettes Smokeless tobacco: Never Substance Use Topics Alcohol use: Yes Comment: occasionally IRA Springer is seen today as a new patient for palpitations. She is a 54-year-old woman with prior history of hypertension and hyperlipidemia currently maintained on simvastatin and lisinopril/hydrochlorothiazide. She has history of fibromyalgia. She has PVCs by Holter monitor in June 2024 with a burden of 2%. In February 2024 she was evaluated at the [place] emergency room because of palpitations and concern for possible atrial fibrillation due to feeling irregular heart rate. Her ECG at that time showed PVCs. She used to be on aspirin but was stopped due to GI side effects. she denies chest pain, shortness of breath, dizziness, syncope and leg edema. she has good exercise tolerance. There is no claudication. She has palpitations that happen occasionally. Review of Systems Cardiovascular: Positive for irregular heartbeat and palpitations. Musculoskeletal: Positive for back pain. All other systems reviewed and are negative. Objective Visit Vitals BP 130/88 (BP Location: Right arm, Patient Position: Sitting) Pulse 94 Ht 1.651 m (5' 5 ) Wt 80.7 kg (178 lb) SpO2 97% BMI 29.62 kg/m??? Smoking Status Every Day BSA 1.92 m??? Physical Exam Constitutional: Appearance: She is well-developed. She is not ill-appearing. HENT: Head: Normocephalic and atraumatic. Nose: Nose normal. Eyes: General: No scleral icterus. Pupils: Pupils are equal, round, and reactive to light. Neck: Thyroid: No thyromegaly. Vascular: No JVD. Cardiovascular: Rate and Rhythm: Normal rate and regular rhythm. Pulses: Radial pulses are 2+ on the right side and 2+ on the left side. Heart sounds: Normal heart sounds. No murmur heard. No friction rub. No gallop. Pulmonary: Effort: Pulmonary effort is normal. No respiratory distress. Breath sounds: Normal breath sounds. No wheezing or rales. Chest: Chest wall: No tenderness. Abdominal: General: Bowel sounds are normal. There is no distension. Palpations: Abdomen is soft. Tenderness: There is no abdominal tenderness. Musculoskeletal: General: No swelling. Cervical back: Neck supple. Skin: General: Skin is warm and dry. Neurological: General: No focal deficit present. Mental Status: She is alert and oriented to person, place, and time. Psychiatric: Mood and Affect: Mood normal. Behavior: Behavior is cooperative. Judgment: Judgment normal. Allergies Allergies Allergen Reactions Sulfa (Sulfonamide Antibiotics) Hives Hives, very hot feeling. Medications Current Outpatient Medications: gabapentin (Neurontin) 300 mg capsule, Take 300 mg by mouth in the morning., Disp: , Rfl: lisinopriL-hydrochlorothiazide 20-12.5 mg tablet, Take 1 tablet by mouth in the morning., Disp: , Rfl: montelukast (Singulair) 10 mg tablet, 1 (one) time each day at the same time., Disp: , Rfl: simvastatin (Zocor) 40 mg tablet, Take 40 mg by mouth at bedtime., Disp: , Rfl: metoprolol succinate XL (Toprol-XL) 25 mg 24 hr tablet, Take 1 tablet (25 mg) by mouth in the morning. Do not crush or chew., Disp: 90 tablet, Rfl: 3 Recent Labs Blood testing 07/03/2024: Hemoglobin A1c 5.7%, LFTs normal, triglycerides 99, cholesterol 190, LDL 101, HDL 70. Blood testing 03/13/2024: Hemoglobin 13.7, platelets 237, potassium 3.7, BUN 10, creatinine 0.72, EGFR more than 60, LFTs normal, triglycerides 179, cholesterol 210, LDL 107, HDL 68. Imaging and other tests Holter monitor 06/18/2024: Impression: Predominant rhythm is sinus with average rate of 92 bpm Fastest rate of 189 bpm (PSVT) and slowest rate of 68 bpm 20,320 VE w/ 2% burden, 20,089 PVC, 228 couplets 1 episode of 3 beat VT Longest episode of sinus tachy is 54min 13sec with rates between 111-123 bpm No atrial fibrillation No pa (more content not included)... [facility] 07-23-2024 Telephone encounter Note Please tell pt that her pap test no cancer cells, does show some inflammation in cells Repeat pap smear in 1 year [place] [facility] 07-23-2024 Miscellaneous Notes Please tell pt that her pap test no cancer cells, does show some inflammation in cells Repeat pap smear in 1 year [place] documented in this encounter [facility] 07-16-2024 History of Present illness Narrative Pt [...] Past Medical History: Diagnosis Date Centrilobular emphysema ([facility]) 08/15/2023 Coronary artery disease involving skokomish coronary artery of 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 Exam conducted with a hand shoe cutter present. Constitutional: General: She is not in [...] per results indicates documented in this encounter [facility] 07-16-2024 Instructions Ritu Eng NP - 07/16/2024 2:00 PM EST Monthly breast self exam Yearly mammogram Recommend over the counter Calcium/Vitamin D supplement, such as Oscal plus D (may get generic) Exercise 3-4 times per week for 30 minutes each We will call with results of pap smear Cardiology office: [facility] ([facility] [phone] documented in this encounter [facility] 06-05-2024 History of Present illness Narrative Associated [...] smoking/tobacco exposure. Past treatments include diuretics and KEELEY inhibitors. The current treatment provides significant improvement. [...] Past Medical History: Diagnosis Date Centrilobular emphysema ([facility]) 08/15/2023 Coronary artery disease involving skokomish coronary artery of skokomish heart without angina pectoris ([facility]) 08/05/2023 Mixed hyperlipidemia ([facility]) 08/05/2023 Primary hypertension ([facility]) 08/05/2023 Past Surgical History: [...] Relevant Orders Flu vaccine, MDCK, quadrivalent, PF ([id number]) (Flucelvax single dose syringe) documented in this encounter [facility] 06-05-2024 Instructions Ritu Eng NP - 06/05/2024 1:00 PM EDT Fu in 6 weeks; this will be a PAP and hope to have heart monitor results documented in this encounter [facility] 05-07-2024 Telephone encounter Note Pt needs a fu appt scheduled please [place] [facility] 05-07-2024 Miscellaneous Notes Pt needs a fu appt scheduled please [place] documented in this encounter [facility] 12-07-2021 Note Chief Complaint NEW: REFERRAL Preoperative [...] osteoarthritis which is scheduled on 12/17/2021 at [facility]. Patient is a smoker. She smokes 1/2 [...] We discussed this (more content not included)... [facility] 12-07-2021 Note Patient Education Ma terials Name: Racheal Richardson Current Date: 12/07/2021 09:26:16 [place] : 1970 [facility]: [id number] The following sheet(s) are the Patient Education [...] very fast or irregular heartbeat (palpitations) ? [id number] [employer]. [address] [place] [address]. All rights reserved. This information is not intended as a substitute for professional medical care. Always follow your healthcare professional's instructions. [facility] 09-20-2021 Note PROCEDURE: XR KNEE L T [...] authenticated by: KIP DOUGHERTY Date: 2021-09-20 11:56 [facility] 09-20-2021 Note PROCEDURE: XR SHOULD ER [...] authenticated by: KIP DOUGHERTY Date: 2021-09-20 11:55 [facility] 09-20-2021 Note PROCEDURE: XR HIP LT 2 3V W PELVIS HISTORY: Pain of left hip joint ; chronic pain since falling one-2 years ago COMPARISON: None. FINDINGS: BONES:Narrowing of the left hip joint space with near [id number] articulation at the superior margin. No fracture, dislocation, or significant periarticular degenerative osteophytes. SOFT TISSUES:No visible soft tissue swelling. EFFUSION:None visible. OTHER: Mechanical repair of lumbar spine. IMPRESSION: 1. Moderate or greater degenerative joint disease of the left hip. 2. No acute bone abnormality. Electronically authenticated by: KIP DOUGHERTY Date: 2021-09-20 11:53 [facility] Evaluation note Diagnosis Irregular heart rate- [...] (CMS/HCC) Mixed hyperlipidemia [facility] [...] essential hypertension Mixed hyperlipidemia (CMS/HCC) Mixed hyperlipidemia Centrilobular emphysema (CMS/HCC) [facility] Diagnosis Centrilobular emphysema (CMS/HCC) [facility] Diagnosis Urticaria, unspecified Urticaria Unspecified urticaria Primary hypertension (CMS/HCC) Unspecified essential hypertension Mixed hyperlipidemia (CMS/HCC) Mixed hyperlipidemia [facility] Diagnosis Centrilobular emphysema (CMS/HCC) Urticaria, unspecified Urticaria Unspecified urticaria [facility] [...] essential hypertension Mixed hyperlipidemia (CMS/HCC) Mixed hyperlipidemia Irregular heart rate- Primary Chronic kidney disease, stage 3b (HCC) (CMS/HCC) Unspecified convulsions (CMS/HCC) Primary hypertension (CMS/HCC) Unspecified essential hypertension Tobacco dependence Tobacco use disorder documented in this encounter [facility] Summary [...] section and content) DATE CREATED AUTHOR 01/31/2018 [facility] DATE CREATED AUTHOR AUTHOR'S ORGANIZ ATION 02/05/2018 [facility] DATE CREATED AUTHOR AUTHOR'S ORGANIZ ATION 12/12/2021 [facility] DATE CREATED AUTHOR AUTHOR'S ORGANIZ ATION 07/16/2022 [facility] DATE CREATED AUTHOR AUTHOR'S ORGANIZ ATION 10/12/2023 [facility] DATE CREATED AUTHOR AUTHOR'S ORGANIZ ATION 06/20/2024 [facility] DATE CREATED AUTHOR AUTHOR'S ORGANIZ ATION 07/08/2024 [facility] DATE CREATED AUTHOR AUTHOR'S ORGANIZ ATION 10/03/2024 [facility] EPIC DATE CREATED AUTHOR AUTHOR'S ORGANIZ ATION 10/14/2024 [facility] Care Teams (unrecognized sec tion and content) Patient Intake Coordinator Relationship Specialty Start Date End Date Unallocated, Kip Davila MD [address] [place] [address] PCP - General Family Medicine 06/05/24 Ritu Eng NP [address] [place] [address] Nurse Practitioner Family Medicine 02/22/24 Patient Intake Coordinator Relationship Specialty Start Date End Date Unallocated, Canelos MD Lola [address] [address] PCP - General Family Medicine 06/05/24 Ritu Eng NP [address] [place] [address] Nurse Practitioner Family Medicine 02/22/24 Patient Intake Coordinator Relationship Specialty Start Date End Date Jacob Moore MD [address] [place] [address] PCP - General Family Medicine 06/13/24 Ritu Eng NP [address] [place] [phone] PCP - [facility] 05/14/24 Ritu Eng NP [address] [place] [address] Nurse Practitioner Family Medicine 02/22/24 Patient Intake Coordinator Relationship Specialty Start Date End Date Jacob Moore MD [address] [place] [phone] PCP - General Family [facility] 06/13/24 Ritu Eng NP [address] [place] [address] PCP - [facility] 05/14/24 Ritu Eng NP [address] [place] [address] Nurse Practitioner Family Medicine 02/22/24 Patient Intake Coordinator Relationship Specialty Start Date End Date Jacob Moore MD [address] [place] [address] PCP - [facility] 06/13/24 Ritu Eng NP [address] [place] [address] PCP [facility] 05/14/24 Ritu Eng NP [address] [place] [address] Nurse Practitioner Family Medicine 02/22/24 Patient Intake Coordinator Relationship Specialty Start Date End Date Jacob Moore MD [address] [place] [address] PCP - [facility] 06/13/24 Ritu Eng NP [address] [place] [address] PCP [facility] 05/14/24 Ritu Eng NP [address] [place] [address] Nurse Practitioner Family Medicine 02/22/24 Patient Intake Coordinator Relationship Specialty Start Date End Date Jacob Moore MD [address] [place] [address] PCP - [facility] 06/13/24 Ritu Eng NP [address] [place] [address] PCP [facility] 05/14/24 Ritu Eng NP [address] [place] [address] Nurse Practitioner [facility] 02/22/24 Patient Intake Coordinator Relationship Specialty Start Date End Date Jacob Moore MD [address] [place] [phone] PCP - [facility] 06/13/24 Ritu Eng NP [address] [place] [address] PCP [facility] 05/14/24 Ritu Eng NP [address] [place] [address] Nurse Practitioner Family Medicine 02/22/24 Patient Intake Coordinator Relationship Specialty Start Date End Date Jacob Moore MD [address] [place] [address] PCP - General Family Medicine 06/13/24 Ritu Eng NP [address] [place] [address] PCP - [facility] 05/14/24 Ritu Eng NP [address] [place] [address] Nurse Practitioner Family Medicine 02/22/24 Patient Intake Coordinator Relationship Specialty Start Date End Date Jacob Moore MD [address] [place] [address] PCP - General Family Medicine 02/22/24 Ritu Eng NP [address] [place] [address] Nurse Practitioner Family Medicine 02/22/24 Patient Intake Coordinator Relationship Specialty Start Date End Date Jacob Moore MD [address] [place] [phone] PCP - General Family Medicine 02/22/24 Ritu Eng NP [address] [place] [address] Nurse Practitioner Family Medicine 02/22/24 Patient Intake Coordinator Relationship Specialty Start Date End Date Jacob Moore MD [address] [place] [address] PCP - General Family Medicine 02/22/24 Ritu Eng NP [address] [place] [address] Nurse Practitioner Family Medicine 02/22/24 Patient Intake Coordinator Relationship Specialty Start Date End Date Jacob Moore MD [address] [place] [address] PCP - General Family Medicine 02/22/24 Ritu Eng NP [address] [place] [address] Nurse Practitioner Family Medicine 02/22/24 Patient Intake Coordinator Relationship Specialty Start Date End Date Jacob Moore MD [address] [place] [phone] PCP - General Family Medicine 06/13/24 Ritu Eng NP [address] [place] [address] [facility] 05/14/24 Ritu Eng NP [address] [place] [address] Nurse Practitioner Family Medicine 02/22/24 Dereck Bland MA Family Medicine 08/29/24 Patient Intake Coordinator Relationship Specialty Start Date End Date Jacob Moore MD [address] [place] [address] PCP - General Family Medicine 06/13/24 Ritu Eng NP [address] [place] [phone] PCP - [facility] 05/14/24 Ritu Eng NP [address] [place] [address] Nurse Practitioner Family Medicine 02/22/24 Dereck Bland MA Family Medicine 08/29/24 Reason for Visit (unrecogniz ed section and content) Reason Comments Gynecologic Exam Reason Comments Med Refill FOR RECORDS PERTAINING TO PATIENTS WHO ARE [...] BE BASED ON THE PRIMARY CLINICAL RECORDS. [employer] provides no warranty or guarantee of the accuracy or completeness of information in this document.
--- NOTE | 2024-10-22 10:00 | CA_ITS ---
Patient Name: VILMA RICHARDSON MR#: [id number] : 1970 Exam Date: 10/22/2024 Ordering Doctor: DR MARTINE LUCAS M.D. ECHOCARDIOGRAM REPORT PROCEDURE: CA ECHO DOPPLER COMPLETE INDICATIONS: Palpitations, hypertension, smoker, emphysema COMPARISON: None. DESCRIPTION: COMPLETE ECHOCARDIOGRAM Real-time transthoracic echocardiography with 2D, M-mode, spectral and color flow Doppler performed. QUALITY: Technical quality was good. LEFT VENTRICLE: Normal chamber size. Mild concentric left ventricular hypertrophy. Normal systolic function. LV EF: Normal left ventricular ejection fraction, (>55%). DIASTOLIC: Normal diastolic function. ATRIAL SEPTUM: Visually appears intact. LEFT ATRIUM: Normal chamber size. RIGHT ATRIUM: Normal chamber size. RIGHT VENTRICLE: Normal chamber size. Normal right ventricular systolic function. TRICUSPID VALVE: Normal mobility and thickness. No stenosis with no regurgitation. Unable to assess right-sided pressures due to lack of measurable tricuspid regurgitation. MITRAL VALVE: Normal mobility and thickness. No evidence of mitral valve stenosis. There is no mitral annular calcification. No mitral regurgitation. AORTIC VALVE: Normal trileaflet appearance. No visible sclerosis. Normal leaflet mobility. No evidence of aortic valve stenosis. No aortic regurgitation. AORTIC ROOT: Normal diameter and appearance. Ascending aorta is normal in size. PULMONIC VALVE: Not well visualized. No stenosis. No regurgitation. PERICARDIUM: No evidence of pericardial effusion. IVC: Collapses with inspirations. PLEURA: CONCLUSION: 1. Mild concentric left ventricular hypertrophy with normal systolic function. LVEF is 55-60%. 2. Normal right ventricular size and systolic function. 3. No significant valvular dysfunction. 4. Unable to assess right-sided pressures due to lack of measurable tricuspid regurgitation. Adult Echocardiography Procedure Report Left Ventricle LVEDD (3.7 - 5.6 cm): 4.12 cm LVESD (2.2 - 4.0 cm): 3.01 cm LVIVS thickness (0.6 - 1.2 cm): 1.23 cm LVPW thickness (0.5 - 1.0 cm): 1.22 cm e': 0.10 m/s E - e': 5.92 LVOT Max Gradient: 4.22 mm[Hg] LVOT Area (cm2): 1.03 m/s Peak Velocity (LVOT): 1.03 m/s Mean Velocity (LVOT): 0.63 m/s LVOT Diameter 2.51 cm Left Atrium LA Volume Index (2D A2C): 23.36 ml/m2 Left Atrium Systolic Dimension: 3.46 cm Mitral Valve MV E to A Ratio: 0.82 Mitral Valve A-Wave Peak Velocity: 0.73 m/s Mitral Valve E-Wave Peak Velocity: 0.60 m/s Right Ventricle Aorta AO Root Diam: 3.44 cm Ascending Ao Diam: 2.90 cm Aortic Valve AoV Area (Peak Miki): 4.64 cm2, 4.64 cm2 AoV Area (VTI): 4.20 cm2, 4.20 cm2 Peak Velocity(Antegrade Flow): 1.09 m/s Peak Gradient(Antegrade Flow): 4.76 mm[Hg] Mean Velocity(Antegrade Flow): 0.66 m/s Mean Gradient(Antegrade Flow): 2.18 mm[Hg] Velocity Time Integral: 25.34 cm Tricuspid Valve Pulmonic Valve Mean Gradient: 1.48 mm[Hg] Mean Velocity: 0.56 m/s Peak Velocity: 0.84 m/s, 0.72 m/s Peak Gradient: 2.09 mm[Hg], 2.85 mm[Hg] Right Atrium Right Atrium Systolic Pressure: 21.98 ml, 21.98 ml Dictated by: Martine Lucas M.D. on 10/22/2024 at 20:23 Approved by: Martine Lucas M.D. on 10/22/2024 at 20:27
== END 2024-10-22 09:56 | disposition home or self-care (01) ==
LOC: CARD 09:55
PROVIDERS: PCP Nurse Practitioner; Visit Provider Internal Medicine Interventional Cardiology
DX: I47.29 Other ventricular tachycardia (principal); R94.31 Abnormal electrocardiogram [ECG] [EKG]; R00.2 Palpitations; I49.3 Ventricular premature depolarization
CPT/HCPCS: 93017; 93306

== ENCOUNTER 2025-06-25 11:55 | Outpatient (OUT) | payer OTHER, SELFPAY ==
--- NOTE | 2025-06-25 | MM_ITS ---
Patient Name: VILMA RICHARDSON MR#: [id number] : 1970 Exam Date: 06/25/2025 Ordering Doctor: GUZMAN BANKS CNP RADIOLOGY REPORT PROCEDURE: MM TOMOSYNTHESIS SCREENING BI COMPARISON: MM TOMOSYNTHESIS SCREENING BI, 03/13/2024. MG MAMM SCREEN 3D AARON CAD, 07/12/2022. MG MAMM SCREEN 3D AARON CAD, 06/07/2021. MG MAMM SCREEN AARON W CAD, 05/16/2017. INDICATIONS: Screening mammogram Calculator Name NCI Breast Cancer Risk Assessment Tool 5 Year Breast Cancer Risk 0.80% Lifetime Breast Cancer Risk 6.10% Personal Breast Cancer No Personal Ovarian Cancer No Treatments None Family Cancers Grandmother-maternal with breast cancer at age 53. LOCATION: [facility] BREAST COMPOSITION: The breasts are heterogeneously dense, which may obscure small masses. FINDINGS: RIGHT BREAST: No significant suspicious finding. Benign-appearing calcifications are present. LEFT BREAST: No significant suspicious finding. Similar focal asymmetries are present. DIAGNOSTIC CATEGORY 2--BENIGN FINDING. NO CHANGE FROM COMPARISON. RECOMMENDATIONS: ROUTINE MAMMOGRAM AND CLINICAL EVALUATION IN 12 MONTHS. Dictated by: Samuel Anne MD on 06/25/2025 at 16:20 Approved by: Samuel Anne MD on 06/25/2025 at 16:26
--- OUTSIDE RECORDS SUMMARY | 2025-06-25 12:00 | XMS_ITS | Clinical Summary ---
Author Organization [facility] Address [address], [address] [place] [address] Care Team Providers Care Family And Marriage Counsellor Name Role Phone Unavailable Primary Care Provider Unavailabl e Medications MedicationSigDispense QuantityRefillsLast FilledStart DateEnd DateStatus lisinopril-hydrochlorothiazide (PRINZIDE;ZESTORETIC) 20-12.5 MG per tablet Take 1 tablet by mouth 2 times daily 60 tablet ctive Social History Tobacco UseTypesPacks/DayYears UsedDateSmoking Tobacco: Never Assessed CommentsUnknownSex and Gender InformationValueDate RecordedSex Assigned at Not on fileLegal GtfBsrxfn59/10/2013 6:55 PM ESTGender IdentityNot on fileSexual OrientationNot on file Plan of Treatment Health MaintenanceDue DateLast DoneCommentsDepression Llihak1409/04/1982HIV screen 1985Hepatitis C lhppmy9109/04/1988Hepatitis B vaccine (1 of 3 - 19+ 3-dose series)1989Pap smear1991Cervical cancer jwyyjt0909/04/2000HPV (without or with Pap)2000Breast cancer vkkmcx0809/04/20106589Jjzhnx07/22/2011Colonoscopy 2015Colorectal Cancer Gdrllk0009/04/2015FIT/FOBT: Average risk2015 Fecal-DNA (Cologuard): Average risk2015Sigmoidoscopy/CT colonography 2015Pneumococcal 50+ years Vaccine (1 of 1 - PCV)2020hingles vaccine (1 of 2)2020Flu vaccine (#1)5COVID-19 Vaccine (3 - season)505/11/2020, 1DTaP/Tdap/Td vaccine (2 - Td or Tdap) Hepatitis A vaccineAged OutNo longer eligible based on patient's age to complete this topicHib vaccineAged OutNo longer eligible based on patient's age to complete this topicMeningococcal (ACWY) vaccineAged OutNo longer eligible based on patient's age to complete this topicMeningococcal B vaccineAged OutNo longer eligible based on patient's age to complete this topic Polio vaccineAged OutNo longer eligible based on patient's age to complete this topic
--- OUTSIDE RECORDS SUMMARY | 2025-06-25 12:00 | XMS_ITS | Clinical Summary ---
Author Organization [facility] Address [address] [place] [address] Care Team Providers Care Gold Plater Name Role Phone Ritu Eng MD Primary Care Provider [phone] Allergies Active AllergyReactionsCriticalityNoted DateCommentsMetaproterenolHives,Unknown 06/05/2024 As a child Sulfa (Sulfonamide Antibiotics)PkzcuAdty79/19/2022 Hives, very hot feeling. Medications MedicationSigDispense QuantityRefillsLast FilledStart DateEnd DateStatus simvastatin (Zocor) 40 mg tablet Take 40 mg by mouth at bedtime.07/16/2024ctive montelukast (Singulair) 10 mg tablet 1 (one) time each day at the same time.Active lisinopriL-hydrochlorothiazide 20-12.5 mg tablet Take 1 tablet by mouth in the morning.Active gabapentin (Neurontin) 300 mg capsule Take 300 mg by mouth in the morning.06/05/2024ctive cetirizine (ZyrTEC) 10 mg tablet Take 1 tablet by mouth in the morning.10/14/2024tive metoprolol succinate XL (Toprol-XL) 50 mg 24 hr tablet Indications:Primary hypertension,PVC (premature ventricular contraction), Nonsustained ventricular tachycardia (CMS/HCC)Take 1 tablet (50 mg) by mouth in the morning. Do not crush or chew. 90 tablet ctive Active Problems ProblemNoted DateDiagnosed DateTobacco ryrfwkkcwp29/18/2025Stage 3b chronic kidney sqdqgys5709/23/2024bnormal Holter monitor rlcdbbx9307/04/2024Needs flu shot 06/05/2024Elevated qsjgkhq7503/13/2024olon cancer lhbfumyys35/11/2024Fibromyalgia 02/22/2024Irregular heart rate02/22/2024Environmental and seasonal allergies 10/05/2023Seizure-like /22/2024Unspecified igzmlzorlah15/22/2024 Centrilobular eprkzqkry73/02/2024Mixed kecnqemfqeynvr10/23/2023rimary wwmdwxjutgwb30/23/2023Osteoarthritis of left hip01/27/2022ain in both hands 05/19/2017 Family History Medical HistoryRelationNameCommentsHeart attackFatherAtrial fibrillationMother RelationNameStatusCommentsFatherDeceasedMotherAlive Social History Tobacco UseTypesPacks/DayYears UsedDateSmoking Tobacco: Every DayCigarettes Smokeless Tobacco: Never Tobacco Cessation:Ready to Q uit: Not Asked; Counseling Given: Not Answered Alcohol UseStandard Drinks/WeekCommentsYes0 (1 standard drink = 0.6 oz pure alcohol)occasionallyCommentsUnknownSex and Gender InformationValueDate RecordedSex Assigned at BirthNot on fileLegal JqcWuuxre59/29/2022 9:07 PM EDT Gender IdentityNot on fileSexual OrientationNot on file Last Filed Vital Signs Vital SignReadingTime TakenCommentsBlood Xnkowmmb562/8711/08/2024 1:13 PM EDT Bcfxv784611/08/2024 1:13 PM EDTTemperature--Respiratory Rate--Oxygen Noayuhouip94% 11/08/2024 1:13 PM EDTInhaled Oxygen Concentration--Rhocpt51.3 kg (177 lb) 11/08/2024 1:13 PM DRHSftnnm597.1 cm (5' 5 )11/08/2024 1:13 PM EDTBody Mass Index29.45011/08/2024 1:13 PM EDT Plan of Treatment Health MaintenanceDue DateLast DoneCommentsCT Wxydvvfwfxoz31/22/1971FIT-DNA 1970FIT1970FOBT1970 9243Sivkqgpiifjmx41/22/1971Depression Screening 1982Hepatitis B Vaccines (1 of 3 - 19+ 3-dose series)1989Pap Smear 1991Cervical Cancer Rojglsbqt62/22/2001HPV/Cmrifx5709/04/2000Mammogram 2010Pneumococcal Vaccine: Pediatrics (0 to 5 Years) and At-Risk Patients (6 to 64 Years) (2 of 2 - PCV)/10/2018, 04/30/2011Zoster Vaccines (2 of 2)OVID-19 Vaccine (4 - season)2025 08/27/2021, 12/15/2020, 11/17/2020Influenza Vaccine (#1), 06/05/2024, 06/04/2022, Additional history existsAdult Ahxseyw6901/08/2030 01/09/2020, 02/21/20009746Rxbidhzndtb24/18/98739508/31/2023, 07/01/2024olorectal Cancer Pngfprrql39/18/2034HIB VaccinesAged OutNo longer eligible based on patient's age to complete this topicHPV VaccinesAged OutNo longer eligible based on patient's age to complete this topicIPV VaccinesAged OutNo longer eligible based on patient's age to complete this topicMeningococcal B VaccineAged OutNo longer eligible based on patient's age to complete this topicMeningococcal VaccineAged OutNo longer eligible based on patient's age to complete this topic Rotavirus VaccinesAged OutNo longer eligible based on patient's age to complete this topic Insurance Care Teams Team MemberRelationshipSpecialtyStart DateEnd Date Ritu Eng MD [address] [place] [address] PCP - GeneralNurse Practitioner09/20/24
--- OUTSIDE RECORDS SUMMARY | 2025-06-25 12:00 | XMS_ITS | Clinical Summary ---
Author Organization [facility] Address [address] [place] [address] Care Team Providers Care Locomotive Switch Operator Name Role Phone Ritu Eng MARINE PIPEFITTER Unavailable [phone] Jacob Moore MD Primary Care Provider [phone] Ritu Eng MARINE PIPEFITTER Unavailable [phone] Allergies Active AllergyReactionsCriticalityNoted DateCommentsMetaproterenolUnknown 06/05/2024Sulfa QvhdezkmerlVlzzmEyqo55/19/2022 Hives, very hot feeling. Medications MedicationSigDispense QuantityRefillsLast FilledStart DateEnd DateStatus gabapentin (Neurontin) 300 MG capsule Indications:FibromyalgiaTake 1 capsule (300 mg) by mouth Daily 90 capsule ctive cetirizine (ZyrTEC) 10 MG tablet Indications:Urticaria, unspecified,UrticariaTake 1 tablet (10 mg) by mouth Daily 90 tablet ctive lisinopril-hydroCHLOROthiazide 20-12.5 MG tablet Indications:Primary hypertensionTake 1 tablet by mouth in the morning. 90 tablet ctive simvastatin (Zocor) 40 MG tablet Indications:Mixed hyperlipidemiaTake 1 tablet (40 mg) by mouth at bedtime 90 tablet ctive albuterol HFA 90 mcg/act inhaler Indications:Centrilobular emphysema (HCC)Inhale 2 puffs every 6 (six) hours if needed for wheezing or shortness of breath 18 g ctive metoprolol succinate XL (Toprol-XL) 25 MG 24 hr tablet Take 25 mg by mouth in the morning./ctive Active Problems ProblemNoted DateDiagnosed DateTobacco nasdqjczjv75/ Assessment & Plan (10/01/2024 7:05 AM EST): The patient has been advised of the risks of continued smoking: stroke, [place], all forms of cancer, lung disease, and . Options for quitting smoking include: cold turkey, hypnosis, acupuncture, nicotine replacement meds(gum, lozenges, and patches), Buproprion, and Varenicline. At this time pt is encouraged to evaluate their goals for wanting to quit smoking, and reach out toprovider when ready to start this process Chronic kidney disease, stage 3b09/23/2024 Assessment & Plan (10/01/2024 2:37 PM EST): Monitor labs Well woman exam with routine gynecological exam07/16/2024 Assessment & Plan (07/16/2024 6:54 AM EST): Reviewed Ht/Wt/BMI Recommend eye exam yearly Recommend dental exams twice a year Balance work/leisure activities Exercises is recommended most days of the week (appropriate as chronic conditions allow) Follow up yearly and prn Thin prep: fu pap per results indicates Abnormal Holter monitor yvqdyiq7507/04/2024Needs flu shot06/05/2024Elevated kyapwma1103/13/2024olon cancer edcdonzjv18/11/2024Encounter for screening mammogram for malignant neoplasm of haqdms9502/22/20246533Zwfitzwywtzi21/11/2024 Assessment & Plan (06/05/2024 1:32 PM EDT): Continue claudette OARRS reviewed Irregular heart rate02/22/2024 Assessment & Plan (10/01/2024 2:37 PM EST): Continue with cardiology Assessment & Plan (06/05/2024 1:32 PM EDT): Order holter Fu in 4 weeks Assessment & Plan (02/22/2024 5:38 PM EDT): Suspect possible a fib vs ST w ectopic beats Pt can feel some palpitations, this is new for her, mother w hx of afib as well Is clinically stable, however will send to the ER for evaluation Environmental and seasonal itcuzhhki68/22/2024Unspecified nsdwfiufhny11/22/2024 Assessment & Plan (10/01/2024 2:36 PM EST): No hx of seizures, happen once a year ago During a stressful time in her life Centrilobular xhrvauxbz14/02/2024 Assessment & Plan (06/05/2024 1:30 PM EDT): Continue albuterol inhaler Recommend quitting smoking Assessment & Plan (02/22/2024 5:37 PM EDT): Doing well no acute dyspnea or productive cough Primary zzscqitxpgnj00/23/2023 Overview (10/31/2024): Stress test 10/30/24: normal Assessment & Plan (10/01/2024 7:05 AM EST): Please check blood pressure daily and record DASH diet Limit caffeine Take medication as directed Contact office if chest pain, pressure, dizziness, shortness of breath, swelling legs Recommend slow position changes Current meds: keeley, hydrochlorothiazide, b poornima Assessment & Plan (06/05/2024 1:32 PM EDT): No changes to blood pressure meds Assessment & Plan (02/22/2024 5:37 PM EDT): Continue current meds, check labs Mixed /23/2023Osteoarthritis of left hip2Pain in both hands05/19/2017 Immunizations ImmunizationAdministration DatesNext DueInfluenza, injectable, MDCK, preservative free, dsvdcgyhawaw63/23/2024Influenza, injectable, quadrivalent, preservative free06/04/2022,05/06/2021,04/15/2020,04/09/2019,05/09/2018 Influenza, seasonal, ezmserzvgz47/19/2011Pneumococcal Polysaccharide PPSV23 04/16/2019,04/30/2011Td (adult), jsmfkakqgbj03/10/7037Lbyt46/28/2020Zoster, Ljtpbvnxhsm63/24/2021 Social History Tobacco UseTypesPacks/DayYears UsedDateSmoking Tobacco: Every DayCigarettes Passive Smoke Exposure: CurrentSmokeless Tobacco: Never Tobacco Cessation:Ready to Q uit: No; Counseling Given: Yes Alcohol UseStandard Drinks/WeekCommentsYes6 (1 standard drink = 0.6 oz pure alcohol)caffine: 2 [id number] Health LiteracyAnswerDate RecordedHow often do you need to have someone help you when you read instructions, pamphlets, or other written material from your doctor or pharmacy?Never08/30/2024Humiliation, Afraid, Rape, and Kick questionnaireAnswerDate RecordedWithin the last year, have you been afraid of your partner or ex-partner?No08/30/2024Within the last year, have you been humiliated or emotionally abused in other ways by your partner or ex-partner?No08/30/2024Within the last year, have you been kicked, hit, slapped, or otherwise physically hurt by your partner or ex-partner?No 08/30/2024Within the last year, have you been raped or forced to have any kind of sexual activity by your partner or ex-partner?No08/30/2024Social Connection and Isolation PanelAnswerDate RecordedIn a typical week, how many times do you talk on the phone with family, friends, or neighbors?More than three times a week08/30/2024How often do you get together with friends or relatives?Once a week08/30/2024How often do you attend yarsanism or tenriism services?Never 08/30/2024Do you belong to any clubs or organizations such as yarsanism groups, unions, fraternal or athletic groups, or school groups?No08/30/2024How often do you attend meetings of the clubs or organizations you belong to?Never08/30/2024 Are you , , , , never , or living with a partner?Fubthxs2108/30/2024UDIT-CAnswerDate RecordedQ1: How often do you have a drink containing alcohol?2-3 times a week08/30/2024Q2: How many drinks containing alcohol do you have on a typical day when you are drinking?5 or 6 08/30/2024Q3: How often do you have six or more drinks on one occasion?Weekly 08/30/2024Overall Financial Resource Strain (CARDIA)AnswerDate RecordedHow hard is it for you to pay for the very basics like food, housing, medical care, and heating?Not hard at all08/30/2024PHQ-2AnswerDate RecordedPatient Health Questionnaire-2 Qszfc908Finlake[facility] [place] [facility] Occup[facility] - Occupational Stress QuestionnaireAnswerDate RecordedDo you feel stress - tense, restless, nervous, or anxious, or unable to sleep at night because yourmind is troubled all the time - these days?To some haqgsi4508/30/2024Exercise Vital Sign AnswerDate RecordedOn average, how many days per week do you engage in moderate to strenuous exercise (like a brisk walk)?0 days08/30/2024On average, how many minutes do you engage in exercise at this level?0 min08/30/2024Hunger Vital Sign AnswerDate RecordedWithin the past 12 months, you worried that your food would run out before you got the money to buymore.Never true08/30/2024Within the past 12 months, the food you bought just didn't last and you didn't have money to get more.Never true08/30/2024PRAPARE - TransportationAnswerDate RecordedIn the past 12 months, has lack of transportation kept you from medical appointments or from getting medications?No08/30/2024In the past 12 months, has lack of transportation kept you from meetings, work, or from getting things needed for daily living?No08/30/2024Housing Stability Vital SignAnswerDate RecordedIn the last 12 months, was there a time when you were not able to pay the mortgage or rent on time?No08/30/2024In the past 12 months, how many times have you moved where you were living?t any time in the past 12 months, were you homeless or living in a retirement (including now)?No08/30/2024Comments UnknownSex and Gender InformationValueDate RecordedSex Assigned at BirthNot on fileLegal BpaIoxdao94/28/2023 3:53 PM EDTGender IdentityNot on fileSexual OrientationNot on file Last Filed Vital Signs Vital SignReadingTime TakenCommentsBlood Avfharmy605/8210/01/2024 2:08 PM EST Rsyuh663110/01/2024 2:08 PM GEOBaurbwicjnl16.9 ??C (98.5 ??F)10/01/2024 2:08 PM ESTRespiratory Qrol651110/01/2024 2:08 PM ESTOxygen Pbxwkhxqln89%10/01/2024 2:08 PM ESTInhaled Oxygen Concentration--Oozmab62.9 kg (176 lb 3.2 oz)10/01/2024 2:08 PM RTTKlnnig566.6 cm (5' 4 )10/01/2024 2:08 PM ESTBody Mass Index30.24010/01/2024 2:08 PM EST Plan of Treatment Health MaintenanceDue DateLast DoneCommentsCT Jvgbuyzmsotn36/22/1971FIT 1970FOBT1970 3575Liwmcqpwffmvm27/22/1971HPV/Rvyqdn0209/04/2000Pneumococcal Vaccine: Pediatrics (0 to 5 Years) and At-Risk Patients (6 to 64 Years) (2 of 2 - PCV)/10/2018, 04/30/2011FIT-DNA/Mammogram 5003/13/2024, 03/13/2024OVID-19 Vaccine ( season)2025 08/27/2021, 12/15/2020, 11/17/2020Influenza Vaccine (#1), 06/04/2022, 05/06/2021, Additional history existsCervical Cancer Screening 07/16/2027Pap Smear, 04/14/20176200Tfxbqftapnk31/18/2034 07/01/2024, 07/01/2024, 4Colorectal Cancer Qsyhkmdwt29/18/2034 Procedures Procedure NamePriorityDate/TimeAssociated DiagnosisCommentsMM TOMOSYNTHESIS SCREENING BI03/13/2024 12:15 PM EDT from Last 3 Months or Most Recently Relevant to Health Maintenance Results * MM TOMOSYNTHESIS SCREENING BI (03/13/2024 12:15 PM EDT)Anatomical Region LateralityModalityOtherSpecimen (Source)Anatomical Location / Laterality Collection Method / VolumeCollection TimeReceived Time03/13/2024 12:15 PM EDT Narrative 03/13/2024 12:16 PM EDT [facility] ?[address] ? [place] [id number] ? Mammography Report ? Signed ? Patient: ANABEL RICHARDSONJESUS Suarez ?MR#: [id number] ?? : 1970 ?Acct:[id number] ?? Age/Sex: 53 / F ?ADM Date: 03/13/24 ?? Loc: MAMMO ? Attending Dr: Ritu Eng MARINE PIPEFITTER ? Ordering Physician: Ritu Eng MARINE PIPEFITTER ?Results: ? Date of Service: 03/13/24 ?Follow Up: ? Procedure(s): MM tomosynthesis screening BI ?? Accession Number(s): [id number] ? cc: Ritu Eng MARINE PIPEFITTER ? Patient Name: ? VILMA HAMMER ? MR#: [id number] ? : 1970 ? Exam Date: 03/13/2024 ?? Ordering Doctor: GUZMAN Eng CNP ? RADIOLOGY REPORT ? PROCEDURE: ? MM TOMOSYNTHESIS SCREENING BI ? COMPARISON: ? MG MAMM SCREEN 3D AARON CAD, 06/07/2021. ??MG MAMM SCREEN 3D AARON ?? CAD, 07/12/2022. ? INDICATIONS: ? Screening ? Calculator Name ? NCI Breast Cancer Risk Assessment Tool ?? 5 Year Breast Cancer Risk ? 0.80% ?? Lifetime Breast Cancer Risk ? 6.20% ?? Personal Breast Cancer ?No ?? Personal Ovarian Cancer ? No ?? Treatments ? None ?? Family Cancers ? Grandmother-maternal with breast cancer at age 53. ? LOCATION: ? [facility] ? BREAST COMPOSITION: ? The breasts are heterogeneously dense,which may ?? obscure small masses. ? FINDINGS: ? DIAGNOSTIC CATEGORY 2--BENIGN FINDING. NO CHANGE FROM COMPARISON. ? Scattered benign-appearing nodules are present. ??Scattered benign-appearing ?? calcifications are present. ??Scattered benign-appearing lymph nodes are ?? present. ? RIGHT BREAST: ??No significant suspicious finding. ? LEFT BREAST: ??No significant suspicious finding. ? RECOMMENDATIONS: ? ROUTINE MAMMOGRAM AND CLINICAL EVALUATION IN 12 MONTHS. ? PLEASE NOTE: ??A NORMAL MAMMOGRAM DOES NOT EXCLUDE THE POSSIBILITY OF BREAST ?? CANCER. ??A CLINICALLY SUSPICIOUS PALPABLE LUMP SHOULD BE BIOPSIED. ? Dictated by: Seth Mary MD on 03/13/2024 at 12:06 ? Approved by: Seth Mary MD on 03/13/2024 at 12:15 ? Dictated By: ?Seth Mary M.D. ? Signed By: ?03/13/246 ? DD/ 1215 ? TD/TT: ? Head Banquet Waitress: Procedure Note Radiology, Radiologist, MD - 03/13/[address] [address] Mammography Report Signed Patient: VILMA RICHARDSON [facility]#: [id number] : 1970Acct:[id number] Age/Sex: 53 / FADM Date: 03/13/24 Loc: MAMMO Attending Dr: Ritu Eng NP Ordering Physician: Ritu Eng NPResults: Date of Service: 03/13/24Follow Up: Procedure(s): MM tomosynthesis screening BI Accession Number(s): [id number] cc: Ritu Eng MARINE PIPEFITTER Patient Name: VILMA RICHARDSON MR#: [id number] : 1970 Exam Date: 03/13/2024 Ordering Doctor: GUZMAN Eng CNP RADIOLOGY REPORT PROCEDURE: MM TOMOSYNTHESIS SCREENING BI COMPARISON: MG MAMM SCREEN 3D AARON CAD, 06/07/2021. MG MAMM SCREEN 3DBIL CAD, 07/12/2022. INDICATIONS: Screening Calculator Name NCI Breast Cancer Risk Assessment Tool 5 Year Breast Cancer Risk 0.80% Lifetime Breast Cancer Risk 6.20% Personal Breast Cancer No Personal Ovarian Cancer No Treatments None Family Cancers Grandmother-maternal with breast cancer at age 53. LOCATION: [facility] BREAST COMPOSITION: The breasts are heterogeneously dense,which may obscure small masses. FINDINGS: DIAGNOSTIC CATEGORY 2--BENIGN FINDING. NO CHANGE FROM COMPARISON. Scattered benign-appearing nodules are present. Scatteredbenign-appearing calcifications are present. Scattered benign-appearing lymph nodes are present. RIGHT BREAST: No significant suspicious finding. LEFT BREAST: No significant suspicious finding. RECOMMENDATIONS: ROUTINE MAMMOGRAM AND CLINICAL EVALUATION IN 12 MONTHS. PLEASE NOTE: A NORMAL MAMMOGRAM DOES NOT EXCLUDE THE POSSIBILITY OFBREAST CANCER. A CLINICALLY SUSPICIOUS PALPABLE LUMP SHOULD BE BIOPSIED. Dictated by: Seth Mary MD on 03/13/2024 at 12:06 Approved by: Seth Mary MD on 03/13/2024 at 12:15 Dictated By: Seth Mary M.D. Signed By:03/13/24 1216 DD/ 1215 TD/TT: Head Banquet Waitress: Authorizing ProviderResult TypeResult StatusLisa Albertina NPCLINISYNC IMAGING Final Result from Last 3 Months or Most Recently Relevant to Health Maintenance Insurance Care Teams Team MemberRelationshipSpecialtyStart DateEnd Date Jacob Moore MD PCP - Generalmi Oedpsqzn54/31/24 Ritu Eng NP [address] [place] [address] PCP - [facility]05/14/24 Ritu Eng NP Nurse PractitionerFami Medicine02/22/24
--- OUTSIDE RECORDS SUMMARY | 2025-06-25 12:00 | XMS_ITS | Clinical Summary ---
Author Organization [facility] tem Address [id number] [address] [place] [address] Care Team Providers Care Landfill Gas Plant Field Technician Name Role Phone Ritu Eng APRN-TAPE DECK INSTALLER Primary Care Provider Allergies Active AllergyReactionsCriticalityNoted DateCommentsMetaproterenolHives 06/05/2024 As a child Sulfa (Sulfonamide Antibiotics)HfjzlGidp03/19/2022 Hives, very hot feeling. Medications MedicationSigDispense QuantityRefillsLast FilledStart DateEnd DateStatus lisinopril-hydrochlorothiazide (PRINZIDE,ZESTORETIC) 10-12.5 mg per tablet Take 1 tablet by mouth in the morning.Active simvastatin (ZOCOR) 10 mg tablet Take 4 tablets (40 mg total) by mouth nightly.Active gabapentin (NEURONTIN) 300 mg capsule Take 1 capsule (300 mg total) by mouth in the morning.Active albuterol (PROVENTIL,VENTOLIN) 2.5 mg /3 mL (0.083 %) nebulizer solution Inhale 3 mL (2.5 mg total) by nebulization every 6 (six) hours as needed for wheezing.Active albuterol (PROVENTIL HFA;VENTOLIN HFA) 90 mcg/actuation inhaler Inhale 2 puffs every 6 (six) hours as needed for wheezing or shortness of breath.Active acetaminophen (TYLENOL EXTRA STRENGTH) 500 mg tablet Take 2 tablets (1,000 mg total) by mouth every 6 (six) hours. 30 tablet 01/28/2022ctive cetirizine (ZyrTEC) 10 mg tablet Take 1 tablet (10 mg total) by mouth in the morning.Active Active Problems ProblemNoted DateDiagnosed DateSeizure-like rdpnrzuo25/22/2024entrilobular zokdzcxox37/02/2024Mixed hbnsduxspqseim33/23/2023rimary zaliidconpif68/23/2023 Osteoarthritis of left hip01/27/2022 Immunizations ImmunizationAdministration DatesNext DueCOVID-19, mRNA, LNP-S, PF, 100mcg/0.5mL Dose12/15/2020,11/17/2020Tdap01/09/2020 Family History Medical HistoryRelationNameCommentsNo Known ProblemsBrotherHeart attackFather Heart diseaseMotherMental illnessMotherNo Known ProblemsSisterRelationNameStatus CommentsBrotherFatherMotherSister Social History Tobacco UseTypesPacks/DayYears UsedDateSmoking Tobacco: Every DayCigarettes Smokeless Tobacco: Never Tobacco Cessation:Ready to Q uit: Not Asked; Counseling Given: Not Answered Alcohol UseStandard Drinks/WeekCommentsYes6 (1 standard drink = 0.6 oz pure alcohol)[facility] UtilitiesAnswerDate RecordedIn the past 12 months has the [employer], gas, oil, or water [place] threatened to shut off services in your home?No 10/05/2023UDIT-CAnswerDate RecordedQ1: How often do you have a drink containing alcohol?2-4 times a month01/27/2022Q2: How many drinks containing alcohol do you have on a typical day when you are drinking?5 or 6001/27/2022Q3: How often do you have six or more drinks on one occasion?Voywlta8701/27/2022verall Financial Resource Strain (CARDIA)AnswerDate RecordedHow hard is it for you to pay for the very basics like food, housing, medical care, and heating?Not very hard 01/27/2022RAPARE - TransportationAnswerDate RecordedIn the past 12 months, has lack of transportation kept you from medical appointments or from getting medications?No10/05/2023In the past 12 months, has lack of transportation kept you from meetings, work, or from getting things needed for daily living?No 10/05/2023Housing InstabilityAnswerDate RecordedAre you worried or concerned that in the next two months you may not have stable housing that you own, rent or stay in as a part of a household?No4ChildcareAnswerDate Recorded VvshzokszUdqntwy64/12/2019EmploymentAnswerDate RecordedEmploymentUnknown 01/23/2019Hunger ScreeningAnswerDate RecordedWithin the past 12 months we worried whether our food would run out before we got money to buy more.Never True10/05/2023Within the past 12 months the food we bought just didn't last and we didn't have money to get more.Never True10/05/2023urpose - LifeAnswerDate RecordedI have a purpose and direction in my life.Strongly Agree01/27/2022 CommentsNoSex and Gender InformationValueDate RecordedSex Assigned at BirthNot on fileLegal VxiRpqybh85/06/2015 11:21 AM EDTGender IdentityNot on file Sexual OrientationNot on file Last Filed Vital Signs Vital SignReadingTime TakenCommentsBlood Hrfzjvkz216/7707/01/2024 9:25 AM EST Opldl823007/01/2024 9:25 AM NDCVaghkhhokuu67.3 ??C (97.3 ??F)07/01/2024 6:54 AM ESTRespiratory Jdas116008/31/2023 9:25 AM ESTOxygen Yyabrpvrht63%07/01/2024 9:25 AM ESTInhaled Oxygen Concentration--Uhfvym43.8 kg (165 lb)07/01/2024 6:54 AM EST Edijtj413.6 cm (5' 6 )07/01/2024 6:54 AM ESTBody Mass Index26.6307/01/2024 6:54 AM EST Plan of Treatment Health MaintenanceDue DateLast DoneCommentsTobacco Iashbejgkr35/22/1971 Depression Kemmjhzhj58/22/1983Adult BMI Follow Up Plan1988Pap Smear 1991Zoster (Shingles) Vaccine (2 of 2)/OVID-19 Vaccine ( season)501/, 12/15/2020, 11/17/2020Influenza Czahdld89, 06/04/2022, 05/06/2021, Additional history exists Adult BMI Nthhxsock56Tobacco Vprzoasht14 DTaP,Tdap and Td Vaccines (2 - Td or Tdap), 02/21/2000 Jefrvvbxbef24, 07/01/2024 Goals GoalPatient Goal TypeAssociated ProblemsRecent ProgressPatient-Stated?Author home Regi Landa LSW Note: Evaluation of progress towards goal: pt will return home with self care and support from . Medical Devices ImplantedTypeAreaManufacturerDevice IdentifierShelf Expiration DateModel / Serial / LotPlug Dome Hl Mpact Actb Scr Shl - [id number] Implanted:Qty: 1 on 01/27/2022 [facility]: HipMEDACTA INTL.31.55TP / / [id number] Actb 54mm Hip Cmntls 2 Hl Mdlr Mpact E Hmsphr - [id number] Implanted:Qty: 1 on 01/27/2022 by [facility] ImplantLeft: HipMEDACTA INTL.32.154DH / / [id number] Actb 36mm E Uhmwpe [place] Flt Hd Mpact Hip Ns - [id number] Implanted:Qty: 1 on 01/27/2022 by [facility] Im[facility]Left: HipMEDACTA INTL.32.3644HCT / / [id number] Fem 8 2 Tpr Flt [employer] Mectagrip Hip Lateralize - [id number] Implanted:Qty: 1 on 01/27/2022 by [facility]Left: HipMEDACTA INTL1.39. / / [id number] Fem 36mm Sm Mectacer Blx D Hip - [id number] Implanted:Qty: 1 on 01/27/2022 by [facility] Im[facility]Left: HipMEDACTA INTL.29. / / Procedures Procedure NamePriorityDate/TimeAssociated DiagnosisCommentsPROVATION COLONOSCOPY Mqwoyyb2707/01/2024 8:00 AM EST from Last 3 Months or Most Recently Relevant to Health Maintenance Results * Colonoscopy Report (07/01/2024 8:00 AM EST)Specimen (Source)Anatomical Location / LateralityCollection Method / VolumeCollection TimeReceived Time Narrative SYSTEMGENERATED, DOCUMENTATION - 07/01/2024 8:00 AM EST This order has been auto-finalized for image and report archival in PACs. *For full report details, please reach out to your physician. ??This image is visible to you in MyChart.* Authorizing ProviderResult TypeResult StatusMennatangie Ash MDIMG OR IMG ORDERABLESFinal Result from Last 3 Months or Most Recently Relevant to Health Maintenance Insurance Advance Directives * Full Code (Latest Code Status on File) Date ActivatedDate InactivatedComments10/05/2023 3:49 AM10/05/2023 3:42 PM * Full Code Date ActivatedDate InactivatedComments01/27/2022 10:57 AM01/28/2022 3:35 PM Care Teams Team MemberRelationshipSpecialtyStart DateEnd Date Ritu Eng, JEFFY-TAPE DECK INSTALLER PCP - GeneralNurse Practitioner10/20/21
--- OUTSIDE RECORDS SUMMARY | 2025-06-25 12:00 | XMS_ITS | Patient Health Record ---
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 Name Role Phone None, Unknown or Primary Care Provider Unavailab le Allergies Allergen (clinical drug ingredient) Drug/Non Drug Allergy documented on EMR Reaction Allergy Type Onset Date Status Alupent (metaproterenol)UnknownDrug AllergyActive Reason For Referral No Information Medications Medication SIG (Take, Route, Frequency, Duration) Notes Start Date End Date Status Singulair 10 MG as directed Orally Once a day ActiveFenofibrate Micronized 200 MG1 capsule Orally Once a dayActiveAllegra Allergy 180 MG1 tablet as needed Orally Once a dayActiveAmoxicillin-Pot Clavulanate ER 875-125 MG2 tablets Orally DailyActiveAspirin 81 MG1 tablet Orally Once a dayActiveGabapentin 300 MG1 capsule Orally Once a dayActive Lisinopril-hydroCHLOROthiazide 20-12.5 MG1 tablet Orally Once a dayActive predniSONE 50 MGas directed Orally Once a dayActiveProAir HFA 108 (90 Base) MCG/ACT2 puffs as needed Inhalation every 4 hrsActiveSimvastatin 20 MG1 tablet in the evening Orally Once a dayActive Immunizations Vaccine Route Administration Date Status Comme nts Flu, (74356) -historic- Split, Prsrvtve Free, for Intradermal use Intramuscular 05/02/2011 Pending [id number] 11:30A M Pneumococcal (Pneumovax 23) Unknown 04/30/2011 Pending 30 Apr 2011 Social History Tobacco Use: Social History Observation Description Date Details (start date - stop date) Current Smoker NA - NA Tobacco Use/Smoking Question Answer Notes Patient is a current smoker Problems Problem Type SNOMED Code ICD Code Onset Dates Problem Status W/U Status Risk Notes Problem Essential hypertension (71200228 ) Essential (primary) hypertension (I10) ActiveconfirmedProblemChronic kidney disease stage 3B (disorder) (015290976) Stage 3b chronic kidney disease (N18.32)Activeconfirmed Plan Of Treatment No Information Insurance Providers Payer Name Payer Address Payer Phone Subscriber Number Group Number Insured Name Patient Relationship to Insured Coverage Start Date Coverage End Date [employer] [place] [employer] [address] [place] [address] [id number] Ashwini Medeiroself - patient is the insured Medical (General) History Medical History History ICD Code History of asthma History of hypertensionNECK ABSCESSHyperlipidemia, mixedDepression with anxiety Muscle spasms of neckBilateral carpal tunnel syndromeInsomnia, unspecified type Preoperative clearanceFibromyalgiaBMI greater than 25Left shoulder pain, unspecified chronicityHypertension benignChronic kidney disease, stage 3 (moderate)N18.3Surgical History Surgery Date(Month/Year) Surgical / procedural history BROKEN BUCKY K Tubal LigationC SectionSkin lesions: I & D NECK ABSCESS 04/2011Hospitalization History Reason Date(Month/Year) Abcess 07/2019
--- OUTSIDE RECORDS SUMMARY | 2025-06-25 12:00 | XMS_ITS | Clinical Summary ---
Author Organization [facility] Address [address] 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
--- OUTSIDE RECORDS SUMMARY | 2025-06-25 12:05 | XMS_ITS | CCD ---
Author Organization [facility] Care Team Providers Care Business Solutions Consultant Name Role Phone CASEY SAAVEDRA MD Unavailable Unavailable UNASSIGNED, DOCTOR Unavailable Unavailable CASEY SAAVEDRA MD Unavailable Unavailable UNASSIGNED, DOCTOR Unavailable Unavailable PHYSICIAN, DEFAULT Unavailable Unavailable PHYSICIAN, DEFAULT Unavailable Unavailable SHENDGE, VITHAL Unavailable Unavailable SHENDGE, VITHAL Unavailable Unavailable ERIC, GUALBERTO Unavailable Unavailable ERIC, GUALBERTO Unavailable Unavailable SC Unavailable Unavailable SHENDGE, VITHAL Unavailable Unavailable SC Unavailable Unavailable YAJAIRA MUÑIZ Unavailable Unavailable SHENDGE, VITHAL Unavailable Unavailable SHENDGE, VITHAL Unavailable Unavailable ERIC, GUALBERTO Unavailable Unavailable ERIC, GUALBERTO Unavailable Unavailable SHENDGE, VITHAL Unavailable Unavailable SC Unavailable Unavailable SONIA COBB Unavailable Unavailable SC Unavailable Unavailable AICHHOLZ, AUTOMATIC TIRE TESTER RITU Attending Unavailable AICHHOLZ, AUTOMATIC TIRE TESTER RITU Consulting Unavailable AICHHOLZ, AUTOMATIC TIRE TESTER RITU Primary Care Unavailable AICHHOLZ, AUTOMATIC TIRE TESTER RITU Admitting Unavailable AICHHOLZ, AUTOMATIC TIRE TESTER RITU Admitting Unavailable AICHHOLZ, AUTOMATIC TIRE TESTER RITU Attending Unavailable AICHHOLZ, AUTOMATIC TIRE TESTER RITU Consulting Unavailable AICHHOLZ, AUTOMATIC TIRE TESTER RITU Primary Care Unavailable DR KIP CUNNINGHAM Consulting Unavailable AICHHOLZ, AUTOMATIC TIRE TESTER RITU Admitting Unavailable AICHHOLZ, AUTOMATIC TIRE TESTER RITU Attending Unavailable AICHHOLZ, AUTOMATIC TIRE TESTER RITU Consulting Unavailable AICHHOLZ, AUTOMATIC TIRE TESTER RITU Primary Care Unavailable AICHHOLZ, AUTOMATIC TIRE TESTER RITU Admitting Unavailable AICHHOLZ, AUTOMATIC TIRE TESTER RITU Attending Unavailable AICHHOLZ, AUTOMATIC TIRE TESTER RITU Consulting Unavailable AICHHOLZ, AUTOMATIC TIRE TESTER RITU Primary Care Unavailable AICHHOLZ, AUTOMATIC TIRE TESTER RITU Attending Unavailable AICHHOLZ, AUTOMATIC TIRE TESTER RITU Consulting Unavailable AICHHOLZ, AUTOMATIC TIRE TESTER RITU Primary Care Unavailable AICHHOLZ, AUTOMATIC TIRE TESTER RITU Admitting Unavailable DR KIP CUNNINGHAM Consulting Unavailable AICHHOLZ, RITU J Primary Care Unavailable JERRELL LOPEZ Attending Unavailable VERONICA NANCY U Admitting Unavailable LYSSA RALPH Consulting Unavailable ELOY, JHON RAVI Z Consulting Unavailable JERRELL LOPEZ Attending Unavailable JERRELL LOPEZ Referring Unavailable AICHHOLZ, RITU J Primary Care Unavailable HASAN, JHON RAVI Z Attending Unavailable HASAN, JHON RAVI Z Referring Unavailable AICHHOLZ, RITU J Primary Care Unavailable Aichholz VIDEO CONFERENCE SPECIALIST, Ritu Unavailable Unallocatgavin OLVERA, Canelos Provider Primary Care Provi song HANNAH GALLEGO Attending Unavailable AICHHOLZ, RITU J Referring Unavailable AICHHOLZ, RITU J Primary Care Unavailable Jacob Moore MD Primary Care Provider Aichholz VIDEO CONFERENCE SPECIALIST, Ritu Unavailable AICHHOLEdvin, RITU J Referring Unavailable AICHHOLZ, RITU J Primary Care Unavailable CHACE MODI Admitting Unavailable CHACE MODI Attending Unavailable AICHHOLZ, RITU J Primary Care Unavailable Jacob Moore MD Primary Care Provider AICRITU MAYNARD Attending Unavailable AICHHOLZ, RITU Attending Unavailable AICHHOLZ, RITU Attending Unavailable AICHHOLZ, RITU Attending Unavailable Dereck Bland MA Unavailable Unavailable MOUKARBEL, MARTINE Attending Unavailable MOUKARBEL, MARTINE Attending Unavailable AICHHOLZ, RITU Referring Unavailable Aichholz VIDEO CONFERENCE SPECIALIST-C, Ritu J Primary Care Provider Aichholz VIDEO CONFERENCE SPECIALIST-C, Ritu J Attending Provider Jacob Moore MD Primary Care Provider Aichholz VIDEO CONFERENCE SPECIALIST, Ritu Unavailable Unallobenita OLVERA, Rachael Provider Primary Care Provi song Jacob Moore MD Primary Care Provider [phone] Aichholz VIDEO CONFERENCE SPECIALIST, Ritu Unavailable Kain CASTILLO, Jo Ann Unavailable Dereck Bland MA Unavailable Allergies Allergy ClassificationReported Allergen(s)Allergy TypeDate of OnsetReaction(s) Facility (1 source)NKA; Translations: [NKA]Propensity to adverse reactions (disorder) 28-17-7867[facility] Repository (1 source)No Known Allergies; Translations: [No Known Allergies]Propensity to adverse reactions (disorder)[facility] Repository (1 source)metaproterenolDrug Asxsoxf45-90-2363Hoe [facility] Repository (5 sources)Sulfonamides (Antibiotic); Translations: [SULFA (SULFONAMIDE ANTIBIOTICS)]Propensity to adverse reactions to drug (disorder)35-84-9358Otmve [facility] Repository (19 sources)metaproterenol; Translations: [METAPROTERENOL]Drug Bjtiqjd64-25-6869 [facility] Work Phone: (20 sources)Sulfonamides (Antibiotic)Drug Ekvarrmxiuj07-94-0301CdgjqYJFI Healthcare Medications Current Medications MedicationDrug Class(es)DatesSig (Normalized)Sig (Original)[id number] 200 actuat albuterol 0.09 mg/actuat metered dose inhaler (20 sources)beta2-Adrenergic AgonistStart: 36-27-9627urjm 1 puff(s) by inhalation every six hours as needed for wheezingAlbuterol Sulfate 90 mcg/actuation HFA aerosol inhaler Active 2 PUFF INHALATION Q6H as needed for sh ortness of breath or wheezing May 14, 2025 12:00am Complies with drug therapyStart: 01-17-2024 End: 04-86-1790wnoj 2 puff(s) by inhalation every six hours for wheezing albuterol HFA 90 mcg/act inhaler Indications: Centrilobular emphysema (CMS/HCC) Inhale 2 puffs every 6 (six) hours if needed for wheezing or shortness of breath 18 g 1 07/18/2024 Activecetirizine hydrochloride 10 mg oral tablet (20 sources)Histamine-1 Receptor AntagonistStart: 43-42-6716tick 1 tablet by mouth once dailyCetirizine 10 mg tablet Active 10 MG PO Daily May 14, 2025 12:00am Complies with drug therapyStart: 10-05-2023 End: 84-31-3151wlri 1 tablet by mouth once dailycetirizine (ZyrTEC) 10 MG tablet Indications: Urticaria, unspecified , Urticaria Take 1 tablet (10 mg) by mouth Daily 90 tablet 1 07/16/2024 Activegabapentin 300 mg oral capsule (18 sources)Anti-epileptic AgentStart: 02-27-2024 End: 42-15-8935kjoe 1 capsule by mouth once dailyGabapentin 300 mg capsule Active 300 MG PO Daily May 14, 2025 12:00am Complies with drug therapy hydroCHLOROthiazide 12.5 mg / lisinopril 20 mg oral tablet (20 sources)Thiazide Diuretic, Angiotensin Converting Enzyme InhibitorStart: 83-09-6505qzoh 1 tablet by mouth once dailyLisinopril-Hydrochlorothiazide 20- 12.5 mg tablet Active 1 TAB PO Daily May 14, 2025 12:00am Complies with drug therapyStart: 12-25-2023 End: 98-34-2935jzpu 1 tablet by mouth in the morninglisinopril- hydroCHLOROthiazide 20-12.5 MG tablet Indications: Primary hypertension (CMS/HCC) Take 1tablet by mouth in the morning. 90 tablet 1 07/16/2024 Cpuevv22 hr metoprolol succinate 25 mg extended release oral tablet (5 sources)beta-Adrenergic BlockerStart: 52-30-0519bpxd 1 tablet by mouth once dailyMetoprolol Succinate 25 mg tablet extended release 24 hr Active 25 MG PO Daily May 14, 2025 12:00am Complies with drug therapyStart: 09-23-2024 End: 75-24-6716nbsg 1 tablet by mouth every twenty-four hours in the morning metoprolol succinate XL (Toprol-XL) 25 MG 24 hr tablet Take 25 mg by mouth in the morning. 09/23/2024 09/23/2025 Activesimvastatin 40 mg oral tablet (20 sources)HMG-CoA Reductase InhibitorStart: 13-92-6020loie 1 tablet by mouth once daily at bedtimeSimvastatin 40 mg tablet Active 40 MG PO Daily at bedtime April 30, 2025 12:00am Complies with drug therapyStart: 03-13-2024 End: 82-55-3241iuke 1 tablet by mouth at bedtimesimvastatin (Zocor) 40 MG tablet Indications: Mixed hyperlipidemia (CMS/HCC) Take 1 tablet (40 mg) by mouth at bedtime 90 tablet 1 07/16/2024 Active Problems Active Problems Problem ClassificationProblemDateDocumented DateEpisodic/ChronicAcute cerebrovascular disease (1 source)Acute cerebrovascular diseaseOnset: 32-06-8205Xsvzusm-related disorders (1 source)Alcohol use, unspecified with intoxication delirium; Translations: [Alcohol use, unspecified with intoxication delirium]Onset: 73-50-4296Okfduydz Allergic reactions (6 sources)Urticaria; Translations: [Urticaria, unspecified]54-29-6791Zcobmpdg Cardiac dysrhythmias (20 sources)Irregular heart beat; Translations: [Cardiac arrhythmia, unspecified]Onset: 215540-87-9817IeqtljmJwbowqh dysrhythmias (2 sources)Palpitations; Translations: [Palpitations]Onset: 18-10-4993Ufmtzuzq Chronic kidney disease (10 sources)Chronic kidney disease stage 3B ; Translations: [Chronic kidney disease, stage 3b (HCC)]Onset: 042352-72-0058BimlwkvDkqrmco obstructive pulmonary disease and bronchiectasis (20 sources)Emphysema, unspecified; Translations: [Chronic obstructive pulmonary disease with (acute) exacerbation]Onset: 59-71-9114YuxqztzQuuyudpwe of lipid metabolism (20 sources)Mixed hyperlipidemia; Translations: [Mixed hyperlipidemia]Onset: 61-13-9230VyhfmahPdaqafoql hypertension (20 sources)Essential (primary) hypertension; Translations: [Essential hypertension]Onset: 419609-00-2707FbcxfenUqizi valve disorders (3 sources)Irregular heart fgih46-31-7940DefuxbtgLfpwirkisxwhjr (20 sources)Unilateral primary osteoarthritis, left hip; Translations: [Primary osteoarthritis, left shoulder]Onset: 335133-64-2738FwppfhpDeunw and ill- defined heart disease (2 sources)Cardiomegaly; Translations: [Cardiomegaly]Onset: 68-25-4320Nywhvzh Other nervous system disorders (8 sources)Carpal tunnel syndrome, left upper limb; Translations: [Carpal tunnel syndrome, right upper limb]Onset: 11-30-4632EhkwmflUsnuy upper respiratory disease (20 sources)Allergic disposition; Translations: [Other allergic rhinitis]Onset: 908659-37-8926FlrvjglTkembswq codes; unclassified (1 source)Family history of malignant neoplasm of breast; Translations: [FAMILY HX MALIG NEOPLASM OF BREAST]Onset: 83-63-7746FbotsmjdEplbumtj codes; unclassified (1 source)Altered mental status, unspecified; Translations: [Altered mental status, unspecified]Onset: 68-43-3906AxtlpbotGltpltil codes; unclassified (1 source)Altered mental statusOnset: 79-24-1397WuhukcinNifrcekf codes; unclassified (1 source)Tobacco use and exposure - finding; Translations: [Tobacco use] 45-49-7779TewsrdjtNsgzcjwhe-related disorders (11 sources)Nicotine dependence, cigarettes, uncomplicated; Translations: [Tobacco dependence syndrome]Onset: 040594-07-9892BrjvvbvCzzzjoxdhtcq (1 source)Dermatochalasis of right upper eyelid / H02.831(ICD-10)Onset: 93-79-4910Brrzvwqsqcbm (1 source)Dermatochalasis of left upper eyelid / H02.834(ICD-10)Onset: 61-98-5170Qhgiftqttwkp (2 sources)Unknown / UNK(Unknown)Onset: 89-64-5836Hamrhjcfywfi (1 source)Pure hypercholesterolemia, unspecified; Translations: [PURE HYPERCHOLESTEROLEMIA, UNSPECIFIED]Onset: 03-74-5677Qhhtshanxezi (1 source)AMSOnset: 86-86-2544Gpexfbkuzrwc (3 sources)Patient encounter status; Translations: [Colon Cancer Screening] Onset: 359287-73-0258Opugiuaajetl (1 source)screeningOnset: 44-07-6864Drpfjklnwnhh (1 source)Other ventricular tachycardia; Translations: [Other ventricular tachycardia]Onset: 11-08-2024 Past or Other Problems Problem ClassificationProblemDateDocumented DateEpisodic/ChronicDiabetes mellitus without complication (20 sources)Increased glucose level; Translations: [Other abnormal glucose] Onset: 504961-80-8825DdgbpzqzQgteqgxu; convulsions (20 sources)Unspecified convulsions; Translations: [Neurological finding]Onset: 119753-43-9420YyvzfknsNubcjobaswtdn and screening for infectious disease (18 sources)Needs influenza immunization; Translations: [Encounter for immunization]Onset: 990169-46-6423RjgqtgmwZpmlc connective tissue disease (20 sources)Pain of bilateral hands; Translations: [Pain in right hand]Onset: 659893-84-2959QedywkojZqqqi connective tissue disease (20 sources)Fibromyalgia; Translations: [Fibromyalgia]Onset: 02-22-2024 17-47-3378NcturircMdsvs non-traumatic joint disorders (4 sources)Pain in left shoulder; Translations: [PAIN IN LEFT SHOULDER]Onset: 09-28-3446TrsjtlagQiyrp non-traumatic joint disorders (1 source)Pain in left hip; Translations: [PAIN IN LEFT HIP]Onset: 09-24-2021 EpisodicOther non-traumatic joint disorders (1 source)Pain in left knee; Translations: [PAIN IN LEFT KNEE]Onset: 09-24-2021 EpisodicOther screening for suspected conditions (not mental disorders or infectious disease) (20 sources)Encounter for screening mammogram for malignant neoplasm of breast; Translations: [Encounter for screening for malignant neoplasm of cervix]Onset: 28-58-4742IamvwpwrCmyqhwoymtjk (1 source)Dermatochalasis of right upper eyelid; Translations: [Dermatochalasis of right upper eyelid]Onset: 91-60-8845Ecgccqjyxogf (1 source)Dermatochalasis of left upper eyelid; Translations: [Dermatochalasis of left upper eyelid]Onset: 16-60-7330Bxnrhbosrpjj (1 source)Other ventricular tachycardia; Translations: [Other ventricular tachycardia]Onset: 11-08-2024 Results Test NameValueInterpretationReference RangeFacilityOffice Visiton 11-08-2024 Follow-up [id number] Racheal Richardson 1970 F Date Provider Department Center 11/08/2024 MARTINE ROWLEY CARD [facility] Family History Problem Relation Age of Onset Atrial fibrillation Mother Heart attack Father Family Status - Relation Status Age at Mother Alive Father Level of Service:45221 [place] OFFICE/OUTPATIENT ESTABLISHED MOD [facility] ECHO DOPPLER COMPLETEon 97-03-0488[place]May[place], [place] [address] Cardiology Report Signed Patient: RACHEAL RICHARDSON MR#: [id number] : 1970 Acct:[id number] Age/Sex: 54 / F ADM Date: 10/22/24 Loc: CARD Attending Dr: MARTINE LUCAS Ordering Physician: MARTINE LUCAS Date of Service: 10/22/24 Procedure(s): CA echo doppler complete Accession Number(s): [id number] cc: Ritu Eng VIDEO CONFERENCE SPECIALIST; MARTINE LUCAS Patient Name: RACHEAL RICHARDSON MR#: [id number] : 1970 Exam Date: 10/22/2024 Ordering Doctor: DR MARTINE LUCAS M.D. ECHOCARDIOGRAM REPORT PROCEDURE: CA ECHO DOPPLER COMPLETE INDICATIONS: Palpitations, hypertension, smoker, emphysema COMPARISON: None. DESCRIPTION: COMPLETE ECHOCARDIOGRAM Real-time transthoracic echocardiography with 2D, M-mode, spectral and color flow Doppler performed. QUALITY: Technical quality was good. LEFT VENTRICLE: Normal chamber size. Mild concentric left ventricular hypertrophy. Normal systolic function. LV EF: Normal left ventricular ejection fraction, (>55%). DIASTOLIC: Normal diastolic function. ATRIAL SEPTUM: Visually appears intact. LEFT ATRIUM: Normal chamber size. RIGHT ATRIUM: Normal chamber size. RIGHT VENTRICLE: Normal chamber size. Normal right ventricular systolic function. TRICUSPID VALVE: Normal mobility and thickness. No stenosis with no regurgitation. Unable to assess right-sided pressures due to lack of measurable tricuspid regurgitation. MITRAL VALVE: Normal mobility and thickness. No evidence of mitral valve stenosis. There is no mitral annular calcification. No mitral regurgitation. AORTIC VALVE: Normal trileaflet appearance. No visible sclerosis. Normal leaflet mobility. No evidence of aortic valve stenosis. No aortic regurgitation. AORTIC ROOT: Normal diameter and appearance. Ascending aorta is normal in size. PULMONIC VALVE: Not well visualized. No stenosis. No regurgitation. PERICARDIUM: No evidence of pericardial effusion. IVC: Collapses with inspirations. PLEURA: CONCLUSION: 1. Mild concentric left ventricular hypertrophy with normal systolic function. LVEF is 55-60%. 2. Normal right ventricular size and systolic function. 3. No significant valvular dysfunction. 4. Unable to assess right-sided pressures due to lack of measurable tricuspid regurgitation. Adult Echocardiography Procedure Report Left Ventricle LVEDD (3.7 - 5.6 cm): 4.12 cm LVESD (2.2 - 4.0 cm): 3.01 cm LVIVS thickness (0.6 - 1.2 cm): 1.23 cm LVPW thickness (0.5 - 1.0 cm): 1.22 cm e': 0.10 m/s E - e': 5.92 LVOT Max Gradient: 4.22 mm[Hg] LVOT Area (cm2): 1.03 m/s Peak Velocity (LVOT): 1.03 m/s Mean Velocity (LVOT): 0.63 m/s LVOT Diameter 2.51 cm Left Atrium LA Volume Index (2D A2C): 23.36 ml/m2 Left Atrium Systolic Dimension: 3.46 cm Mitral Valve MV E to A Ratio: 0.82 Mitral Valve A-Wave Peak Velocity: 0.73 m/s Mitral Valve E-Wave Peak Velocity: 0.60 m/s Right Ventricle Aorta AO Root Diam: 3.44 cm Ascending Ao Diam: 2.90 cm Aortic Valve AoV Area (Peak Miki): 4.64 cm2, 4.64 cm2 AoV Area (VTI): 4.20 cm2, 4.20 cm2 Peak Velocity(Antegrade Flow): 1.09 m/s Peak Gradient(Antegrade Flow): 4.76 mm[Hg] Mean Velocity(Antegrade Flow): 0.66 m/s Mean Gradient(Antegrade Flow): 2.18 mm[Hg] Velocity Time Integral: 25.34 cm Tricuspid Valve Pulmonic Valve Mean Gradient: 1.48 mm[Hg] Mean Velocity: 0.56 m/s Peak Velocity: 0.84 m/s, 0.72 m/s Peak Gradient: 2.09 mm[Hg], 2.85 mm[Hg] Right Atrium Right Atrium Systolic Pressure: 21.98 ml, 21.98 ml Dictated by: Martine Lucas M.D. on 10/22/2024 at 20:23 Approved by: Martine Lucas M.D. on 10/22/2024 at 20:27 Dictated By: MARTINE LUCAS Signed By: (more content not included)...[facility], Radiologist, - 10/22/2024 [place] [address] Cardiology Report Signed Patient: RACHEAL RICHARDSON MR#: [id number] : 1970 Acct:[id number] Age/Sex: 54 / F ADM Date: 10/22/24 Loc: CARD Attending Dr: MARTINE LUCAS Ordering Physician: MARTINE LUCAS Date of Service: 10/22/24 Procedure(s): CA echo doppler complete Accession Number(s): [id number] cc: Ritu Eng NP; MARTINE LUCAS Patient Name: RACHEAL RICHARDSON MR#: [id number] : 1970 Exam Date: 10/22/2024 Ordering Doctor: DR MARTINE LUCAS M.D. ECHOCARDIOGRAM REPORT PROCEDURE: CA ECHO DOPPLER COMPLETE INDICATIONS: Palpitations, hypertension, smoker, emphysema COMPARISON: None. DESCRIPTION: COMPLETE ECHOCARDIOGRAM Real-time transthoracic echocardiography with 2D, M-mode, spectral and color flow Doppler performed. QUALITY: Technical quality was good. LEFT VENTRICLE: Normal chamber size. Mild concentric left ventricular hypertrophy. Normal systolic function. LV EF: Normal left ventricular ejection fraction, (>55%). DIASTOLIC: Normal diastolic function. ATRIAL SEPTUM: Visually appears intact. LEFT ATRIUM: Normal chamber size. RIGHT ATRIUM: Normal chamber size. RIGHT VENTRICLE: Normal chamber size. Normal right ventricular systolic function. TRICUSPID VALVE: Normal mobility and thickness. No stenosis with no regurgitation. Unable to assess right-sided pressures due to lack of measurable tricuspid regurgitation. MITRAL VALVE: Normal mobility and thickness. No evidence of mitral valve stenosis. There is no mitral annular calcification. No mitral regurgitation. AORTIC VALVE: Normal trileaflet appearance. No visible sclerosis. Normal leaflet mobility. No evidence of aortic valve stenosis. No aortic regurgitation. AORTIC ROOT: Normal diameter and appearance. Ascending aorta is normal in size. PULMONIC VALVE: Not well visualized. No stenosis. No regurgitation. PERICARDIUM: No evidence of pericardial effusion. IVC: Collapses with inspirations. PLEURA: CONCLUSION: 1. Mild concentric left ventricular hypertrophy with normal systolic function. LVEF is 55-60%. 2. Normal right ventricular size and systolic function. 3. No significant valvular dysfunction. 4. Unable to assess right-sided pressures due to lack of measurable tricuspid regurgitation. Adult Echocardiography Procedure Report Left Ventricle LVEDD (3.7 - 5.6 cm): 4.12 cm LVESD (2.2 - 4.0 cm): 3.01 cm LVIVS thickness (0.6 - 1.2 cm): 1.23 cm LVPW thickness (0.5 - 1.0 cm): 1.22 cm e': 0.10 m/s E - e': 5.92 LVOT Max Gradient: 4.22 mm[Hg] LVOT Area (cm2): 1.03 m/s Peak Velocity (LVOT): 1.03 m/s Mean Velocity (LVOT): 0.63 m/s LVOT Diameter 2.51 cm Left Atrium LA Volume Index (2D A2C): 23.36 ml/m2 Left Atrium Systolic Dimension: 3.46 cm Mitral Valve MV E to A Ratio: 0.82 Mitral Valve A-Wave Peak Velocity: 0.73 m/s Mitral Valve E-Wave Peak Velocity: 0.60 m/s Right Ventricle Aorta AO Root Diam: 3.44 cm Ascending Ao Diam: 2.90 cm Aortic Valve AoV Area (Peak Miki): 4.64 cm2, 4.64 cm2 AoV Area (VTI): 4.20 cm2, 4.20 cm2 Peak Velocity(Antegrade Flow): 1.09 m/s Peak Gradient(Antegrade Flow): 4.76 mm[Hg] Mean Velocity(Antegrade Flow): 0.66 m/s Mean Gradient(Antegrade Flow): 2.18 mm[Hg] Velocity Time Integral: 25.34 cm Tricuspid Valve Pulmonic Valve Mean Gradient: 1.48 mm[Hg] Mean Velocity: 0.56 m/s Peak Velocity: 0.84 m/s, 0.72 m/s Peak Gradient: 2.09 mm[Hg], 2.85 mm[Hg] Right Atrium Right Atrium Systolic Pressure: 21.98 ml, 21.98 ml Dictated by: Martine Lucas M.D. on 10/22/2024 at 20:23 Approved by: Martine Lucas M.D. on 10/22/2024 at 20:27 Dictated By: MARTINE LUCAS Signed By: 10/22/242028 DD/ 26 TD/TT: Film And Video Graphics Designer: RACHAEL HealthcareRadiology Study observation (narrative)[facility] ECHO DOPPLER COMPLETEOrdered By: Radiologist Radiology on [id number] Work Phone: Orders Onlyon 86-11-5529Qypgov [id number] Racheal Richardson 1970 F Date Provider Department Center 10/09/2024 928-[facility] Family History Problem Relation Age of Onset Atrial fibrillation Mother Heart attack Father Family Status - Relation Status Age at Mother Alive Father DeceasedNormalUniversWVUMedicine Barnesville HospitalOffice Visiton 28-76-1643Exkuya-up [id number] Racheal Richardson 1970 F Date Provider Department Center 09/23/2024 367-MARTINE LUCAS CARD [facility] Family History Problem Relation Age of Onset Atrial fibrillation Mother Heart attack Father Family Status - Relation Status Age at Mother Alive Father Level of Service:64840 [place] OFFICE/OUTPATIENT NEW MODERATE MDM 45 MINUTESNormal [facility] HospitalIGP,APTIMA HPV,AGE GDLNon 10-07-4222EAK GDLN ACOG TESTINGNote.[facility] HealthcareComment on above:TESTS RESULT FLAG UNITS REF RANGE LAB Clinician Provided Cytology Information Source.............Cervix;Endocervix No. of containers..01 ThinPrep Vial Age Adrianao FABIO Phylicia... 30-65 FLAG LEGEND: L-Low Normal,H-High Normal,LL-Alert Low,HH-Alert High <-Panic Low,>-Panic High,A-Abnormal,AA-Critical Abnormal Performed at: 01 =[address] [place] [address] Fauzia Thomas MD, HPV APTIMANegativeNegativeNOMS HealthcareComment on above:This nucleic acid amplification test detects fourteen high- risk HPV types (16,18,31,33,35,39,45,51,52,56,58,59,66,68) without differentiation. Performed at: =[address] [id number] Nutrition Representative: Fauzia Thomas MD, Phone: [phone] Performed at: [address], [place] [id number] Nutrition Representative: Fauzia Thomas MD, Phone: [phone] IGP, APTIMA HPV, RFX 16/18,45Note.NOMS HealthcareComment on above:TESTS RESULT FLAG UNITS REF RANGE LAB DIAGNOSIS: 02 NEGATIVE FOR INTRAEPITHELIAL LESION OR MALIGNANCY. CELLULAR CHANGES ASSOCIATED WITH INFLAMMATION ARE PRESENT. Specimen adequacy: 02 Satisfactory for evaluation. Endocervical and/or squamous metaplastic cells (endocervical component) are present. Performed by: Kalani Louis Global Marketing Operations Manager (ASC) . 02 Note: Note 02 The Pap [...] High,A-Abnormal,AA-Critical Abnormal Performed at: 02 [address] [facility] [address] [address] Fauzia Thomas MD, BROOM-ALONE CERVIX ENDOCERVIX CLINISYNCNOMS HealthcareALL LIPID PROFILE (FASTING)on 85-90-7466EFUA HDL RATIO 2.7NOIN HealthcareComment on above:3.3 - 4.4 LOW RISK 4.4 - 7.1 AVERAGE RISK 7.1 - 11.0 MODERATE RISK >11.0 HIGH RISK Cholesterol [Mass/Vol]190 mg/dLNINF - 200 mg/dLRIVERTON HOSPITAL HealthcareCholesterol in HDL [Mass/Vol]70 mg/fGObkb23 - 60 mg/dLNOIN HealthcareComment on above:> or =60 mg/dl - LOW CARDIOVASCULAR RISK <40 mg/dl - HIGH CARDIOVASCULAR RISK Interpretation and review of laboratory resultsAbnormalNOIN HealthcareMagnesium [Mass/Vol]101 mg/dLNOIN HealthcareComment on above:<100 mg/dl OPTIMAL 100-129 mg/dl NEAR OR ABOVE OPTIMAL 130-159 mg/dl BORDERLINE HIGH 160-189 mg/dl HIGH >190 mg/dl VERY HIGH Magnesium [Mass/Vol]19.8 mg/dLNOIN HealthcareTriglyceride [Mass/Vol]99 mg/dLNINF - 150 mg/dLNOIN HealthcareCCF Shruthi 98-64-3584PRP [Catalytic activity/Vol]30 U/L14 - 59 U/LNOMS HealthcareCCF Miya 07-49-2025DMB [Catalytic activity/Vol]25 U/L15 - 37 U/LNOMS HealthcareHolter monitor 8 to 15 dayson 23-13-9977[place] [id number] Cardiology Report Signed Patient: RACHEAL RICHARDSON MR#: [id number] : 1970 Acct:[id number] Age/Sex: 53 / F ADM Date: 06/18/24 Loc: CARD Attending Dr: Ritu Eng NP Ordering Physician: Ritu Eng NP Date of Service: 06/18/24 Procedure(s): CA holter monitor 7-15 days Accession Number(s): [id number] cc: Ritu Eng NP [facility] Test Date: 2024-07-02 Pat Name: RACHEAL RICHARDSON Department: Room: - Gender: Female Telephone Collector: : 1970 Requested By: RITU ENG Order Number: [id number] Reading MD: COLTON LIRA Interpretive Statements Predominant rhythm is sinus with average rate of 92 bpm Tachycardia - max rate of 189 bpm (PSVT) - 2 episodes of PSVT w/ longest episode of 5 beats Bradycardia - none Ventricular ectopy - 20,320 total, 2% burden - 20,089 PVC - 228 couplets NSVT - 1 episodes of 3 beat VT Patient triggered events: 1 - associated w/ palpitations - NSR Impression: Predominant rhythm is sinus with average rate of 92 bpm Fastest rate of 189 bpm (PSVT) and slowest rate of 68 bpm 20,320 VE w/ 2% burden, 20,089 PVC, 228 couplets 1 episode of 3 beat VT Longest episode of sinus tachy is 54min 13sec with rates between 111-123 bpm No atrial fibrillation No pauses or blocks Electronically Signed On 07-03-2024 7:02:06 EST by COLTON LIRA Dictated By: Colton Lira D.O. Signed By: 07/03/24 0702 DD/ 0835 TD/TT: [employer] Graphics Designer:TBHRadiology, Radiologist, - 07/03/2024 [place] [address] Cardiology Report Signed Patient: RACHEAL RICHARDSON MR#: [id number] : 1970 Acct:[id number] Age/Sex: 53 / F ADM Date: 06/18/24 Loc: CARD Attending Dr: Ritu Eng NP Ordering Physician: Ritu Eng NP Date of Service: 06/18/24 Procedure(s): CA holter monitor 7-15 days Accession Number(s): [id number] cc: Ritu Eng NP [facility] Test Date: 2024-07-02 Pat Name: RACHEAL RICHARDSON Department: Room: - Gender: Female Telephone Collector: : 1970 Requested By: RITU ENG Order Number: [id number] Reading MD: COLTON LIRA Interpretive Statements Predominant rhythm is sinus with average rate of 92 bpm Tachycardia - max rate of 189 bpm (PSVT) - 2 episodes of PSVT w/ longest episode of 5 beats Bradycardia - none Ventricular ectopy - 20,320 total, 2% burden - 20,089 PVC - 228 couplets NSVT - 1 episodes of 3 beat VT Patient triggered events: 1 - associated w/ palpitations - NSR Impression: Predominant rhythm is sinus with average rate of 92 bpm Fastest rate of 189 bpm (PSVT) and slowest rate of 68 bpm 20,320 VE w/ 2% burden, 20,089 PVC, 228 couplets 1 episode of 3 beat VT Longest episode of sinus tachy is 54min 13sec with rates between 111-123 bpm No atrial fibrillation No pauses or blocks Electronically Signed On 07-03-2024 7:02:06 EST by COLTON LIRA Dictated By: Colton Lira D.O. Signed By: 07/03/24 0702 DD/ 0835 TD/TT: [employer] Graphics Designer: RACHAEL HealthcareHolter monitor 8 to 15 daysOrdered By: Radiologist Radiology on 38-79-8042[facility] Work Phone: MLR HEMOGLOBIN A1Con 02-39-4686Mleqdph [Mass/Vol]117 mg/dLNOSaint Francis Medical CenterInnqkjqjdkNiH4o (Bld) [Mass fraction]5.7 %4.5 - 6.2 %[facility] Comment on above:ADA RECOMMENDED LIMIT 4.0 - 6.0 ADA THERAPEUTIC TARGET < 7.0 ACTION SUGGESTED > 7.0 No Panel Informationon 69-83-2012XRHGXWNWUXHKU HealthcareHolter monitor 8 to 15 dayson 57-90-7953Tpituucpe Study observation (narrative)NOM HealthcareSurgical Pathologyon 04-66-0057Dfvsanji PathologyNormalProMedica Vencor HospitalComment on above:Result Comment: [facility] [address] [place] [address] Surgical Pathology Consultation Patient Name:RACHEAL RICHARDSON:1970 (Age: 53)Gender:FTaken:07/01/2024eported:07/04/2024hysician(s):Chace Modi MD ([phone])Copy To: Rec. #:[id number]: #[id number] Final Pathologic Diagnosis Transverse colon polyp; polypectomy: Tubular adenoma. Report Electronically Signed Out wa/07/04/2024Evgeny Palma MD Interpretation performed at [facility], [address] [place] [address], License number: [id number]. Clinical History Screening Gross Description Received in formalin labeled DYLAN, transverse is a single thomson bit of soft tissue, 0.5 cm in greatest dimension. Filtered and submitted in a single cassette. (1, ns, [id number], m7) MG mjg/07/01/2024GR Specimen(s) Received Transverse colon polyp Fee Codes(s): 1; 63220HLE LIPID PROFILE (FASTING)on 72-17-1685GCUQ HDL RATIO3.1[facility] Comment on above:3.3 - 4.4 LOW RISK 4.4 - 7.1 AVERAGE RISK 7.1 - 11.0 MODERATE RISK >11.0 HIGH RISK Cholesterol [Mass/Vol]210 mg/dLHighNINF - 200 mg/dLNOMS HealthcareCholesterol in HDL [Mass/Vol]68 mg/dXOegp15 - 60 mg/dLNOMS HealthcareComment on above:> or =60 mg/dl - LOW CARDIOVASCULAR RISK <40 mg/dl - HIGH CARDIOVASCULAR RISK Magnesium [Mass/Vol]107.0 mg/dLNOMS HealthcareComment on above:<100 mg/dl OPTIMAL 100-129 mg/dl NEAR OR ABOVE OPTIMAL 130-159 mg/dl BORDERLINE HIGH 160-189 mg/dl HIGH >190 mg/dl VERY HIGH Magnesium [Mass/Vol]35.8 mg/dLNOMS HealthcareTriglyceride [Mass/Vol]179 mg/dL HighNINF - 150 mg/dLNOMS HealthcareCCF CMP (CMP) (FOR REMOTE [facility] USE)on 97-46-2966Ualgtse [Mass/Vol]4.0 g/dL3.4 - 5.0 g/dLNOIN HealthcareALBUMIN GLOBULIN RATIO1.1NOMS HealthcareALP [Catalytic activity/Vol]89 U/L46 - 116 U/L [facility] HealthcareALT [Catalytic activity/Vol]40 U/L14 - 59 U/LNOMS HealthcareAnion gap [Moles/Vol]16.7 mmol/LNOMS HealthcareAST [Catalytic activity/Vol]36 U/L15 - 37 U/LNOMS HealthcareBilirubin [Mass/Vol]0.5 mg/dL0.2 - 1.0 mg/dLNOIN Healthcare Calcium [Mass/Vol]9.3 mg/dL8.5 - 10.1 mg/dLNOIN HealthcareChloride [Moles/Vol] 103 mmol/L98 - 107 mmol/LNOMS HealthcareCO2 [Moles/Vol]25.0 mmol/L21.0 - 32.0 mmol/LNOMS HealthcareCreatinine [Mass/Vol]0.72 mg/dL0.55 - 1.02 mg/dLNOIN HealthcareGFR/1.73 sq M.predicted CKD-EPI (S/P/Bld) [Vol rate/Area]>6060 - PINF N[facility] HealthcareGlobulin (S) [Mass/Vol]3.8 g/dLNOIN HealthcareGlucose [Mass/Vol] 108 mg/eFYosr05 - 106 mg/dLNOMS HealthcarePotassium [Moles/Vol]3.7 mmol/L3.5 - 5.1 mmol/LNOMS HealthcareProtein [Mass/Vol]7.8 g/dL6.4 - 8.2 g/dLNOIN Healthcare Sodium [Moles/Vol]141 mmol/L136 - 145 mmol/LNOMS HealthcareTBH EGFR-NON AF SLOVENIAN>6060 - PINFNOMS HealthcareUrea nitrogen [Mass/Vol]10.0 mg/dL7.0 - 18.0 mg/dLNOIN HealthcareUrea nitrogen/Creatinine [Mass ratio]13.9 mg/mgNOIN HealthcareMM TOMOSYNTHESIS SCREENING BIon 10-22-1545[place] [address] Mammography Report Signed Patient: RACHEAL RICHARDSON MR#: [id number] : 1970 Acct:[id number] Age/Sex: 53 / F ADM Date: 03/13/24 Loc: MAMMO Attending Dr: Ritu Eng NP Ordering Physician: Ritu Eng NP Results: Date of Service: 03/13/24 Follow Up: Procedure(s): MM tomosynthesis screening BI Accession Number(s): [id number] cc: Ritu Eng NP Patient Name: RACHEAL RICHARDSON MR#: [id number] : 1970 Exam Date: 03/13/2024 Ordering Doctor: GUZMAN Eng CNP RADIOLOGY REPORT PROCEDURE: MM TOMOSYNTHESIS SCREENING BI COMPARISON: MG MAMM SCREEN 3D AARON CAD, 06/07/2021. MG MAMM SCREEN 3D AARON CAD, 07/12/2022. INDICATIONS: Screening Calculator Name NCI Breast Cancer Risk Assessment Tool 5 Year Breast Cancer Risk 0.80% Lifetime Breast Cancer Risk 6.20% Personal Breast Cancer No Personal Ovarian Cancer No Treatments None Family Cancers Grandmother-maternal with breast cancer at age 53. LOCATION: The [facility] BREAST COMPOSITION: The breasts are heterogeneously dense,which may obscure small masses. FINDINGS: DIAGNOSTIC CATEGORY 2--BENIGN FINDING. NO CHANGE FROM COMPARISON. Scattered benign-appearing nodules are present. Scattered benign-appearing calcifications are present. Scattered benign-appearing lymph nodes are present. RIGHT BREAST: No significant suspicious finding. LEFT BREAST: No significant suspicious finding. RECOMMENDATIONS: ROUTINE MAMMOGRAM AND CLINICAL EVALUATION IN 12 MONTHS. PLEASE NOTE: A NORMAL MAMMOGRAM DOES NOT EXCLUDE THE POSSIBILITY OF BREAST CANCER. A CLINICALLY SUSPICIOUS PALPABLE LUMP SHOULD BE BIOPSIED. Dictated by: Lyssa Mary MD on 03/13/2024 at 12:06 Approved by: Lyssa Mary MD on 03/13/2024 at 12:15 Dictated By: Lyssa Mary M.D. Signed By: 03/13/24 1216 DD/ 1215 TD/TT: Film And Video Graphics Designer:TBHRadiology, Radiologist, - 03/13/2024 [place] [address] Mammography Report Signed Patient: RACHEAL RICHARDSON MR#: [id number] : 1970 Acct:[id number] Age/Sex: 53 / F ADM Date: 03/13/24 Loc: MAMMO Attending Dr: Ritu Eng NP Ordering Physician: Ritu Eng NP Results: Date of Service: 03/13/24 Follow Up: Procedure(s): MM tomosynthesis screening BI Accession Number(s): [id number] cc: Ritu Eng NP Patient Name: RACHEAL RICHARDSON MR#: [id number] : 1970 Exam Date: 03/13/2024 Ordering Doctor: GUZMAN Eng CNP RADIOLOGY REPORT PROCEDURE: MM TOMOSYNTHESIS SCREENING BI COMPARISON: MG MAMM SCREEN 3D AARON CAD, 06/07/2021. MG MAMM SCREEN 3D AARON CAD, 07/12/2022. INDICATIONS: Screening Calculator Name NCI Breast Cancer Risk Assessment Tool 5 Year Breast Cancer Risk 0.80% Lifetime Breast Cancer Risk 6.20% Personal Breast Cancer No Personal Ovarian Cancer No Treatments None Family Cancers Grandmother-maternal with breast cancer at age 53. LOCATION: [facility] BREAST COMPOSITION: The breasts are heterogeneously dense,which may obscure small masses. FINDINGS: DIAGNOSTIC CATEGORY 2--BENIGN FINDING. NO CHANGE FROM COMPARISON. Scattered benign-appearing nodules are present. Scattered benign-appearing calcifications are present. Scattered benign-appearing lymph nodes are present. RIGHT BREAST: No significant suspicious finding. LEFT BREAST: No significant suspicious finding. RECOMMENDATIONS: ROUTINE MAMMOGRAM AND CLINICAL EVALUATION IN 12 MONTHS. PLEASE NOTE: A NORMAL MAMMOGRAM DOES NOT EXCLUDE THE POSSIBILITY OF BREAST CANCER. A CLINICALLY SUSPICIOUS PALPABLE LUMP SHOULD BE BIOPSIED. Dictated by: Lyssa Mary MD on 03/13/2024 at 12:06 Approved by: Lyssa Mary MD on 03/13/2024 at 12:15 Dictated By: Lyssa Mary M.D. Signed By: 03/13/24 1216 DD/ 1215 TD/TT: Film And Video Graphics Designer: [facility] HospitalRadiology Study observation (narrative)[facility] TOMOSYNTHESIS SCREENING BIOrdered By: Radiologist Radiology on 56-05-4545VIRVSt. Luke's Hospital Work Phone: No Panel Informationon 06-60-1618Rebgxawenariuu and review of laboratory resultsAbnormalNOMS HealthcareCLINISYNCNOMS HealthcareTBH UA (CLEAN/CATCH) MICROSCOPIC IF INDICATEon 63-56-2881UPPNXORDX URINENegative NEGATIVENOMS HealthcareBLOOD URINENegativeNEGATIVENOIN HealthcareClarity (U) CLEARCLEARNOMS HealthcareColor (U)YELLOWYELLOWNOMS HealthcareGLUCOSE URINE UA NegativeNEGATIVE mg/dLNOIN HealthcareInterpretation and review of laboratory resultsAbnormalNOMS HealthcareKetones Ql (U)NegativeNEGATIVE mg/dLNOIN HealthcareLeukocyte esterase Test strip Ql (U)NegativeNEGATIVENOMS Healthcare NITRITE URINENegativeNEGATIVENOMS HealthcarepH (U)5.5 [pH]5.0 - 9.0NOMS HealthcarePROTEIN URINENegativeNEG/TRACE mg/dLNOIN HealthcareSPECIFIC GRAVITY URINE>=1.052Cuofhyia0.005 - 1.025NOMS HealthcareURINE MICROSCOPIC INDICATEDNO NOMS HealthcareUROBILINOGEN URINE0.2 EU/dL0.2 - 1.0 EU/dLNOIN Healthcare CLINISYNCNOMS HealthcareAMMONIAon 48-29-9355Gebjxvo (P) [Moles/Vol]30 umol/L Odwkar03-69YziMouoje Mercy Medical CenterComment on above:Performed By: #### 46810-6 #### [facility] ([id number]) [address] [facility] [place], [place] [address]ZXB AND AUTO DIFFon 32-17-9605BBDYJIVP BASOPHIL0.1 X10E9/LNormal 0.0-0.2ProMedica Baypark HospitalComment on above:Performed By: #### CBCPraveen, ESTRELLITA, 42311-7, 32856-3, 5643-2 #### [facility] ([id number]) [address] [place], [place] [address]HOJSVOOL NEUTROPHIL3.8 X10E9/LNormal1.5-6.6ProJ.W. Ruby Memorial HospitalComment on above:Performed By: #### CBCA, CMP, 85985-8, 75561-0, 5643-2 #### [facility] ([id number]) [address] [place], [place] [address]Uiofijipi/100 WBC (Bld)0.7 %NormalKettering Health Behavioral Medical Center Comment on above:Performed By: #### CBCA, CMP, 58383-8, 45520-5, 5643-2 #### [facility] ([id number]) [address] [place], [place] [address]Jpqefotkpyo (Bld) [#/Vol]0.1 10*3/uLNormal0.0-0.4ProJ.W. Ruby Memorial HospitalComment on above:Performed By: #### CBCESTRELLITA Morton, 64275-0, 03554-9, 5643-2 #### [facility] ([id number]) [address] [place], [place] [address]Brdzuojenvq/100 WBC (Bld)0.9 %NormalKettering Health Behavioral Medical Center Comment on above:Performed By: #### CBCA, CMP, 08734-9, 79196-0, 5643-2 #### [facility] ([id number]) [address] [place], [place] [address]Hjrcstfzkkx distribution width (RBC) [Ratio]13.1 %Normal 11.5-15.0ProJ.W. Ruby Memorial HospitalComment on above:Performed By: #### CBCA, CMP, 18467-5, 14716-2, 5643-2 #### [facility] ([id number]) [address] [place], [place] [address]Gqqrpflhwu (Bld) [Volume fraction]38.5 %Nkvqhp02-68LqfJwdgctJ.W. Ruby Memorial HospitalComment on above:Performed By: #### CBCA, CMP, 63748-5, 16181-0, 5643-2 #### [facility] ([id number]) [address] [place], [place] [address]Vmraoydsco (Bld) [Mass/Vol]13.5 g/hVFgpyvg48.7-15.5PWooster Community HospitalComment on above:Performed By: #### CBCA, CMP, 47136-8, 40242-5, 5643-2 #### [facility] ([id number]) [address] [place], [place] [address]Doytszbgrmh (Bld) [#/Vol]2.5 10*3/uLNormal1.0-3.5PWooster Community HospitalComment on above:Performed By: #### CBCA, CMP, 31217-3, 58101-1, 5643-2 #### [facility] ([id number]) [address] [place], [place] [address]Iolqplhhfuy/100 WBC (Bld)36.9 %NormalKettering Health Behavioral Medical Center Comment on above:Performed By: #### CBCA, CMP, 54666-2, 03778-5, 5643-2 #### [facility] ([id number]) [address] [place], [place] [address]SOV (RBC) [Entitic mass]32.6 gcTrhmjh61-28DcxSxtpjwJ.W. Ruby Memorial HospitalComment on above:Performed By: #### CBCA, CMP, 25413-3, 51132-1, 5643-2 #### [facility] ([id number]) [address] [place], [place] [address]LHQC (RBC) [Mass/Vol]35.1 g/cFFjawvp83-48MbbYldjxjJ.W. Ruby Memorial HospitalComment on above:Performed By: #### CBCA, CMP, 05622-0, 62362-4, 5643-2 #### [facility] ([id number]) [address] [place], [place] [address]YCI (RBC) [Entitic vol]93 fGUounkq04-434IwzVfzrvj Baypark HospitalComment on above:Performed By: #### CBCA, CMP, 26466-4, 00694-6, 5643-2 #### [facility] ([id number]) [address], [place] [address]Rbftmueih (Bld) [#/Vol]0.4 10*3/uLNormal0-0.9ProJ.W. Ruby Memorial HospitalComment on above:Performed By: #### CBCA, CMP, 73696-7, 50171-7, 5643-2 #### [facility] ([id number]) [address] [place], [place] [address]Phocjuubn/100 WBC (Bld)6.3 %NormalKettering Health Behavioral Medical Center Comment on above:Performed By: #### CBCA, CMP, 77540-2, 93791-2, 5643-2 #### [facility] ([id number]) [address] [place], [place] [address]Cahojogfdmq/100 WBC (Bld)55.2 %NormalKettering Health Behavioral Medical Center Comment on above:Performed By: #### CBCA, CMP, 14196-6, 99507-3, 5643-2 #### [facility] ([id number]) [address] [place], [place] [address]Ijpumlsu mean volume (Bld) [Entitic vol]7.8 fLNormal7-12 ProMedica Mercy Medical CenterComment on above:Performed By: #### CBCA, CMP, 87124- 9, 94516-8, 5643-2 #### [facility] ([id number]) [address] [place], [place] [address]Jpdzyzqnt (Bld) [#/Vol]201 10*3/gAJbzmjr016-200CqfMgnilf Baypark HospitalComment on above:Performed By: #### CBCA, CMP, 22004-6, 88387-2, 5643-2 #### [facility] ([id number]) [address] [place], [place] [address]TGJ COUNT4.14 X10E12/LNormal3.80-5.20[facility] Comment on above:Performed By: #### ESTRELLITA THORPE, 52698-2, 04199-0, 5643-2 #### [facility] ([id number]) [address] [place], [place] [address]ATR (Bld) [#/Vol]6.8 10*3/uLNormal4.0-11.0ProJ.W. Ruby Memorial HospitalComment on above:Performed By: #### MAURILIO, CMP, 20695-9, 96602-0, 5643-2 #### [facility] ([id number]) [address] [place], [place] [address]VNCRPXWWKFFVM METABOLIC PANELon 32-43-2855Twjhioy [Mass/Vol]3.9 g/dLNormal3.2-5.3PWooster Community HospitalComment on above:Performed By: #### ESTRELLITA THORPE, 55544-4, 38820-8, 5643-2 #### [facility] ([id number]) [address], [place] [address]ZUN [Catalytic activity/Vol]80 U/QQkxeko26-223TrtPbikxaJ.W. Ruby Memorial HospitalComment on above:Performed By: #### MAURILIO CMP, 10534-8, 92046-8, 5643-2 #### [facility] ([id number]) [address], [place] [address]KMY [Catalytic activity/Vol]28 U/LNormal0-31ProMedTriHealth Bethesda Butler HospitalComment on above:Performed By: #### MAURILIO, CMP, 88361-1, 87672-3, 5643-2 #### [facility] ([id number]) [address] [place], [place] [address]Xjkuc gap [Moles/Vol]11 mmol/LNormal5-15ProJ.W. Ruby Memorial HospitalComment on above:Performed By: #### MAURILIO CMP, 80881-7, 42756-9, 5643-2 #### [facility] ([id number]) [address], [place] [address]HWS [Catalytic activity/Vol]40 U/LNormal0-41ProJ.W. Ruby Memorial HospitalComment on above:Performed By: #### ESTRELLITA THORPE, 11053-1, 19632-1, 5643-2 #### [facility] ([id number]) [address] [place], [place] [address]Lkxbraihr [Mass/Vol]0.6 mg/dLNormal0.3-1.2PWooster Community HospitalComment on above:Performed By: #### ESTRELLITA THORPE, 00547-1, 81689-8, 5643-2 #### [facility] ([id number]) [address] [place], [place] [address]Qiqxkxr [Mass/Vol]8.6 mg/dLNormal8.5-10.5PWooster Community HospitalComment on above:Performed By: #### ESTRELLITA THORPE, 72238-1, 83846-5, 5643-2 #### [facility] ([id number]) [address] [place], [place] [address]Lhjwagoi [Moles/Vol]99 mmol/WPhorug53-762VpeLzyxsmJ.W. Ruby Memorial HospitalComment on above:Performed By: #### ESTRELLITA THORPE, 56152-1, 43693-0, 5643-2 #### [facility] ([id number]) [address], [place] [address]VG4 [Moles/Vol]21 mmol/CCom15-38HbfCdvcpyWooster Community Hospital Comment on above:Performed By: #### ESTRELLITA THORPE, 38063-5, 20501-8, 5643-2 #### [facility] ([id number]) [address] [place], [place] [address]Rxdcntotuy [Mass/Vol]0.57 mg/dLNormal0.40-1.00ProJ.W. Ruby Memorial HospitalComment on above:Result Comment: METHOD TRACEABLE TO IDMS STANDARD Performed By: #### ESTRELLITA THORPE, 58238-1, 78315-9, 5643-2 #### [facility] ([id number]) [address], [place] [address]bLBI (CKD-EPI) NON-RACE DEPENDENT>90Normal>59ProJ.W. Ruby Memorial HospitalComment on above:Result Comment: Reported eGFR is based on the CKD-EPI 2020 equation that does not use a race coefficient.Performed By: #### ESTRELLITA THORPE, 34491-0, 53853-6, 5643- 2 #### [facility] ([id number]) [address] [place] [address]Zgmtqxe [Mass/Vol]99 mg/jJIzrpal23-19SsaMbyggkKettering Health Behavioral Medical Center Comment on above:Performed By: #### ESTRELLITA THORPE, 98232-6, 61580-5, 5643-2 #### [facility] ([id number]) [address] [place], [place] [address]Yilyeuuwt [Moles/Vol]3.5 mmol/LNormal3.5-5.0ProJ.W. Ruby Memorial HospitalComment on above:Performed By: #### ESTRELLITA THORPE, 77247-2, 31391-9, 5643-2 #### [facility] ([id number]) [address] [place], [place] [address]Gqqqdrp [Mass/Vol]7.2 g/dLNormal6.0-8.0K[facility] Behavioral Medical CenterComment on above:Performed By: #### ESTRELLITA THORPE, 35900-4, 01339-0, 5643-2 #### [facility] ([id number]) [address] [place], [place] [address]Kwxdzs [Moles/Vol]131 mmol/TOxs888-792QndYbfdmgKettering Health Behavioral Medical Center Comment on above:Performed By: #### ESTRELLITA THORPE, 23229-2, 58691-9, 5643-2 #### [facility] ([id number]) [address] [place] [address]Eupt nitrogen [Mass/Vol]10 mg/dLNormal5-23ProJ.W. Ruby Memorial HospitalComment on above:Performed By: #### ESTRELLITA THORPE, 37541-4, 17523-9, 5643-2 #### [facility] ([id number]) [address] [facility] [place], [place] [address]ZV BRAIN WO CONT STROKE ALERTon 66-84-4771IJ BRAIN WO CONT STROKE ALERTCT BRAIN WO CONT STROKE ALERT Noncontrast head [...] by Gil Murphy MD on 10/04/2023 11:32 PMNormalProMedica Mercy Medical CenterCT CTA CAROTIDon 16-23-9359DE CTA CAROTIDCT CTA CAROTID CLINICAL INFORMATION: Stroke. Neurologic deficit. COMPARISON: None PROCEDURE: CT angiogram of the neck with IV contrast. Sagittal and coronal reformatted images with 3-D Maximum intensity projection reconstructions constructed under concurrent physician supervision on a independent workstation for evaluation of carotid and vertebral arteries. Automated exposure control was utilized. The [place] Symptomatic carotid Endarterectomy Trial (NASCET) method for [...] The subclavian arteries are normal in course andcaliber. The vertebral arteries originate from the subclavian [...] by Zeke Cavazos MD on 10/04/2023 11:50 PMNormalProDoctors Hospitalca Mercy Medical CenterCT CTA HEADon 55-30-5343SK CTA HEADCT CTA HEAD CT angiogram head with contrast [...] iterative reconstruction, and/or weight based dosing when appropriateto reduce radiation dose to as low as [...] by Zeke Cavazos MD on 10/04/2023 11:47 PMNormalProJ.W. Ruby Memorial HospitalDRUG SCREEN, URINEon 97-15-2432BENESSENNLI/METHAMPNegativeNormalNEG [facility] Medical CenterComment on above:Result Comment: AMPH/METH screening cut off = 1000 ng/mLPerformed By: #### DSU ####[facility] ([id number])[address] [place], [place] [address]LCHXIMWNMZEKBtybvqsfAxpsmdIHX ProMNewark HospitalComment on above:Result Comment: Barbiturates screening cut off value = 200 ng/mLPerformed By: #### DSU ####[facility] ([id number])[address] [place], [place] [address]LLNPPFSMMMTAESRLoplmlmd AbnormalNEGKettering Health Behavioral Medical CenterComment on above:Result Comment: Confirmation available upon request. Benzodiazepines screening cut off value = 200 ng/mLPerformed By: #### DSU ####[facility] ([id number])[address] [place] [address] CANNABINOIDSNegativeNormalNEGProDoctors Hospitalca Mercy Medical CenterComascension genesys hospital on above:Result Comment: Cannabinoids/THC screening cut off value = 50 ng/mLPerformed By: #### DSU ####[facility] ([id number])[address] [place] [address] COCAINE METABOLITENegativeNormalNEGProJ.W. Ruby Memorial HospitalComascension genesys hospital on above: Result Comment: Cocaine screening cut off value = 300 ng/mLPerformed By: #### DSU ####[facility] ([id number])[address] [place] [id number] ECSTASYNegativeNormalNEGProJ.W. [facility] HospitalComasc[facility] on above:Result Comment: Ecstasy screening cut off value = 500 ng/mL This report is intended for use in clinical monitoring or management of patients.Performed By: #### DSU ####[facility] ([id number])[address] [place] [address] [id number] NormalNEGProJ.W. [facility] HospitalComasc[facility] on above:Result Comment: Methadone screening cut off value = 300 ng/mL.Performed By: #### DSU ####[facility] ([id number])[address] [place] [address] [id number] NormalNEGProJ.W. [facility] HospitalComasc[facility] on above:Result Comment: Opiates screening cut off value = 300 ng/mL NOTE: This test is used for the detection of codeine, hydrocodone (>1000 ng/mL), morphine and hydromorphone (>900 ng/mL) in urine.Performed By: #### DSU ####[facility] ([id number])[address] [place] [address] [id number] NormalNEGProJ.W. [facility] HospitalComasc[facility] on above:Result Comment: Oxycodone screening cut off value = 300 ng/mL NOTE: This test is used for the detection of oxycodone and oxymorphone in urine.Performed By: #### DSU ####[facility] ([id number])[address] [place], [place] [address]JDXSAWAVVFOZVArnrtfsk NormalNEGKettering Health Behavioral Medical CenterComment on above:Result Comment: Phencyclidine screening cut off value = 25 ng/mLPerformed By: #### DSU ####[facility] ([id number])[address] [place], [place] [address]Xkiqmhs [Mass/Vol]on 23-89-7624VHGQFYU0.33 g/dLHigh0.00-0.08[facility] [facility] Comment on above:Result Comment: This report is intended for use in clinical monitoring or management of patients.Performed By: #### CBCA, CMP, 80481-2, 46846-5, 5643-2 #### [facility] ([id number]) [address] [facility] [place], [place] [address]UYD ( test) Ql (U)on 73-11-6808Yqmd HCG ( test) Ql (U)NegativeNormalNEGProJ.W. Ruby Memorial HospitalComment on above: Performed By: #### 2106-3 #### [facility] ([id number]) [address] [place] [address] [place], [place] [address]SXZ A1C (GLYCO-HGB)on 82-55-0278Xkljfup [Mass/Vol]120 mg/dL NormalProJ.W. Ruby Memorial HospitalComment on above:Performed By: #### PINR, 3016-3 ####[facility] ([id number])[address] [place] [address]#### 24142-2 ####[facility] ([id number])[address] [place] [address], [address], [place] [address]MwY4c (Bld) [Mass fraction]5.8 %High4.4-5.6[facility] Medical CenterComment on above:Result Comment: NOTE ADA Guidelines Result HgbA1c Normal : less than 5.7 % Prediabetes : 5.7 % to 6.4 % Diabetes : > 6.4 % Use with caution in patients with abnormal hemoglobin variants as the half-life of red blood cells and in vivo glycation rates are affected.Performed By: #### LIBRA 3016-3 ####[facility] ([id number])[address] [place] [address]#### 53711-4 ####[facility] ([id number])[address] [place] [address], [address] [place] [address]Ftnbn 1996 panel on 56-21-3401Zecjmqthuxt [Mass/Vol]175 mg/fUOioviw783-156KygHdrncp [facility] CenterComment on above:Performed By: #### LIBRA 3016-3 ####[facility] ([id number])[address] [place] [address]#### 05293-0 ####[facility] ([id number])[address] [place] [address], [address] [address] Cholesterol in HDL [Mass/Vol]55 mg/dLNormal>39ProDoctors Hospitalca [facility] Medical CenterComment on above:Result Comment: HDL <40 mg/dL - High Risk HDL > or = 40mg/dL- Desirable HDL >60 mg/dL - Negative Risk Performed By: #### LIBRA 3016-3 ####[facility] ([id number])[address] [place] [address]#### 72936-1 ####[facility] ([id number])[address] [place] [address], [address] [place] [address]Tseujqfepmk in LDL [Mass/Vol]45 mg/dLNormal<130ProJ.W. Ruby Memorial HospitalComment on above:Result Comment: LDL <100 mg/dL - Desirable LDL >160 mg/dL - High Risk Performed By: #### LIBRA, 6-3 ####[facility] ([id number])[address] [place] [address]#### 60114-1 ####[facility] ([id number])[address], [address], [place] [address]Hdrfkbszgqg in VLDL [Mass/Vol]75 mg/dLHigh0-30ProMiddletown Hospital HospitalComment on above:Performed By: #### LIBRA, 6-3 ####[facility] ([id number])[address] [place] [address]#### 59787-6 ####[facility] ([id number])[address], [address], [place] [address]DTMZAVTOYOY:HDL3.9Wsutwz3.0-5.0ProMiddletown Hospital HospitalComment on above: Performed By: #### LIBRA, 6-3 ####[facility] ([id number])[address] [place] [address]#### 54957-7 ####[facility] ([id number])[address], [address], [place] [address]Uayzcfxtbwpf [Mass/Vol]374 mg/zGSlzr62-941PtjUavnfs [facility] HospitalComment on above:Performed By: #### LIBRA, 6-3 ####[facility] ([id number])[address] [place] [address]#### 83269-3 ####[facility] ([id number])[address], [address], [place] [address]YTLURAWEIwh 14-17-8001Kfilrwecw [Mass/Vol] 2.0 mg/dLNormal1.8-2.6ProJ.W. Ruby Memorial HospitalComment on above:Performed By: #### CBCA, CMP, 58256-1, 09232-2, 5643-2 #### [facility] ([id number]) [address] [facility] [place], [place] [address] BRAIN W WO CONTon 91-54-0043GY BRAIN W WO CONTMR BRAIN W WO CONT EXAM:MR BRAIN W [...] Finalized by Duran Musa on 10/05/2023 11:31 AMNormalProMedica Mercy Medical CenterPROTIME AND INRon 33-21-8162IAH Coag (PPP) [Relative time]1.0 {INR} Normal0.8-1.1PWooster Community HospitalComment on above:Performed By: #### LIBRA, 3016-3 ####[facility] ([id number])[address] [place] [address]#### 93306-7 ####[facility] ([id number])[address], [address] [place] [address]YR Coag (PPP) [Time]11.6 sNormal9.8-13.2PWooster Community HospitalComment on above:Performed By: #### LIBRA, 3016-3 ####[facility] ([id number])[address] [place] [address]#### 80972-4 ####[facility] ([id number])[address] [facility], [address] [place] [address]GLOSTWII Ion 29-07-2279Gmcdpvmx I.cardiac [Mass/Vol]ng/mLNormal0.00-0.04 [facility] HospitalComment on above:Performed By: #### CBCA, CMP, 39328- 9, 88457-3, 5643-2 #### [facility] ([id number]) [address] [place], [place] [address]ZTD Qnon 63-65-1440MCT6.51 uIU/mLNormal0.49-4.67[facility] HospitalComment on above:Performed By: #### PINR, 3016-3 ####[facility] ([id number])[address] [place] [address]#### 70821-0 ####[facility] ([id number])[address] [place] [address], [address], [place] [address]SLB MACROSCOPIC NURon 88-22-8044MHRLJHEDV NURNegativeNormalNEGProDoctors Hospitalca [facility] HospitalComment on above:Performed By: #### NUM ####[facility] ([id number])[address] [place] [address]TQWRC/HGB NURNegativeNormal NEGProDoctors Hospitalca [facility] HospitalComment on above:Performed By: #### NUM ####[facility] ([id number])[address] [place] [address]SEFRUPH JOSIAH NegativeNormalNEGProMedica [facility] HospitalComment on above:Performed By: #### NUM ####[facility] ([id number])[address] [place] [address] KETONES NURNegativeNormalNEGProMedica [facility] HospitalComment on above:Performed By: #### NUM ####[facility] ([id number])[address] [place] [address]NZJLWTOXA ESTERASE NURNegativeNormalNEGProMedica [facility] HospitalComment on above:Performed By: #### NUM ####[facility] ([id number])[address] [place] [address]AQUPLTS NURNegativeNormalNEG ProMatmore community hospitala [facility]cy Medical CenterComment on above:Performed By: #### NUM ####[facility] ([id number])[address] [place], [place] [address]EX NUR5.5Normal 5.0-8.5ProMedTriHealth Bethesda Butler HospitalComment on above:Performed By: #### NUM ####[facility] ([id number])[address] [place], [place] [address]NTXVDSC JOSIAH NegativeNormalNEGProJ.W. Ruby Memorial HospitalComment on above:Performed By: #### NUM ####[facility] ([id number])[address] [place] [address] SPECIFIC GRAVITY NUR1.763Sqlyrs3.003-1.035ProDoctors Hospitalca [facility] Medical CenterComment on above:Performed By: #### NUM ####[facility] ([id number])[address] [place], [place] [address]FPWWUIHGXSAN NUR0.2 eu/dLNormal<1.1PWooster Community HospitalComment on above:Performed By: #### NUM ####[facility] ([id number])[address] [place], [place] [address]QK MAMM SCREEN 3D AARON CADon 38-24-6036WN MAMM SCREEN 3D AARON CADPatient: RACHEAL RICHARDSON Exam Date: 07/12/2022 : 1970 Gender:F Ordering : [facility] Admission #: [id number] Family : Order #: [id number] CLICK HERE TO VIEW EXAM RADIOLOGY REPORT [...] breast cancer at age 53. LOCATION: The [facility] BREAST COMPOSITION: Heterogeneously dense,which may obscure small [...] LUMP SHOULD BE BIOPSIED. Dictated by: Kip Cunningham M.D. on 07/13/2022 at 14:40 Approved by: Kip Cunningham M.D. on 07/13/2022 at 14:47NoLake [facility] AUTO DIFFon 90-78-5676BVVS #0.0 103/ulNormal0.0-0.1[facility] Medical CenterComment on above:Performed By: #### CBC #### [facility] [address] [place] [address] Dr. Ron BackBasophils/100 WBC (Bld)0.4 %Normal0.2-2.0[facility] Comment on above:Performed By: #### CBC #### [facility] [address] [address] [address] Ron Nelson #0.1 103/ulNormal0.0-0.7ThCleveland Clinic Union HospitalComment on above: Performed By: #### CBC #### [facility] [address] [place] [address] Dr. Ron Presleyosinophils/100 WBC (Bld)1.7 %Normal0.9-7.0[facility] Comment on above:Performed By: #### CBC #### [facility] [address] [address] [address] Ron Presleyrythrocyte distribution width (RBC) [Ratio]12.7 %Jtgaqm74.0-15.0 The [facility] SystemComment on above:Performed By: #### CBC #### [facility] [address] [place] [address] Dr. Ron BackHematocrit (Bld) [Volume fraction]40.9 %Vtqvyo11.0-48.0The [facility] SystemComment on above:Performed By: #### CBC #### [facility] [address] [address] [address] Ron BackHemoglobin (Bld) [Mass/Vol]13.5 g/uRMsbwyb23.0-16.0The [facility] SystemComment on above:Performed By: #### CBC #### [facility] [address] [address] [address] Ron Wells #0.03 10e3/ulNormal0.00-0.03The [facility] SystemComment on above:Performed By: #### CBC #### [facility] [address] [place] [address] Dr. Ron Wells %0.6 %Critically high0.0-0.5The [facility] SystemComment on above:Performed By: #### CBC #### [facility] [address] [place] [address] Dr. Ron Vieira #1.7 103/ulNormal1.2-3.8The [facility] SystemComment on above:Performed By: #### CBC #### [facility] [address] [place] [address] Dr. Ron Cardosohocytes/100 WBC (Bld)32.7 %Naxmtq67.5-60.0The [facility] SystemComment on above:Performed By: #### CBC #### [facility] [address] [place] [address] Dr. Ron MendozaUAL DIFF REQNONormalThe [facility] SystemComment on above: Performed By: #### CBC #### [facility] [address] [place] [address] Dr. Ron Zavala (RBC) [Entitic mass]31.8 juOmirld72.7-34.0The [facility] SystemComment on above:Performed By: #### CBC #### [facility] [address] [place] [address] Dr. Ron Zavala (RBC) [Mass/Vol]33.0 g/zHNzmmmm09.9-35.2The [facility] SystemComment on above:Performed By: #### CBC #### [facility] [address] [address] [address] Ron ZavalaV (RBC) [Entitic vol]96.5 qKYthuwe21.0-99.0The [facility] SystemComment on above:Performed By: #### CBC #### [facility] [address] [place] [address] Dr. Ron Anderson #0.4 103/ulNormal0.3-0.8The [facility] SystemComment on above:Performed By: #### CBC #### [facility] [address] [place] [address] Dr. Ron Petitocytes/100 WBC (Bld)7.1 %Normal1.7-12.0The [facility] on above:Performed By: #### CBC #### [facility] [address] [place] [address] Dr. Ron Altamirano #3.0 103/ulNormal1.4-6.5The [facility] on above:Performed By: #### CBC #### [facility] [address] [place] [address] Dr. Ron Christiansonutrophils/100 WBC (Bld)57.5 %Spbbax03.0-75.0The [facility] on above:Performed By: #### CBC #### [facility] [address] [place] [address] Dr. Ron Matalet mean volume (Bld) [Entitic vol]10.5 fLNormal9.5-13.5The [facility] Hospitalment on above:Performed By: #### CBC #### [facility] [address] [place] [address] Dr. Ron BackPLT212 103/qsYmeqen578-296Dvq [facility] Hospitalment on above: Performed By: #### CBC #### [facility] [address] [place] [address] Dr. Ron BackRBC4.24 106/ulNormal4.20-5.40The [facility] Hospitalment on above:Performed By: #### CBC #### [facility] [address] [address] [address] Ron BackWBC5.2 103/ulNormal4.0-11.0The [facility] on above: Performed By: #### CBC #### [facility] [address] [address] [address] Ron PerryID PROFILEon 92-73-3204BRKL-HDL RATIO NORMSEE [facility] HospitalComascension genesys hospital on above:Result Comment: 3.3 - 4.4 LOW RISK 4.4 - 7.1 AVERAGE RISK 7.1 - 11.0 MODERATE RISK >11.0 HIGH RISKPerformed By: #### CMP, LIPID #### [facility] [address] [address] [address] Ron Hamiltonesterol [Mass/Vol]202 mg/dLCritically high<=200The [facility] on above:Performed By: #### CMP, LIPID #### [facility] [address] [address] [address] Ron Hamiltonesterol in HDL [Mass/Vol]69 mg/dLCritically dbon61-98Ygf [facility] on above:Performed By: #### CMP, LIPID #### [facility] [address] [address] [address] Ron Hamiltonesterol in LDL [Mass/Vol]110.8 mg/dLTogus VA Medical Center on above:Performed By: #### CMP, LIPID #### [facility] [address] [address] [address] Ron Hamiltonesternilda.total/Cholesterol in HDL [Mass ratio]2.9 {ratio} NormalThe [facility] on above:Performed By: #### CMP, LIPID #### [facility] [address] [address] [address] Ron DavalosL NORMAL> or = 60 mg/dl - LOW CARDIOVASCULAR RISK <40 mg/dl - HIGH CARDIOVASCULAR RISKTogus VA Medical Center on above:Performed By: #### CMP, LIPID #### [facility] [address] [place] [address] Dr. Ron Bishop CALC NORMALSEE BELOWNoKnox Community HospitalComment on above:Result Comment: <100 mg/dl OPTIMAL 100 - 129 mg/dl NEAR OR ABOVE OPTIMAL 130 - 159 mg/dl BORDERLINE HIGH 160 - 189 mg/dl HIGH >190 mg/dl VERY HIGH Performed By: #### CMP, LIPID #### [facility] [address] [address] [address] Ron BackTriglyceride [Mass/Vol]111 mg/dLNormal<=150The [facility] Comment on above:Performed By: #### CMP, LIPID #### [facility] [address] [place] [address] Dr. Ron BackVLDL CALC22.2 mg/dLNoKnox Community HospitalComment on above: Performed By: #### CMP, LIPID #### [facility] [address] [place] [address] Dr. Ron BackPROF 14(COMP METB)on 26-92-7985Qyjhawk [Mass/Vol]4.1 g/dLNormal 3.4-5.0The [facility]Comment on above:Performed By: #### CMP, LIPID #### [facility] [address] [place] [address] Dr. Ron BackAlbumin/Globulin [Mass ratio]1.0 {ratio}NormalThe [facility] SystemComment on above:Performed By: #### CMP, LIPID #### [facility] [address] [place] [address] Dr. Ron Marti [Catalytic activity/Vol]114 U/UUyjfkc11-708Umm [facility] SystemComment on above:Performed By: #### CMP, LIPID #### [facility] [address] [place] [address] Dr. Ron Bui [Catalytic activity/Vol]34 U/FXktpyi19-58Gmr [facility] SystemComment on above:Performed By: #### CMP, LIPID #### [facility] [address] [place], [place] [address] Dr. Ron South gap [Moles/Vol]15.4 mmol/LNormalCoshocton Regional Medical Center Comment on above:Performed By: #### CMP, LIPID #### [facility] [address] [address] [address] Ron BackAST [Catalytic activity/Vol]28 U/RTgcwee87-74Yei [facility] SystemComment on above:Performed By: #### CMP, LIPID #### [facility] [address] [address] [address] Ron BackBilirubin [Mass/Vol]0.4 mg/dLNormal0.2-1.0[facility] Comment on above:Performed By: #### CMP, LIPID #### [facility] [address] [place] [address] Dr. Ron BackCalcium [Mass/Vol]10.0 mg/dLNormal8.5-10.1[facility] Comment on above:Performed By: #### CMP, LIPID #### [facility] [address] [place] [address] Dr. Ron BackChloride [Moles/Vol]100 mmol/KYfwvkt60-050KzlCoshocton Regional Medical Center Comment on above:Performed By: #### CMP, LIPID #### [facility] [address] [place] [address] Dr. Ron BackCO2 [Moles/Vol]26.1 mmol/BWalomu59.0-32.0[facility] Comment on above:Performed By: #### CMP, LIPID #### [facility] [address] [place] [address] Dr. Ron BackCreatinine [Mass/Vol]0.69 mg/dLNormal0.55-1.02The [facility]Comment on above:Performed By: #### CMP, LIPID #### [facility] [address] [place] [address] Dr. Ron PresleyGFR-AF SLOVENIAN>60Normal>=60The [facility]Comment on above:Performed By: #### CMP, LIPID #### [facility] [address] [address] [address] Ron PresleyGFR-NON AF SLOVENIAN>60Normal>=60The [facility] on above:Performed By: #### CMP, LIPID #### [facility] [address] [address] [address] Ron BackGlobulin (S) [Mass/Vol]4.1 g/dLNormalThe [facility]Comment on above:Performed By: #### CMP, LIPID #### [facility] [address] [place] [address] Dr. Ron BackGlucose [Mass/Vol]101 mg/eKXrouxy08-394Pgx [facility] Comment on above:Performed By: #### CMP, LIPID #### [facility] [address] [place] [address] Dr. Ron BackPotassium [Moles/Vol]4.5 mmol/LNormal3.5-5.1The [facility] Comment on above:Performed By: #### CMP, LIPID #### [facility] [address] [place] [address] Dr. Ron BackProtein [Mass/Vol]8.2 g/dLNormal6.4-8.2The [facility] Comment on above:Performed By: #### CMP, LIPID #### [facility] [address] [place] [address] Dr. Ron BackSodium [Moles/Vol]137 mmol/MRwskcv493-795Uif [facility] Comment on above:Performed By: #### CMP, LIPID #### [facility] [address] [place] [address] Dr. Ron BackUrea nitrogen [Mass/Vol]16.0 mg/dLNormal7.0-18.0The [facility] SystemComment on above:Performed By: #### CMP, LIPID #### [facility] [address] [place] [address] Dr. Ron BackUrea nitrogen/Creatinine [Mass ratio]23.2 mg/mgNormalThe [facility] SystemComment on above:Performed By: #### CMP, LIPID #### [facility] [address] [address] [address] Ron Celeste RANDOM W/MICROSCOPICon 38-95-3360HHJMCBCMCLEC SEENNormalNONE SEENCoshocton Regional Medical CenterComment on above:Performed By: #### UAMIC ####[facility] [address] [address]Dr. Ron Back Bilirubin Ql (U)NegativeNormalNEGATIVECoshocton Regional Medical CenterComment on above: Performed By: #### UAMIC ####[facility] [address] [place], [place] [address]Dr. Ron ChangCASTSEENAbnormalNONE SEENThe [facility] SystemComment on above:Performed By: #### UAMIC ####[facility] [address] [place], [place] [address]Dr. Ron ChangClarity (U) CLEARNormalCLEARCoshocton Regional Medical CenterComment on above:Performed By: #### UAMIC ####[facility] [address] [place], [place] [address]Dr. Ron ChangColor (U)YELLOWNormalYELLOWCoshocton Regional Medical CenterComment on above: Performed By: #### UAMIC ####[facility] [address] [place], [place] [address]Dr. Yulissalan ChangCrystals LM Nom (Urine sed)NONE SEEN NormalNONE SEENCoshocton Regional Medical CenterComascension genesys hospital on above:Performed By: #### UAMIC ####[facility] [address] [place], [place] [address]Dr. Ron ChangEpithelial cells LM Ql (Urine sed)FEWAbnormalNONE SEEN /RAREThe [facility] SystemComment on above:Performed By: #### UAMIC ####[facility] [address] [place], [place] [address]Dr. Yulissalan ChangGlucose Ql (U) NegativeNormalNEGATIVECoshocton Regional Medical CenterComment on above:Performed By: #### UAMIC ####[facility] [address]ncx[address] [place], [place] [address]Dr. Yulissalan ChangHemoglobin Ql (U)NegativeNormalNEGATIVECoshocton Regional Medical Center Comment on above:Performed By: #### UAMIC ####[facility] [address] [address]Dr. Yilan ChangHYALINE CASTRARENormalCoshocton Regional Medical CenterComment on above:Performed By: #### UAMIC ####[facility] [address] [address]Dr. Yilan ChangKetones Ql (U) NegativeNormalNEGATIVELima Memorial Hospital HospitalComment on above:Performed By: #### UAMIC ####[facility] [address] [address]Dr. Yilan ChangLEUKOCYTESNegativeNormalNEGATIVECoshocton Regional Medical CenterComment on above:Performed By: #### UAMIC ####[facility] [address] [place], [place] [address]Dr. Yulissalan ChangMUCOUSTRACEAbnormalNONE SEENThe [facility] SystemComment on above:Performed By: #### UAMIC ####[facility] [address] [place], [place] [address]Dr. Yilan ChangNitrite Ql (U) NegativeNormalNEGATIVECoshocton Regional Medical CenterComment on above:Performed By: #### UAMIC ####[facility] [address] [place], [place] [address]Dr. Ron ChangpH (U)5.5 [pH]Normal5-9[facility] Regional Medical CenterComment on above:Performed By: #### UAMIC ####[facility] [address] [place], [place] [address]Dr. Yilan MnaqoBUE0-9Cvmcfu3-0Qxt [facility] Comment on above:Performed By: #### UAMIC ####[facility] [address] [place], [place] [address]Dr. Ron BackSPEC GRAVITY1.025Normal 1.005-<=1.025Coshoct[facility] Regional Medical CenterComment on above:Performed By: #### UAMIC ####[facility] [address] [place], [place] [address]Dr. Yilan WongUA PROTEINNegativeNormalNEGATIVE/ TRACEThe [facility] SystemComment on above:Performed By: #### UAMIC ####[facility] [address] [address]Dr. Rno Keanebilino Qn (U)0.2 {Aaliyah'U}/dL Normal0.2 - 1.0[facility] Medical CenterComment on above:Performed By: #### UAMIC ####[facility] [address] [address]DrAlanis CarreonBCNONWinter SEENNormalNONE SEENCoshocton Regional Medical CenterComment on above: Performed By: #### UAMIC ####[facility] [address] [address]Dr. Ron Shepherd ACOG PANEL 2: 30 to 65on 04-16-2022 ..NormalThe [facility] SystemComment on above:Result Comment: Performed at: BA Performed By: #### [id number] #### [facility] [address] [place] [address] Dr. Ron Casillas Gdln ACOG Gamdrrz83-78TqriuoNhuKnox Community HospitalComascension genesys hospital on above:Performed By: #### [id number] #### [facility] [address] [place] [address] Dr. Ron BackDIAGNOSIS:CommentTogus VA Medical Center on above: Result Comment: NEGATIVE FOR INTRAEPITHELIAL LESION OR MALIGNANCY. Performed at: BAPerformed By: #### [id number] #### [facility] [address] [place] [address] Dr. Ron BackHPV AptimaNegativeNormalNegativeEast [facility] on above:Result Comment: This nucleic acid amplification test detects fourteen high-risk HPV types (16,18,31,33,35,39,45,51,52,56,58,59,66,68) without differentiation. Performed at: =GPerformed By: #### [id number] #### [facility] [address] [address] [address] Ron BackMethodology:CommentTogus VA Medical Center on above: Result Comment: This liquid based ThinPrep(R) pap test was screened with the use of an image guided system. Performed at: [facility] Centerformed By: #### [id number] #### [facility] [address] [place] [address] Dr. Ron BackNote:CommentTogus VA Medical Center on above:Result Comment: The Pap smear is a screening test designed to aid in the detection of premalignant and malignant conditions of the uterine cervix. It is not a diagnostic procedure and should not be used as the sole means of detecting cervical cancer. Both false-positive and false-negative reports do occur. . Performed at: [facility] Centerformed By: #### [id number] #### [facility] [address] [place] [address] Dr. Ron BackPerformed by:CommentTogus VA Medical Center on above: Result Comment: Rita Mcnally, Global Marketing Operations Manager (ASCP) Performed at: [facility]formed By: #### [id number] #### [facility] [address] [place] [address] Dr. Ron BackSpecimen adequacy:CommentTogus VA Medical Center on above:Result Comment: Satisfactory for evaluation. Endocervical and/or squamous metaplastic cells (endocervical component) are present. Performed at: [facility]erformed By: #### [id number] #### [facility] [address] [place] [address] Dr. Ron BackXR LSPINE 2_3 VIEWSon 83-52-2384VH LSPINE 2_3 VIEWSEXAMINATION: XR LSPINE 2_3 VIEWS HISTORY: Pain of [...] degenerative facet arthropathy. Electronically authenticated by: KIP CUNNINGHAM Date: 2021-09-20 12:00[facility] CenterHEMOGLOBINon 90-55-2472Kwdnjhabvd (Bld) [Mass/Vol]13.0 g/dL Ytukam15.0-16.0[facility] Medical CenterComment on above:Performed By: #### HGB #### [facility] [address] [address] [address] Ron BackOperative Reporton [id number] ReportMR#: [id number] [facility] Pt. Name: Racheal Richardson Room #: 0C DischargeDate: Birthdate: 1970 OPERATIVE REPORTDATE OF SURGERY: 09/08/2017SURGEON: Angelique Fuentes M.D.LEAD ELECTRICAL CONTROLS ENGINEER: Maryjo Monroy M.D.PREOPERATIVE DIAGNOSES: Left severe carpal tunnel syndrome along withpossible peripheral neuropathy and axonal loss.POSTOPERATIVE DIAGNOSES: Left severe carpal tunnel syndrome along withpossible peripheral neuropathy and axonal loss.PROCEDURE PERFORMED: Left open carpaltunnel release surgery under MACalong with local anesthesia.ANESTHESIA: MAC with local.SPECIMENS: None.DRAINS: None.IMPLANTS: None.COMPLICATIONS: None.TOTAL TOURNIQUET TIME: None applied.BOVIE: None.I NDICATION FOR THE PROCEDURE: Mrs. Richardson is a pleasant 47-year-old femalewho is right-hand dominantand is known to have bilateral carpal tunnelsyndrome. [...] to cervicalradiculopathy and/or peripheral neuropathy were all discussedin detail,despite which she wishes to proceed with [...] given preoperativeantibiotics prior to the incision within anhour in the form of 2 g ofAncef.No tourniquet is applied to the left upper extremity. Following this, theleft upper extremity was prepped and draped in a standard sterile fashionusing Hibiclens, soap, ChloraPrep, and alcohol. Following this, time- outwas done prior to the procedure.We began by marking our incision in line with the radial border of the ringfinger, 1 cm distal to the wrist crease, ap proximately 2 cm in length.Local anesthesia was instilled into the carpal tunnel as well as theincision site and distal part of the transverse carpal ligament. Followingthis, used a #15 blade to makea longitudinal incision through the skin anddeep subcutaneous fat, the superficial fascia. This wasthen followed byretracting and placement of retractors to [...] she develops any fever, chills, or rigors andany redness or discharge to the incision. The patient will follow up to see in my office in about 2weeks time for removal of sutures. The patient will plan for other. The patient understands that she was given Addison 5/325 mg tabs, take 1-2 tablets every [...] 09/15/2017 02:07 P Angelique Fuentes M.D.Date Dict: 09/08/2017/0 1:50 P/Angelique Fuentes M.D.Date Trans: 09/08/2017 11:05 P/mmoDN_JN:[id number] HospitalPO GLUCOSE LABon [id number] mass conc90 mg/eEGgbspi56-396WszOhioHealth Doctors HospitalComment on above:Performed By: #### [id number] ####[facility] StreetOperative Reporton [id number] ReportMR#: [id number] [facility] Pt. Name: Racheal Richardson Room #: 0C DischargeDate: Birthdate: 1970 OPERATIVE REPORTDATE OF SURGERY: 07/14/2017SURGEON: Angelique Fuentes M.D.PRIMARY DIAGNOSES: Right severe carpal tunnel syndrome along with possibleperipheral neuropathy.POSTOPERATIVE DIAGNOSES: Right severe carpal tunnel syndrome along withpossible peripheral neuropathy.PROCEDURE PERFORMED: Right open carpal tunnel release under MAC along withlocal anesthesia.ANESTHESIA: MAC with local.SPECIMEN SENT: None.DRAINS: None.IMPLANTS: None.COMPLICATIONS: None.TOTAL TOURNIQUET TIME: None applied.BOVIE: None.INDICATION FOR THE PROCEDURE: The patient is a pleasant 23-gxna-wnoqvaqjp, who is right-hand dominant and has been having bilateral carpaltunnel symptoms. Her right side is worse than left side. She has triednonsurgical treatment on the right side in the form of use of braces atnighttime as well as use of oral pain medications and has failednonsurgical treatment. She also had an EMG study, which revealed milicvvvbzheg-tz-yhlykt carpal tunnel syndrome. She has failed nonsurgicaltreatment [...] neuropathy were all discussed in detail despite whichshewishes to proceed with the surgery. She has signed a consent form.Site was marked.DESCRIPTION OFPROCEDURE: After the patient was seen in the [...] and distal part into the transverse carpal l igament.Following this, we used a #15 blade to make a longitudinal incision throughthe skin, the deep subcutaneous fat, and the superficial fascia. This wasthen followed by retracting placement of retractors so as to expose thetransverse carpal ligament. We began by making an incision to the palmarf ascia down to the transverse carpal ligament. Following [...] bands oftissue that were entering to the nerve.The nerve was found to be prettystrangulated and [...] of dressing in the form of Xeroform, pvcmqrp5w0y, fluffs, Kerlix, and Keeley wrap. This was applied lightly.The patient was then moved to the PACU in a stable condition.POSTOPERATIVE PLAN:1. To keep the patient nonweightbearing with the right upper extremity.2. The patient may reduce the dressing in48 hours and apply Band-Aid.3. 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 The patient understands the treatment plan. The patient was given Addison 5/325 mg tabs, take 1-2 tablets every 4-6 hours on a p.r.n. basis, total of 40 tablets were given with 0 refills.9. The patient was also given Keflex 500 mg 3 times a day in a totalof 5 days' time. All details of the intraoperative findings were discussed with the patient and herfamily. The patient will be discharged home today.Electronically Signed by:Angelique Fuentes M.D. 07/17/2017 12:55 P Angelique Fuentes M.D.Date Dict: 07/14/2017/04:04 P/Angelique Fuentes M.D.Date Trans: 07/15/2017 03:30 A/Nadya_JN:[id number] HospitalPO GLUCOSE LABon 37-80-9666Zfdggmn mass conc92 mg/xEGdpgbg91-233Bta [facility]vue HospitalComment on above:Performed By: #### [id number] ####[address] [address] [address] Vital Signs Date TimeVital SignValuePerforming XdfvrxbgwXjuqidts34-89-9876 14:46-0400Body dcvdus365.64 Amanda Eng VIDEO CONFERENCE SPECIALIST-C Work Phone: [facility]10-13-2025 14:46-0400 Body mass index (BMI) [Ratio]27.7 kg/m2Ritu Eng VIDEO CONFERENCE SPECIALIST-C Work Phone: [facility]10-13-2025 14:46-0400 Body vsycrbggjee84 [degF]Ritu Eng VIDEO CONFERENCE SPECIALIST-C Work Phone: [facility]10-13-2025 14:46-0400 Body .01 kgRitu Eng VIDEO CONFERENCE SPECIALIST-C Work Phone: [facility]10-13-2025 14:46-0400 Diastolic blood gpolveww98 mm[Hg]Ritu Owenholz VIDEO CONFERENCE SPECIALIST-C Work Phone: [facility]10-13-2025 14:46-0400 Heart rate95 /minLisa Aichholz VIDEO CONFERENCE SPECIALIST-C Work Phone: [facility]10-13-2025 14:46-0400 Respiratory rate18 /minLisa Aichholz VIDEO CONFERENCE SPECIALIST-C Work Phone: [phone] [place], [place] [address]010-13-2025 14:46-0400 SaO2% (BldA) [Mass fraction]96 %Ritu Braydenholz VIDEO CONFERENCE SPECIALIST-C Work Phone: [facility]10-13-2025 14:46-0400 Systolic blood cekkoqmq604 mm[Hg]Ritu Owenholz VIDEO CONFERENCE SPECIALIST-C Work Phone: [phone]02-18-2025 14:08-0500 Body upogsd797.6 Amanda Braydenholz VIDEO CONFERENCE SPECIALIST Work Phone: [facility] HospitalRfkkqgicvq63-34-6146 14:08-0500Body mass index (BMI) [Ratio]30.24 kg/m2iRtu Butthholz VIDEO CONFERENCE SPECIALIST Work Phone: [facility] HospitalJdcjysnwmz91-41-5037 14:08-0500Body temperature 98.49 [degF]Ritu Owenholz VIDEO CONFERENCE SPECIALIST Work Phone: [facility] HospitalHumqhltwrv40-41-2035 14:08-0500Body vqpwpa50.92 kgLisa Butthholz VIDEO CONFERENCE SPECIALIST Work Phone: [facility] HospitalSxhnzeflwa33-06-5970 14:08-0500Diastolic blood jjgoqwtd08 mm[Hg]Ritu Filomenahholz VIDEO CONFERENCE SPECIALIST Work Phone: [facility] HospitalKxylmkfvex76-84-3192 14:08-0500Heart rate88 /min Ritu Aichholz VIDEO CONFERENCE SPECIALIST Work Phone: [facility] HospitalQrtuqxtyjk11-04-6891 14:08-0500Respiratory rate18 /minLisa Aichholz VIDEO CONFERENCE SPECIALIST Work Phone: [facility] HospitalRwplzffzcp02-91-2905 14:08-7550DxW8% (BldA) [Mass fraction]97 %Ritu Sanfordz VIDEO CONFERENCE SPECIALIST Work Phone: [facility] HospitalPjvgiekuti96-73-6704 14:08-0500Systolic blood mm[Hg]Ritu Braydenholz VIDEO CONFERENCE SPECIALIST Work Phone: [facility] HospitalBkzrrlgfxu29-58-8163 14:22-0500Body mcxfpo088.6 cmLisa Braydenholz VIDEO CONFERENCE SPECIALIST Work Phone: [facility] HospitalIvsgrkbjxm25-83-4531 14:22-0500Body mass index (BMI) [Ratio]29.49 kg/m2Lisa Braydenholz VIDEO CONFERENCE SPECIALIST Work Phone: [phone] [place], [place] [address]Zsyjvfxqdd67-93-3568 14:22-0500Body temperature 98.71 [degF]Ritu Sanfordz VIDEO CONFERENCE SPECIALIST Work Phone: [phone] [place], [place] [address]Jvdflcimvb39-12-3063 14:22-0500Body boxofz07.93 kgLisa Owenholz VIDEO CONFERENCE SPECIALIST Work Phone: [facility] HospitalCdbdeymvvd70-28-7493 14:22-0500Diastolic blood wbzmcuoa95 mm[Hg]Ritu Juvenalz VIDEO CONFERENCE SPECIALIST Work Phone: [facility] HospitalGsdijaxgmp35-93-9298 14:22-0500Heart rate97 /min Ritu Braydenholz VIDEO CONFERENCE SPECIALIST Work Phone: [facility] HospitalRtaacsnuaf95-02-0594 14:22-0500Respiratory rate18 /minLisa Owenholz VIDEO CONFERENCE SPECIALIST Work Phone: [facility] HospitalDrkjjbehhx93-63-0353 14:22-9497AjO4% (BldA) [Mass fraction]100 %Ritu Owenholz VIDEO CONFERENCE SPECIALIST Work Phone: [facility] HospitalQavqntggbf91-41-0907 14:22-0500Systolic blood jiarwzeg915 mm[Hg]Ritu Filomenahholz VIDEO CONFERENCE SPECIALIST Work Phone: [phone] [place], [place] [address]Rgitdbkbpc20-60-7973 13:06-0400Body nhawyx621.6 cmLisa Aichholz VIDEO CONFERENCE SPECIALIST Work Phone: [facility] HospitalBruplqbchg74-48-1551 13:06-0400Body mass index (BMI) [Ratio]28.67 kg/m2Ritu Eng VIDEO CONFERENCE SPECIALIST Work Phone: noSaint [facility] Medical CenterDcykyegawi95-65-0480 13:06-0400Body temperature 98.8 [degF]Ritu Eng VIDEO CONFERENCE SPECIALIST Work Phone: [facility] HospitalNgqgqfahmq74-68-7728 13:06-0400Body fyaqbj53.75 kgRitu Eng VIDEO CONFERENCE SPECIALIST Work Phone: [facility] HospitalHtqahvkuir77-91-4533 13:06-0400Diastolic blood zbprkkzi77 mm[Hg]Ritu Eng VIDEO CONFERENCE SPECIALIST Work Phone: noSaint [facility] Medical CenterFvyhtbwqlf43-97-0428 13:06-0400Heart rate97 /min Ritu Eng VIDEO CONFERENCE SPECIALIST Work Phone: [facility] HospitalIrlomcljek70-05-8773 13:06-0400Respiratory rate18 /minLisa Eng VIDEO CONFERENCE SPECIALIST Work Phone: noSaint [facility] Medical CenterCwurxcwnvs87-15-6753 13:06-7369JgC0% (BldA) [Mass fraction]97 %Ritu Eng VIDEO CONFERENCE SPECIALIST Work Phone: noSaint [facility] Medical CenterBfizytnfwe27-55-5062 13:06-0400Systolic blood enblwheg120 mm[Hg]Ritu Eng VIDEO CONFERENCE SPECIALIST Work Phone: [facility] Encounters Encounter DateEncounter TypeCare ProviderFacilityStart: 05-26-2025 End: 64-26-6573duwwkfvcupGlqq J Aichholz VIDEO CONFERENCE SPECIALIST-C Work Phone: [facility] Work Phone: Start: 05-26-2025 End: 26-06-9892Hkxvmjy encounter procedureLisa Joanie Eng VIDEO CONFERENCE SPECIALIST-C-[facility] Work Phone: Start: 02-36-9494Ajkiudp encounter procedureRitu Eng VIDEO CONFERENCE SPECIALIST-C Work Phone: [facility] Hospitaltart: 11-08-2024 End: 65-43-3423uiwneyytldYBPEHDZanesville City Hospital Start: 10-22-2024 End: 68-15-6688Hcsjbnlvx Result EncounterGeneric External Data ProviderNOMS External Department UnsolicitedStart: 10-22-2024 End: 63-97-7354Sbqhelgaf Result EncounterGeneric External Data ProviderNOMS External Department UnsolicitedStart: 10-01-2024 End: 99-52-3779Gyrpfz flowsheetRitu Eng VIDEO CONFERENCE SPECIALIST Work Phone: n[facility] CWM FMStart: 10-01-2024 End: 02-02-2162Hgghie flowsheetRitu Eng VIDEO CONFERENCE SPECIALIST Work Phone: [facility] FMStart: 10-01-2024 End: 99-75-0172Hfiwnj outpatient visit 15 minutesRitu Eng VIDEO CONFERENCE SPECIALIST Work Phone: [facility] CWM FMComment on above:Irregular heart rate (Primary Dx); Chronic kidney disease, stage 3b (HCC) (CMS/HCC); Unspecified convulsions (CMS/HCC); Primary hypertension (CMS/HCC); Tobacco dependenceStart: 10-01-2024 End: 79-26-2656etjsqvhbvfINYD AICHHOLZNot AvailableStart: 09-23-2024 End: 66-32-5841qcdizpygktOBPHGT [facility] Start: 07-23-2024 End: 54-98-5507Tktnpjukz encounterLisa Albertina VIDEO CONFERENCE SPECIALIST Work Phone: [facility] FMStart: 07-18-2024 End: 65-90-5268BztrvbDwno Aichholz VIDEO CONFERENCE SPECIALIST Work Phone: [facility] FMComment on above:Centrilobular emphysema (CMS/HCC)Start: 07-16-2024 End: 45-11-3832Rjwgxw flowsheetRitu Owenholz VIDEO CONFERENCE SPECIALIST Work Phone: [facility] FMStart: 07-16-2024 End: 66-05-6502Zpkhxl flowsheetLisa Owenholz VIDEO CONFERENCE SPECIALIST Work Phone: [facility] FMStart: 07-16-2024 End: 18-16-4845Cwvmyumjh Result EncounterLisa Eng VIDEO CONFERENCE SPECIALIST Work Phone: [facility] External Department UnsolicitedStart: 07-16-2024 End: 61-72-8730Evyflsn encounter procedureLisa Eng VIDEO CONFERENCE SPECIALIST Work Phone: noms HealthcareStart: 07-16-2024 End: 56-58-1580Apqbsocw preventive med est patient 40-64yrsLisa Eng VIDEO CONFERENCE SPECIALIST Work Phone: [facility] CWM FMComment on above:Well woman exam with routine gynecological exam (Primary Dx); Urticaria, unspecified; Urticaria; Primary hypertension (CMS/HCC); Mixed hyperlipidemia (CMS/HCC)Start: 07-16-2024 End: 29-48-9699gdbbdxmnuyDASA JUVENALZNot AvailableStart: 07-04-2024 End: 93-24-4617Womcuz OnlyLisa Eng VIDEO CONFERENCE SPECIALIST Work Phone: [facility] CWM FMComment on above:Irregular heart rate (Primary Dx); Abnormal Holter monitor findingStart: 07-03-2024 End: 06-96-5761Hrryojisn Result EncounterLisa Braydenholz VIDEO CONFERENCE SPECIALIST Work Phone: [facility] External Department UnsolicitedStart: 07-03-2024 End: 99-19-4652Sqhoszgll Result EncounterLisa Braydenholz VIDEO CONFERENCE SPECIALIST Work Phone: n[facility] External Department UnsolicitedStart: 07-02-2024 End: 06-53-5673Rwawrpmxi Result EncounterLisa Braydenholz VIDEO CONFERENCE SPECIALIST Work Phone: noms External Department UnsolicitedStart: 07-02-2024 End: 70-39-1299Kaxtesdeg Result EncounterRitu Eng VIDEO CONFERENCE SPECIALIST Work Phone: noms External Department UnsolicitedStart: 07-01-2024 End: 62-01-3089Nqpeyztelt and management of inpatientMENREHAN Suarez [facility] Campustart: 06-25-2024 End: 56-57-8420grhqchguhvFGEA J AICMOSES TAYLOR HOSPITALEdvinSt. John of God Hospital HospitalStart: 06-19-2024 End: 32-63-6651uebzzllbujJUWIFLFAiken Regional Medical Center [facility] Start: 06-05-2024 End: 31-59-2889Ewimhe flowsheetRitu Eng VIDEO CONFERENCE SPECIALIST Work Phone: [facility]WM FMStart: 06-05-2024 End: 96-77-9827Txeigx flowsheetRitu Eng VIDEO CONFERENCE SPECIALIST Work Phone: [facility] FMStart: 06-05-2024 End: 48-23-2142dspgkmvgyyYRVV AICHHOLZNot AvailableStart: 06-05-2024 End: 47-41-5052Toahix outpatient visit 25 minutesLisa Eng VIDEO CONFERENCE SPECIALIST Work Phone: [facility] CWM FMComment on above:Primary hypertension (CMS/HCC) (Primary Dx); Centrilobular emphysema (CMS/HCC); Irregular heart rate; Needs flu shot; Fibromyalgia; Colon cancer screeningStart: 05-07-2024 End: 45-60-0389Nufceomvn encounterLisa Eng VIDEO CONFERENCE SPECIALIST Work Phone: [facility] FMComment on above:Centrilobular emphysema (CMS/HCC)Start: 04-16-2024 End: 27-80-0099PuwqctZmpn Aichholedvin VIDEO CONFERENCE SPECIALIST Work Phone: [facility] FMComment on above:Centrilobular emphysema (CMS/HCC); Urticaria, unspecified; UrticariaStart: 04-10-2024 End: 49-99-1334NpdnegIssh Aichholz VIDEO CONFERENCE SPECIALIST Work Phone: [facility] FMComment on above:Centrilobular emphysema (CMS/HCC)Start: 04-09-2024 End: 82-48-6302TynrysGroc Filomenahholz VIDEO CONFERENCE SPECIALIST Work Phone: [facility] FMComment on above:Centrilobular emphysema (CMS/HCC)Urticaria, unspecified; Urticaria; Primary hypertension (CMS/HCC); Mixed hyperlipidemia (CMS/HCC)Start: 03-13-2024 End: 05-72-3834Zujcugspp Result EncounterLisa Aichholz VIDEO CONFERENCE SPECIALIST Work Phone: n[facility] External Department UnsolicitedStart: 03-13-2024 End: 02-04-7740Nkqcxxgke Result EncounterLisa Aichholz VIDEO CONFERENCE SPECIALIST Work Phone: noms External Department UnsolicitedStart: 02-22-2024 End: 39-38-5094rqblijmuzaXCRO MARGOot AvailableStart: 10-05-2023 End: 56-42-2306ceszevqtrhKEXH RAVI Edvin RADHIKAKettering Health Springfield HospitalStart: 10-05-2023 End: 81-64-8136Zjbabcaob department patient visitJERRELL Suarez SHAKIRAMercy Memorial Hospital HospitalStart: 10-05-2023 End: 06-77-5208imkhjtcyeqFHDC J AICMOSES TAYLOR HOSPITALEdvinOhioHealth Shelby Hospital HospitalStart: 07-12-2022 End: 91-56-9097wlloynpwcfKGF RITU AICHHOLZFacility:Q4Plovh: 06-14-2022 End: 14-72-4941twveizlwnoSBV RITU AICHHOLZFacility:X7Klygb: 04-11-2022 End: 32-43-5917dsyqlbzqzpBYW RITU AICHHOLZFacility:D1Bfugh: 09-20-2021 End: 49-13-8963eqdijshuqyUGV RITU AICHHOLZFacility:Y1Jpdvb: 08-09-2021 End: 49-22-4722jgnxqwcmeaBEC RITU AICHHOLZFacility:K0Wdpis: 69-39-0983Odtoxeltdy GENE MD SAAVEDRAFacility:UNKNOWNStart: 94-29-2580AhwqujlmyrRBPS MD JOHNSON Facility:UNKNOWNStart: 09-08-2017 End: 36-36-6411UzgmzkuccaVSDUKW SHENDGEFacility:[facility]ICtart: 07-14-2017 End: 35-39-6742CmmeflmiopEIQJTD SHENDGEFacility:[facility]ICtart: 05-04-2017 End: 20-29-5007EfgsmtwhkvHXKJIGT PHYSICIANFacility:[facility] Procedures DateProcedureProcedure DetailPerforming ClinicianStart: 35-90-3243DQ ECHO DOPPLER COMPLETEGeneric External Data ProviderStart: 06-10-4051BZD,APTIMA HPV,AGE GDLNLisa Albertina VIDEO CONFERENCE SPECIALIST Work Phone: Start: 81-88-2058Fsxlqqopnbv observation [Identifier] in Cervix by Cyto stainRitu Eng VIDEO CONFERENCE SPECIALIST Work Phone: Start: 88-02-9046KZS LIPID PROFILE (FASTING)Ritu Eng VIDEO CONFERENCE SPECIALIST Work Phone: Start: 86-56-3798FTN ALTLisa Filomenahholz VIDEO CONFERENCE SPECIALIST Work Phone: Start: 34-30-7470IDX ASTLisa Filomenahholz VIDEO CONFERENCE SPECIALIST Work Phone: Start: 75-44-7203MIZ HEMOGLOBIN T3TBjpu Braydenholz VIDEO CONFERENCE SPECIALIST Work Phone: Start: 35-57-9122ZXQXRV MONITOR 8 TO 15 DAYSLisa Filomenahholz VIDEO CONFERENCE SPECIALIST Work Phone: Start: 65-89-6911MnvhifteyygTifu Filomenahholz VIDEO CONFERENCE SPECIALIST Work Phone: Start: 32-40-2846IX TOMOSYNTHESIS SCREENING BILisa Albertina VIDEO CONFERENCE SPECIALIST Work Phone: Start: 41-75-7677TZP LIPID PROFILE (FASTING)Ritu Eng VIDEO CONFERENCE SPECIALIST Work Phone: Start: 66-82-3371PRZ CMP (CMP) (FOR REMOTE [facility] USE) Ritu Eng NP Work Phone: Start: 85-31-3995LSM UA (CLEAN/CATCH) MICROSCOPIC IF Gray Eng VIDEO CONFERENCE SPECIALIST Work Phone: Start: 66-57-9597AwwymrxconpUchb Aichholz VIDEO CONFERENCE SPECIALIST Work Phone: Start: 12-75-6278GZONXU LOWER ARM SURGERYSONIA COBB Start: 55-88-9510Ncrxjknnfec &/transpos median nrv carpal tunneVITHAL SHENDGE Start: 79-98-9657GLPKKS LOWER ARM SURGERYALI Erick HASSANStart: 07-14-2017 Neuroplasty &/transpos median nrv carpal tunneVITHAL SHENDGEStart: 04-14-2017 Microscopic observation [Identifier] in Cervix by Cyto stainRitu Eng VIDEO CONFERENCE SPECIALIST Work Phone: Plan of Treatment DateCare ActivityDetailAuthorStart: 19-20-9912Farzisrwm for malignant neoplasm of colonNOMS HealthcareStart: 18-99-0398Igtmqsbel for malignant neoplasm of cervixNOMS HealthcareStart: 74-77-0455Rlewfpywx vaccinationInfluenza Vaccine (#1)[facility] HealthcareStart: 12-23-9667Rzndxzppg for malignant neoplasm of breast MammogramNOMS HealthcareStart: 10-01-2024 End: 27-70-7488Iwhnitz encounter nfyuhzqvo32/18/2025 2:00 PM EST Office Visit [facility] [address] [place] [id number] Ritu Eng NP [address] [place] [address] Primary hypertension (CMS/HCC) (Primary Dx); Chronic kidney disease, stage 3b (HCC) (CMS/HCC); Unspecified convulsions (CMS/HCC); Tobacco dependenceNOMS CWM FMComment on above:Primary hypertension (CMS/HCC) (Primary Dx); Chronic kidney disease, stage 3b (HCC) (CMS/HCC); Unspecified convulsions (CMS/HCC); Tobacco dependenceStart: 09-17-2024 End: 97-32-3776Zxtbjsx encounter /04/2025 1:20 PM EST Office Visit [facility] [address] [place] [address] Ritu Eng, ODETTE [address] [place] [address] [facility] FMStart: 07-16-2024 End: 76-10-4467Yeyonrh encounter procedureNOMS [facility] FMComment on above:Well woman exam with routine gynecological exam (Primary Dx); Urticaria, unspecified; Urticaria; Primary hypertension (CMS/HCC); Mixed hyperlipidemia (CMS/HCC)Start: 07-16-2024 End: 05-11-9320QRXG PREP TIS PAP AND HR HPV DNATHIN PREP TIS PAP AND HR HPV DNA Pathology and Cytology Routine Well woman exam with routine gynecological exam Expected: 07/16/2024 (Approximate), Expires: 07/16/2025[facility] Work Phone: Comment on above:Expected: 07/16/2024 (Approximate), Expires: 07/16/2025Start: 68-06-0669Gqmchafsh vaccinationInfluenza Vaccine (#1) [facility] HospitalComment on above:Postponed from 04/14/2024 (Patient Does Not Have Time)Start: 06-05-2024 End: 75-26-7475Skimxq monitor studyHolter monitor Imaging Routine Irregular heart rate Expected: 06/05/2024 (Approximate), Expires: 06/05/2025[facility] Work Phone: Comment on above:Expected: 06/05/2024 (Approximate), Expires: 06/05/2025Start: 09-84-7372Jzzlvnbrp for malignant neoplasm of colon [facility] HealthcareStart: 82-27-0368Wurcksldn for malignant neoplasm of cervixNOMS HealthcareStart: 59-44-4624Nfnhlgkuq for malignant neoplasm of cervixHPV/Cotest [facility] HealthcareStart: 90-52-9014Ysdgdkyvd for malignant neoplasm of colonRIVERTON HOSPITAL HealthcareComprehensive metabolic 2000 panel - Serum or PlasmaKettering Memorial HospitalMG Breast - bilateral ScreeningHCA [facility] Hospital Immunizations Immunization DateImmunizationNotesCare OacmwsrrKllsxsdz02-54-2798Ldyloxwuu, injectable, Madin Danae Canine Kidney, preservative free, quadrivalentLisa Aichholz VIDEO CONFERENCE SPECIALIST Work Phone: [facility] HospitalOoqvgemdpc94-71-5799mvfvgjqbe virus vaccine, unspecified formulationLisa Aichholz VIDEO CONFERENCE SPECIALIST Work Phone: [phone] [place], [place] [address]Gexzlafdfl30-55-8778dbykwfoib, injectable, quadrivalent, preservative freeLisa Aichholz VIDEO CONFERENCE SPECIALIST Work Phone: [phone] [place], [place] [address]Qncjsjhbeb67-46-0174rsrvenufy, injectable, quadrivalent, preservative freeLisa Aichholz VIDEO CONFERENCE SPECIALIST Work Phone: [phone] [place], [place] [id number] vaccine recombinant Ritu Aichholz VIDEO CONFERENCE SPECIALIST Work Phone: [facility] HospitalLtrwcyyfzc04-02-2309gjngbqyjt, injectable, quadrivalent, preservative freeLisa Aichholz VIDEO CONFERENCE SPECIALIST Work Phone: [facility] HospitalCkhscxnhvi43-42-1952wkodxbv toxoid, reduced diphtheria toxoid, and acellular pertussis vaccine, adsorbedLisa Aichholz VIDEO CONFERENCE SPECIALIST Work Phone: [phone] [place], [place] [address]Vvfngemjjh14-92-6328avxcubzxmcec polysaccharide vaccine, 23 valentLisa Aichholz VIDEO CONFERENCE SPECIALIST Work Phone: [facility] HospitalBagabvmwua50-93-9664ocbbqsgou, injectable, quadrivalent, preservative freeLisa Aichholz VIDEO CONFERENCE SPECIALIST Work Phone: [facility] HospitalMqweudiuoj22-50-5121iljythuyo, injectable, quadrivalent, preservative freeLisa Aichholz VIDEO CONFERENCE SPECIALIST Work Phone: [facility] HospitalAovjilojtu74-58-0953vqcfquasv, seasonal, injectableLisa Aichholz VIDEO CONFERENCE SPECIALIST Work Phone: [facility] HospitalEllqiqsfev55-78-7704qhyucxqwxbzs polysaccharide vaccine, 23 valentLisa Aichholz VIDEO CONFERENCE SPECIALIST Work Phone: [facility] HospitalYcwucwzayp07-82-9323BE(adult) unspecified formulationLisa Aichholz VIDEO CONFERENCE SPECIALIST Work Phone: [facility] Payers DatePayer CategoryPayerPolicy ID2016MedicaidCARESOURCECARESOURCE MEDICAID CARESOURCE MEDICAID [place] [id number] 2016-Present [address] [place] [address] [id number] Health Insurance CARESOURCE MEDICAID [id number] [id number] 2.1.402392.3.57[id number] 2..1.085262.3.57[id number] ..395848.3.57[id number] 2..1.532913.3.57[id number] 2..1.074460.3.57[id number] 2.840.1.181438.3.57[id number] 2.840.1.003829.3.57[id number] 2.16.840.1.415318.3.57[id number] 2.840.1.220398.3.57[id number] 2.840.1.399842.3.57[id number] 2.840.1.942743.3.57[id number] 2.0.1.429893.3.57[id number] 2.840.1.476843.3.57[id number] 2.840.1.905187.3.57[id number] 2.840.1.556010.3.57[id number] 2.0.1.368535.3.57[id number] 2.840.1.419129.3.57[id number] Social History DateTypeDetailFacilityStart: 02-22-2024 End: 43-52-3911Hmicsma smoking status NHISSmokes tobacco dailyNOMS Healthcare History of tobacco useCigarette SmokerNOMS HealthcareStart: 02-22-2024 End: 49-57-8741Jvfrjkn use and exposureSmokeless tobacco non-userNOMS Healthcare Start: 02-22-2024 End: 60-24-5156Gzkxbdtio beverage intakeCurrent drinker of alcohol (finding)NOMS HealthcareStart: 02-22-2024 End: 57-71-1694Akerwqick beverage intakeNOMS HealthcareStart: 02-22-2024 End: 73-51-1209Zsazusz use panelNOIN HealthcareStart: 65-20-7667Enaipmv Comment caffine: 2 dailyNOMS HealthcareStart: 61-04-9294Bcp assigned at birthNot on file NOMS HealthcareHistory of tobacco usePassive smokerNOMS HealthcareStart: 35-14-4776Bnt often do you need to have someone help you when you read instructions, pamphlets, or other written material from your doctor or pharmacy [SILS]NeverNOMS HealthcareWithin the last year, have you been afraid of your partner or ex-partner?NoNOMS HealthcareAre you now , , , , never or living with a partner?MarriedNOMS HealthcareHow often to you have a drink containing alcohol?2-3 time sa weekNOMS HealthcareHow many standard drinks containing alcohol do you have on a typical day?5 or 6NOMS HealthcareHow often do you have 6 or more drinks on 1 occasion?WeeklyNOMS HealthcareDo you feel stress - tense, restless, nervous, or anxious, or unable to sleep at night because yourmind is troubled all the time - these days [OSQ]To some extentNOMS Healthcare(I/We) worried whether (my/our) food would run out before (I/we) got money to buy more.Never trueNOMS HealthcareTobacco smoking status NHISUnknown if ever smokedMercy Health St. [facility] Hospital Work Phone: SexFemale (finding)[facility] Start: 10-75-6883Kxr Assigned At [facility] HospitalHow often do you need to have someone help you when you read instructions, pamphlets, or other written material from your doctor or pharmacy [SILS]Never [facility] Work Phone: Functional Status GqkeFumfcwuzuzUrjtxxRgsgilcx67-03-5805Lnclkhs Health Questionnaire 2 item (PHQ- 2) [Reported][facility] HospitalYifjofxqyn06-34-9156Xvifm score [AUDIT-C]8 08/30/2024 11:26 AM Dereck Nazario [facility] Clinical Notes 09-20-2021 to 11-08-2024 Note Date & NrloNhjpKihzoack14-83-1257 NoteUT Cardiology - [facility] Subjective Racheal Richardson is a 54 y.o. year old female patient being seen for a follow up appointment. Patient had recent Echo and stress test. Patient states she is feel pretty good. No cardiac complaints. Patient Active Problem List Diagnosis Abnormal Holter monitor finding Centrilobular emphysema (CMS/HCC) Colon cancer screening Elevated glucose Environmental and seasonal allergies Fibromyalgia Irregular heart rate Mixed hyperlipidemia Needs flu shot Osteoarthritis of left hip Pain in both hands Primary hypertension Seizure-like activity (CMS/HCC) Stage 3b chronic kidney disease (CMS/HCC) Tobacco dependence Unspecified convulsions (CMS/HCC) Family History Problem Relation Name Age of Onset Atrial fibrillation Mother Heart attack Father Social History Tobacco Use Smoking status: Every Day Current packs/day: 0.50 Types: Cigarettes Smokeless tobacco: Never Substance Use Topics Alcohol use: Yes Comment: occasionally HPI Visit of 09/23/2024: Racheal is seen today as a new patient for palpitations. She is a 54-year-old woman with prior history of hypertension and hyperlipidemia currently maintained on simvastatin and lisinopril/hydrochlorothiazide. She has history of fibromyalgia. She has PVCs by Holter monitor in June 2024 with a burden of 2%. In February 2024 she was evaluated at the [place] emergency room because of palpitations and concern [...] claudication. She has palpitations that happen occasionally. Visit of 11/08/2024: She is seen in follow-up. At last visit and to investigate her symptoms and NSVT I checked an echocardiogram and a stress test. I also added metoprolol succinate 25 mg once daily. Today she reports that she has been doing well. She has no more symptoms of palpitations. She has no chest pain and no shortness of breath. No dizziness or lightheadedness. Review of Systems Cardiovascular: Negative for irregular heartbeat and palpitations. Musculoskeletal: Negative for back pain. All other systems reviewed and are negative. Objective Visit Vitals BP 133/87 (BP Location: Right arm, Patient Position: Sitting) Pulse 95 Ht 1.651 m (5' 5 ) Wt 80.3 kg (177 lb) SpO2 96% BMI 29.45 kg/m??? Smoking Status Every Day BSA 1.92 [...] (Sulfonamide Antibiotics) Hives Hives, very hot feeling. Metaproterenol Hives and Unknown As a child Medications Current Outpatient Medications: cetirizine (ZyrTEC) 10 mg tablet, Take 1 tablet by mouth in the morning., Disp: , Rfl: gabapentin (Neurontin) 300 mg capsule, Take 300 [...] Disp: , Rfl: metoprolol succinate XL (Toprol-XL) 50 mg 24 hr tablet, Take 1 tablet (50 mg) by mouth in the morning. Do not crush or chew., Disp: 90 tablet, Rfl: 3 Recent Labs Blood testing 07/03/2024: Hemoglobin A1c 5.7%, LFTs normal, triglycerides 99, cholesterol 190, LDL 101, HDL 70. Blood testing 03/13/2024: Hemoglobin 13.7, platelets 237, potassium 3.7, BUN 10, creatinine 0.72, EGFR more than 60, LFTs normal, triglycerides 179, cholesterol 210, (more content not included)...[facility]02-18-2025 History of Present illness Narrative* Ritu Eng NP - 10/01/2024 2:37 PM ESTAssociated Problem(s): Irregular heart rate Continue with cardiology * Ritu Eng NP - 10/01/2024 2:37 PM ESTAssociated Problem(s): Chronic kidney disease, stage 3b (HCC) (CMS/HCC) Monitor labs * Ritu Eng NP - 10/01/2024 2:36 PM ESTAssociated Problem(s): Unspecified convulsions (CMS/HCC) No hx of seizures, happen once a year ago During a stressful time in her life * Ritu Eng NP - 10/01/2024 2:00 PM EST Images from the original note were not included. Racheal Richardson is a 54 y.o. female presents with chief complaint of No chief complaint on file. HPI: Here for fu appt: since last visit was sent to see cardiology d/t bob JOSEPH[facility]. She saw dr Nowak and he started Toprol XL and is ordering a stress test and ECHO She is taking the med daily, does not some nausea with taking the med regardless of food or not. Nochest pain/dyspnea. No dizziness . No lightheadedness. No [...] emphysema (CMS/HCC) 08/15/2023 Coronary artery disease involving alutiiq coronary artery of alutiiq heart without angina pectoris ([facility]/HCC) 08/05/2023 Mixed hyperlipidemia (CMS/HCC) 08/05/2023 Primary hypertension [...] meds: keeley, hydrochlorothiazide, b poornima Unspecified convulsions ([facility]/HCC) No hx of seizures, happen once a year ago During a stressful time in her life Irregular heart rate - Primary Continue with cardiology Chronic kidney disease, stage 3b (HCC) ([facility]) Monitor labs Tobacco dependence The patient has been advised of the risks of continued smoking: stroke, MA, all forms of cancer, lung disease, and . Options for quitting smoking include: cold turkey, hypnosis, acupuncture, nicotine replacement meds(gum, lozenges, and patches), Buproprion, and Varenicline. At this time pt is encouraged to evaluate their goals for wanting to quit smoking, and reach out toprovider when ready to start this process * Ritu Eng NP - 10/01/2024 7:05 AM ESTAssociated Problem(s): Tobacco dependence The patient has been advised of the risks of continued smoking: stroke, MA, all forms of cancer, lung disease, and . Options for quitting smoking include: cold turkey, hypnosis, acupuncture, nicotine replacement meds(gum, lozenges, and patches), Buproprion, and Varenicline. At this time pt is encouraged to evaluate their goals for wanting to quit smoking, and reach out toprovider when ready to start this process * Ritu Eng NP - 10/01/2024 7:05 AM ESTAssociated Problem(s): Primary hypertension ([facility]) Please check blood pressure daily and record DASH diet Limit caffeine Take medication as directed Contact office if chest pain, pressure, dizziness, shortness of breath, swelling legs Recommend slow position changes Current meds: keeley, hydrochlorothiazide, b poornima documented in this encounterSt. Luke's HospitalHagomenrxx83-11-9244 Instructions* Patient Instructions* Ritu Eng NP - 10/01/2024 2:00 PM EST Finish cardiology work up: stress test and US of heart documented in this encounterSt. Luke's HospitalLrhsruswrn96-57-1100 NoteUT Cardiology - [facility] Subjective Racheal Richardson is a 54 y.o. year old female patient being seen to establish care for hypertension and palpitations. She wore a 7 day Holter monitor in Jun 2024. Denies chest pain and SOB. She smokes about 1/2 PPD. Mother has afib and father passed from [place]. Says she saw a cloth dyer a few years ago in [place] prior to [place] because her EKG was [...] February 2024 she was evaluated at the [place] emergency room because of palpitations and concern [...] atrial fibrillation No pa (more content not included)...[facility] 07-23-2024 Telephone encounter Note* Telephone Encounter - Ritu Eng NP - 07/23/2024 6:23 PM EST Please tell pt that her pap test no cancer cells, does show some inflammation in cells Repeat pap smear in [address] [facility] HospitalPazbjnvffr37-63-4955 Miscellaneous Notes* Telephone Encounter - Ritu Eng NP - 07/23/2024 6:23 PM EST Please tell pt that her pap test no cancer cells, does show some inflammation in cells Repeat pap smear in 1 year [place] documented in this encounterSt. Luke's HospitalVrvwozwebq51-44-7200 History of Present illness Narrative* SATIHSH BARKLEY - 07/16/2024 2:00 PM EST Pt is currently having stomach cramps and diarrhea since eating. * Ritu Eng NP - 07/16/2024 2:00 PM EST Images from the original note were not included. Racheal Richardson is a 53 y.o. female presents with chief complaint of Gynecologic Exam HPI: Gynecologic Exam The patient's pertinent negatives include no genital itching, genital lesions, genital odor, pelvicpain, vaginal bleeding or vaginal discharge. The patient is experiencing no pain. She is not . Associated symptoms include diarrhea. Pertinent negatives include no abdominal pain, back pain, chills, constipation, dysuria, fever, flank pain, frequency, headaches, hematuria, joint swelling, na usea, painful intercourse, rash, sore throat or vomiting. Nothing aggravates the symptoms. She is not sexually active. No, her partner does not have an STD. She uses nothing for contraception. She ispostmenopausal. SUBJECTIVE: MEDICATIONS: Current Outpatient Medications Medication Instructions [...] Negative for abdominal pain, blood in stool, constipation,nausea and vomiting. Genitourinary: Negative for difficulty urinating, dysuria, flank pain, frequency, hematuria, pelvicpain and vaginal discharge. Musculoskeletal: Negative for arthralgias, [...] emphysema (CMS/HCC) 08/15/2023 Coronary artery disease involving alutiiq coronary artery of alutiiq heart without angina pectoris (CMS/HCC) 08/05/2023 Mixed [...] nursing note reviewed. Exam conducted with a acetylene torch solderer present. Constitutional: General: She is not in [...] Relevant Medications cetirizine (ZyrTEC) 10 MG tablet * Ritu Eng NP - 07/16/2024 6:54 AM ESTAssociated Problem(s): Well woman exam with routine gynecological exam Reviewed Ht/Wt/BMI Recommend eye exam yearly Recommend dental exams twice a year Balance work/leisure activities Exercises is recommended most days of the week (appropriate as chronic conditions allow) Follow up yearly and prn Thin prep: fu pap per results indicates documented in this [facility]12-03-2024 Instructions* Patient Instructions* Ritu Eng NP - 07/16/2024 2:00 PM EST Monthly breast self exam Yearly mammogram Recommend over the counter Calcium/Vitamin D supplement, such as Oscal plus D (may get generic) Exercise 3-4 times per week for 30 minutes each We will call with results of pap smear Cardiology office: [facility]) [phone] documented in this [facility]10-23-2024 History of Present illness Narrative* Ritu Eng NP - 06/05/2024 1:32 PM EDTAssociated Problem(s): Fibromyalgia Continue claudette OARRS reviewed * Ritu Eng NP - 06/05/2024 1:32 PM EDTAssociated Problem(s): Irregular heart rate Order holter Fu in 4 weeks * Ritu Eng NP - 06/05/2024 1:32 PM EDTAssociated Problem(s): Primary hypertension (CMS/HCC) No changes to blood pressure meds * Ritu Eng NP - 06/05/2024 1:30 PM EDTAssociated Problem(s): Centrilobular emphysema (CMS/HCC) Continue albuterol inhaler Recommend quitting smoking * SATHISH BARKLEY - 06/05/2024 1:00 PM EDT Pt went to er and was told she had pvc Pt is not having any pain pt still has palpitations and more frequent in the last month- she statesthat it does not bother her or hurt Pt states she is having no dizziness or sob * Ritu Eng NP - 06/05/2024 1:00 PM EDT Images from the original note were not [...] controlled. Associated symptoms include palpitations. Pertinent negatives includeno chest pain, headaches or shortness of breath. There are no associated agents to hypertension. Risk factors for coronary artery disease include dyslipidemia, sedentary lifestyle and smoking/tobaccoexposure. Past treatments include diuretics and KEELEY inhibitors. [...] Past Medical History: Diagnosis Date Centrilobular emphysema ([facility]/HCC) 08/15/2023 Coronary artery disease involving alutiiq coronary artery of alutiiq heart without angina pectoris ([facility]) 08/05/2023 Mixed hyperlipidemia ([facility]) 08/05/2023 Primary hypertension ([facility]) 08/05/2023 Past Surgical History: Procedure Laterality Date [...] Relevant Orders Flu vaccine, MDCK, quadrivalent, PF ([id number]) (Flucelvax single dose syringe) documented in this encounterSt. Luke's HospitalZqcvxoyutw14-55-6083 Instructions* Patient Instructions* Ritu Eng NP - 06/05/2024 1:00 PM EDT Fu in 6 weeks; this will be a PAP and hope to have heart monitor results documented in this encounterSt. Luke's HospitalRijnxhvtqp04-22-8666 Telephone encounter Note* Telephone Encounter - Ritu Eng NP - 05/07/2024 7:00 AM EDT Pt needs a fu appt scheduled please [place] [facility] Euqpztcxqq49-00-0036 Miscellaneous Notes* Telephone Encounter - Ritu Eng NP - 05/07/2024 7:00 AM EDT Pt needs a fu appt scheduled please [place] documented in this encounterSt. Luke's HospitalHyymsowjal00-58-5073 NoteChief Complaint NEW: REFERRAL Preoperative clearance, abnormal ekg [...] osteoarthritis which is scheduled on 12/17/20[facility] at [facility]. Patient is a smoker. She smokes 1/2 pack/day. Occasional alcohol use.She is . She has a child who of an overdose and 2 other children who are alive and well. Her mother had atrial fibrillation and her father age 53 of a myocardial infarction. An EKG co mpleted in the office today reveals sinus rhythm with 1 isolated PVC and a heart rate of 95 bpm. Noabnormalities. The patient denies any chest pain or shortness of breath. She is ambulating upstairswithout problems. She states she can walk a [...] examination reveals a normal S1 and S2. Thereis no murmur, rub, S3 or S4. The [...] risk factors for cardiac disease and cardiovascular riskfactor modification was discussed. I do recommend the patient stop her smoking habit. We discussed this (more content not included)...[facility]04-26-2022 Note Patient Education Materials Name: Racheal Richardson Erick Current Date: 12/07/2021 09:26:16 Health System[facility] : 1970 The following sheet(s) are the [...] very fast or irregular heartbeat (palpitations) ? 6618-3297 [employer]. [address] [place] [address]. All rights reserved. This information is not intended as a substitute for professional medical care. Always follow your healthcare professional's instructions.[facility]02-07-2022 NotePROCEDURE: XR KNEE LT 3V HISTORY: Pain of left knee joint [...] margin of patella. Electronically authenticated by: KIP CUNNINGHAM Date: 2021-09-20 11:56The [facility] SystemRbezicyk41-40-9531 NotePROCEDURE: XR SHOULDER LT 2V or > HISTORY: Pain of [...] or bone lesion. Electronically authenticated by: KIP CUNNINGHAM Date: 2021-09-20 11:55The [facility] SystemEftawgyt92-31-1366 NotePROCEDURE: XR HIP LT 2 3V W PELVIS HISTORY: Pain of left hip joint ; chronic pain since falling one-2 years ago COMPARISON: None. FINDINGS: BONES:Narrowing of the left hip joint space with near kxtj-xy-zrkl articulation at the superior margin. No fracture, dislocation, or significant periarticular degenerative osteophytes. SOFT TISSUES:No visible soft tissue swelling. EFFUSION:None visible. OTHER: Mechanical repair of lumbar spine. IMPRESSION: 1. Moderate or greater degenerative joint disease of the left hip. 2. No acute bone abnormality. Electronically authenticated by: KIP CUNNINGHAM Date: 2021-09-20 11:53[facility]* Diagnosis Irregular heart rate- Primary Colon [...] malignant neoplasms, colon documented in this encounter [facility]Evaluation [facility]* Diagnosis Irregular heart rate- Primary [...] Holter monitor finding documented in this encounter [facility]* Diagnosis Irregular heart rate- Primary [...] use disorder documented in this encounter [facility]* Diagnosis Onset Date Resolution Status Admit Date Centrilobular emphysema acuteOctober 2024 2:09pmChronic kidney disease, stage 3bacuteOctober 2024 2:09pmElevated glucoseacuteOctober 2024 2:09pmEncounter for screening mammogram for malignant neoplasm of breastacuteOctober 2024 2:09pmHTN (hypertension)acuteOctober 2024 2:09pmMixed hyperlipidemiaacute May 26, 2025 2:09pmNicotine dependence, uncomplicatedacuteOctober 2024 2:09pm [facility] Work Phone: Reason for referral (narrative)No reason for referral information availableMercy Health St. [facility] Hospital Work Phone: Summary Purpose Family History No Family History Records FoundNo Family History Records FoundNo Family History Records FoundNo Family History Records FoundNo Family History Records FoundNo Family History Records FoundNo Family History Records FoundNo Family History Records FoundNo Family History Records Found Advance Directives Advance Directive Response Recorded Date/ Time Advance Directives No April 1:16pm Chief Complaint and Reason for Visit Chief Complaint Admit Date 6M May 26, 2025 2 :09pm Reason for Visit Admit Date Centrilobular emphysema May 26 2:09pm Chronic kidney disease, stage 3b May 26, 2025 2:09pm Elevated glucose May 26, 2025 2 :09pm Encounter for screening mamm ogram for malignant neoplasm of breast May 26, 2025 2:09pm HTN (hypertension) May 26, 2025 2 :09pm Mixed hyperlipidemia May 26, 2025 2:09pm Nicotine dependence, uncomplicated Octob er 2024 2:09pm Additional Source Comments INFORMATION SOURCE (unrecogn ized section and content) DATE CREATED AUTHOR 01/31/2018 [facility] DATE CREATED AUTHOR AUTHOR'S ORGANIZ ATION 02/05/2018 [facility] DATE CREATED AUTHOR AUTHOR'S ORGANIZ ATION 12/12/2021 [facility] DATE CREATED AUTHOR AUTHOR'S ORGANIZ ATION 07/16/2022 [facility] DATE CREATED AUTHOR AUTHOR'S ORGANIZ ATION 10/12/2023 [facility] DATE CREATED AUTHOR AUTHOR'S ORGANIZ ATION 06/20/2024 [facility] DATE CREATED AUTHOR AUTHOR'S ORGANIZ ATION 07/08/2024 [facility] DATE CREATED AUTHOR AUTHOR'S ORGANIZ ATION 10/03/2024 [facility] DATE CREATED AUTHOR AUTHOR'S ORGANIZ ATION 11/09/2024 [facility] Care Teams (unrecognized sec tion and content) Team MemberRelationshipSpecialtyStart DateEnd Date Unallocated, [place] ProviderMD [address] [place] [address] PCP - GeneralFamily Cidljlzs58/23/24 Ritu Eng NP [address] [place] [address] Nurse PractitionerFamily Medicine02/22/24Team MemberRelationshipSpecialtyStart DateEnd Date Unallocated, [place] ProviderMD [address] [place] [address] PCP - [facility]ov[facility] Mfeqiqwn32/23/24 Ritu Eng NP [address] [place] [address] Nurse PractitionerFamily Medicine02/22/24Team MemberRelationshipSpecialtyStart DateEnd Date Jacob Moore MD [address] [place] [address] PCP - GeneralFami Pjsenxpo40/31/24 Ritu Eng NP [address] [place] [address] PCP - [facility]05/14/24 Ritu Eng NP [address] [place] [address] Nurse Pract[facility]erP[facility]02/22/24Team MemberRelationshipSpecialtyStart DateEnd Date Jacob Moore MD [address] [place] [address] PCP - [facility]06/13/24 Ritu Eng NP [address] [place] [address] PCP - [facility]05/14/24 Ritu Eng NP [address] [place] [address] Nurse PractitionerP[facility]02/22/24Team MemberRelationshipSpecialtyStart DateEnd Date Jacob oMore MD [address] [place] [address] PCP - [facility]06/13/24 Ritu Eng NP [address] [place] [address] PCP - [facility]05/14/24 Ritu Eng NP [address] [place] [address] [facility]02/22/24Team MemberRelationshipSpecialtyStart DateEnd Date Jacob Moore MD [address] [place] [address] PCP - [facility]06/13/24 Ritu Eng NP [address] [place] [address] PCP [facility]05/14/24 Ritu Eng NP [address] [place] [address] [facility]02/22/24Team MemberRelationshipSpecialtyStart DateEnd Date Jacob Moore MD [address] [place] [address] PCP - [facility]06/13/24 Ritu Eng NP [address] [place] [address] [facility]05/14/24 Ritu Eng NP [address] [place] [address] [facility]02/22/24Team MemberRelationshipSpecialtyStart DateEnd Date Jacob Moore MD [address] [place] [address] PCP - [facility]06/13/24 Ritu Eng NP [address] [place] [address] PCP [facility]05/14/24 Ritu Eng NP [address] [place] [address] [facility]02/22/24Team MemberRelationshipSpecialtyStart DateEnd Date Jacob Moore MD [address] [place] [address] PCP - [facility]06/13/24 Ritu Eng NP [address] [place] [address] [facility]05/14/24 Ritu Eng NP [address] [place] [address] [facility]02/22/24Team MemberRelationshipSpecialtyStart DateEnd Date Jacob Moore MD [address] [place] [address] [facility]CP - [facility]02/22/24 Ritu Eng NP [address] [place] [address] [facility]erP[facility]02/22/24Team MemberRelationshipSpecialtyStart DateEnd Date Jacob Moore MD [address] [place] [address] PCP - [facility]02/22/24 Ritu Eng NP [address] [place] [address] [facility]02/22/24Team MemberRelationshipSpecialtyStart DateEnd Date Jacob Moore MD [address] [place] [address] PCP - [facility]02/22/24 Ritu Eng NP [address] [place] [address] [facility]02/22/24Team MemberRelationshipSpecialtyStart DateEnd Date Jacob Moore MD [address] [place] [address] PCP - [facility]02/22/24 Ritu Egn NP [address] [place] [address] [facility]02/22/24Team MemberRelationshipSpecialtyStart DateEnd Date Jacob Moore MD [address] [place] [address] PCP - [facility]06/13/24 Rtiu Eng NP [address] [place] [address] PCP - [facility]05/14/24 Ritu Eng NP [address] [place] [address] [facility]02/22/24 Dereck Bland, [facility]08/29/24Team MemberRelationshipSpecialtyStart DateEnd Date Jacob Moore MD [address] [place] [address] PCP - [facility]06/13/24 Ritu Eng NP [address] [place] [address] PCP [facility]05/14/24 Ritu Eng NP [address] [place] [address] [facility]02/22/24 Dereck Bland, [facility]08/29/24Team MemberRelationshipSpecialtyStart DateEnd Date Jacob Moore MD [address] [place] [address] PCP - [facility]06/13/24 Ritu Eng NP [address] [place] [address] PCP [facility]05/14/24 Ritu Eng NP [address] [place] [address] Nurse PractitionerFamily Medicine02/22/24 Dereck Bland MA [facility]08/29/24 Team Status: Active Member Role Status Dates Ritu Eng NP-C Primary Care Provider Active Team Status: Inactive Member Role Status Dates Ritu Eng VIDEO CONFERENCE SPECIALIST-C Primary Care Provider Active Start: May 26, 2025 End: May 26, 2025Ritu Eng NP-CAttending ProviderActiveStart: May 26, 2025 End: May 26, 2025Team MemberRelationshipSpecialtyStart DateEnd Date Jacob Moore MD PCP - GeneralFamily Medicine02/21/2410 Unallocated, Rachael Davila MD [address] [place] [address] PCP - GeneralFamily Jsxlxpdr24/23/ Jacob Moore MD PCP - GeneralFamily Lzqqjbwd31/31/24 Ritu Eng NP [address] [place] [address] PCP - [facility]05/14/24 Ritu Eng NP Nurse PractitionerFamily Medicine02/22/24 Jo Ann Finnegan LPN [address] [place] [address] Licensed Practical NurseFamily Medicine Dereck Bland MA [address] [place] [address] [facility]Team MemberRelationshipSpecialtyStart DateEnd Date Jacob Moore MD [facility] - [facility]06/13/24 Ritu Eng NP [address] [place] [address] PCP - [facility]05/14/24 Ritu Eng NP Nurse PractitionerAdair County Health Systemly Medicine02/22/24 Jo Ann Finnegan LPN [address] [place], [place] [phone] [facility] NurseP[facility] Dereck Bland, SANA [address] [place] [address] [facility] Reason for Visit (unrecogniz ed section and content) ReasonCommentsGynecologic ExamReasonCommentsMed Refill Goals (unrecognized section and content) Goals may be documented in a n alternate section FOR RECORDS PERTAINING TO PATIENTS WHO ARE [...] BE BASED ON THE PRIMARY CLINICAL RECORDS. [facility]. provides no warranty or guarantee of the accuracy or completeness of information in this document.
[2025-06-25 12:40] LABS: Hematocrit 41.6 % (36.0-48.0); Hemoglobin 14.2 g/dL (12.0-16.0); Immature Granulocytes Abs Auto 0.02 10^3/uL (0.00-0.03); Immature Granulocytes Pct Auto 0.3 % (0.0-0.5); Lymphocytes Absolute Auto 1.7 10^3/uL (1.2-3.8); Mean Corpuscular HGB Conc 34.1 g/dL (29.9-35.2); Mean Corpuscular Hemoglobin 31.8 pg (26.7-34.0); Mean Corpuscular Volume 93.1 fL (81.0-99.0); Platelet Count 241 10^3/uL (150-450); Red Blood Count 4.47 10^6/uL (4.20-5.40); White Blood Count 6.8 10^3/uL (4.0-11.0)
[2025-06-25 13:51] LABS: Glucose Urine UA NEGATIVE (NEGATIVE)
[2025-06-25 13:53] LABS: Chloride 101 mmol/L (98-107); Potassium 4.1 mmol/L (3.5-5.1); Sodium 138 mmol/L (136-145)
[2025-06-25 13:54] LABS: Alanine Aminotransferase 42 U/L (14-59); Albumin Globulin Ratio 1.1; Albumin Level 4.0 g/dL (3.4-5.0); Alkaline Phosphatase 102 U/L (46-116); Anion Gap 11.8; Aspartate Amino Transferase 41 U/L (15-37); Blood Urea Nitrogen 11.0 mg/dL (7.0-18.0); Calcium 9.8 mg/dL (8.5-10.1); Carbon Dioxide 29.3 mmol/L (21.0-32.0); Cholesterol 192 mg/dL (<=200); Estimated GFR (African America >60 (>=60 mL/min/1.73m^2); Estimated GFR (Non-African Ame >60 (>=60 mL/min/1.73m^2); Globulin 3.8 g/dL; Glucose 116 mg/dL (74-106); HDL Cholesterol 81 mg/dL (40-60); Total Protein 7.8 g/dL (6.4-8.2); Triglycerides 79 mg/dL (<=150); VLDL CHOLESTEROL 15.8 mg/dL
[2025-06-25 13:55] LABS: Thyroid Stimulating Hormone 2.724 uIU/mL (0.358-3.740)
[2025-06-25 14:34] LABS: Cast Seen? SEEN #/LPF (NONE SEEN); Crystals Seen? None Seen #/HPF (None Seen)
== END 2025-06-25 11:56 | disposition home or self-care (01) ==
LOC: MAMMO 11:56
PROVIDERS: PCP Nurse Practitioner; Visit Provider Nurse Practitioner
DX: Z12.31 Encounter for screening mammogram for malignant neoplasm of breast (principal); F17.200 Nicotine dependence, unspecified, uncomplicated; R73.09 Other abnormal glucose; N18.32 Chronic kidney disease, stage 3b; E78.2 Mixed hyperlipidemia; Z80.3 Family history of malignant neoplasm of breast; I12.9 Hypertensive chronic kidney disease with stage 1 through stage 4 chronic kidney disease, or unspecified chronic kidney disease
CPT/HCPCS: 36415; 77063; 77067; 80053; 80061; 81001; 82043; 82570; 84443; 85025; 87086